=== PATIENT | female | born 1985 | race Caucasian/White ===

== ENCOUNTER 2020-09-09 14:36 | Outpatient (REF) | payer OTHER, SELFPAY | END 2020-09-09 14:37 | disposition home or self-care (01) | LOC: HO.MRI 14:36 | PROVIDERS: Visit Provider Internal Medicine | DX: Z13.89 Encounter for screening for other disorder (principal) ==

== ENCOUNTER 2020-09-26 14:06 | Outpatient (REF) | payer OTHER, SELFPAY ==
[2020-09-26 14:50] LABS: Blood Urea Nitrogen 15 mg/dL (9-16); Estimated Glomerular Filt Rate > 60
== END 2020-09-26 14:07 | disposition home or self-care (01) ==
LOC: HO.MRI 14:06
PROVIDERS: Visit Provider Internal Medicine
DX: K76.0 Fatty (change of) liver, not elsewhere classified (principal)
CPT/HCPCS: 36415; 82565; 84520

== ENCOUNTER 2020-10-03 13:35 | Emergency (ER) | payer OTHER, SELFPAY ==
[2020-10-03 13:54] VITALS: BP 115/65; RESP 16; TEMP 36.9; O2SAT 94; BMI 34.9
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
== END 2020-10-03 15:46 | disposition home or self-care (01) ==
PROVIDERS: Emergency Provider Emergency Medicine; PCP Internal Medicine
DX: S13.4XXA Sprain of ligaments of cervical spine, initial encounter (principal); S06.0X0A Concussion without loss of consciousness, initial encounter; V43.52XA Car driver injured in collision with other type car in traffic accident, initial encounter; E11.9 Type 2 diabetes mellitus without complications; Y93.89 Activity, other specified; Y92.414 Local residential or business street as the place of occurrence of the external cause; Y99.9 Unspecified external cause status
CPT/HCPCS: 70450; 71046; 72125; 99283; 99284

== ENCOUNTER 2021-01-04 23:01 | Emergency (ER) | payer OTHER, SELFPAY ==
[2021-01-04 23:25] VITALS: BP 115/71; PULSE 86; RESP 16; TEMP 36.6; O2SAT 97; BMI 33.3
--- NOTE | 2021-01-04 23:46 | ED_ITS ---
HPI - General Adult General Chief complaint: Dental/Oral Stated complaint: dental pain Time Seen by Provider: 01/04/21 23:10 Source: patient Mode of arrival: ambulatory Limitations: no limitations History of Present Illness HPI narrative: 35-year-old female who presents emergency department for evaluation of dental pain. She states she has been having pain in 1 upper tooth 1 bottom to and her bottom wisdom tooth x1 week. The patient saw her PCP on 01/02/2020 and was prescribed amoxicillin, ibuprofen 800 mg b.i.d. and Tylenol with codeine 3. She states that the pain was initially a constant, cramping sensation in both her upper and lower jaw but since starting the prescribed medications the pain has been intermittent. She describes the pain as a cramping sensation in both her left upper and lower jaw which is moderate to severe intensity to the point where she is unable to sleep. She denied any facial swelling. She denied fever or chills. She denied difficulty opening or closing her jaw. She denied difficulty swallowing. She states she is scheduled to see a dentist on 01/07/2021. Related Data Previous Rx's Medication Instructions Recorded cyclobenzaprine 10 mg PO TID PRN #12 tab 10/03/20 ibuprofen 600 mg PO Q8H PRN #20 tab 10/03/20 lidocaine [Lidoderm] 1 patch TOPICAL DAILY #15 ea 10/03/20 morphine 15 mg PO Q4-6H PRN #10 tab 01/04/21 Allergies Allergy/AdvReac Type Severity Reaction Status Date / Time No Known Allergies Allergy Verified 10/03/20 14:01 Review of Systems Review of Systems: Yes all other systems are reviewed and are negative [facility] Past Medical History [facility] Narrative: Patient has a history of diabetes mellitus, she denies tobacco use, she states she drinks alcohol every other weekend, she denies drug use. Medical History Diabetes mellitus, type 2 Social History Social History Advance Directives: No Advance Directives Information Provided: No Physical Exam Vital Signs: Vital Signs: Last Vital Signs Temp 97.8 F 01/04/21 23:25 Pulse 86 01/04/21 23:25 Resp 16 01/04/21 23:25 BP 115/71 01/04/21 23:25 Pulse Ox 97 05/01/21 23:25 Body Mass Index 33.3 Const: General: cooperative and healthy appearing Orientation/consciousne ss: oriented to person and oriented to place Limitations: no limitations HENMT: Other: The patient's dentition appears to be normal, she does have some tenderness with palpation over the left lower wisdom to but no other tenderness with palpation of her other teeth, there is no gingival swelling, there is no unusual/abnormal facial swelling. She does have tenderness with palpation of her left lower mandible Head: Yes normal to inspection, Yes normocephalic and Yes atraumatic Ears: hearing grossly normal bilaterally, external ears normal and TM's normal bilaterally General nose exam: Normal external nose present Face and sinus: Yes normal facial exam Mouth: Normal oral and palatal mucosa present Eyes: General: appearance normal, both eyes and all related structures Periorbital: periorbital findings normal Eyelids: Yes eyelids normal Conjunctivae: conjunctivae normal Sclerae: sclerae normal Pupils: Equal, round and reactive pupils present Neck: Neck: Yes normal visual inspection, Yes full ROM, Yes no lymphadenopathy and Yes trachea midline Resp: Effort & Inspection: normal respiratory effort Neuro: General: oriented to person and oriented to place Cranial nerves: Yes Equal, round and reactive pupils present Cognition (Neuro): normal cognition Psych: Appearance: grossly normal Mental Status: mental status grossly normal Speech and movement: Normal speech and movement present Affect: normal affect Attitude: cooperative Course Course Course Narrative: 35-year-old female who presents emergency department for evaluation of left sided dental pain both her left upper and lower jaw. Physical examination revealed normal vital signs. The patient did have tenderness with palpation of her lower mandible and tenderness with palpation of her left lower wisdom tooth but no other tenderness with palpation of her teeth, her teeth appear to be grossly normal with no gingival swelling and no facial swelling. I discussed the treatment of dental pain with the patient. I advised her to complete her amoxicillin prescription as prescribed by her doctor. She was advised to stop taking the Tylenol with codeine and ibuprofen 800 mg tablets twice a day. She was advised to take ibuprofen 600 mg every 6 hours, extra-strength Tylenol 500 mg, 2 pills every 6 hours and she was prescribed morphine 15 mg every 4 hours as needed for pain. The patient is aware that morphine is in addicting medication and she states she is not concerned about addiction, she states she does not get frequent prescriptions for narcotic medications. She was advised to keep her appointment with her dentist. [facility] search revealed a prescription for Tylenol with codeine 3 and lorazepam over a 1 year search interval. Discharge Plan Discharge Clinical Impression: Pain, dental Patient Disposition: Home, Self-Care Instructions: Toothache (ED) Additional Instructions: Finish your amoxicillin as prescribed by your doctor. Stop taking the ibuprofen 800 mg tablets and the Tylenol with codeine tablets. Take ibuprofen 200 mg pills, 3 pills every 6 hours as needed for pain. Take Tylenol (acetaminophen) 500 mg pills, 2 pills every 4 hours as needed for pain. For pain not relieved by ibuprofen and Tylenol, take morphine 15 mg every 4-6 hours. This medication will make you sleepy, do not work or drive while taking this medication. This medication can be addicting, do not get this prescription filled if your concerned about addiction. You can also ask the pharmacist to give you less pills and prescribed if your concerned about addiction. Follow-up with your dentist as scheduled in 3 days. Please return to the emergency department if your symptoms get worse or if you develop any symptoms that are concerning to you. Prescriptions: New morphine 15 mg tablet 15 mg PO Q4-6H PRN (Reason: pain) Qty: 10 RF: 0 No Action cyclobenzaprine 10 mg tablet 10 mg PO TID PRN (Reason: muscle spasm) Qty: 12 RF: 0 ibuprofen 600 mg tablet 600 mg PO Q8H PRN (Reason: pain) Qty: 20 RF: 0 lidocaine [Lidoderm] 5 % adhesive patch,medicated 1 patch topical DAILY Qty: 15 RF: 0
== END 2021-01-05 00:12 | disposition home or self-care (01) ==
PROVIDERS: Emergency Provider Emergency Medicine Emergency Medical Services; PCP Internal Medicine
DX: K08.89 Other specified disorders of teeth and supporting structures (principal); Z79.899 Other long term (current) drug therapy
CPT/HCPCS: 99283

== ENCOUNTER 2021-04-07 10:38 | Emergency (ER) | payer OTHER, SELFPAY ==
--- NOTE | ~2021-04-07 | XR_ITS ---
EXAMINATION: XR CHEST CLINICAL INFORMATION: Chest pain. COMPARISON: Chest radiographs dated 10/03/2020. TECHNIQUE: Frontal view of the chest was obtained. FINDINGS: No significant abnormality is noted involving the heart, lungs, mediastinum, bony thorax or soft tissues. XR/XR chest 1V IMPRESSION: Unremarkable examination.
[2021-04-07 11:32] VITALS: BP 116/75; PULSE 65; RESP 18; TEMP 36.6; O2SAT 98; BMI 33.4
--- NOTE | 2021-04-07 13:20 | ED.GENADULT ---
HPI - General Adult General Chief complaint: General Medical Stated complaint: throat pain Time Seen by Provider: 04/07/21 13:19 Source: patient Mode of arrival: ambulatory Limitations: no limitations History of Present Illness MD complaint: dental pain, chest pain Onset (ago): month(s) (dental pain for 3 months on abx plan with outpatient surgery, R sided sharp chest pain since yesterday hurts to touch it) Location: mouth and chest Radiation: non-radiation Severity: moderate Quality: stabbing Pain Consistency: constant Relieving factors: none Exacerbating factors: movement Associated symptoms: other (chronic dental pain) Treatments prior to arrival: other (abx) Related Data Previous Rx's Medication Instructions Recorded cyclobenzaprine 10 mg tablet 10 mg PO TID PRN #12 tab 10/03/20 ibuprofen 600 mg tablet 600 mg PO Q8H PRN #20 tab 10/03/20 lidocaine 5 % topical patch 1 patch TOPICAL DAILY #15 ea 10/03/20 (Lidoderm) morphine 15 mg immediate release 15 mg PO Q4-6H PRN #10 tab 01/04/21 tablet cyclobenzaprine 10 mg tablet 10 mg PO TID PRN #14 tab 04/07/21 Allergies Allergy/AdvReac Type Severity Reaction Status Date / Time No Known Allergies Allergy Verified 10/03/20 14:01 Review of Systems Review of Systems: Constitutional : No Weight loss, No Fever, No Chills ENT/Mouth : No sore throat, No Rhinorrhea, pos dental pain Eyes: No Eye Pain, No Swelling Cardiovascular : pos Chest Pain, no SOB, no Dyspnea on Exertion, No Orthopnea, No Edema, No Palpitations Respiratory : No Cough, No Sputum Gastrointestinal : no Nausea, No Vomiting, No Diarrhea, No abdominal Pain, No Hematochezia, No Melena Genitourinary : No Dysuria, No Urinary Frequency Musculoskeletal : No joint pain, No Myalgias, No Joint Swelling Skin : No Skin Lesions, No rash Neuro : No Weakness, No Numbness, No Dizziness, No Headache Psych : No Anxiety/Panic, No Depression Heme/Lymph: No Bruising, No Lymphadenopathy Endocrine : No Polyuria, No Polydipsia All other systems reviewed and are negative PMFSH Past Medical History Attestation statement: The following information was validated with the patient. Medical History (Updated 04/07/21 @ 14:54 by Joyce Rodriguez DO) Chronic dental pain Diabetes mellitus, type 2 Social History Social History (Updated 04/07/21 @ 13:40 by Joyce Rodriguez DO) Patient Tobacco Use Status: Never used Tobacco Advance Directives: No Advance Directives Information Provided: No Patient : No Physical Exam Vital Signs: Vital Signs: Last Vital Signs Temp 97.9 F 04/07/21 14:28 Pulse 59 04/07/21 14:28 Resp 18 04/07/21 14:28 BP 122/63 04/07/21 14:28 Pulse Ox 98 04/07/21 14:28 Body Mass Index 33.4 Appearance: Alert. Oriented X3. No acute distress. Eyes: Pupils equal, round and reactive to light. ENT: Pharynx normal. L lower wisdom tooth is impacted no abscess noted, ttp along gingiva Neck: Normal inspection. Neck supple. CVS: Normal heart rate and rhythm. Pulses normal. Chest: ttp along R chest wall Respiratory: No respiratory distress. Breath sounds normal. Abdomen: Soft and nontender. Skin: Skin warm and dry. Normal skin color. Normal skin turgor. Extremities: No lower extremity edema. No calf ttp Neuro: Oriented X 3. No motor deficit. No sensory deficit. Course Course Course Narrative: not toxic, labs stable, patient requesting to leave Medical Decision Making [facility] Narrative Medical decision making narrative: 36 yo female chronic dental pain on abx now no signs of abscess or deeper space infection at this time, c/o reproduceable R sided CWP PERC negative, atypical for ACS, EKG, trop x 1, CXR - if negative stable for DC home Lab Data Result diagrams: 04/07/21 13:59 04/07/21 13:59 Labs: Lab Results 04/07/21 04/07/21 04/07/21 Range/Units 13:53 13:59 13:59 WBC 6.2 (4.8-10.8) X10*3/uL RBC 4.52 (4.20-5.50) X10*6/uL Hgb 14.1 (12.0-16.0) g/dl Hct 41.3 (37-47) % MCV 91.4 (80-98) fL MCH 31.2 (27.0-33.0) pg MCHC 34.1 (31.0-35.0) g/dl RDW 11.7 (11.0-16.0) % Plt Count 319 (160-400) X10*3/uL MPV 9.4 (9.4-12.3) fL Immature Gran % (Auto) 0.5 H (0.0-0.4) % Neut % (Auto) 57.2 (45-73) % Lymph % (Auto) 31.6 (20-40) % [place] % (Auto) 7.9 (2-11) % Eos % (Auto) 2.3 (0-4) % Baso % (Auto) 0.5 (0-2) % Lymph # (Auto) 2.0 (1.2-4.9) X10*3/uL [place] # (Auto) 0.5 (0.1-1.2) X10*3/uL Eos # (Auto) 0.1 (0.0-0.4) X10*3/uL Baso # (Auto) 0.0 (0.0-0.2) X10*3/uL Abs Immat Gran (auto) 0.03 (0.00-0.03) X10*3/uL Absolute Neuts (auto) 3.6 (2.0-8.3) X10*3/uL Absolute Nucleated RBC 0.000 (0.0-0.012) X10*3/uL Nucleated RBC % (auto) 0.0 (0.0-0.2) /100WBC Sodium 138 (135-145) mmol/L Potassium 4.4 (3.3-5.1) mmol/L Chloride 104 (96-108) mmol/L Carbon Dioxide 27 (22-29) mmol/L Anion Gap 11 L (12-20) BUN 13 (9-16) mg/dL Creatinine 0.79 (0.5-1.4) mg/dL Estim Creat Clear Calc 111.9 Estimated GFR > 60 Random Glucose 221 H (60-115) mg/dL Calcium 9.3 (8.4-10.2) mg/dL Troponin I High Sens (<3.5-17.0) ng/L COVID-19 (EVE) Negative (Negative) COVID-19 Clin Com See Note 04/07/21 Range/Units 13:59 WBC (4.8-10.8) X10*3/uL RBC (4.20-5.50) X10*6/uL Hgb (12.0-16.0) g/dl Hct (37-47) % MCV (80-98) fL MCH (27.0-33.0) pg MCHC (31.0-35.0) g/dl RDW (11.0-16.0) % Plt Count (160-400) X10*3/uL MPV (9.4-12.3) fL Immature Gran % (Auto) (0.0-0.4) % Neut % (Auto) (45-73) % Lymph % (Auto) (20-40) % [place] % (Auto) (2-11) % Eos % (Auto) (0-4) % Baso % (Auto) (0-2) % Lymph # (Auto) (1.2-4.9) X10*3/uL [place] # (Auto) (0.1-1.2) X10*3/uL Eos # (Auto) (0.0-0.4) X10*3/uL Baso # (Auto) (0.0-0.2) X10*3/uL Abs Immat Gran (auto) (0.00-0.03) X10*3/uL Absolute Neuts (auto) (2.0-8.3) X10*3/uL Absolute Nucleated RBC (0.0-0.012) X10*3/uL Nucleated RBC % (auto) (0.0-0.2) /100WBC Sodium (135-145) mmol/L Potassium (3.3-5.1) mmol/L Chloride (96-108) mmol/L Carbon Dioxide (22-29) mmol/L Anion Gap (12-20) BUN (9-16) mg/dL Creatinine (0.5-1.4) mg/dL Estim Creat Clear Calc Estimated GFR Random Glucose (60-115) mg/dL Calcium (8.4-10.2) mg/dL Troponin I High Sens < 3.5 (<3.5-17.0) ng/L COVID-19 (EVE) (Negative) COVID-19 Clin Com ECG Data Attestation: I personally reviewed and interpreted this ECG as follows: Interpretation: Rate: 55 Rhythm: sinus bradycardia [place]: normal Normal P waves. Normal RAHUL. Normal QRS complex. ST T wave : normal no GE qTC: normal prior studies: no acute ischemia The study has been interpreted contemporaneously by me. . Discharge Plan Discharge Clinical Impression: Chronic dental pain Chest pain Qualifiers: Chest pain type: unspecified Qualified Code(s): R07.9 - Chest pain, unspecified Patient Disposition: Home, Self-Care Instructions: Chest Pain (ED) Additional Instructions: return to ED for any worsening symptoms or concerns Prescriptions: New cyclobenzaprine 10 mg tablet 10 mg PO TID PRN (Reason: muscle spasm) Qty: 14 RF: 0 No Action morphine 15 mg tablet 15 mg PO Q4-6H PRN (Reason: pain) Qty: 10 RF: 0 cyclobenzaprine 10 mg tablet 10 mg PO TID PRN (Reason: muscle spasm) Qty: 12 RF: 0 ibuprofen 600 mg tablet 600 mg PO Q8H PRN (Reason: pain) Qty: 20 RF: 0 lidocaine [Lidoderm] 5 % adhesive patch,medicated 1 patch topical DAILY Qty: 15 RF: 0 Referrals: James Larson MD [Primary Care Provider] - 2 days (if not better) Stand Alone Forms: Work/School Release
--- NOTE | 2021-04-07 13:29 | ECG_ITS ---
Test Reason : CHEST PAIN Blood Pressure : / mmHG Vent. Rate : 055 BPM Atrial Rate : 055 BPM P-R Int : 154 ms QRS Dur : 088 ms QT Int : 456 ms P-R-T Axes : 041 -09 034 degrees QTc Int : 436 ms Sinus bradycardia with sinus arrhythmia Otherwise normal ECG No previous ECGs available Referred By: Joyce Rodriguez Electronically Signed By:Luis Cabrera
[2021-04-07 14:04] LABS: MANUAL DIFF FLAG NO
[2021-04-07 14:05] LABS: Basophils Percent Auto 0.5 % (0-2); Eosinophils Absolute Auto 0.1 X10*3/uL (0.0-0.4); Eosinophils Percent Auto 2.3 % (0-4); Hematocrit 41.3 % (37-47); Hemoglobin 14.1 g/dl (12.0-16.0); Imm Gran Abs Auto 0.03 X10*3/uL (0.00-0.03); Imm Gran Pct Auto 0.5 % (0.0-0.4); Lymphocytes Percent Auto 31.6 % (20-40); Mean Corpuscular HGB Conc 34.1 g/dl (31.0-35.0); Mean Corpuscular Hemoglobin 31.2 pg (27.0-33.0); Mean Corpuscular Volume 91.4 fL (80-98); Mean Platelet Volume 9.4 fL (9.4-12.3); Monocytes Absolute Auto 0.5 X10*3/uL (0.1-1.2); Monocytes Percent Auto 7.9 % (2-11); Neutrophils Absolute Auto 3.6 X10*3/uL (2.0-8.3); Neutrophils Percent Auto 57.2 % (45-73); Platelet Count 319 X10*3/uL (160-400); Red Blood Count 4.52 X10*6/uL (4.20-5.50); Red Cell Distribution Width 11.7 % (11.0-16.0); White Blood Count 6.2 X10*3/uL (4.8-10.8)
[2021-04-07] MEDS: 0.9 % Sodium Chloride 1,000 ML 999 ML IVCONT (14:10)
[2021-04-07 14:15] LABS: COVID-19 Test Negative (Negative); IDNOW Serial# 08D9AD1C
[2021-04-07 14:28] VITALS: BP 122/63; PULSE 59; RESP 18; TEMP 36.6; O2SAT 98
[2021-04-07 14:35] LABS: Anion Gap 11 (12-20); Blood Urea Nitrogen 13 mg/dL (9-16); Calcium 9.3 mg/dL (8.4-10.2); Carbon Dioxide 27 mmol/L (22-29); Chloride 104 mmol/L (96-108); Creatinine Clr Calc Pharmacy 111.9; Estimated Glomerular Filt Rate > 60; Glucose Random 221 mg/dL (60-115); Potassium 4.4 mmol/L (3.3-5.1); Sodium 138 mmol/L (135-145)
[2021-04-07 14:42] LABS: Troponin-I High Sensitivity < 3.5 ng/L (<3.5-17.0)
== END 2021-04-07 15:10 | disposition home or self-care (01) ==
PROVIDERS: Emergency Provider Emergency Medicine; PCP Internal Medicine
DX: K08.89 Other specified disorders of teeth and supporting structures (principal); R07.9 Chest pain, unspecified; Z20.822 Contact with and (suspected) exposure to COVID-19; R00.1 Bradycardia, unspecified; J02.9 Acute pharyngitis, unspecified; E11.9 Type 2 diabetes mellitus without complications
CPT/HCPCS: 36415; 71045; 80048; 84484; 85025; 87635; 93005; 96360; 99284

== ENCOUNTER 2021-05-18 17:31 | Emergency (ER) | payer OTHER, SELFPAY ==
--- NOTE | 2021-05-18 17:37 | ECG_ITS ---
Test Reason : CHEST PAIN Blood Pressure : / mmHG Vent. Rate : 087 BPM Atrial Rate : 087 BPM P-R Int : 154 ms QRS Dur : 090 ms QT Int : 392 ms P-R-T Axes : 045 -12 027 degrees QTc Int : 471 ms Normal sinus rhythm with sinus arrhythmia Nonspecific T wave abnormality Abnormal ECG When compared with ECG of 07-APR-2021 14:54, Vent. rate has increased BY 32 BPM Nonspecific T wave abnormality now evident in Anterior leads Referred By: Generic ED Physician Electronically Signed By:ROSA MENEZES
[2021-05-18 22:04] LABS: Glucose, Whole Blood 217 mg/dL (60-115)
--- NOTE | 2021-05-18 23:49 | ED_ITS ---
HPI - Chest Pain General Chief Complaint: General Medical Stated Complaint: Chest pain/HBS Time Seen by Provider: 05/18/21 23:47 Source: patient Mode of arrival: ambulatory History of Present Illness HPI narrative: 36-year-old female with history of diabetes, currently deciding not to take her medications, or who presents with 1 year of intermittent chest wall pain that is located primarily on the right side, exacerbated by deep inspiration and reproducible. This is not been associated with any fever, chills, shortness of breath, diaphoresis, dizziness or headache. Patient is currently being worked up for a stress test in 1 month. Related Data Previous Rx's Medication Instructions Recorded cyclobenzaprine 10 mg tablet 10 mg PO TID PRN #12 tab 10/03/20 ibuprofen 600 mg tablet 600 mg PO Q8H PRN #20 tab 10/03/20 lidocaine 5 % topical patch 1 patch TOPICAL DAILY #15 ea 10/03/20 (Lidoderm) morphine 15 mg immediate release 15 mg PO Q4-6H PRN #10 tab 01/04/21 tablet cyclobenzaprine 10 mg tablet 10 mg PO TID PRN #14 tab 04/07/21 Allergies Allergy/AdvReac Type Severity Reaction Status Date / Time No Known Allergies Allergy Verified 10/03/20 14:01 Review of Systems Review of Systems: Pertinent positives and negatives as stated in HPI 10 point review systems is otherwise negative. PMFSH Past Medical History Source: nursing notes reviewed Medical History Chronic dental pain Diabetes mellitus, type 2 Social History Social History Patient Tobacco Use Status: Never used Tobacco Advance Directives: No Advance Directives Information Provided: No Patient : No Physical Exam Vital Signs: Vital Signs: VITAL SIGNS: Reviewed. GENERAL: Well developed, well nourished, in no acute distress. HEAD: Normocephalic/atraumatic EYES: PERRLA, EOMI LUNGS: Normal breath sounds. No adventitious sounds or accessory muscle use. SpO2<98> CARDIOVASCULAR: Regular rate and rhythm without noted murmurs ABDOMEN: Soft, non-tender, non-distended with bowel sounds. MUSCULOSKELETAL: No tenderness, deformities, or effusions noted on gross inspection. EXTREMITIES: No cyanosis, clubbing or edema. NEUROLOGIC: Alert and oriented x 4. Course Course Course Narrative: 36-year-old female with history and clinical presentation suggestive of a costochondritis and low clinical suspicion for cardiac/p ulmonary/gallbladder etiology. Patient with poor compliance a her diabetic medication. She was strongly encouraged to follow-up with her primary care provider and discuss alternative medications for which she can have better compliance. Review of all investigations negative for acute findings to suggest infection, anemia, arrhythmia and high sensitivity troponin is once again undetectable. Patient discharged with instructions to follow-up with her primary care provider in the morning. MDM - Chest Pain Lab Data Result diagrams: 05/19/21 00:08 05/19/21 00:08 Labs: Lab Results 05/18/21 05/19/21 05/19/21 Range/Units 21:59 00:08 00:08 WBC 6.4 (4.8-10.8) X10*3/uL RBC 4.51 (4.20-5.50) X10*6/uL Hgb 14.1 (12.0-16.0) g/dl Hct 40.9 (37-47) % MCV 90.7 (80-98) fL MCH 31.3 (27.0-33.0) pg MCHC 34.5 (31.0-35.0) g/dl RDW 11.8 (11.0-16.0) % Plt Count 336 (160-400) X10*3/uL MPV 9.5 (9.4-12.3) fL Immature Gran % (Auto) 0.2 (0.0-0.4) % Neut % (Auto) 55.7 (45-73) % Lymph % (Auto) 34.3 (20-40) % [place] % (Auto) 7.2 (2-11) % Eos % (Auto) 2.4 (0-4) % Baso % (Auto) 0.2 (0-2) % Lymph # (Auto) 2.2 (1.2-4.9) X10*3/uL [place] # (Auto) 0.5 (0.1-1.2) X10*3/uL Eos # (Auto) 0.2 (0.0-0.4) X10*3/uL Baso # (Auto) 0.0 (0.0-0.2) X10*3/uL Abs Immat Gran (auto) 0.01 (0.00-0.03) X10*3/uL Absolute Neuts (auto) 3.6 (2.0-8.3) X10*3/uL Absolute Nucleated RBC 0.000 (0.0-0.012) X10*3/uL Nucleated RBC % (auto) 0.0 (0.0-0.2) /100WBC Sodium 139 (135-145) mmol/L Potassium 3.9 (3.3-5.1) mmol/L Chloride 103 (96-108) mmol/L Carbon Dioxide 27 (22-29) mmol/L Anion Gap 13 (12-20) BUN 11 (9-16) mg/dL Creatinine 0.81 (0.5-1.4) mg/dL Estim Creat Clear Calc TNP Estimated GFR > 60 POC Glucose 217 H (60-115) mg/dL Random Glucose 165 H (60-115) mg/dL Calcium 10.0 D (8.4-10.2) mg/dL Total Bilirubin 0.4 (0.0-1.0) mg/dL AST 21 (5-31) U/L ALT 36 H (0-31) U/L Alkaline Phosphatase 77 (39-117) U/L Troponin I High Sens (<3.5-17.0) ng/L Total Protein 7.4 (6.5-8.0) g/dL Albumin 4.6 (3.5-5.0) g/dL 05/19/21 Range/Units 00:08 WBC (4.8-10.8) X10*3/uL RBC (4.20-5.50) X10*6/uL Hgb (12.0-16.0) g/dl Hct (37-47) % MCV (80-98) fL MCH (27.0-33.0) pg MCHC (31.0-35.0) g/dl RDW (11.0-16.0) % Plt Count (160-400) X10*3/uL MPV (9.4-12.3) fL Immature Gran % (Auto) (0.0-0.4) % Neut % (Auto) (45-73) % Lymph % (Auto) (20-40) % [place] % (Auto) (2-11) % Eos % (Auto) (0-4) % Baso % (Auto) (0-2) % Lymph # (Auto) (1.2-4.9) X10*3/uL [place] # (Auto) (0.1-1.2) X10*3/uL Eos # (Auto) (0.0-0.4) X10*3/uL Baso # (Auto) (0.0-0.2) X10*3/uL Abs Immat Gran (auto) (0.00-0.03) X10*3/uL Absolute Neuts (auto) (2.0-8.3) X10*3/uL Absolute Nucleated RBC (0.0-0.012) X10*3/uL Nucleated RBC % (auto) (0.0-0.2) /100WBC Sodium (135-145) mmol/L Potassium (3.3-5.1) mmol/L Chloride (96-108) mmol/L Carbon Dioxide (22-29) mmol/L Anion Gap (12-20) BUN (9-16) mg/dL Creatinine (0.5-1.4) mg/dL Estim Creat Clear Calc Estimated GFR POC Glucose (60-115) mg/dL Random Glucose (60-115) mg/dL Calcium (8.4-10.2) mg/dL Total Bilirubin (0.0-1.0) mg/dL AST (5-31) U/L ALT (0-31) U/L Alkaline Phosphatase (39-117) U/L Troponin I High Sens < 3.5 (<3.5-17.0) ng/L Total Protein (6.5-8.0) g/dL Albumin (3.5-5.0) g/dL Discharge Plan Discharge Clinical Impression: Atypical chest pain, Acute costochondritis, Diabetes Patient Disposition: Home, Self-Care Instructions: Costochondritis (ED) Additional Instructions: 1. Resume all medications as prescribed, recommend following up with your primary care provider to discuss further your medication for diabetes. 2. Return to the ER for acute worsening of pains and may consider treating your discomfort with [id number] Tylenol/ibuprofen. Prescriptions: No Action morphine 15 mg tablet 15 mg PO Q4-6H PRN (Reason: pain) Qty: 10 RF: 0 cyclobenzaprine 10 mg tablet 10 mg PO TID PRN (Reason: muscle spasm) Qty: 14 RF: 0 cyclobenzaprine 10 mg tablet 10 mg PO TID PRN (Reason: muscle spasm) Qty: 12 RF: 0 ibuprofen 600 mg tablet 600 mg PO Q8H PRN (Reason: pain) Qty: 20 RF: 0 lidocaine [Lidoderm] 5 % adhesive patch,medicated 1 patch topical DAILY Qty: 15 RF: 0 Referrals: James Larson MD [Primary Care Provider] - 2 days (Re-evaluation after patient seen in the ER for 1 year of intermittent right anterior chest wall pain)
[2021-05-19 00:13] LABS: MANUAL DIFF FLAG NO
[2021-05-19 00:15] LABS: Basophils Percent Auto 0.2 % (0-2); Eosinophils Absolute Auto 0.2 X10*3/uL (0.0-0.4); Eosinophils Percent Auto 2.4 % (0-4); Hematocrit 40.9 % (37-47); Hemoglobin 14.1 g/dl (12.0-16.0); Imm Gran Abs Auto 0.01 X10*3/uL (0.00-0.03); Imm Gran Pct Auto 0.2 % (0.0-0.4); Lymphocytes Absolute Auto 2.2 X10*3/uL (1.2-4.9); Lymphocytes Percent Auto 34.3 % (20-40); Mean Corpuscular HGB Conc 34.5 g/dl (31.0-35.0); Mean Corpuscular Hemoglobin 31.3 pg (27.0-33.0); Mean Corpuscular Volume 90.7 fL (80-98); Mean Platelet Volume 9.5 fL (9.4-12.3); Monocytes Absolute Auto 0.5 X10*3/uL (0.1-1.2); Monocytes Percent Auto 7.2 % (2-11); Neutrophils Absolute Auto 3.6 X10*3/uL (2.0-8.3); Neutrophils Percent Auto 55.7 % (45-73); Platelet Count 336 X10*3/uL (160-400); Red Blood Count 4.51 X10*6/uL (4.20-5.50); Red Cell Distribution Width 11.8 % (11.0-16.0); White Blood Count 6.4 X10*3/uL (4.8-10.8)
[2021-05-19 00:34] LABS: Alanine Aminotransferase 36 U/L (0-31); Albumin Level 4.6 g/dL (3.5-5.0); Alkaline Phosphatase 77 U/L (39-117); Anion Gap 13 (12-20); Aspartate Amino Transferase 21 U/L (5-31); Bilirubin Total 0.4 mg/dL (0.0-1.0); Blood Urea Nitrogen 11 mg/dL (9-16); Carbon Dioxide 27 mmol/L (22-29); Chloride 103 mmol/L (96-108); Estimated Glomerular Filt Rate > 60; Glucose Random 165 mg/dL (60-115); Potassium 3.9 mmol/L (3.3-5.1); Sodium 139 mmol/L (135-145); Total Protein 7.4 g/dL (6.5-8.0)
[2021-05-19 00:37] LABS: Troponin-I High Sensitivity < 3.5 ng/L (<3.5-17.0)
[2021-05-19] MEDS: Acetaminophen 325 MG TABLET 975 MG PO (00:46)
[2021-05-19] MEDS: Ibuprofen 400 MG TABLET PO (00:46)
[2021-05-19 01:08] VITALS: BP 116/75; PULSE 74; RESP 19; TEMP 36.9; O2SAT 98; BMI 33.0
== END 2021-05-19 01:33 | disposition home or self-care (01) ==
PROVIDERS: Emergency Provider Student in an Organized Health Care Education/Training Program; PCP Internal Medicine
DX: R07.9 Chest pain, unspecified (principal); M94.0 Chondrocostal junction syndrome [Tietze]; E11.9 Type 2 diabetes mellitus without complications; Z79.899 Other long term (current) drug therapy
CPT/HCPCS: 36415; 80053; 82947; 84484; 85025; 93005; 99283

== ENCOUNTER 2023-04-01 14:24 | Outpatient (REF) | payer OTHER, SELFPAY ==
[2023-04-01 15:52] LABS: Influenza A PCR NEGATIVE (Negative); Influenza B PCR NEGATIVE (Negative); Resp Syncy Virus RNA Qual PCR NEGATIVE (Negative); SARS COV2 PCR INHOUSE NEGATIVE (Negative)
== END 2023-04-01 14:25 | disposition home or self-care (01) ==
LOC: HO.HHCLNP 14:24
PROVIDERS: Visit Provider Emergency Medicine
DX: R19.7 Diarrhea, unspecified (principal); Z20.822 Contact with and (suspected) exposure to COVID-19
CPT/HCPCS: 0241U

== ENCOUNTER 2023-04-08 15:23 | Outpatient (REF) | payer OTHER, SELFPAY ==
[2023-04-08 17:53] LABS: MANUAL DIFF FLAG NO
[2023-04-08 18:29] LABS: Basophils Percent Auto 0.3 % (0-2); Eosinophils Absolute Auto 0.2 X10*3/uL (0.0-0.4); Eosinophils Percent Auto 2.1 % (0-4); Hematocrit 42.9 % (37.0-47.0); Hemoglobin 14.6 g/dl (12.0-16.0); Imm Gran Abs Auto 0.01 X10*3/uL (0.00-0.03); Imm Gran Pct Auto 0.1 % (0.0-0.4); Lymphocytes Percent Auto 27.2 % (20-40); Mean Corpuscular Hemoglobin 31.9 pg (27.0-33.0); Mean Corpuscular Volume 93.7 fL (80.0-98.0); Mean Platelet Volume 9.8 fL (9.4-12.3); Monocytes Absolute Auto 0.5 X10*3/uL (0.1-1.2); Monocytes Percent Auto 7.1 % (2-11); Neutrophils Absolute Auto 4.5 x10*3/uL (2.0-8.3); Neutrophils Percent Auto 63.2 % (45-73); Platelet Count 364 X10*3/uL (160-400); Red Blood Count 4.58 X10*6/uL (4.20-5.50); Red Cell Distribution Width 11.9 % (11.0-16.0); White Blood Count 7.2 X10*3/uL (4.8-10.8)
[2023-04-08 18:31] LABS: Alanine Aminotransferase 32 U/L (0-31); Albumin Level 4.3 g/dL (3.5-5.0); Alkaline Phosphatase 86 U/L (39-117); Anion Gap 15 (12-20); Aspartate Amino Transferase 20 U/L (5-31); Bilirubin Total 0.6 mg/dL (0.0-1.0); Blood Urea Nitrogen 16 mg/dL (9-16); Calcium 9.8 mg/dL (8.4-10.2); Carbon Dioxide 25 mmol/L (22-29); Chloride 104 mmol/L (96-108); Estimated Glomerular Filt Rate > 60; Glucose Random 141 mg/dL (60-115); Lipase 22 U/L (8-78); Potassium 3.6 mmol/L (3.3-5.1); Sodium 140 mmol/L (135-145); Total Protein 7.6 g/dL (6.5-8.0)
[2023-04-08 19:46] LABS: Amylase 52 U/L (28-100)
== END 2023-04-08 15:24 | disposition home or self-care (01) ==
LOC: HO.CHCLDS 15:23
PROVIDERS: Visit Provider Emergency Medicine
DX: R19.7 Diarrhea, unspecified (principal)
CPT/HCPCS: 36415; 80053; 82150; 83690; 85025

== ENCOUNTER 2023-04-28 10:46 | Outpatient (REF) | payer OTHER, SELFPAY ==
--- NOTE | ~2023-04-28 | US_ITS ---
EXAMINATION: US ABDOMEN LIMITED CLINICAL INFORMATION: Diarrhea, right upper quadrant pain. COMPARISON: Ultrasound abdomen complete 04/26/2020. TECHNIQUE: Real-time imaging of the right upper quadrant abdominal viscera. FINDINGS: PANCREAS: Normal. LIVER: The liver is normal in size. The liver contour is normal. There is slightly increased liver parenchymal echogenicity, consistent with hepatic steatosis. No focal hepatic lesion. There is no intrahepatic biliary duct dilatation seen. GALLBLADDER: Normal. The gallbladder is physiologically distended without evidence of stones, sludge, polyps, wall thickening or pericholecystic fluid. COMMON BILE DUCT: Normal in caliber measuring 0.4 cm in diameter. RIGHT KIDNEY: Normal. No hydronephrosis. No renal calculi or focal parenchymal lesions. The kidney measures 10.4 cm in maximum dimension. FREE FLUID: None. US/US abdomen limited IMPRESSION: There is mild generalized increase in hepatic echotexture, consistent with fatty infiltration or hepatocellular disease. Please correlate clinically. No focal hepatic mass or intrahepatic biliary dilatation is seen.
== END 2023-04-28 10:47 | disposition home or self-care (01) ==
LOC: HO.HMGCX 10:46
PROVIDERS: PCP Internal Medicine; Visit Provider Emergency Medicine
DX: R19.7 Diarrhea, unspecified (principal); R10.11 Right upper quadrant pain
CPT/HCPCS: 76705

== ENCOUNTER 2023-10-12 16:07 | Outpatient (REF) | payer OTHER, SELFPAY ==
[2023-10-12 17:26] LABS: MANUAL DIFF FLAG NO
[2023-10-12 17:29] LABS: Basophils Percent Auto 0.2 % (0-2); Eosinophils Absolute Auto 0.1 X10*3/uL (0.0-0.4); Eosinophils Percent Auto 1.5 % (0-4); Hematocrit 43.5 % (37.0-47.0); Hemoglobin 15.2 g/dl (12.0-16.0); Imm Gran Abs Auto 0.02 X10*3/uL (0.00-0.03); Imm Gran Pct Auto 0.2 % (0.0-0.4); Lymphocytes Absolute Auto 2.1 X10*3/uL (1.2-4.9); Lymphocytes Percent Auto 25.2 % (20-40); Mean Corpuscular HGB Conc 34.9 g/dl (31.0-35.0); Mean Corpuscular Hemoglobin 32.2 pg (27.0-33.0); Mean Corpuscular Volume 92.2 fL (80.0-98.0); Mean Platelet Volume 9.6 fL (9.4-12.3); Monocytes Absolute Auto 0.6 X10*3/uL (0.1-1.2); Monocytes Percent Auto 6.9 % (2-11); Neutrophils Absolute Auto 5.4 x10*3/uL (2.0-8.3); Platelet Count 358 X10*3/uL (160-400); Red Blood Count 4.72 X10*6/uL (4.20-5.50); Red Cell Distribution Width 11.6 % (11.0-16.0); White Blood Count 8.2 X10*3/uL (4.8-10.8)
[2023-10-12 17:41] LABS: Estimated Average Glucose 131 mg/dL; Hemoglobin A1c % 6.2 % (<6.0)
[2023-10-12 18:42] LABS: Alanine Aminotransferase 36 U/L (0-31); Albumin Level 4.3 g/dL (3.5-5.0); Alkaline Phosphatase 80 U/L (39-117); Anion Gap 15 (12-20); Aspartate Amino Transferase 21 U/L (5-31); Bilirubin Total 0.4 mg/dL (0.0-1.0); Blood Urea Nitrogen 15 mg/dL (9-16); Calcium 9.4 mg/dL (8.4-10.2); Carbon Dioxide 26 mmol/L (22-29); Chloride 102 mmol/L (96-108); Estimated Glomerular Filt Rate > 60; Glucose Random 178 mg/dL (60-115); Potassium 3.9 mmol/L (3.3-5.1); Sodium 139 mmol/L (135-145); TSH reflex Free T4 0.75 uIU/mL (0.32-4.0); Total Protein 7.9 g/dL (6.5-8.0); Vitamin D 25-OH Total 16.7 ng/mL (>30)
== END 2023-10-12 16:08 | disposition home or self-care (01) ==
LOC: HO.CHCLDS 16:07
PROVIDERS: Visit Provider Family Medicine
DX: R53.83 Other fatigue (principal); E11.9 Type 2 diabetes mellitus without complications
CPT/HCPCS: 36415; 80053; 82306; 83036; 84443; 85025

== ENCOUNTER 2023-11-09 12:47 | Outpatient (REF) | payer OTHER, SELFPAY ==
[2023-11-09 14:17] LABS: MANUAL DIFF FLAG NO
[2023-11-09 14:22] LABS: Basophils Percent Auto 0.3 % (0-2); Eosinophils Absolute Auto 0.1 X10*3/uL (0.0-0.4); Eosinophils Percent Auto 2.1 % (0-4); Hematocrit 42.4 % (37.0-47.0); Hemoglobin 14.5 g/dl (12.0-16.0); Imm Gran Abs Auto 0.02 X10*3/uL (0.00-0.03); Imm Gran Pct Auto 0.3 % (0.0-0.4); Lymphocytes Absolute Auto 1.6 X10*3/uL (1.2-4.9); Lymphocytes Percent Auto 26.5 % (20-40); Mean Corpuscular HGB Conc 34.2 g/dl (31.0-35.0); Mean Corpuscular Hemoglobin 31.8 pg (27.0-33.0); Mean Platelet Volume 9.5 fL (9.4-12.3); Monocytes Absolute Auto 0.3 X10*3/uL (0.1-1.2); Monocytes Percent Auto 4.6 % (2-11); Neutrophils Percent Auto 66.2 % (45-73); Platelet Count 329 X10*3/uL (160-400); Red Blood Count 4.56 X10*6/uL (4.20-5.50); Red Cell Distribution Width 11.7 % (11.0-16.0); White Blood Count 6.1 X10*3/uL (4.8-10.8)
[2023-11-09 17:00] LABS: Alanine Aminotransferase 29 U/L (0-31); Albumin Level 4.3 g/dL (3.5-5.0); Alkaline Phosphatase 69 U/L (39-117); Anion Gap 13 (12-20); Aspartate Amino Transferase 17 U/L (5-31); Bilirubin Total 0.6 mg/dL (0.0-1.0); Blood Urea Nitrogen 16 mg/dL (9-16); Calcium 9.6 mg/dL (8.4-10.2); Carbon Dioxide 28 mmol/L (22-29); Chloride 102 mmol/L (96-108); Estimated Glomerular Filt Rate > 60; Glucose Random 182 mg/dL (60-115); Potassium 3.6 mmol/L (3.3-5.1); Sodium 139 mmol/L (135-145); Total Protein 7.5 g/dL (6.5-8.0)
[2023-11-09 17:23] LABS: TSH reflex Free T4 0.99 uIU/mL (0.32-4.0); Vitamin D 25-OH Total 15.7 ng/mL (>30)
== END 2023-11-09 12:48 | disposition home or self-care (01) ==
LOC: HO.CHCLDS 12:47
PROVIDERS: Visit Provider Internal Medicine
DX: R53.83 Other fatigue (principal); R52 Pain, unspecified
CPT/HCPCS: 36415; 80053; 82306; 84443; 85025

== ENCOUNTER 2023-12-28 13:32 | Outpatient (RCR) | payer OTHER, SELFPAY | END 2024-01-11 11:20 | disposition home or self-care (01) | LOC: HO.PTCHIC 13:32 | PROVIDERS: PCP Internal Medicine; Visit Provider Internal Medicine | DX: M54.50 Low back pain, unspecified (principal); M54.2 Cervicalgia; G89.29 Other chronic pain | CPT/HCPCS: 97110; 97161 ==

== ENCOUNTER 2024-06-16 15:43 | Outpatient (REF) | payer OTHER, SELFPAY ==
[2024-06-16 17:27] LABS: MANUAL DIFF FLAG NO
[2024-06-16 17:36] LABS: Basophils Percent Auto 0.2 % (0-2); Eosinophils Absolute Auto 0.1 X10*3/uL (0.0-0.4); Eosinophils Percent Auto 1.5 % (0-4); Hematocrit 41.3 % (37.0-47.0); Hemoglobin 14.6 g/dl (12.0-16.0); Imm Gran Abs Auto 0.03 X10*3/uL (0.00-0.03); Imm Gran Pct Auto 0.3 % (0.0-0.4); Lymphocytes Absolute Auto 2.1 X10*3/uL (1.2-4.9); Lymphocytes Percent Auto 24.4 % (20-40); Mean Corpuscular HGB Conc 35.4 g/dl (31.0-35.0); Mean Corpuscular Hemoglobin 32.1 pg (27.0-33.0); Mean Corpuscular Volume 90.8 fL (80.0-98.0); Mean Platelet Volume 9.3 fL (9.4-12.3); Monocytes Absolute Auto 0.7 X10*3/uL (0.1-1.2); Monocytes Percent Auto 8.4 % (2-11); Neutrophils Absolute Auto 5.6 x10*3/uL (2.0-8.3); Neutrophils Percent Auto 65.2 % (45-73); Platelet Count 357 X10*3/uL (160-400); Red Blood Count 4.55 X10*6/uL (4.20-5.50); Red Cell Distribution Width 11.8 % (11.0-16.0); White Blood Count 8.6 X10*3/uL (4.8-10.8)
[2024-06-16 17:52] LABS: Alanine Aminotransferase 32 U/L (0-31); Albumin Level 3.9 g/dL (3.5-5.0); Alkaline Phosphatase 57 U/L (39-117); Anion Gap 12 (12-20); Aspartate Amino Transferase 17 U/L (5-31); Bilirubin Total 0.4 mg/dL (0.0-1.0); Blood Urea Nitrogen 12 mg/dL (9-16); Calcium 9.6 mg/dL (8.4-10.2); Carbon Dioxide 24 mmol/L (22-29); Chloride 102 mmol/L (96-108); Estimated Glomerular Filt Rate > 60; Glucose Random 227 mg/dL (60-115); Sodium 134 mmol/L (135-145); Total Protein 6.7 g/dL (6.5-8.0)
[2024-06-16 18:01] LABS: TSH reflex Free T4 1.02 uIU/mL (0.32-4.0); Vitamin D 25-OH Total 35.4 ng/mL (>30)
[2024-06-16 18:21] LABS: Folate 4.6 ng/mL (> or = 4.0); Vitamin B12 561 pg/mL (200-900)
== END 2024-06-16 15:44 | disposition home or self-care (01) ==
LOC: HO.CHCLDS 15:43
PROVIDERS: Visit Provider Internal Medicine
DX: E11.9 Type 2 diabetes mellitus without complications (principal); R53.83 Other fatigue; E55.9 Vitamin D deficiency, unspecified
CPT/HCPCS: 36415; 80053; 82306; 82607; 82746; 84443; 85025

== ENCOUNTER 2024-10-11 09:54 | Outpatient (REF) | payer OTHER, SELFPAY ==
--- NOTE | ~2024-10-11 | US_ITS ---
CLINICAL HISTORY: transaminitis US abdomen complete Comparison: None Findings: The visualized pancreas is normal. Aorta is not visualized due to overlying bowel gas. Visualized portions of the IVC are unremarkable. The liver is echogenic. There is no intrahepatic bile duct dilatation. The common duct is 2.6 mm in diameter. The gallbladder is normal. There is no sonographic Sanchez sign. The main portal vein is antegrade. The right kidney is 10.7 cm in length. The left kidney is 10.3 cm in length. The spleen is normal. 11.8 cm No ascites. IMPRESSION: 1. Hepatic steatosis 2. No evidence of cholelithiasis or ultrasound evidence of cholecystitis This document has been electronically signed by: Dajuan Velazquez MD, PHD on 10/12/2024 04:59:03
--- OUTSIDE RECORDS SUMMARY | 2024-10-11 10:41 | XMS_ITS | Encounter Summary ---
Author Organization [employer] Address [address] [place] [address] Care Team Providers Care Sheet Metal Welder Name Role Phone James Larson MD Primary Care Provider [phone] Reason for Visit * Reason Onset Date Comments Nurse Triage 09/29/2024 Encounter Details Date Type Department Care Team (Late st Contact Info) Description 09/29/[address] [facility] MEDICINE [address] [place] [address] James Larson MD [address] [place] [address] Nurse Triage Social History Tobacco Use Types Packs/Day Years Used Date Smoking Tobacco: Every Day Cigarettes Passive Smoke Exposure: Never Smokeless Tobacco: Current Depression Answer Date Recorded Patient Health Questionnaire-9 Score 0 01/21/2023 Housing Stability Answer Date Recorded What is your housing situation today? I have angelkathryn mobley 06/09/[address] you li ve. Do you have problems with any of the following? None of the above 06/09/2024 Food Insecurity Answer Date Recorded Within the past 12 months, y ou worried that your food would run out before you got money to buy more: Never True 06/09/2024 Within the past 12 months,th e food you bought just didn't last and you didn't have enough money to get more: Never True 12/2023 Transportation Answer Date Recorded In the past 12 months, has l ack of transportation kept you from medical appts, meetings, work or from getting things needed for daily living? No 06/09/2024 Utilities Answer Date Recorded In the past 12 months, has t he electric, gas, oil or water [employer] threatened to shut off services in your home? No 06/09/2024 Depression Answer Date Recorded Patient Health Questionnaire-2 Score 0 01/21/2023 Internet Access Answer Date Recorded Internet Access Q1 Yes 06/09/2024 Internet Access Q2 Not on file 06/09/2024 Comments Unknown Sex and Gender Information Value Date Recorded Sex Assigned at Female 07/06/2022 10:21 AM EDT Legal Sex Female 10:21 AM EDT Gender Identity Female 07/06/2022 10:21 AM EDT Sexual Orientation Straight 07/06/2022 10 :21 AM EDT documented as of this encounter Miscellaneous Notes * Telephone Encounter - Chantelle Canseco RN - 09/29/2024 3:36 PM EST Call returned to Brenda Apple to triage below. Reports having vaginal discharge and odor x 2 weeks. Reports having white discharge. Pt also having odor to urine. No pelvic or flank pain. Denies anyfrequency, urgency, n/v or fever. Pt denies nay concern for STI. Pt has not been checking BS. Pt offered WIC tomorrow. Pt declines wishes to have scheduled appt. Agrees to appt on Wednesday with team provider at [facility]. Reviewed home care advise, ER precautions and reasons to call back. Protocol Used: Vaginal Discharge (Adult) Protocol-Based Disposition: See in Office or Video Visit within 3 Days Future Appointments Date Time Provider Department Center 10/02/2024 10:00 AM MART[facility] Martin [facility] 10/25/2024 2:45 PM James Larson MD [facility] Insurance verified as active per Real Time Eligibility in [facility]. Positive Triage Questions: * Bad smelling vaginal discharge * Diabetes mellitus or weak immune system (e.g., HIV positive, cancer chemo, splenectomy, organ transplant, chronic steroids) * All higher-acuity triage questions were negative Care Advice Discussed: * Reassurance and Education - Vaginal Yeast Infection * Antifungal Medicine for Yeast Infection * Genital Hygiene * Reasons To Call Back - test is positive - No improvement after treating yourself for a vaginal yeast infection - Discharge becomes yellow or green - Discharge becomes foul smelling or itchy - Fever or abdomen pain occur - You become worse * Telephone Encounter - Montse Mitra Joya - 09/29/2024 3:12 PM EST Symptom: Vaginal Symptoms - Not Bleeding Outcome: Schedule an urgent appointment (within 4 hours) or talk to a nurse or provider soon Reason: Foul-smelling vaginal discharge The caller accepted this outcome. [phone] documented in this encounter Plan of Treatment Upcoming Encounters Date Type Department Care Team (Late st Contact Info) Description 10/20/2024 3:15 PM EST Office Visit [facility] [address] [place] [address] Jerrica Junior FNP [address] [place] [address] 10/25/2024 2:45 PM EST Office Visit [facility] [address] [place] [address] James Larson MD [address] [place] [address] documented as of this encounter Visit Diagnoses Not on filedocumented in this encounter Additional Health Concerns Assessment Noted Time PHQ-9 Depression Total Score: 0 01/22/20 23 3:02 PM EDT documented as of this encounter Care Teams Sheet Metal Welder Relationship Specialty Start Date End Date James Larson MD [address] [place] [address] PCP - General Internal Medicine 10/05/13 documented as of this encounter
--- OUTSIDE RECORDS SUMMARY | 2024-10-11 10:41 | XMS_ITS | Encounter Summary ---
Author Organization [employer] Address [address] [place] [address] Care Team Providers Care Badger Distiller Operator Name Role Phone James Larson MD Primary Care Provider [phone] Reason for Visit * Reason Onset Date Comments Nurse Triage 10/10/2024 Encounter Details Date Type Department Care Team ([facility] st Contact Info) Description 10/10/2024 Telephone [facility] [address] [place] [address] James Larson MD [address] [place] [address] Nurse Triage Social History Tobacco Use Types Packs/Day Years Used Date Smoking Tobacco: Every Day Cigarettes Passive Smoke Exposure: Never Smokeless Tobacco: Current Depression Answer Date Recorded Patient Health Questionnaire-9 Score 0 01/21/2023 Housing Stability Answer Date Recorded What is your housing situation today? I have angel mobley 06/09/[address] you [...] past 12 months, has t he electric, [employer], oil or water [employer] threatened to shut off services in your [...] encounter Miscellaneous Notes * Telephone Encounter - Desirae Kelley RN - 10/10/2024 1:49 PM EST called pt to triage, spoke to pt. pt states intermittent RUQ pain. pt states has appt for U/S this week and then a GI appt in November to evaluate. pt states mild nausea at times, and fatigue. pt deniessevere pain currently, fever, vomiting, diarrhea, or other associated symptoms. advised home care: rest, fluids, keep appts with U/S and GI, light diet, and seek ER evaluation if severe symptoms. pt understands and agrees with plan. pt has follow up appt with PCP on 10/25. insurance verified. Protocol Used: Abdominal Pain - Female (Adult) Protocol-Based Disposition: See in Office or Video Visit within 2 Weeks Positive Triage Question: * Abdominal pain is a chronic symptom (recurrent or ongoing AND lasting > 4 weeks) * All higher-acuity triage questions were negative Care Advice Discussed: * Reassurance and Education - Mild Stomachache * Rest * Drink Clear Fluids * Diet * Pass a Stool * Avoid Aspirin and NSAIDs * Reasons To Call Back - Severe pain lasts over 1 hour - Constant pain lasts over 2 hours - Intermittent pains (comes and goes, cramps) lasts over 48 hours - You are - You become worse * Telephone Encounter - Aolndra Nava - 10/10/2024 11:44 AM EST Symptom: Abdominal Pain - Female - Not Outcome: Schedule an urgent appointment (within 4 hours) or talk to a nurse or provider soon Reason: Started within the past 3 days The caller accepted this outcome. documented in this encounter Plan of Treatment Upcoming Encounters Date Type Department Care Team ([facility] st Contact Info) Description 10/20/2024 3:15 PM EST Office Visit [facility] [address] [place], [place] [phone] Jerrica Junior FNP [address] [place] [address] 10/25/2024 2:45 PM EST Office Visit [facility] [address] [place], [place] [phone] James Larson MD [address] [place], [place] [phone] documented as of this encounter Visit Diagnoses Not on filedocumented in this encounter Additional Health Concerns Assessment Noted Time PHQ-9 Depression Total Score: 0 01/22/20 23 3:02 PM EDT documented as of this encounter Care Teams Badger Distiller Operator Relationship Specialty Start Date End Date James Larson MD [address] [place], [place] [phone] PCP - General Internal Medicine 10/05/13 documented as of this encounter
--- OUTSIDE RECORDS SUMMARY | 2024-10-11 10:41 | XMS_ITS | Clinical Summary ---
Author Organization [employer] Address [address] [facility] 7t [place] [address] Care Team Providers Care Supervisor Prop Making Name Role Phone James Larson MD Primary Care Provider [phone] Allergies No known active allergies Medications famotidine (Pepcid) 20 MG tablet Take 1 tablet by mouth at bedtime. 0 Active folic acid (Folvite) 800 MCG tablet Take 1 tablet by mouth 1 (one) time each day. 2 Active glucose-vitamin C 4-6 GM-MG oral gel 1 tablet to use in case of symptoms of hypoglycemia or if FS<70 mg/dl 1 Active Alcohol Swabs (Alcohol Prep) pads Active Blood Pressure kit Active Misc. Devices (Wrist Brace) misc Active glucose blood (FREESTYLE LITE) test strip Use to monitor glucose q daily 100 each 11 4 10/11/19 25 Active Continuous Glucose Door Machine Operator (FreeStyle Jorje 2 Mather) deviceIndicatio ns:Type 2 diabetes mellitus without complication, without long-term current use of insulin ([facility]) Scan sensor every 8 hours 1 each 4 Active Continuous Glucose Sensor (FreeStyle Jorje 2 Sensor) miscIndications :Type 2 diabetes mellitus without complication, without long-term current use of insulin (CMS/HCC) Apply 1 sensor every 14 days 2 each 4 Active glucose blood (FreeStyle Precision Laurent Test) test stripIndication s:Type 2 diabetes mellitus without complication, without long-term current use of insulin (CMS/[facility]) Use to test blood sugar 2 times daily 100 each 12 4 06/16/20 25 Active Blood Glucose Monitoring Suppl (FreeStyle Lite) w/Device kitIndications: Type 2 diabetes mellitus without complication, without long-term current use of insulin ([facility]) 1 Units Once per day. 1 kit 4 Active Dulaglutide 0.75 MG/0.5ML solution auto-injectorIn dications:Type 2 diabetes mellitus without complication, without long-term current use of insulin ([facility]) Inject 0.75 mg under the skin every 7 (seven) days AND 0.75 mg every 7 (seven) days. 2 mL 4 Active cholecalciferol (Vitamin D-3) 25 MCG (1000 UT) tabletIndicatio ns:Other fatigue,Vitamin D deficiency Take 1 tablet (25 mcg) by mouth Once per day. 30 tablet 11 4 Active Lancets miscIndications :Type 2 diabetes mellitus without complication, without long-term current use of insulin ([facility]) Use to test blood sugar 2 times daily 100 each 11 4 Active Active Problems Problem Noted Date Diagnosed Date Other fatigue 10/12/2023 Assessment & Plan (10/12/2023 4:12 PM EST): Patient that presented visit with concerns of fatigue will be sent for labs for further evaluation; will follow up with result. -Labs: CBC, Comp. Metabolic Panel, TSH/FT4, Hemoglobin A1C, Vit. D,25. Bacterial urinary infection 08/23/2020 Hypercholesterolemia 08/06/2016 Type 2 diabetes mellitus 02/23/2014 Assessment & Plan (03/22/2023 4:10 PM EDT): She seems to have hypoglycemia related to Trulicity + she's cutting down on high calorie meals. Check fgstk prn sxs Counseled To remain hydrated, to have small and fractionated meals, avoid high calorie foods. No evidence of infection at this time, unable to void urine for UA dipstick Remain off Trulicity and fu w PCP in 2-3w Breast lump 12/29/2011 Anxiety state 09/23/2011 Backache 09/23/2011 Depressive disorder 09/23/2011 Obesity 09/23/2011 Essential hypertension 04/28/2011 Neck pain 04/28/2011 Encounters Date Type Department Care Team Description 10/10/2024 Telephone [facility] MED & PEDS [address] [place], [place] [id number] James Larson MD Nurse Triage 10/02/2024 Telephone [facility] MED & PEDS [address] [place] [phone] James Larson MD No Show 09/29/2024 Telephone [facility] MEDICINE [address] [facility], [place] [phone] James Larson MD Nurse Triage from Last 3 Months Immunizations Name Administration Dates Next Due Hep B, adult 06/06/2015,02/04/2015,12/27/2014 Influenza injectable quadriv alent IIV4 with preservative 06/14/2019,06/28/2018,07/22/2017,08/06,06/06/2015 Influenza injectable quadriv alent preservative free 11/18/2021 Influenza, Split (incl. drew fied surface antigen) 09/29/2012 Pneumococcal Polysaccharide PPSV23 06/14/2019 Tdap 12/21/2014 Social History Tobacco Use Types Packs/Day Years Used Date Smoking Tobacco: Every Day Cigarettes Passive Smoke Exposure: Never Smokeless Tobacco: Current Tobacco Cessation:Ready to Q uit: Not Asked; Counseling Given: Not Answered Depression Answer Date Recorded Patient Health Questionnaire-9 [...] t he electric, gas, oil or water company threatened to shut off services in your [...] Orientation Straight 07/06/2022 10 :21 AM EDT Last Filed Vital Signs Vital Sign Reading Time Taken Comments Blood Pressure 134/82 06/16/2024 3:14 PM EDT Pulse 68 06/16/2024 3:14 PM EDT Temperature 36.2 ??C (97.1 ??F) 06/16/2024 3:14 PM ED T Respiratory Rate 20 06/16/2024 3:14 PM EDT Oxygen Saturation 97% 06/16/2024 3:14 PM EDT Inhaled Oxygen Concentration - - Weight 88.5 kg (195 lb) 06/16/2024 3:14 PM EDT Height 165.1 cm (5' 5 ) 06/16/2024 3:14 PM EDT Body Mass Index 32.45 06/16/2024 3:14 PM EDT Plan of Treatment Upcoming Encounters Date Type Department Care Team (Late st Contact Info) Description 10/20/2024 3:15 PM EST Office Visit [facility] MED & PEDS [address] [place] [address] Jerrica Junior FNP [address] [place] [address] 10/25/2024 2:45 PM EST Office Visit [facility] MED & PEDS [address] [place] [address] James Larson MD [address] [place] [address] Health Maintenance Due Date Last Done Comments Dental Oral Exam 1987 Dental Prophylaxis 1987 Dental X-Ray: Bitewings 1987 Lipid Panel 1987 Derm Melanoma Skin Check 1987 Eye Exam 1997 Alcohol/Substance Use Screening 1999 Family Planning (PISQ) 2002 Hepatitis C Screening 2005 Hepatitis A Vaccines (1 of 2 - Risk 2-dose series) 2006 HPV Vaccines (3 - 3-dose series) 03/15/2007 12/21/2006, 07/23/2006 Diabetes: Urine Protein Screening 08/07/2021 08/07/2020 Dental X-Ray: Full Mouth 01/15/2024 01/13/2021, 11/05 Depression Screening 01/22/2024 01/21/2023, 01/22/20 Diabetes: Foot Exam 07/22/2024 07/22/2023, 07/22/2023, 07/22/2023, Additional history exists Diabetes: Hemoglobin A1C 09/16/2024 024, 10/12/2023, 07/22/2023, Additional history exists DTaP/Tdap/Td Vaccines (3 - Td or Tdap) 12/21/2024 12/21/2014, 05/15/2004 Influenza Vaccine (#1) 2025 , 06/14/2019, 06/28/2018, Additional history exists Postponed from 05/07/2024 (Patient Refused) SDOH Screening 06/09/2025 06/09/2024 COVID-19 Vaccine ( - season) 2025 Postponed from 05/07/2024 (Patient Refused) Pneumococcal Vaccine: Pediatrics (0 to 5 Years) and At-Risk Patients (6 to 49) Years) (2 of 2 - PCV) 06/16/2025 06/14/2019 Postponed from 06/14/2020 (Patient Refused) Tobacco Screening 06/16/2025 06/16/2024 Cervical Cancer Screening 08/11/2027 HPV/Cotest 08/11/2027 08/11/2022, 03/21/2019 Pap Smear 08/11/2027 08/11/2022 Zoster Vaccines (1 of 2) 2037 RSV Patients and Patients Aged 60 years or older (1 - 1-dose 75+ series) 2062 Hepatitis B Vaccines Completed 06/06/2015, 02/04/2015, 12/27/2014 HIV Screening Completed 04/28/2022 HIB Vaccines Aged Out No longer eligi ble based on patient's age to complete this topic IPV Vaccines Aged Out No longer eligi ble based on patient's age to complete this topic Meningococcal Vaccine Aged Out No minal rocio eligible based on patient's age to complete this topic RSV under 20 months Aged Out No longe r eligible based on patient's age to complete this topic Rotavirus Vaccines Aged Out No longer eligible based on patient's age to complete this topic Procedures Procedure Name Priority Date/Time Associated Diagnosis Comments POCT GLYCATED HEMOGLOBIN, TOTAL Routine 06/16/2024 3:31 PM EDT Type 2 diabetes mellitus without complication, without long-term current use of insulin ([facility]) THINPREP IMAGING PAP AND HPV MRNA E6/E7, WITH CT/NG, TRICHOMONAS Routine 08/11/2022 5:19 PM EST HIV 1/2 ANTIGEN/ANTIBODY, FOURTH GENERATION W/RFL Routine 04/28/2022 12:00 PM EDT PANORAMIC RADIOGRAPHIC IMAGE Routine 01/13/2021 12:00 AM EDT ALBUMIN, RANDOM URINE W/CREATININE Routine 08/07/2020 2:58 PM EST from Last 3 Months or Most Recently Relevant to Health Maintenance Results * (ABNORMAL) POCT HGB A1C (06/16/2024 3:31 PM EDT) Hemoglobin A1C 8.4(A) 4.0 - 6.0 % QC Media Lot # [id number] Lot# Expiration Date Blood 06/16/2024 3:31 PM EDT us James Larson MD POINT OF CARE TEST ENTER/ED IT ORDERABLES Final Result * Thinprep TIS PAP And HPV mRNA E6/E7, CT/NG, TRICH (08/11/2022 5:19 PM EST) Clinical Information: None given [facility] LMP: NONE GIVEN [facility] Prev. PAP: NONE GIVEN [facility] Prev. BX: NONE GIVEN [facility] SOURCE: None given [facility] Statement Of Adequacy: [facility] Comment: Satisfactory for evaluation. Endocervical/transformation zone component present. Age and/or menstrual status not provided Interpretation/Re sult: Negative for intraepithelial lesion or malignancy. [facility] COMMENT: This Pap test has been evaluated with computer assisted technology. [facility] Pharmacy Grad Intern: Bart [facility] Comment: MSM, CT(ASCP) CT screening location: [address] ??[address] (Always Message) [employer] Comment: EXPLANATORY NOTE: The Pap is a screening test for cervical cancer. It is not a diagnostic test and is subject to false negative and false positive results. It is most reliable when a satisfactory sample, regularly obtained, is submitted with relevant clinical findings and history, and when the Pap result is evaluated along with historic and current clinical information. HPV nRNA E6/E7 Not Detected Not Detected [facility] Comment: Methodology: Workforce Planning Analyst-Mediated Amplification This assay detects E6/E7 viral messenger RNA (mRNA) from 14 high-risk HPV types (16,18,31,33,35,39,45,51,52,56,58,59,66,68). Cervical sources are required for HPV testing. If a vaginal source from a patient who has had a total hysterectomy with removal of cervix was submitted, please contact the testing laboratory for alternative testing options. For additional information, please refer to http://education.Survature/faq/OFS711q2 (This link if provided for information/ educational purposes only.) Chlamydia trachomatis RNA, TMA, Urogenital NOT DETECTED NOT DETECTED [employer] Neisseria gonorrhoeae RNA, TMA, Urogenital NOT DETECTED NOT DETECTED [employer] (Always Message) [employer] Comment: The analytical performance characteristics of this assay, when used to test SurePath(TM) specimens have been determined by [employer]. The modifications have not been cleared or approved by the FDA. This assay has been validated pursuant to the CLIA regulations and is used for clinical purposes. For additional information, please refer to https://Viraloid.Survature/faq/HNK837 (This link is being provided for information/ educational purposes only.) Trichomonas vaginalis, QL, TMA, PAP Vial NOT DETECTED NOT DETECTED [employer] [place] [employer] Comment: The analytical performance characteristics of this assay have been determined by [employer]. The modifications have not been cleared or approved by the FDA. This assay has been validated pursuant to the CLIA regulations and is used for clinical purposes. For additional information, please refer to http://Viraloid.Survature/ faq/Trichomonastma (This link is being provided for information/ educational purposes only.) 08/11/2022 5:19 PM EST 08/12/2022 8:03 AM EST Narrative [facility] - 08/14/2022 9:39 AM EST FASTING: UNKNOWN Tresa Arechiga [facility] PATHOLOGY ORDERABLES Final Result [address], [place] [address] [employer] [facility] [address], [place] [address] [employer] [facility], [place] [address] * HIV 1/2 ANTIGEN/ANTIBODY,FOURTH GENERATION W/RFL (04/28/2022 12:00 PM EDT) HIV-1/2 ANTIGEN AND ANTIBODIES, 4TH GENERATION W/ REFLEX NON-REACT [facility] NON-REACT [facility] Comment: HIV-1 antigen and HIV-1/HIV-2 antibodies were not detected. There is no laboratory evidence of HIV infection. ?? PLEASE NOTE: This information has been disclosed to you from records whose confidentiality may be protected by state law. ??If your state requires such protection, then the state law prohibits you from making any further disclosure of the information without the specific written consent of the person to whom it pertains, or as otherwise permitted by law. A general authorization for the release of medical or other information is NOT sufficient for this purpose. ? For additional information please refer to http://Viraloid.Survature/faq/YPE738 (This link is being provided for informational/ educational purposes only.) ? The performance of this assay has not been clinically validated in patients less than 2 years old. ?? 04/28/2022 12:0 0 PM EDT us Lloyd Echevarria MD LAB BLOOD ORDERABLES Final Resul t [facility] [address] * (ABNORMAL) ALBUMIN, RANDOM URINE W/CREATININE (08/07/2020 2:58 PM EST) Microalbumin Urine 5.0 See Note: mg/dL [facility] Comment: Reference Range: ?? Reference Range Not established Microalb/Creat Ratio 36(H) <30 mcg/mg creat [facility] Comment: ?? The ADA defines abnormalities in albumin excretion as follows: ?? Category ? Result (mcg/mg creatinine) ?? Normal ?<30 Microalbuminuria ? 30-299 ?? Clinical albuminuria ?? > OR = 300 ?? The ADA recommends that at least two of three specimens collected within a 3-6 month period be abnormal before considering a patient to be within a diagnostic category. Creatinine, Urine 137 20 - 275 mg/dL [facility] Microalbumin Urine 5.0 See Note: mg/dL [facility] Comment: Reference Range: ?? Reference Range Not established Microalb/Creat Ratio 36(H) <30 mcg/mg creat [facility] Comment: ?? The ADA defines abnormalities in albumin excretion as follows: ?? Category ? Result (mcg/mg creatinine) ?? Normal ?<30 Microalbuminuria ? 30-299 ?? Clinical albuminuria ?? > OR = 300 ?? The ADA recommends that at least two of three specimens collected within a 3-6 month period be abnormal before considering a patient to be within a diagnostic category. Creatinine, Urine 137 20 - 275 mg/dL [facility] 08/07/2020 2:58 PM EST James Larson MD LAB URINE ORDERABLES Final Result [facility] [address] [place] [address], from Last 3 Months or Most Recently Relevant to Health Maintenance Insurance [facility] - [facility] Care Teams Supervisor Prop Making Relationship Specialty Start Date End Date James Larson MD [address] [place] [address] [place] [address] PCP - General Internal Medicine 10/05/13
--- OUTSIDE RECORDS SUMMARY | 2024-10-11 10:41 | XMS_ITS | Encounter Summary ---
Author Organization [employer] Address [address] [facility] 7t [place] [address] Care Team Providers Care Outboard Motor Mechanic Name Role Phone James Larson MD Primary Care Provider [phone] Reason for Visit * Reason Onset Date Comments Triage 12/30/2022 Encounter Details Date Type Department Care Team (Late st Contact Info) Description 12/30/2022 Telephone [facility] MEDICINE [address] [place] [address] James Larson MD [address] [place] [address] Triage Social History Tobacco Use Types Packs/Day Years Used Date Smoking Tobacco: Never Smokeless Tobacco: Current Depression Answer Date [...] the past 12 months, has t he [employer], [employer], oil or water [employer] threatened to shut off services in your [...] Orientation Straight 07/06/2022 10 :21 AM EDT COVID-19 Exposure Response Date Recorded In the last 10 days, have yo u been in contact with someone who was confirmed or suspected to have Coronavirus/COVID-19? No / Unsure 01/20/2023 9:48 AM EDT documented as of this encounter Miscellaneous Notes * Telephone Encounter - Juana Grady RN - 12/30/2022 2:00 PM EDT Please review triage note below and advise. Thank you. * Telephone Encounter - Jessica Hoyt RN - 12/30/2022 1:59 PM EDT Triage call Pt reports missed dental apt this morning , Pt is calling for antibiotics to be sent due to long standing tooth infection. Pt reports top left side of mouth has cracked tooth, and bottom left had impacted wisdom tooth and now tooth next to it is infected. Gums have some swelling. Pt is waiting for [facility] dental to call with apt. Pt is reporting that PCP will order antibiotics and has done so before. Declines to come into be seen. will forward to [facility] team nurses and PCP. Protocol Used: Toothache (Adult) Protocol-Based Disposition: Call Dentist Today Positive Triage Question: * Toothache present > 24 hours * All higher-acuity triage questions were negative Care Advice Discussed: * Reassurance and Education * Floss * Pain Medicines * Pain Medicines - Extra Notes and Warnings * Apply Cold to the Area * Expected Course * Call Your Dentist If * Telephone Encounter - Morteza Glaser - 12/30/2022 1:38 PM EDT Symptom: Toothache Outcome: Schedule an urgent appointment (within 1 hour) or talk to a nurse or provider soon Reason: Severe pain now The caller accepted this outcome Please contact at [phone] documented in this encounter Plan of Treatment Upcoming Encounters Date Type Department Care Team (Late st Contact Info) Description 10/20/2024 3:15 PM EST Office Visit [facility] MED & PEDS [address] [place] [address] Jerrica Junior FNP [address] [place] [address] 10/25/2024 2:45 PM EST Office Visit [facility] MED & PEDS [address] [place] [address] James Larson MD [address] [place] [address] documented as of this encounter Visit Diagnoses Diagnosis Tooth infection- Primary Acute apical periodontitis of pulpal origin documented in this encounter Care Teams Outboard Motor Mechanic Relationship Specialty Start Date End Date James Larson MD [address] [place] [address] PCP - General Internal Medicine 10/05/13 documented as of this encounter
--- OUTSIDE RECORDS SUMMARY | 2024-10-11 10:41 | XMS_ITS | Encounter Summary ---
Author Organization [employer] Address [address] [facility] 7 [place] [address] Care Team Providers Care Cloth Doffer Name Role Phone James Larson MD Primary Care Provider [phone] Reason for Visit * Reason Onset Date Comments No Show 10/02/2024 Encounter Details Date Type Department Care Team ([facility] Contact Info) Description 10/02/2024 Telephone [facility] CHC MED & PEDS [address] [place] [address] James Larson MD [address] [place] [address] No Show Social History Tobacco Use Types Packs/Day Years [...] encounter Miscellaneous Notes * Telephone Encounter - Kasia Ontiveros RN - 10/05/2024 3:03 PM EST TC to patient. She states she would like to reschedule her appointment with Jerrica Junior for a gyncheck up. States she has been having some occasional vaginal discomfort and vaginal discharge. Appointment scheduled. Instructed patient to to call office or go to walk in clinic if symptoms worsen. Patient states understanding and agrees with plan. * Telephone Encounter - Montse Joya - 10/05/2024 12:48 PM EST Tc from pt stating are waiting for a call back. [phone] * Telephone Encounter - Tatiana Goodrich - 10/02/2024 2:57 PM EST Tc from pt returning call. * Telephone Encounter - Belen Diez RN - 10/02/2024 1:24 PM EST TC placed to pt and [facility] to call back the office * Telephone Encounter - Geovanna Valentino - 10/02/2024 1:12 PM EST 10/02/24 no show for *Vaginal discharge and odor x 2 weeks documented in this encounter Plan of Treatment Upcoming Encounters Date Type Department Care Team (Late st Contact Info) Description 10/20/2024 3:15 PM EST Office Visit [facility] MED & PEDS [address] [place], [place] [phone] Jerrica Junior FNP [address] [place], [place] [phone] 10/25/2024 2:45 PM EST Office Visit [facility] MED & PEDS [address] [place], [place] [phone] James Larson MD [address] [place], [place] [phone] documented as of this encounter Visit Diagnoses Not on filedocumented in this encounter Additional Health Concerns Assessment Noted Time PHQ-9 Depression Total Score: 0 01/22/20 23 3:02 PM EDT documented as of this encounter Care Teams Cloth Doffer Relationship Specialty Start Date End Date James Larson MD [address] [place], [place] [phone] PCP - General Internal Medicine 10/05/13 documented as of this encounter
--- OUTSIDE RECORDS SUMMARY | 2024-10-11 10:41 | XMS_ITS | Encounter Summary ---
Author Organization [employer] Address [address] [place] [address] 7 [place] [address] Care Team Providers Care Chief Hydroelectric Station Operator Name Role Phone James Larson MD Primary Care Provider [phone] Reason for Referral * Imaging (Routine) - Closed Specialty Diagnoses / Procedures Referred By Contnatalia hebert Referred To Contact Radiology Diagnoses Transaminitis Procedures US Abdomen Complete James Larson MD [address] [place] [address] Phone: tel: fax: [address] Phone: tel: fax: Referral ID Status Reason Start Date Expiration Date Visits Re quested Visits Authorized [id number] Closed 06/23/2024 06/23/2025 1 1 Encounter Details Date Type Department Care Team (Late st Contact Info) Description 06/23/2024 Orders Only [facility] CHC MED & PEDS [address] [place] [address] James Larson MD [address] [place] [address] Transaminitis (Primary Dx) Social History Tobacco Use Types Packs/Day Years [...] AM EDT documented as of this encounter Plan of Treatment Upcoming Encounters Date Type Department Care Team ([facility] st Contact Info) Description 10/20/2024 3:15 PM EST Office Visit [facility] MED [facility] PEDS [address] [place] [address] Jerrica Junior FNP [address] [place] [address] 10/25/2024 2:45 PM EST Office Visit [facility] MED & PEDS [address] [place] [address] James Larson MD [address] [place] [address] Scheduled Orders Name Type Priority Associated Diagnoses Orde r Schedule US Abdomen Complete Imaging Routine Transaminitis Expected: 06/23/2024, Expires: 06/23/2025 documented as of this encounter Visit Diagnoses Diagnosis Transaminitis- Primary Nonspecific elevation of levels of transaminase or lactic acid dehydrogenase (LDH) documented in this encounter Additional Health Concerns Assessment Noted Time PHQ-9 Depression Total Score: 0 01/22/20 23 3:02 PM EDT documented as of this encounter Care Teams Chief Hydroelectric Station Operator Relationship Specialty Start Date End Date James Larson MD [address] [place] [address] PCP - General Internal Medicine 10/05/13 documented as of this encounter
--- OUTSIDE RECORDS SUMMARY | 2024-10-11 10:42 | XMS_ITS | Encounter Summary ---
Author Organization [employer] Address [address] [facility] 7t [place] [address] Care Team Providers Care Agricultural Equipment Sales Manager Name Role Phone James Larson MD Primary Care Provider [phone] Encounter Details Date Type Department Care Team (Late Contact Info) Description 09/09/2022 Telephone [facility]EDS [address] [place], [place] [phone] James Larson MD [address] [place], [place] [phone] Social History Tobacco Use Types Packs/Day Years Used Date Smoking Tobacco: Never Smokeless Tobacco: Current Comments Unknown Sex and Gender Information Value [...] was confirmed or suspected to have Coronavirus/COVID-19? Yes 09/09/2022 1:32 PM EST documented as of this encounter Plan of Treatment Upcoming Encounters Date Type Department Care Team (Late st Contact Info) Description 10/20/2024 3:15 PM EST Office Visit [facility] [address] [place], [place] [phone] Jerrica Junior FNP [address] [place], [place] [phone] 10/25/2024 2:45 PM EST Office Visit [facility] [address] [place] [address] James Larson MD 505 [place] [address] documented as of this encounter Visit Diagnoses Not on filedocumented in this encounter Care Teams Agricultural Equipment Sales Manager Relationship Specialty Start Date End Date James Larson MD [address] [place] [address] PCP - General Internal Medicine 10/05/13 documented as of this encounter
--- OUTSIDE RECORDS SUMMARY | 2024-10-11 10:42 | XMS_ITS | Encounter Summary ---
Author Organization [employer] Address [address] [facility] 7t [place] [address] Care Team Providers Care Tailman Name Role Phone James Larson MD Primary Care Provider [phone] Encounter Details Date Type Department Care Team (Late st Contact Info) Description 03/29/2023 Telephone [facility] [address] [place], [place] [phone] August Bridges DDS [address] [place] [address] Social History Tobacco Use Types Packs/Day Years Used Date Smoking Tobacco: Never Smokeless Tobacco: Current Depression Answer Date Recorded Patient Health Questionnaire-9 Score 0 01/21/2023 Depression Answer Date Recorded Patient Health Questionnaire-2 Score 0 01/21/2023 Comments Unknown Sex and Gender Information Value [...] Description 10/20/2024 3:15 PM EST Office Visit [facility] MED & PEDS [address] [place], [place] [phone] Jerrica Junior FNP [address] [place], [place] [phone] 10/25/2024 2:45 PM EST Office Visit [facility] [address] [place] [address] James Larson MD 505 [place] [address] documented as of this encounter Visit Diagnoses Not on filedocumented in this encounter Additional Health Concerns Assessment Noted Time PHQ-9 Depression Total Score: 0 01/22/20 23 3:02 PM EDT documented as of this encounter Care Teams Tailman Relationship Specialty Start Date End Date James Larson MD [address] [place] [address] PCP - General Internal Medicine 10/05/13 documented as of this encounter
--- OUTSIDE RECORDS SUMMARY | 2024-10-11 10:42 | XMS_ITS | Encounter Summary ---
Author Organization [employer] Address [address] [facility] [address] 7[address] [place] [address] Care Team Providers Care Metrology Specialist Name Role Phone James Larson MD Primary Care Provider [phone] Encounter Details Date Type Department Care Team ([facility] st Contact Info) Description 12/09/2023 Orders Only [facility] [address] [place], [place] [phone] DrummondRikki Coronel MD [address] [place], [place] [phone] Social History Tobacco Use Types Packs/Day Years Used Date Smoking Tobacco: Every Day Cigarettes Passive Smoke Exposure: Never Smokeless Tobacco: Current Depression Answer Date Recorded Patient Health Questionnaire-9 Score 0 01/21/2023 Housing Stability Answer Date Recorded What is your housing situation today? Not on héctor e 07/05/[address] you li ve. Do you have problems with any of the following? None of the above 07/05/2023 Food Insecurity Answer Date Recorded Within the past 12 months, y ou worried that your food would run out before you got money to buy more: Never True 07/05/2023 Within the past 12 months,th e food you bought just didn't last and you didn't have enough money to get more: Never True Transportation Answer Date Recorded In the past 12 months, has l ack of transportation kept you from medical appts, meetings, work or from getting things needed for daily living? No 07/05/2023 Utilities Answer Date Recorded In the past 12 months, has t he electric, gas, oil or water company threatened to shut off services in your home? No 07/05/2023 Depression Answer Date Recorded Patient Health Questionnaire-2 [...] Description 10/20/2024 3:15 PM EST Office Visit [facility] MED & PEDS [address] [place] [address] Jerrica Junior FNP 505 [place] [address] 10/25/2024 2:45 PM EST Office Visit [facility] & PEDS [address] [place] [address] James Larson MD [address] [place] [address] documented as of this encounter Visit Diagnoses Not on filedocumented in this encounter Additional Health Concerns Assessment Noted Time PHQ-9 Depression Total Score: 0 01/22/20 23 3:02 PM EDT documented as of this encounter Care Teams Metrology Specialist Relationship Specialty Start Date End Date James Larson MD [address] [place] [address] PCP - General Internal Medicine 10/05/13 documented as of this encounter
--- OUTSIDE RECORDS SUMMARY | 2024-10-11 10:42 | XMS_ITS | Encounter Summary ---
Author Organization [employer] Address [address] [facility] 7t [place] [address] Care Team Providers Care Beef Cattle Specialist Name Role Phone James Larson MD Primary Care Provider [phone] Reason for Visit * Reason Onset Date Comments Nurse Triage 10/11/2023 Encounter Details Date Type Department Care Team ([facility] st Contact Info) Description 10/11/2023 Telephone [facility]EDS [address] [place] [address] James Larson MD 505 [place] [address] Nurse Triage Social History Tobacco Use Types [...] t he electric, gas, oil or water [employer] threatened to shut off services in your [...] encounter Miscellaneous Notes * Telephone Encounter - Jessica Hoyt RN - 10/11/2023 4:10 PM EST Triage call Pt reports being very fatigued/lethargic for last week or so. Pt usually drinks adequate fluid intake but has dropped the fluid intake recently. Pt considers needing vitamin C and D. Pt also reports that during the summer Pt had been using trulicity to control blood sugar but, because it had been dropping too low Pt had returned to see PCP in 07/29 and new order for trulicity was changed to .75mg weekly. Pt reports hasn't taken the trulicity since July and doesn't know what BS has been. Pt reports, I lost the meter . Pt is advised to come to [facility] 10/12/23 @ 340pm for provider to see Pt. Pt agrees with disposition and home care reviewed. Insurance is verified as active prior to booking. Protocol Used: Weakness (Generalized) and Fatigue (Adult) Protocol-Based Disposition: See in Office or Video Visit within 3 Days Video visit not offered Positive Triage Question: * Fatigue (i.e., tires easily, decreased energy) and persists > 1 week * All higher-acuity triage questions were negative Care Advice Discussed: * Reassurance and Education - Mild Dehydration * Drink Fluids * Rest * Cool Off * Reasons To Call Back - Still feeling weak after 2 hours of rest and fluids - Passes out (faints) - You become worse * Telephone Encounter - Ginna Grady - 10/11/2023 3:48 PM EST Symptoms: Lethargic (Tired), Body Aches Outcome: Schedule an urgent appointment (within 4 hours) or talk to a nurse or provider soon Reason: Getting worse The caller accepted this outcome Please contact pt at [phone] documented in this encounter Plan of Treatment Upcoming Encounters Date Type Department Care Team ([facility] st Contact Info) Description 10/20/2024 3:15 PM EST Office Visit [facility] MED & PEDS [address] [place], [place] [phone] Jerrica Junior FNP 505 [place] [address] 10/25/2024 2:45 PM EST Office Visit [facility] MED & PEDS [address] [place], [place] [phone] James Larson MD [address] [place], [place] [phone] documented as of this encounter Visit Diagnoses Not on filedocumented in this encounter Additional Health Concerns Assessment Noted Time PHQ-9 Depression Total Score: 0 01/22/20 23 3:02 PM EDT documented as of this encounter Care Teams Beef Cattle Specialist Relationship Specialty Start Date End Date James Larson MD [address] [place], [place] [phone] PCP - General Internal Medicine 10/05/13 documented as of this encounter
--- OUTSIDE RECORDS SUMMARY | 2024-10-11 10:42 | XMS_ITS | Encounter Summary ---
Author Organization [employer] Address [address] [facility] 7t [place] [address] Care Team Providers Care Physical Ther Name Role Phone James Larson MD Primary Care Provider [phone] Reason for Visit * Reason Onset Date Comments Referral 11/17/2023 Encounter Details Date Type Department Care Team ([facility] st Contact Info) Description 11/17/2023 Telephone [facility] PEDS [address] [place] [address] James Larson MD [address] [place] [address] Referral Social History Tobacco Use Types Packs/Day Years [...] encounter Miscellaneous Notes * Telephone Encounter - Morteza Glaser - 12/08/2023 3:00 PM EDT Tc from pt requesting status on referral. Please see previous notes. * Telephone Encounter - Zane Hernández - 11/25/2023 2:32 PM EDT Tc from patient requesting status in regards to the message below * Telephone Encounter - Wing Gil RN - 11/18/2023 11:50 AM EDT Please advise, pt seen on 11/15, not not completed, will you refer to specialist? Thank you. * Telephone Encounter - Alvaro Erickson - 11/17/2023 4:07 PM EDT Tc from pt requesting a referral for liver specialist due to the abdominal pain she was seen for 11/16/23 . Please contact pt @ [phone] documented in this encounter Plan of Treatment Upcoming Encounters Date Type Department Care Team (Late st Contact Info) Description 10/20/2024 3:15 PM EST Office Visit [facility] MED & PEDS [address] [place] [address] Jerrica Junior FNP [address] [place] [address] 10/25/2024 2:45 PM EST Office Visit [facility] MED & PEDS [address] [place] [address] James Larson MD [address] [place], [place] [phone] documented as of this encounter Visit Diagnoses Not on filedocumented in this encounter Additional Health Concerns Assessment Noted Time PHQ-9 Depression Total Score: 0 01/22/20 23 3:02 PM EDT documented as of this encounter Care Teams Physical Ther Relationship Specialty Start Date End Date James Larson MD [address] [place] [address] PCP - General Internal Medicine 10/05/13 documented as of this encounter
--- OUTSIDE RECORDS SUMMARY | 2024-10-11 10:42 | XMS_ITS | Encounter Summary ---
Author Organization [employer] Address [address] [facility] 7t [place] [address] Care Team Providers Care Beater Machine Operator Name Role Phone James Larson MD Primary Care Provider [phone] Reason for Visit * Reason Onset Date Comments Call Back Request 10/11/2023 Encounter Details Date Type Department Care Team ([facility] Contact Info) Description 10/11/2023 Telephone [facility] MED [facility] PEDS [address] [place] [address] James Larson MD 505 [place] [address] Call Back Request Social History Tobacco Use Types Packs/Day Years [...] t he electric, gas, oil or water [employer] threatened to shut off services in your [...] encounter Miscellaneous Notes * Telephone Encounter - Ginna Grady - 10/11/2023 3:49 PM EST Tc from pt requesting a new glucose monitor, states she lost it. Pt is also requesting to speak with nurse/PCP in regards to dulaglutide (Trulicity) 0.75 MG/0.5ML solution pen-injector. Pt was prescribed medication in JUL but has not taken it since. Pt would like to know if she can start it now. Please contact pt at [phone] documented in this encounter Plan of Treatment Upcoming Encounters Date Type Department Care Team (Late st Contact Info) Description 10/20/2024 3:15 PM EST Office Visit [facility] MED & PEDS [address] [place] [address] Jerrica Junior FNP [address] [place] [address] 10/25/2024 2:45 PM EST Office Visit [facility] MED & PEDS [address] [place], [place] [phone] James Larson MD [address] [place], [place] [phone] documented as of this encounter Visit Diagnoses Not on filedocumented in this encounter Additional Health Concerns Assessment Noted Time PHQ-9 Depression Total Score: 0 01/22/20 23 3:02 PM EDT documented as of this encounter Care Teams Beater Machine Operator Relationship Specialty Start Date End Date James Larson MD [address] [place] [address] PCP - General Internal Medicine 10/05/13 documented as of this encounter
== END 2024-10-11 09:55 | disposition home or self-care (01) ==
LOC: HO.HMGCX 09:54
PROVIDERS: PCP Internal Medicine; Visit Provider Internal Medicine
DX: R74.01 Elevation of levels of liver transaminase levels (principal)
CPT/HCPCS: 76700

== ENCOUNTER → 2024-10-11 09:57 | Outpatient (BNV) | payer OTHER, SELFPAY | PROVIDERS: PCP Internal Medicine; Visit Provider General Practice | DX: R74.01 Elevation of levels of liver transaminase levels (principal) | CPT/HCPCS: 76700 ==

== ENCOUNTER 2024-11-16 14:31 | Outpatient (REF) | payer OTHER, SELFPAY ==
--- OUTSIDE RECORDS SUMMARY | 2024-11-16 18:22 | XMS_ITS | Encounter Summary ---
Author Organization [employer] Address [address] [facility] 7t [place] [address] Care Team Providers Care Sanitary Engineer Name Role Phone James Larson MD Primary Care Provider [phone] Reason for Visit * Reason Onset Date Comments Nurse Triage 11/13/2024 Encounter Details Date Type Department Care Team (Late st Contact Info) Description 11/13/2024 Telephone [facility] [address] [place] [address] James Larson MD [address] [place] [address] Nurse Triage Social History Tobacco Use Types Packs/Day Years Used Date Smoking Tobacco: Every Day Cigarettes Passive Smoke Exposure: Never Smokeless Tobacco: Current Alcohol Answer Date Recorded How often do you have a drink containing alcohol ? 1 10/25/2024 How many drinks containing a lcohol do you have on a typical day when you are drinking? 0 10/25/2024 How often do you have six or more drinks on one occasion? 0 10/25/2024 Depression Answer Date Recorded Patient Health Questionnaire-9 Score 10 10/25/2024 Patient Health Questionnaire-9 Score 10 10/25/2024 Last PHQ-9: Questionnaire Data Not on file 0 10/25/2024 Housing Stability Answer Date Recorded What is [...] Answer Date Recorded Patient Health Questionnaire-2 Score 4 10/25/2024 Internet Access Answer Date Recorded Internet Access [...] Telephone Encounter - Desirae Kelley RN - 11/13/2024 4:05 PM EDT called pt to triage, spoke to pt. pt states several days duration of vaginal discharge, mild itching, and strong odor. pt denies unusual color, bleeding, or other associated symptoms. given appt with Mayco Arechiga in [facility] at 1:30 for exam. advised home care: rest, fluids, warm tub baths, avoid scented products or strong soaps, and call back as needed. pt understands and agrees with plan. insurance verified. Protocol Used: Vaginal Discharge (Adult) Protocol-Based Disposition: See in Office or Video Visit within 3 Days Positive Triage Question: * Bad smelling vaginal discharge * All higher-acuity triage questions were negative Care Advice Discussed: * Note to Triager - Vaginal Discharge * Reassurance and Education - Normal Vaginal Discharge * Genital Hygiene * Reasons To Call Back - Discharge becomes yellow or green - Discharge becomes foul smelling or itchy - Fever or abdomen pain occur - You become worse * Telephone Encounter - Chris Guerrier - 11/13/2024 3:27 PM EDT Symptom: Vaginal Symptoms - Not Bleeding Outcome: Schedule an urgent appointment (within 4 hours) or talk to a nurse or provider soon Reason: Foul-smelling vaginal discharge The caller accepted this outcome. Contact pt at [phone] documented in this encounter Plan of Treatment Upcoming Encounters Date Type Department Care Team ([facility] st Contact Info) Description 01/23/2025 1:45 PM EDT Office Visit [facility] MED & PEDS [address] [place] [address] James Larson MD [address] [place] [address] documented as of this encounter Visit Diagnoses Not on filedocumented in this encounter Additional Health Concerns Assessment Noted Time PHQ-9 Depression Total Score: 10 10/25/2 025 3:10 PM EST documented as of this encounter Care Teams Sanitary Engineer Relationship Specialty Start Date End Date James Larson MD [address] [place] [address] PCP - General Internal Medicine 10/05/13 documented as of this encounter
--- OUTSIDE RECORDS SUMMARY | 2024-11-16 18:22 | XMS_ITS | Encounter Summary ---
Author Organization [employer] Address [address] 7[address] [place] [address] Care Team Providers Care Manager Audit Name Role Phone James Larson MD Primary Care Provider [phone] Encounter Details Date Type Department Care Team (Late st Contact Info) Description 10/30/2024 Orders Only [facility] MEDICINE [address] [place] [address] James Larson MD [address] [facility] [address] [place], [place] [phone] Right sided abdominal pain (Primary Dx) Social History Tobacco Use Types [...] Care Team (Late st Contact Info) Description 01/23/2025 1:45 PM EDT Office Visit [facility] MED & PEDS [address] [place] [address] James Larson MD [address] [place] [address] documented as of this encounter Visit Diagnoses Diagnosis Right sided abdominal pain- Primary Abdominal pain, unspecified site documented in this encounter Additional Health Concerns Assessment Noted Time PHQ-9 Depression Total Score: 10 025 3:10 PM EST documented as of this encounter Care Teams Manager Audit Relationship Specialty Start Date End Date James Larson MD [address] [place] [address] PCP - General Internal Medicine 10/05/13 documented as of this encounter
--- OUTSIDE RECORDS SUMMARY | 2024-11-16 18:22 | XMS_ITS | Encounter Summary ---
Author Organization [employer] Address [address] [facility] [address] 7[address] [place] [address] Care Team Providers Care Audio Visual Specialist Name Role Phone James Larson MD Primary Care Provider [phone] Reason for Visit * Reason Comments Vaginal Discharge strong odor, mild it monster Encounter Details Date Type Department Care Team ([facility] st Contact Info) Description 11/16/2024 1:30 PM EDT Office Visit [facility] [address] [place] [address] Tresa Arechiga, GENET [address] [place] [address] Vaginal discharge (Primary Dx); Screening examination for venereal disease; Checking of intrauterine device Social History Tobacco Use Types Packs/Day Years [...] Access Q2 Not on file 06/09/2024 Comments No Sex and Gender Information Value Date Recorded Sex Assigned at Female 07/06/2022 10:21 AM EDT Legal Sex Female 10:21 AM EDT Gender Identity Female 07/06/2022 10:21 AM EDT Sexual Orientation Straight 07/06/2022 10 :21 AM EDT documented as of this encounter Last Filed Vital Signs Vital Sign Reading Time Taken Comments Blood Pressure 121/76 11/16/2024 1:55 PM EDT Pulse 70 11/16/2024 1:55 PM EDT Temperature 36.8 ??C (98.3 ??F) 11/16/2024 1:55 PM ED T Respiratory Rate 16 11/16/2024 1:55 PM EDT Oxygen Saturation 98% 11/16/2024 1:55 PM EDT Inhaled Oxygen Concentration - - Weight 89.4 kg (197 lb) 11/16/2024 1:55 PM EDT Height 165.1 cm (5' 5 ) 11/16/2024 1:55 PM EDT Body Mass Index 32.78 11/16/2024 1:55 PM EDT documented in this encounter Progress Notes * Tresa Arechiga CNM - 11/16/2024 1:30 PM EDT Subjective Patient ID: Brenda Apple is a 39 y.o. female who presents for vaginal symptoms Sexually active with former AMAB partner 09/05. Notes some vaginal discharge and odor. Using boric acid suppositories for bacterial vaginosis prevention. Sue inserted 10/2022. Happy with method for now, but may want removed at some point. NIL/HPV neg, gonorrhea, chlamydia, trichomonas neg 08/2022. History of bacterial vaginosis. Would like full STI testing today. Review of Systems Constitutional: Negative for chills and fever. Genitourinary: Positive for vaginal discharge. Negative for dysuria, menstrual problem, pelvic pain, vaginal bleeding and vaginal pain. Objective BP 121/76 (BP Location: Left arm, Patient Position: Sitting, BP Cuff Size: Adult) Pulse 70 Temp98.3 ??F (36.8 ??C) (Oral) Resp 16 Ht 5' 5 (1.651 m) Wt 197 lb (89.4 kg) SpO2 98% BMI 32.78 kg/m?? Physical Exam Constitutional: Appearance: Normal appearance. Genitourinary: General: Normal vulva. Labia: Right: No rash, tenderness, lesion or injury. Left: No rash, tenderness, lesion or injury. Vagina: Normal. No signs of injury and foreign body. No vaginal discharge, erythema, tenderness, bleeding or lesions. Cervix: No cervical motion tenderness, discharge, friability, lesion, erythema, cervical bleeding or eversion. Uterus: Normal. Not enlarged and not tender. Adnexa: Right adnexa normal and left adnexa normal. Right: No mass, tenderness or fullness. Left: No mass, tenderness or fullness. Comments: IUD strings noted. Body of IUD nonpalpable Neurological: Mental Status: She is alert. Psychiatric: Mood and Affect: Mood normal. Behavior: Behavior normal. Assessment/Plan Diagnoses and all orders for this visit: Vaginal discharge - POCT fern test, vaginal fluid manually resulted - Bacterial Vaginosis Panel No obvious vaginitis. Will send Gonorrhea/Chlamydia and bacterial vaginosis swab and contact with results. Reviewed newer research showing benefit of AMAB partner treatment with recurrent bacterial vaginosis. She is no longer with previous partner, but something to consider in the future. Reviewed oral sex precautions with boric acid. Screening examination for venereal disease - HIV-1/2 Antigen and Antibodies, Fourth Generation, with Reflexes - Syphilis Screen; Future - Chlamydia/N. Gonorrhoeae RNA, TMA, Urogenitial Gonorrhea/Chlamydia/trichomonas and serum labs sent. Will contact with results. Checking of intrauterine device Would like to keep IUD for now, but knows she can call anytime for removal. Remove by 8 years from insertion date. documented in this encounter Plan of Treatment Upcoming Encounters Date Type Department Care Team ([facility] Contact Info) Description 01/23/2025 1:45 PM EDT Office Visit [facility]EDS [address] [place] [address] James Larson MD [address] [place], [place] [phone] Scheduled Orders Name Type Priority Associated Diagnoses Orde r Schedule Bacterial Vaginosis Panel Microbiology Routine Vaginal discharge Ordered: 11/16/2024 HIV-1/2 Antigen and Antibodies, Fourth Generation, with Reflexes Lab Routine Screening examination for venereal disease Ordered: 11/16/2024 Syphilis Screen Lab Routine Screening examination for venereal disease Expected: 11/16/2024, Expires: 11/16/2025 Chlamydia/N. Gonorrhoeae RNA, TMA, Urogenitial Microbiology Routine Screening examination for venereal disease Ordered: 11/16/2024 documented as of this encounter Procedures Procedure Name Priority Date/Time Associated Diagnosis Comments POCT WET MOUNT/LIBRADO Routine 11/16/2024 2: 32 PM EDT Vaginal discharge documented in this encounter Results * POCT fern test, vaginal fluid manually resulted (11/16/2024 2:32 PM EDT) LIBRADO Prep Negative Comment:pH 4.5, neg whiff, n eg clue, neg trich, neg yeast, neg wbc Vaginal Fluid Vaginal structure / Unknown 11/16/2024 2:32 PM EDT Impressions Tresa Arechiga CNM - 11/16/2024 2:32 PM EDT Normal us Tresa Christieni CNBrady POINT OF CARE TEST ENTER/ EDIT ORDERABLES Final Result documented in this encounter Visit Diagnoses Diagnosis Vaginal discharge- Primary Leukorrhea, not specified as infective Screening examination for venereal disease Checking of intrauterine device documented in this encounter Additional Health Concerns Assessment Noted Time PHQ-9 Depression Total Score: 10 025 3:10 PM EST documented as of this encounter Care Teams Audio Visual Specialist Relationship Specialty Start Date End Date James Larson MD [address] [place] [address] PCP - General Internal Medicine 10/05/13 documented as of this encounter
--- OUTSIDE RECORDS SUMMARY | 2024-11-16 18:22 | XMS_ITS | Encounter Summary ---
Author Organization [employer] Address 75 [facility] 7t [place] [address] Care Team Providers Care Real Estate Office Supervisor Name Role Phone James Larson MD Primary Care Provider [phone] Encounter Details Date Type Department Care Team (Late st Contact Info) Description 11/16/2024 Telephone [employer] [address] [place] [address] James Larson MD [address] [place], [place] [phone] Social History Tobacco Use Types Packs/Day Years [...] encounter Miscellaneous Notes * Telephone Encounter - Wisam Jacome - 11/16/2024 9:07 AM EDT [facility] is requesting Ct Scan to be update to Ct Abdomen & Pelvis with Contrast and also they arerequesting a more specific reason for exam. Please review and advise ! documented in this encounter Plan of Treatment Upcoming Encounters Date Type Department Care Team ([facility] st Contact Info) Description 01/23/2025 1:45 PM EDT Office Visit [facility] [address] [place] [address] James Larson MD [address] [place] [address] documented as of this encounter Visit Diagnoses Not on filedocumented in this encounter Additional Health Concerns Assessment Noted Time PHQ-9 Depression Total Score: 10 025 3:10 PM EST documented as of this encounter Care Teams Real Estate Office Supervisor Relationship Specialty Start Date End Date James Larson MD [address] [place], [place] [address], [place] [address] PCP - General Internal Medicine 10/05/13 documented as of this encounter
--- OUTSIDE RECORDS SUMMARY | 2024-11-16 18:22 | XMS_ITS | Encounter Summary ---
Author Organization [employer] Address 75 [facility] 7 [place] [address] Care Team Providers Care Management Trainee Program Stores Name Role Phone James Larson MD Primary Care Provider [phone] Reason for Referral * Imaging (Routine) - Pending Review Specialty Diagnoses / Procedures Referred By Contac t Referred To Contact Radiology Diagnoses Right sided abdominal pain Procedures CT Abdomen Pelvis w/ Contrast James Larson MD [address] [place] [address] Phone: tel: fax: [address] Phone: tel: fax: Referral ID Status Reason Start Date Expiration Date V isits Requested Visits Authorized [id number] Pending Review 11/16/2024 11/16/2025 1 1 Encounter Details Date Type Department Care Team (Late st Contact Info) Description 11/16/2024 Orders Only [facility] [address] [place] [address] James Larson MD [address] [place], [place] [phone] Right sided abdominal pain (Primary Dx) Social [...] Upcoming Encounters Date Type Department Care Team ([facility] st Contact Info) Description 01/23/2025 1:45 PM EDT Office Visit [facility] PEDS [address] [place], [place] [phone] James Larson MD [address] [place], [place] [phone] Scheduled Orders Name Type Priority Associated Diagnoses Orde r Schedule CT Abdomen Pelvis w/ Contrast Imaging Routine Right sided abdominal pain Expected: 11/16/2024, Expires: 11/16/2025 documented as of this encounter Visit Diagnoses Diagnosis Right sided abdominal pain- Primary Abdominal pain, unspecified site documented in this encounter Additional Health Concerns Assessment Noted Time PHQ-9 Depression Total Score: 10 10/25/ 025 3:10 PM EST documented as of this encounter Care Teams Management Trainee Program Stores Relationship Specialty Start Date End Date James Larson MD [address] [place] [address] PCP - General Internal Medicine 10/05/13 documented as of this encounter
--- OUTSIDE RECORDS SUMMARY | 2024-11-16 18:23 | XMS_ITS | Encounter Summary ---
Author Organization [employer] Address 75 [facility] 7t [place] [address] Care Team Providers Care Shaker Washer Name Role Phone Jmaes Larson MD Primary Care Provider [phone] Reason for Visit * Reason Onset Date Comments FYI 10/27/2024 Encounter Details Date Type Department Care Team ([facility] st Contact Info) Description 10/27/2024 Telephone [facility] [address] [place] [address] James Larson MD [address] [place] [address] FYI Social History Tobacco Use Types Packs/Day Years [...] encounter Miscellaneous Notes * Telephone Encounter - Belen Diez RN - 11/01/2024 3:10 PM EST TC placed to [facility] to inform that per PCP Dr. Larson there are no further details regarding pt diagnosis and clinical presentation relating to the MRI of the abdomen w/ and w/o contrast. The secretary receptionist at [facility] spoke with one of the technicians who advised that the pt have aCT scan of the abd/pelvis with contrast. This imaging would be able to provide an image that coversmultiple organs especially if there is not one specific are of the body that needs to be covered. This information will be forwarded to Dr. Larson for review and advisement. * Telephone Encounter - Montse Joya - 10/30/2024 2:25 PM EST Tc from [facility] requesting status of message below. * Telephone Encounter - Chris Guerrier - 10/27/2024 2:28 PM EST Tc from Charly with [facility] regarding a MRI order that was sent to them. She states that they Need more Diagnosis Information to be able to do the MRI and also that there was a Error on the Order and it says MRA instead of MRI. Contact Charly at [phone] documented in this encounter Plan of Treatment Upcoming Encounters Date Type Department Care Team (Late st Contact Info) Description 01/23/2025 1:45 PM EDT Office Visit [facility] & PEDS [address] [place] [address] James Larson MD [address] [place] [address] documented as of this encounter Visit Diagnoses Not on filedocumented in this encounter Additional Health Concerns Assessment Noted Time PHQ-9 Depression Total Score: 10 025 3:10 PM EST documented as of this encounter Care Teams Shaker Washer Relationship Specialty Start Date End Date James Larson MD [address] [place] [address] PCP - General Internal Medicine 10/05/13 documented as of this encounter
--- OUTSIDE RECORDS SUMMARY | 2024-11-16 18:23 | XMS_ITS | Encounter Summary ---
Author Organization [employer] Address [address] [place] [address] 7t [place] [address] Care Team Providers Care Metal Wire Technician Name Role Phone James Larson MD Primary Care Provider [phone] Reason for Referral * Imaging (Routine) - Closed Specialty Diagnoses / Procedures Referred By Contnatalia hebert Referred To Contact Radiology Diagnoses Transaminitis Procedures US Abdomen Complete James Larson MD [address] [place] [address] Phone: tel: fax: [address] Phone: tel: fax: Referral ID Status Reason Start Date Expiration Date Visits Re quested Visits Authorized [id number] Closed 06/23/2024 06/23/2025 1 1 Encounter Details Date Type Department Care Team (Late st Contact Info) Description 06/23/2024 Orders Only [facility] MED & PEDS [address] [place] [address] James Larson MD [address] [place] [address] Transaminitis (Primary Dx) Social History Tobacco Use [...] as of this encounter Miscellaneous Notes * Result Encounter Note - James Larson MD - 06/23/2024 12:34 PM EDT Please call. Ultrasound shows hepatic steatosis. Patient needs known with efforts to lose weight. We will repeat blood test in 6 months to a year. documented in this encounter Plan of Treatment Upcoming Encounters Date Type Department Care Team ([facility] st Contact Info) Description 01/23/2025 1:45 PM EDT Office Visit [facility] [address] [place], [place] [phone] James Larson MD [address] [place], [place] [phone] documented as of this encounter Procedures Procedure Name Priority Date/Time Associated Diagnosis Comments US ABDOMEN COMPLETE Routine 10/12/2024 4 :59 AM EST Transaminitis documented in this encounter Results * US Abdomen Complete (10/12/2024 4:59 AM EST) Anatomical Region Laterality Modality Abdomen Ultrasound 10/12/2024 4:59 AM EST Narrative 10/12/2024 5:01 AM EST ? [facility] ?[address] ? [place] [address] ? Ultrasound Report ? Signed ? Patient: Brenda Apple ?MR#: [id number] ?? [birth year] ? : 1985 ?Acct:[id number] ? Age/Sex: 39 / F ?ADM Date: 10/11/24 ? Loc: HO.HMGCX ? Attending Dr: James Larson MD ? Ordering Physician: James Larson MD ?? Date of Service: 10/11/24 ?? Procedure(s): US abdomen complete ?? Accession Number(s): [id number] ? cc: James Larson MD ? CLINICAL HISTORY: transaminitis ? US abdomen complete ? Comparison: None ? Findings: ?? The visualized pancreas is normal. ?? Aorta is not visualized due to overlying bowel gas. Visualized portions of ?? the IVC are unremarkable. ? The liver is echogenic. ?? There is no intrahepatic bile duct dilatation. ?? The common duct is 2.6 mm in diameter. ?? The gallbladder is normal. There is no sonographic Sanchez sign. ?? The main portal vein is antegrade. ? The right kidney is 10.7 cm in length. ?? The left kidney is 10.3 cm in length. ?? The spleen is normal. 11.8 cm ?? No ascites. ? IMPRESSION: ?? 1. Hepatic steatosis ?? 2. No evidence of cholelithiasis or ultrasound evidence of cholecystitis ? This document has been electronically signed by: Dajuan Velazquez MD, ?? PHD on 10/12/2024 04:59:03 ? Dictated By: ?Dajuan Velazquez MD ? Signed By: ?<Electronically signed by Dajuan Velazquez MD in OV> ? 10/12/24499 ? DD/ 8 ? TD/TT: 10/12/24458 ? Rewinder Operator: ? Procedure Note Donotuseinterpreter, Image - 10/12/2024 [facility] [place] [address] Ultrasound Report Signed Patient: Connie Apple#: [id number] [birth year] : 1985Acct:[id number] Age/Sex: 39 / FADM Date: 10/11/24 Loc: HO.HMGX Attending Dr: James Larson MD Ordering Physician: James Larson MD Date of Service: 10/11/24 Procedure(s): US abdomen complete Accession Number(s): [id number] cc: James Larson MD CLINICAL HISTORY: transaminitis US abdomen complete Comparison: None Findings: The visualized pancreas is normal. Aorta is not visualized due to overlying bowel gas. Visualized portions of the IVC are unremarkable. The liver is echogenic. There is no intrahepatic bile duct dilatation. The common duct is 2.6 mm in diameter. The gallbladder is normal. There is no sonographic Sanchez sign. The main portal vein is antegrade. The right kidney is 10.7 cm in length. The left kidney is 10.3 cm in length. The spleen is normal. 11.8 cm No ascites. IMPRESSION: 1. Hepatic steatosis 2. No evidence of cholelithiasis or ultrasound evidence of cholecystitis This document has been electronically signed by: Dajuan Velazquez MD, PHD on 10/12/2024 04:59:03 Dictated By: Dajuan Velazquez MD Signed By: <Electronically signed by Dajuan Velazquez MD in OV> 10/12/24 0500 DD/ 8 TD/TT: 10/12/24458 Rewinder Operator: us James Larson MD IMG US PROCEDURES Final Res ult documented in this encounter Visit Diagnoses Diagnosis Transaminitis- Primary Nonspecific elevation of levels of transaminase or lactic acid dehydrogenase (LDH) documented in this encounter Additional Health Concerns Assessment Noted Time PHQ-9 Depression Total Score: 0 01/22/20 23 3:02 PM EDT documented as of this encounter Care Teams Metal Wire Technician Relationship Specialty Start Date End Date James Larson MD [address] [place] [address] PCP - General Internal Medicine 10/05/13 documented as of this encounter
--- OUTSIDE RECORDS SUMMARY | 2024-11-16 18:23 | XMS_ITS | Encounter Summary ---
Author Organization [employer] Address [address] [facility] 7t [place] [address] Care Team Providers Care Director Internal Control Name Role Phone James Larson MD Primary Care Provider [phone] Reason for Visit * Reason Onset Date Comments Nurse Triage 10/11/2023 Encounter Details Date Type Department Care Team ([facility] st Contact Info) Description 10/11/2023 Telephone [facility]S [address] [place] [address] James Larson MD [address] [place] [address] Nurse Triage Social History Tobacco Use Types [...] t he electric, gas, oil or water [employer] threatened to shut off services in your [...] . Pt is advised to come to [facility] 10/12/23 @ 340pm for provider to [...] accepted this outcome Please contact pt at [phone] documented in this encounter Plan of Treatment Upcoming Encounters Date Type Department Care Team ([facility] st Contact Info) Description 01/23/2025 1:45 PM EDT Office Visit [facility] [address] [place] [address] James Larson MD [address] [place] [address] documented as of this encounter Visit Diagnoses Not on filedocumented in this encounter Additional Health Concerns Assessment Noted Time PHQ-9 Depression Total Score: 0 01/22/20 23 3:02 PM EDT documented as of this encounter Care Teams Director Internal Control Relationship Specialty Start Date End Date James Larson MD [address] [place] [address] PCP - General Internal Medicine 10/05/13 documented as of this encounter
--- OUTSIDE RECORDS SUMMARY | 2024-11-16 18:23 | XMS_ITS | Encounter Summary ---
Author Organization [employer] Address [address] [facility] [address] 7[address] [place] [address] Care Team Providers Care Independent Distributor Name Role Phone James Larson MD Primary Care Provider [phone] Encounter Details Date Type Department Care Team (Latest Contact Info) Description 11/16/2024 Travel Social History Tobacco Use Types Packs/Day Years [...] Description 01/23/2025 1:45 PM EDT Office Visit [facility] PED[facility] [address] [place] [address] James Larson MD [address] [place] [address] documented as of this encounter Visit Diagnoses Not on filedocumented in this encounter Additional Health Concerns Assessment Noted Time PHQ-9 Depression Total Score: 10 025 3:10 PM EST documented as of this encounter Care Teams Independent Distributor Relationship Specialty Start Date End Date James Larson MD [address] [place] [address] PCP - General Internal Medicine 10/05/13 documented as of this encounter
--- OUTSIDE RECORDS SUMMARY | 2024-11-16 18:23 | XMS_ITS | Encounter Summary ---
Author Organization [employer] Address 75 [facility] 7 [place] [address] Care Team Providers Care Analyst Competitive Intelligence Name Role Phone James Larson MD Primary Care Provider [phone] Reason for Visit * Reason Onset Date Comments No Show 10/20/2024 Encounter Details Date Type Department Care Team ([facility] Contact Info) Description 10/20/2024 Telephone [facility] MED & PEDS [address] [place] [address] James Larson MD [address] [place] [address] No Show Social History Tobacco Use Types [...] encounter Miscellaneous Notes * Telephone Encounter - Geovanna Valentino - 10/20/2024 3:43 PM EST 10/20/24 no show for vaginal discomfort; check up documented in this encounter Plan of Treatment Upcoming Encounters Date Type Department Care Team (Late st Contact Info) Description 01/23/2025 1:45 PM EDT Office Visit [facility] & PEDS [address] [place] [address] James Larson MD [address] [place] [address] documented as of this encounter Visit Diagnoses Not on filedocumented in this encounter Additional Health Concerns Assessment Noted Time PHQ-9 Depression Total Score: 0 01/22/20 23 3:02 PM EDT documented as of this encounter Care Teams Analyst Competitive Intelligence Relationship Specialty Start Date End Date James Larson MD [address] [place] [address] PCP - General Internal Medicine 10/05/13 documented as of this encounter
--- OUTSIDE RECORDS SUMMARY | 2024-11-16 18:23 | XMS_ITS | Encounter Summary ---
Author Organization [employer] Address [address] [facility] [address] [place] [address] Care Team Providers Care Ad Writer Name Role Phone James Larson MD Primary Care Provider [phone] Encounter Details Date Type Department Care Team ([facility] st Contact Info) Description 12/09/2023 Orders Only [facility] MED & PEDS [address] [place], [place] [phone] DrummondRikki Coronel MD [address] [place], [place] [phone] Social History Tobacco Use Types Packs/Day Years [...] 1:45 PM EDT Office Visit [facility] & PED[facility] [address] [place] [address] James Larson MD [address] [place] [address] documented as of this encounter Visit Diagnoses Not on filedocumented in this encounter Additional Health Concerns Assessment Noted Time PHQ-9 Depression Total Score: 0 01/22/20 23 3:02 PM EDT documented as of this encounter Care Teams Ad Writer Relationship Specialty Start Date End Date James Larson MD [address] [place] [address] PCP - General Internal Medicine 10/05/13 documented as of this encounter
--- OUTSIDE RECORDS SUMMARY | 2024-11-16 18:23 | XMS_ITS | Encounter Summary ---
Author Organization [employer] Address [address] [facility] [address] [place] [address] Care Team Providers Care Voting Machine Mechanic Name Role Phone James Larson MD Primary Care Provider [phone] Reason for Visit * Reason Onset Date Comments Referral 11/17/2023 Encounter Details Date Type Department Care Team ([facility] st Contact Info) Description 11/17/2023 Telephone [facility] [address] [place] [address] James Larson MD [address] [place] [address] Referral Social History Tobacco Use Types Packs/Day [...] for 11/16/23 . Please contact pt @ [phone] documented in this encounter Plan of Treatment Upcoming Encounters Date Type Department Care Team ([facility] st Contact Info) Description 01/23/2025 1:45 PM EDT Office Visit [facility] [address] [place] [address] James Larson MD [address] [place] [address] documented as of this encounter Visit Diagnoses Not on filedocumented in this encounter Additional Health Concerns Assessment Noted Time PHQ-9 Depression Total Score: 0 01/22/20 23 3:02 PM EDT documented as of this encounter Care Teams Voting Machine Mechanic Relationship Specialty Start Date End Date James Larson MD [address] [place] [address] PCP - General Internal Medicine 10/05/13 documented as of this encounter
--- OUTSIDE RECORDS SUMMARY | 2024-11-16 18:23 | XMS_ITS | Encounter Summary ---
Author Organization [employer] Address [address] [facility] 7[address] [place] [address] Care Team Providers Care Prosthodontist/Owner Name Role Phone Garth Larson MD Primary Care Provider [phone] Reason for Referral * Imaging (Routine) - Authorized Specialty Diagnoses / Procedures Referred By Contac t Referred To Contact Radiology Diagnoses Right sided abdominal pain Procedures MRA Abdomen w/ and w/o Contrast Garth Larson MD [address] [place] [address] Phone: tel: fax: [facility] [address] [place] [address], [address] [address] Phone: tel: fax: Referral ID Status Reason Start Date Expiration Date V isits Requested Visits Authorized [id number] Authorized 10/26/2024 10/26/2025 1 1 * Consultation (Routine) - Authorized Specialty Diagnoses / Procedures Referred By Contac t Referred To Contact Dermatology Diagnoses Bromhidrosis Garth Larson MD [address] [place] [address] Phone: tel: fax: Leonel Valdivia MD [address] [place] [address] Phone: tel: fax: Referral ID Status Reason Start Date Expiration Date Visits Requested Visits Authorized [id number] Authorized Specialty Services Required 10/26/2024 10/26/2025 1 1 Reason for Visit * Reason Comments Annual Exam Encounter Details Date Type Department Care Team ([facility] st Contact Info) Description 10/25/2024 2:45 PM EST Office Visit [facility] [address] [place] [address] Garth Larson MD [address] [place] [address] Type 2 diabetes mellitus without complication, without long-term current use of insulin (CMS/HCC) (Primary Dx); Other fatigue; Vitamin D deficiency; Chronic bilateral low back pain without sciatica; Neck pain; Dietary counseling; Exercise counseling; Class 1 obesity due to excess calories with serious comorbidity and body mass index (BMI) of 32.0 to 32.9 in adult; Bromhidrosis; Right sided abdominal pain Social History Tobacco Use Types Packs/Day Years [...] Sign Reading Time Taken Comments Blood Pressure 120/80 10/25/2024 2:55 PM EST Pulse 64 10/25/2024 2:55 PM EST Temperature 36.6 ??C (97.9 ??F) 10/25/2024 2:55 PM ES T Respiratory Rate 20 10/25/2024 2:55 PM EST Oxygen Saturation 98% 10/25/2024 2:55 PM EST Inhaled Oxygen Concentration - - Weight 88.1 kg (194 lb 4 oz) 10/25/2024 2:55 PM EST Height 165.1 cm (5' 5 ) 10/25/2024 2:55 PM EST Body Mass Index 32.32 10/25/2024 2:55 PM EST documented in this encounter Progress Notes * Garth Larson MD - 10/25/2024 2:45 PM EST Subjective Patient ID: Brenda Apple is a 39 y.o. female who presents for Annual Exam. HPI Patient is here for her annual physical exam but have multiple concerns: 1) generalized body aches for several years. Patient would like to get a refill on Motrin and a muscle relaxer. Has not been receiving any medication for her generalized body aches for a long time. 2) history of mood disorder. Patient is very concerned about some body orders which cause quite a lot of distress. Would like to have that addressed. She has been trying to control the body ordered by using cucumber water, probiotic, kombucha shots, green teas, multiple detox with natural products without significant improvement. She is convinced that she has some stomach problem causing the abnormal body odor. 3) history of right upper quadrant pain. Imaging study done so far has been nonrevealing. Patient is requesting to get an MRI of her abdomen. 4) history of obesity. We have tried a GLP-1 receptor agonist in the past which was causing side effect. And patient has decided to stop taking the medication because of nausea and stomach upset. Sheis interested in weight loss surgery.\ Patient Active Problem List Diagnosis Anxiety state Backache Bacterial urinary infection Breast lump Depressive disorder Essential hypertension Hypercholesterolemia Neck pain Obesity Type 2 diabetes mellitus (CMS/HCC) Other fatigue Current Outpatient Medications on File Prior to Visit Medication Sig Dispense Refill Alcohol Swabs (Alcohol Prep) pads Blood Glucose Monitoring Suppl ([email or web address] Lite) w/Device kit 1 Units Once per day. 1 kit 0 Blood Pressure kit Continuous Glucose Breed To Wean Production Technician (FreeStyle Jorje 2 [place]) device Scan sensor every 8 hours 1 each 0 Continuous Glucose Sensor (FreeStyle Jorje 2 Sensor) misc Apply 1 sensor every 14 days 2 each 11 famotidine (Pepcid) 20 MG tablet Take 1 tablet by mouth at bedtime. folic acid (Folvite) 800 MCG tablet Take 1 tablet by mouth 1 (one) time each day. glucose blood ([email or web address] Precision Laurent Test) test strip Use to test blood sugar 2 times daily 100 each 12 glucose-vitamin C 4-6 GM-MG oral gel 1 tablet to use in case of symptoms of hypoglycemia or if FS<70 mg/dl Lancets misc Use to test blood sugar 2 times daily 100 each 11 Misc. Devices (Wrist Brace) misc [DISCONTINUED] cholecalciferol (Vitamin D-3) 25 MCG (1000 UT) tablet Take 1 tablet (25 mcg) by mouth Once per day. 30 tablet 11 [DISCONTINUED] Dulaglutide 0.75 MG/0.5ML solution auto-injector Inject 0.75 mg under the skin every7 (seven) days AND 0.75 mg every 7 (seven) days. 2 mL 0 No current facility-administered medications on file prior to visit. No Known Allergies Review of Systems Constitutional: Negative for appetite change, chills and diaphoresis. Eyes: Negative for pain, redness and itching. Respiratory: Negative for cough, choking and chest tightness. Cardiovascular: Negative for palpitations and leg swelling. Gastrointestinal: Negative for abdominal pain, anal bleeding and blood in stool. Musculoskeletal: Negative for back pain, gait problem and joint swelling. Skin: Negative for pallor and rash. Abnormal body odor Neurological: Negative for light-headedness and numbness. Objective BP 120/80 (BP Location: Left arm, Patient Position: Sitting, BP Cuff Size: Adult) Pulse 64 Temp97.9 ??F (36.6 ??C) (Oral) Resp 20 Ht 5' 5 (1.651 m) Wt 194 lb 4 oz (88.1 kg) SpO2 98% BMI 32.32 kg/m?? Physical Exam Constitutional: General: She is not in acute distress. Appearance: Normal appearance. She is obese. She is not ill-appearing, toxic- appearing or diaphoretic. Cardiovascular: Rate and Rhythm: Normal rate and regular rhythm. Heart sounds: No murmur heard. No friction rub. No gallop. Pulmonary: Effort: Pulmonary effort is normal. No respiratory distress. Breath sounds: No stridor. No wheezing or rhonchi. Skin: General: Skin is warm. Neurological: General: No focal deficit present. Mental Status: She is alert. Psychiatric: Mood and Affect: Mood normal. Assessment/Plan Diagnosis Plan 1. Type 2 diabetes mellitus without complication, without long-term current use of insulin ([facility]) POCT Glucose POCT HGB A1C Elevated A1c Patient declines medication for now Advised a low-carb diet and regular exercise. 2. Other fatigue cholecalciferol (Vitamin D-3) 25 MCG (1000 UT) tablet Ascorbic Acid (vitamin C) 250 MG tablet Resume vit D labs ordered. Pt will be called w/ results. 3. Vitamin D deficiency cholecalciferol (Vitamin D-3) 25 MCG (1000 UT) tablet Vitamin D supplementation 4. Chronic bilateral low back pain without sciatica ibuprofen 600 MG tablet methocarbamol (Robaxin) 750 MG tablet 5. Neck pain ibuprofen 600 MG tablet methocarbamol (Robaxin) 750 MG tablet 6. Dietary counseling 7. Exercise counseling 8. Class 1 obesity due to excess calories with serious comorbidity and body mass index (BMI) of 32.0 to 32.9 in adult 9. Bromhidrosis Referral to Dermatology Referral to Dermatology 10. Right sided abdominal pain MRA Abdomen w/ and w/o Contrast MRA Abdomen w/ and w/o Contrast documented in this encounter Miscellaneous Notes * Addendum Note - Garth Larson MD - 10/25/2024 2:45 PM ESTAddended by: GARTH LARSON on: 10/26/2024 04:27 PM Modules accepted: Orders documented in this encounter Plan of Treatment Upcoming Encounters Date Type Department Care Team (Late st Contact Info) Description 01/23/2025 1:45 PM EDT Office Visit [facility] MED [facility]S [address] [place] [address] Garth Larson MD [address] [place] [address] Scheduled Orders Name Type Priority Associated Diagnoses Orde r Schedule MRA Abdomen w/ and w/o Contrast Imaging Routine Right sided abdominal pain Expected: 10/26/2024, Expires: 10/26/2025 Scheduled Referrals Name Type Priority Associated Diagnoses Order Schedule Referral to Dermatology Outpatient Referral Routine Bromhidrosis Expected: 10/26/2024 (Approximate), Expires: 10/26/2025 documented as of this encounter Procedures Procedure Name Priority Date/Time Associated Diagnosis Comments POCT GLUCOSE Routine 10/25/2024 3:49 PM EST Type 2 diabetes mellitus without complication, without long-term current use of insulin (CMS/[facility]) POCT GLYCATED HEMOGLOBIN, TOTAL Routine 10/25/2024 3:48 PM EST Type 2 diabetes mellitus without complication, without long-term current use of insulin (CMS/[facility]) documented in this encounter Results * POCT Glucose (10/25/2024 3:49 PM EST) Glucose Blood, POC 153 60 - 200 mg/dL QC Media Lot # [id number] Lot# Expiration Date 482,[id number] Blood Capillary blood specimen / Unknown 10/25/2024 3:49 PM EST Garth Larson MD POINT OF CARE TEST ENTER/ED IT ORDERABLES Final Result * (ABNORMAL) POCT HGB A1C (10/25/2024 3:48 PM EST) Hemoglobin A1C 7.7(A) 4.0 - 6.0 % QC Media Lot # [id number] Lot# Expiration Date [id number] Blood 10/25/2024 3:48 PM EST Garth Larson MD POINT OF CARE TEST ENTER/ED IT ORDERABLES Final Result documented in this encounter Visit Diagnoses Diagnosis Type 2 diabetes mellitus without complication, without long-term current use of insulin ([facility])- Primary Other fatigue Vitamin D deficiency Chronic bilateral low back pain without sciatica Neck pain Cervicalgia Dietary counseling Dietary surveillance and counseling Exercise counseling Class 1 obesity due to excess calories with serious comorbidity and body mass index (BMI) of 32.0 to 32.9 in adult 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
--- OUTSIDE RECORDS SUMMARY | 2024-11-16 18:23 | XMS_ITS | Encounter Summary ---
Author Organization [employer] [facility] Address [address] [facility] [address] [place] [address] Care Team Providers Care Spraying Machine Operator Name Role Phone James Larson MD Primary Care Provider [phone] Encounter Details Date Type Department Care Team (Late st Contact Info) Description 03/29/2023 Telephone [facility] [address] [place], [place] [phone] August Bridges DDS [address] [place] [address] Social History Tobacco Use Types Packs/Day Years [...] Description 01/23/2025 1:45 PM EDT Office Visit [facility] [address] [place], [place] [phone] James Larson MD [address] [place], [place] [phone] documented as of this encounter Visit Diagnoses Not on filedocumented in this encounter Additional Health Concerns Assessment Noted Time PHQ-9 Depression Total Score: 0 01/22/20 23 3:02 PM EDT documented as of this encounter Care Teams Spraying Machine Operator Relationship Specialty Start Date End Date James Larson MD [address] [place] [id number] PCP - General Internal Medicine 10/05/13 documented as of this encounter
--- OUTSIDE RECORDS SUMMARY | 2024-11-16 18:23 | XMS_ITS | Clinical Summary ---
Author Organization [employer] Address [address] [facility] 7t [place] [address] Care Team Providers Care Yarn Skeins Examiner Name Role Phone James Larson MD Primary Care Provider [phone] Allergies No known active allergies Medications famotidine (Pepcid) 20 MG tablet Take 1 tablet by mouth at bedtime. 01/22/20 20 Active folic acid (Folvite) 800 MCG tablet Take 1 tablet by mouth 1 (one) time each day. 04/28/20 22 Active glucose-vitam in C 4-6 GM-MG oral gel 1 tablet to use in case of symptoms of hypoglycemia or if FS<70 mg/dl 05/02/20 21 Active Alcohol Swabs (Alcohol Prep) pads Active Blood Pressure kit Active Misc. Devices (Wrist Brace) misc Active Continuous Glucose Rn Home Care (FreeStyle Jorje 2 [place]) deviceIndicat ions:Type 2 diabetes mellitus without complication, without long-term current use of insulin ([facility]) Scan sensor every 8 hours 1 each 06/16/20 24 Active Continuous Glucose Sensor (FreeStyle Jorje 2 Sensor) miscIndicatio ns:Type 2 diabetes mellitus without complication, without long-term current use of insulin ([facility]) Apply 1 sensor every 14 days 2 each 11 06/16/20 24 Active glucose blood (FreeStyle Precision Laurent Test) test stripIndicati ons:Type 2 diabetes mellitus without complication, without long-term current use of insulin ([facility]) Use to test blood sugar 2 times daily 100 each 12 06/16/20 24 025 Active Blood Glucose Monitoring Suppl (FreeStyle Lite) w/Device kitIndication s:Type 2 diabetes mellitus without complication, without long-term current use of insulin ([facility]) 1 Units Once per day. 1 kit 06/16/20 24 Active Lancets miscIndicatio ns:Type 2 diabetes mellitus without complication, without long-term current use of insulin ([facility]) Use to test blood sugar 2 times daily 100 each 11 06/16/20 24 Active cholecalcifer ol (Vitamin D-3) 25 MCG (1000 UT) tabletIndicat ions:Other fatigue,Vitam in D deficiency Take 1 tablet (25 mcg) by mouth Once per day. 30 tablet 11 10/25/19 25 Active ibuprofen 600 MG tabletIndicat ions:Chronic bilateral low back pain without sciatica,Neck pain Take 1 tablet (600 mg) by mouth every 8 (eight) hours if needed for mild pain. 60 tablet 3 10/25/19 25 025 Active methocarbamol (Robaxin) 750 MG tabletIndicat ions:Chronic bilateral low back pain without sciatica,Neck pain Take 1 tablet (750 mg) by mouth 4 times daily for 10 days. 40 tablet 10/25/19 25 Active Ascorbic Acid (vitamin C) 250 MG tabletIndicat ions:Other fatigue Take 1 tablet (250 mg) by mouth Once per day. 30 tablet 10/25/19 25 026 Active Dulaglutide 0.75 MG/0.5ML solution auto-injector Indications:T ype 2 diabetes mellitus without complication, without long-term current use of insulin ([facility]) Inject 0.75 mg under the skin every 7 (seven) days AND 0.75 mg every 7 (seven) days. 2 mL 06/16/20 24 025 Discontinued(T herapy completed) cholecalcifer ol (Vitamin D-3) 25 MCG (1000 UT) tabletIndicat ions:Other fatigue,Vitam in D deficiency Take 1 tablet (25 mcg) by mouth Once per day. 30 tablet 06/16/20 24 025 Discontinued(R eorder (will not trigger notification to Pharmacy)) Active Problems Problem Noted Date Diagnosed Date [...] Encounters Date Type Department Care Team Description 11/16/2024 1:30 PM EDT Office Visit [facility] [address] [place] [address] Tresa Arechiga CNM Vaginal discharge (Primary Dx); Screening examination for venereal disease; Checking of intrauterine device 11/16/2024 Travel 11/16/2024 Orders Only [facility] [address] [place] [address] James Larson MD Right sided abdominal pain (Primary Dx) 11/16/2024 Telephone [facility] [address] [place] [address] James Larson MD 11/13/2024 Telephone [facility] [address] [place], [place] [phone] James Larson MD Nurse Triage 10/31/2024 Telephone [facility] [address] [place], [place] [phone] James Larson MD 10/30/2024 Orders Only [facility] [address] [place] [address] James Larson MD Right sided abdominal pain (Primary Dx) 10/27/[address] [address] James Larson MD FYI 10/25/2024 2:45 PM EST Office Visit [facility] [address] [place] [address] James Larson MD Type 2 diabetes mellitus without complication, without long-term current use of insulin ([facility]) (Primary Dx); Other fatigue; Vitamin D deficiency; Chronic bilateral low back pain without sciatica; Neck pain; Dietary counseling; Exercise counseling; Class 1 obesity due to excess calories with serious comorbidity and body mass index (BMI) of 32.0 to 32.9 in adult; Bromhidrosis; Right sided abdominal pain 10/25/2024 Travel 10/20/2024 Telephone [facility] [address] [place] [address] James Larson MD No Show 10/12/2024 Orders Only [facility] [address] [place] [address] James Larson MD 10/12/2024 Telephone [facility] [address] [place] [address] James Larson MD Results (US results) 10/12/2024 Patient Outreach [address] [address] James Larson MD Pre-visit Planning (SDOH screening negative and Tobacco screening negative) 10/10/2024 Telephone [facility] [address] [place] [address] James Larson MD Nurse Triage 10/02/2024 Telephone [facility] [address] [place] [address] James Larson MD No Show 09/29/[address] [address] James Larson MD Nurse Triage from Last [...] uit: Not Asked; Counseling Given: Not Answered Alcohol Answer Date Recorded How often do [...] Mass Index 32.78 11/16/2024 1:55 PM EDT Plan of Treatment Upcoming Encounters Date Type Department Care Team (Late st Contact Info) Description 01/23/2025 1:45 PM EDT Office Visit [facility] [address] [place] [address] James Larson MD [address] [place], [place] [phone] Health Maintenance Due Date Last Done Comments Dental Oral Exam 1987 Dental Prophylaxis 1987 Dental X-Ray: Bitewings 1987 Lipid Panel 1987 Derm Melanoma Skin Check 1987 Eye Exam 1997 Hepatitis C Screening 2005 HPV Vaccines (3 - 3-dose series) 03/15/2007 12/21/2006, 07/23/2006 Diabetes: Urine Protein Screening 08/07/2021 08/07/2020 Dental X-Ray: Full Mouth 01/15/2024 01/13/2021, 11/05 Diabetes: Foot Exam 07/22/2024 07/22/2023, 07/22/2023, 07/22/2023, Additional history exists DTaP/Tdap/Td Vaccines (3 - Td or Tdap) 12/21/2024 12/21/2014, 05/15/2004 Diabetes: Hemoglobin A1C 01/22/2025 025, 06/16/2024, 10/12/2023, Additional history exists Influenza Vaccine (#1) 2025 2, 06/14/2019, 06/28/2018, Additional history exists Postponed from 05/07/2024 (Patient Refused) Depression Monitoring (PHQ-9) 04/24/2025 10/25/2024, 10/25/2024 COVID-19 Vaccine (1 - season) 2025 Postponed from 05/07/2024 (Patient Refused) Pneumococcal Vaccine: Pediatrics (0 to 5 Years) and At-Risk Patients (6 to 49) Years) (2 of 2 - PCV) 06/16/2025 06/14/2019 Postponed from 06/14/2020 (Patient Refused) Alcohol/Substance Use Screening 10/25/2025 10/25/2024 Depression Screening 10/25/2025 10/25/2024, 10/25/19 25 SDOH Screening 10/25/2025 10/25/2024 Tobacco Screening 10/26/2025 10/26/2024 Family Planning (PISQ) 11/16/2025 11/16/2024 Cervical Cancer Screening 08/11/2027 HPV/Cotest 08/11/2027 08/11/2022, 03/21/2019 Pap Smear 08/11/2027 08/11/2022 Zoster Vaccines (1 of 2) 2037 RSV Patients and Patients Aged 60 years or older (1 - 1-dose 75+ series) 2062 Hepatitis B Vaccines Completed 06/06/2015, 02/04/2015, 12/27/2014 HIV Screening Completed 04/28/2022 HIB Vaccines Aged Out No longer eligi ble based on patient's age to complete this topic Hepatitis A Vaccines Aged Out No long er eligible based on patient's age to complete [...] 11/16/2024 2: 32 PM EDT Vaginal discharge POCT GLUCOSE Routine 10/25/2024 3:49 PM EST Type 2 diabetes mellitus without complication, without long-term current use of insulin ([facility]) POCT GLYCATED HEMOGLOBIN, TOTAL Routine 10/25/2024 3:48 PM EST Type 2 diabetes mellitus without complication, without long-term current use of insulin ([facility]) US ABDOMEN COMPLETE Routine 10/12/2024 4 :59 AM EST Transaminitis THINPREP IMAGING PAP AND HPV MRNA E6/E7, WITH CT/NG, TRICHOMONAS Routine 08/11/2022 5:19 PM EST HIV 1/2 ANTIGEN/ANTIBODY, FOURTH GENERATION W/RFL Routine 04/28/2022 12:00 PM EDT PANORAMIC RADIOGRAPHIC IMAGE Routine 01/13/2021 12:00 AM EDT ALBUMIN, RANDOM URINE W/CREATININE Routine 08/07/2020 2:58 PM EST from Last 3 Months or Most Recently Relevant to Health Maintenance Results * POCT fern test, vaginal fluid manually resulted (11/16/2024 2:32 PM EDT) [facility] Prep Negative Comment:pH 4.5, neg whiff, n eg clue, neg trich, neg yeast, neg wbc Vaginal Fluid Vaginal structure / Unknown 11/16/2024 2:32 PM EDT Impressions Tresa Arechiga, GENET - 11/16/2024 2:32 PM EDT Normal Tresa CHOUDHURYM POINT OF CARE TEST ENTER/ EDIT ORDERABLES Final Result * POCT Glucose (10/25/2024 3:49 PM EST) Pathologist [facility] Glucose Blood, POC 153 60 - 200 mg/dL QC Media Lot # [id number] Lot# Expiration Date [id number] Blood Capillary blood specimen / Unknown 10/25/2024 3:49 PM EST James Larson MD POINT OF CARE TEST ENTER/ED IT ORDERABLES Final Result * (ABNORMAL) POCT HGB A1C (10/25/2024 3:48 PM EST) Pathologist [facility] Hemoglobin A1C 7.7(A) 4.0 - 6.0 % QC Media Lot # [id number] Lot# Expiration Date [id number] Blood 10/25/2024 3:48 PM EST James Larson MD POINT OF CARE TEST ENTER/ED IT ORDERABLES Final Result * US Abdomen Complete (10/12/2024 4:59 AM EST) Anatomical Region Laterality Modality Abdomen Ultrasound 10/12/2024 4:59 AM EST Narrative 10/12/2024 5:01 AM EST ? [facility] ?[address] [facility] ? [place] [address] ? Ultrasound Report ? Signed ? Patient: Zechariah,Brenda ?MR#: [id number] ?? 07 ? : 1985 ?Acct:[id number] ? Age/Sex: 39 / F ?ADM Date: 02/05/25 ? Loc: HO.HMGCX ? Attending : James Larson MD ? Ordering Physician: James Larson MD ?? Date of Service: 10/11/24 ?? Procedure(s): US abdomen complete ?? Accession Number(s): [id number] ? cc: James Larson MD ? CLINICAL [...] by Dajuan Velazquez MD in OV> ? 10/12/24 0500 ? DD/ 0459 ? TD/TT: 10/12/24 0459 ? Retail Department Reset: ? Procedure Note Cynthia, Kyleigh - 10/12/2024 [facility] [place] [address] Ultrasound Report Signed Patient: Connie Apple#: [id number] [birth year] : 1985Acct:[id number] Age/Sex: 39 / FADM Date: 10/11/24 Loc: HO.HMGCX Attending Dr: James Larson MD Ordering Physician: James Larson MD Date of Service: 10/11/24 Procedure(s): US abdomen complete Accession Number(s): [id number] cc: James Larson MD CLINICAL HISTORY: transaminitis [...] OV> 10/12/24 0500 DD/ 8 TD/TT: 10/12/24458 Retail Department Reset: us James Larson MD IMG US PROCEDURES Final Res ult * Thinprep TIS PAP And HPV mRNA E6/E7, CT/NG, TRICH (08/11/2022 5:19 PM EST) Clinical Information: None given [facility] LMP: NONE GIVEN [facility] Prev. PAP: NONE GIVEN [facility] Prev. BX: NONE GIVEN [facility] SOURCE: None given [facility] Statement Of Adequacy: [facility] Comment: Satisfactory for evaluation. Endocervical/transformation zone component present. Age and/or menstrual status not provided Interpretation/Re sult: Negative for intraepithelial lesion or malignancy. [facility] COMMENT: This Pap test has been evaluated with computer assisted technology. [facility] Flame Cutting Machine Operator Helper: Bart [employer] Comment: [facility], CT(ASCP) CT screening location: [address] ??[address] (Always Message) [employer] Comment: EXPLANATORY NOTE: The Pap is a [...] HPV nRNA E6/E7 Not Detected Not Detected [facility] Comment: Methodology: Dog Control Officer-Mediated Amplification This assay detects E6/E7 viral messenger RNA (mRNA) from 14 high-risk HPV types (16,18,31,33,35,39,45,51,52,56,58,59,66,68). Cervical sources are required for HPV testing. If a vaginal source from a patient who has had a total hysterectomy with removal of cervix was submitted, please contact the testing laboratory for alternative testing options. For additional information, please refer to http://[employer]/faq/XNK917j7 (This link if provided for information/ educational purposes only.) Chlamydia trachomatis RNA, TMA, Urogenital NOT DETECTED NOT DETECTED Qnary Neisseria gonorrhoeae RNA, TMA, Urogenital NOT DETECTED NOT DETECTED Qnary (Always Message) [facility] [place] Comment: The analytical performance characteristics of this assay, when used to test SurePath(TM) specimens have been determined by [employer]. The modifications have not been cleared or approved by the FDA. This assay has been validated pursuant to the CLIA regulations and is used for clinical purposes. For additional information, please refer to https://[employer]/faq/QTF472 (This link is being provided for information/ educational purposes only.) Trichomonas vaginalis, QL, TMA, PAP Vial NOT DETECTED NOT DETECTED Qnary Comment: The analytical performance characteristics of this assay have been determined by [employer]. The modifications have not been cleared or approved by the FDA. This assay has been validated pursuant to the CLIA regulations and is used for clinical purposes. For additional information, please refer to http://BlogGlue.Dentalink/ faq/Trichomonastma (This link is being provided for information/ educational purposes only.) 08/11/2022 5:19 PM EST 08/12/2022 8:03 AM EST Narrative [facility] - 08/14/2022 9:39 AM EST FASTING: UNKNOWN us Tresa Arechiga CNM LAB PATHOLOGY ORDERABLES Final Result [facility] [address], [place] [address] [facility] [address], [place] [address] [facility] [address], [place] [address] * HIV 1/2 ANTIGEN/ANTIBODY,FOURTH GENERATION W/RFL (04/28/2022 12:00 PM EDT) HIV-1/2 ANTIGEN AND ANTIBODIES, 4TH GENERATION W/ REFLEX NON-REACT GABRIEL NON-REACT GABRIEL [facility] Comment: HIV-1 antigen and HIV-1/HIV-2 [...] ? For additional information please refer to http://education.Dentalink/faq/HMF783 (This link is being provided for informational/ educational purposes only.) ? The performance of this assay has not been clinically validated in patients less than 2 years old. ?? 04/28/2022 12:0 0 PM EDT us Lloyd Echevarria MD LAB BLOOD ORDERABLES Final Resul t Performing Organization Address City/State/[facility] Co de Phone Number [facility] [address] * (ABNORMAL) ALBUMIN, RANDOM URINE W/CREATININE (08/07/2020 2:58 PM EST) Microalbumin Urine 5.0 See Note: mg/dL [facility] Comment: Reference Range: ?? Reference Range Not established Microalb/Creat Ratio 36(H) <30 mcg/mg creat [facility] Comment: ?? The ADA defines [...] SYSTEM Microalbumin Urine 5.0 See Note: mg/dL [facility] Comment: Reference Range: ?? Reference [...] 20 - 275 mg/dL [facility] 08/07/2020 2:58 PM EST us James Larson MD LAB URINE ORDERABLES Final Result [facility] [address] from Last 3 Months or Most Recently Relevant to Health Maintenance Insurance [facility] * Guarantor: Brenda Apple Account Type Relation to Patient Date of Phone Billing Address Personal/Family Self [address] Care Teams Yarn Skeins Examiner Relationship Specialty Start Date End Date James Larson MD [address] [facility] [address] [place] PCP - General Internal Medicine 10/05/13
--- OUTSIDE RECORDS SUMMARY | 2024-11-16 18:23 | XMS_ITS | Encounter Summary ---
Author Organization [employer] Address [address] [facility] [address] [place] [address] Care Team Providers Care Broaching Machine Set Up Operator Name Role Phone James Larson MD Primary Care Provider [phone] Encounter Details Date Type Department Care Team (Latest Contact Info) Description 10/25/2024 Travel Social History Tobacco Use Types Packs/Day [...] Upcoming Encounters Date Type Department Care Team ([facility] st Contact Info) Description 01/23/2025 1:45 PM EDT Office Visit [facility] & [facility] [address] [place] [address] James Larson MD [address] [place] [address] documented as of this encounter Visit Diagnoses Not on filedocumented in this encounter Additional Health Concerns Assessment Noted Time PHQ-9 Depression Total Score: 10 025 3:10 PM EST documented as of this encounter Care Teams Broaching Machine Set Up Operator Relationship Specialty Start Date End Date James aLrson MD [address] [place] [address] PCP - General Internal Medicine 10/05/13 documented as of this encounter
--- OUTSIDE RECORDS SUMMARY | 2024-11-16 18:23 | XMS_ITS | Encounter Summary ---
Author Organization [employer] Address [address] [facility] 7t [place] [address] Care Team Providers Care Printer Apprentice Name Role Phone James Larson MD Primary Care Provider [phone] Reason for Visit * Reason Onset Date Comments Call Back Request 10/11/2023 Encounter Details Date Type Department Care Team ([facility] Contact Info) Description 10/11/2023 Telephone [facility] PEDS [address] [place] [address] James Larson MD [address] [place] [address] Call Back Request Social History Tobacco Use [...] start it now. Please contact pt at [phone] documented in this encounter Plan of Treatment Upcoming Encounters Date Type Department Care Team (Late st Contact Info) Description 01/23/2025 1:45 PM EDT Office Visit [facility] [address] [place] [address] James Larson MD [address] [place] [address] documented as of this encounter Visit Diagnoses Not on filedocumented in this encounter Additional Health Concerns Assessment Noted Time PHQ-9 Depression Total Score: 0 01/22/20 23 3:02 PM EDT documented as of this encounter Care Teams Printer Apprentice Relationship Specialty Start Date End Date James Larson MD [address] [place] [address] PCP - General Internal Medicine 10/05/13 documented as of this encounter
--- OUTSIDE RECORDS SUMMARY | 2024-11-16 18:23 | XMS_ITS | Encounter Summary ---
Author Organization [employer] Address [address] [facility] [address] 7[address] [place] [address] Care Team Providers Care Emergency Vehicle Driver Name Role Phone James Larson MD Primary Care Provider [phone] Encounter Details Date Type Department Care Team ([facility] st Contact Info) Description 10/31/2024 Telephone [facility] PEDS [address] [place], [place] [phone] James Larson MD [address] [place] [address] Social History Tobacco Use Types Packs/Day Years [...] encounter Miscellaneous Notes * Telephone Encounter - Alondra Nava - 10/31/2024 11:53 AM EST Tc from [facility] with [facility] calling to inform they received referral but are needing more DX can't only be abdominal pain. Best contact # [phone]. documented in this encounter Plan of Treatment Upcoming Encounters Date Type Department Care Team ([facility] st Contact Info) Description 01/23/2025 1:45 PM EDT Office Visit [facility] MED & PEDS [address] [place] [address] James Larson MD [address] [place] [address] documented as of this encounter Visit Diagnoses Not on filedocumented in this encounter Additional Health Concerns Assessment Noted Time PHQ-9 Depression Total Score: 10 025 3:10 PM EST documented as of this encounter Care Teams Emergency Vehicle Driver Relationship Specialty Start Date End Date James Larson MD [address] [place] [phone] PCP - General Internal Medicine 10/05/13 documented as of this encounter"
--- OUTSIDE RECORDS SUMMARY | 2024-11-16 18:23 | XMS_ITS | Encounter Summary ---
Author Organization [employer] Address [address] [facility] 7t [place] [address] Care Team Providers Care Tree Trimmer Helper Name Role Phone James Larson MD Primary Care Provider [phone] Encounter Details Date Type Department Care Team ([facility] Contact Info) Description 09/09/2022 Telephone [facility] [address] [place] [address] James Larson MD [address] [place] [address] Social History Tobacco Use Types Packs/Day Years [...] Encounters Date Type Department Care Team (Late Contact Info) Description 01/23/2025 1:45 PM EDT Office Visit [facility] [address] [place] [address] James Larson MD [address] [place] [address] documented as of this encounter Visit Diagnoses Not on filedocumented in this encounter Care Teams Tree Trimmer Helper Relationship Specialty Start Date End Date James Larson MD [address] [place] [id number] PCP - General Internal Medicine 10/05/13 documented as of this encounter
[2024-11-17 11:40] LABS: CT PCR NOT DETECTED (Not Detect.); NG PCR NOT DETECTED (Not Detect.)
[2024-11-17 11:45] LABS: Bacterial Vaginosis PCR NEGATIVE (Negative); Candida Group PCR NOT DETECTED (Not Detect); Candida glab krusei PCR NOT DETECTED (Not Detect); Trichomonas vaginalis PCR NOT DETECTED (Not Detect)
== END 2024-11-16 14:32 | disposition home or self-care (01) ==
LOC: HO.CHCLNP 14:31
PROVIDERS: Visit Provider Advanced Practice Midwife
DX: N89.8 Other specified noninflammatory disorders of vagina (principal); Z11.3 Encounter for screening for infections with a predominantly sexual mode of transmission
CPT/HCPCS: 81515; 87491; 87591

== ENCOUNTER 2024-12-11 13:13 | Outpatient (REF) | payer OTHER, SELFPAY ==
--- OUTSIDE RECORDS SUMMARY | 2024-12-11 15:43 | XMS_ITS | Encounter Summary ---
Author Organization [employer] Address [address] [facility] 7t [place] [address] Care Team Providers Care Ship Pilot Dispatcher Name Role Phone James Larson MD Primary Care Provider [phone] Reason for Visit * Reason Onset Date Comments FYI 10/27/2024 Encounter Details Date Type Department Care Team ([facility] st Contact Info) Description 10/27/2024 Telephone [facility] [address] [place] [address] James Larson MD [address] [place] [address] FYI Social History Tobacco Use Types Packs/Day [...] 11/01/2024 3:10 PM EST TC placed to [facility] to inform that per PCP Dr. Larson there are no further details regarding pt diagnosis and clinical presentation relating to the MRI of the abdomen w/ and w/o contrast. The office assistant receptionist at [facility] spoke with one of the [...] MRA instead of MRI. Contact Charly at [phone] documented in this encounter Plan of Treatment Upcoming Encounters Date Type Department Care Team (Late st Contact Info) Description 01/23/2025 1:45 PM EDT Office Visit [facility] [address] [place] [address] James Larson MD [address] [place] [address] documented as of this encounter Visit Diagnoses Not on filedocumented in this encounter Additional Health Concerns Assessment Noted Time PHQ-9 Depression Total Score: 10 025 3:10 PM EST documented as of this encounter Care Teams Ship Pilot Dispatcher Relationship Specialty Start Date End Date James Larson MD [address] [place] [address] PCP - General Internal Medicine 10/05/13 documented as of this encounter
--- OUTSIDE RECORDS SUMMARY | 2024-12-11 15:43 | XMS_ITS | Encounter Summary ---
Author Organization [employer] Address [address] [facility] 7 [place] [address] Care Team Providers Care Health Occupations Instructor Name Role Phone James Larson MD Primary Care Provider [phone] Reason for Visit * Reason Onset Date Comments Referral 11/17/2023 Encounter Details Date Type Department Care Team ([facility] st Contact Info) Description 11/17/[address] [facility] MED & PEDS [address] [place] [address] James Larson MD [address] [place] [address] Referral Social History Tobacco Use Types Packs/Day [...] for 11/16/23 . Please contact pt @ [phone] documented in this encounter Plan of Treatment Upcoming Encounters Date Type Department Care Team ([facility] st Contact Info) Description 01/23/2025 1:45 PM EDT Office Visit [facility] PEDS [address] [place] [address] James Larson MD [address] [place] [address] documented as of this encounter Visit Diagnoses Not on filedocumented in this encounter Additional Health Concerns Assessment Noted Time PHQ-9 Depression Total Score: 0 01/22/20 23 3:02 PM EDT documented as of this encounter Care Teams Health Occupations Instructor Relationship Specialty Start Date End Date James Larson MD [address] [place] [address] PCP - General Internal Medicine 10/05/13 documented as of this encounter
--- OUTSIDE RECORDS SUMMARY | 2024-12-11 15:43 | XMS_ITS | Encounter Summary ---
Author Organization [employer] Address [address] [facility] [address] 7[address] [place] [address] Care Team Providers Care Heel Turner Name Role Phone James Larson MD Primary Care Provider [phone] Encounter Details Date Type Department Care Team ([facility] st Contact Info) Description 10/31/2024 Telephone [facility] CHC MED & PEDS [address] [place], [place] [phone] James Larson MD [address] [place] [address] Social History Tobacco Use Types Packs/Day Years [...] - 10/31/2024 11:53 AM EST [facility] from [facility] calling to inform they received referral but are needing more DX can't only be abdominal pain. Best contact # [phone]. documented in this encounter Plan of Treatment Upcoming Encounters Date Type Department Care Team ([facility] st Contact Info) Description 01/23/2025 1:45 PM EDT Office Visit [facility] MED & PEDS [address] [place] [address] James Larson MD [address] [place] [address] documented as of this encounter Visit Diagnoses Not on filedocumented in this encounter Additional Health Concerns Assessment Noted Time PHQ-9 Depression Total Score: 10 025 3:10 PM EST documented as of this encounter Care Teams Heel Turner Relationship Specialty Start Date End Date James Larson MD [address] [place] [address] PCP - General Internal Medicine 10/05/13 documented as of this encounter
--- OUTSIDE RECORDS SUMMARY | 2024-12-11 15:43 | XMS_ITS | Encounter Summary ---
Author Organization [employer] Address [address] [facility] 7t [place] [address] Care Team Providers Care Project Control Manager Name Role Phone James Larson MD Primary Care Provider [phone] Reason for Visit * Reason Onset Date Comments Call Back Request 10/11/2023 Encounter Details Date Type Department Care Team ([facility] Contact Info) Description 10/11/2023 Telephone [facility] CH[facility] MED & PEDS [address] [place] [address] James Larson MD 505 [place] [address] Call Back Request Social History Tobacco Use [...] start it now. Please contact pt at [phone] documented in this encounter Plan of Treatment Upcoming Encounters Date Type Department Care Team (Late st Contact Info) Description 01/23/2025 1:45 PM EDT Office Visit [facility] CH[facility] MED & PEDS [address] [place] [address] James Larson MD [address] [place] [address] documented as of this encounter Visit Diagnoses Not on filedocumented in this encounter Additional Health Concerns Assessment Noted Time PHQ-9 Depression Total Score: 0 01/22/20 23 3:02 PM EDT documented as of this encounter Care Teams Project Control Manager Relationship Specialty Start Date End Date James Larson MD [address] [place] [address] PCP - General Internal Medicine 10/05/13 documented as of this encounter
--- OUTSIDE RECORDS SUMMARY | 2024-12-11 15:43 | XMS_ITS | Encounter Summary ---
Author Organization [employer] Address [address] [facility] [address] 7t [place] [address] Care Team Providers Care Farm Management Professor Name Role Phone James Larson MD Primary Care Provider [phone] Encounter Details Date Type Department Care Team (Late st Contact Info) Description 10/30/2024 Orders Only [facility] [address] [place] [address] James Larson MD [address] [facility] [address] [place], [place] [phone] Right sided abdominal pain (Primary Dx) Social [...] Description 01/23/2025 1:45 PM EDT Office Visit [facility] MED & PEDS 505 [place] [address] James Larson MD 505 [place] [address] documented as of this encounter Visit Diagnoses Diagnosis Right sided abdominal pain- Primary Abdominal pain, unspecified site documented in this encounter Additional Health Concerns Assessment Noted Time PHQ-9 Depression Total Score: 10 025 3:10 PM EST documented as of this encounter Care Teams Farm Management Professor Relationship Specialty Start Date End Date James Larson MD 505 [place] [address] PCP - General Internal Medicine 10/05/13 documented as of this encounter
--- OUTSIDE RECORDS SUMMARY | 2024-12-11 15:43 | XMS_ITS | Encounter Summary ---
Author Organization [employer] Address 75 [facility] 7 [place] [address] Care Team Providers Care Tile Presser Name Role Phone James Larson MD Primary Care Provider [phone] Reason for Visit * Reason Onset Date Comments Nurse Triage 10/11/2023 Encounter Details Date Type Department Care Team ([facility] st Contact Info) Description 10/11/2023 Telephone C CHC MED & PEDS [address] [place] [address] James Larson MD [address] [place] [address] Nurse Triage Social History Tobacco Use Types [...] t he electric, gas, oil or water [employer] threatened to shut off services in your [...] . Pt is advised to come to [facility] CHC 10/12/23 @ 340pm for provider to [...] accepted this outcome Please contact pt at [phone] documented in this encounter Plan of Treatment Upcoming Encounters Date Type Department Care Team ([facility] st Contact Info) Description 01/23/2025 1:45 PM EDT Office Visit [facility] MED & PEDS [address] [place] [address] James Larson MD [address] [place] [address] documented as of this encounter Visit Diagnoses Not on filedocumented in this encounter Additional Health Concerns Assessment Noted Time PHQ-9 Depression Total Score: 0 01/22/20 23 3:02 PM EDT documented as of this encounter Care Teams Tile Presser Relationship Specialty Start Date End Date James Larson MD [address] [place] [address] PCP - General Internal Medicine 10/05/13 documented as of this encounter
--- OUTSIDE RECORDS SUMMARY | 2024-12-11 15:43 | XMS_ITS | Clinical Summary ---
Author Organization [email or web address] Address 75 [facility] 7t [place] [address] Care Team Providers Care Spinner Box Name Role Phone James Larson MD Primary Care Provider [phone] Allergies No known active allergies Medications famotidine [...] Devices (Wrist Brace) misc Active Continuous Glucose Juvenile Detention Officer (FreeStyle Jorje 2 [place]) deviceIndicatio ns:Type 2 diabetes mellitus without complication, without long-term current use of insulin ([facility]) Scan sensor every 8 hours 1 each 4 Active Continuous Glucose Sensor (FreeStyle Jorje 2 Sensor) miscIndications :Type 2 diabetes mellitus without complication, without long-term current use of insulin ([facility]) Apply 1 sensor every 14 days 2 each 11 4 Active glucose blood (FreeStyle Precision Laurent Test) test stripIndication s:Type 2 diabetes mellitus without complication, without long-term current use of insulin ([facility]) Use to test blood sugar 2 times daily 100 each 12 4 06/16/20 25 Active Blood Glucose Monitoring Suppl (FreeStyle Lite) w/Device kitIndications: Type 2 diabetes mellitus without complication, without long-term current use of insulin ([facility]) 1 Units Once per day. 1 kit 4 Active Lancets miscIndications :Type 2 diabetes mellitus without complication, without long-term current use of insulin ([facility]) Use to test blood sugar 2 times daily 100 each 11 4 Active cholecalciferol (Vitamin D-3) 25 MCG (1000 UT) tabletIndicatio ns:Other fatigue,Vitamin D deficiency Take 1 tablet (25 mcg) by mouth Once per day. 30 tablet 11 5 Active ibuprofen 600 MG tabletIndicatio ns:Chronic bilateral low back pain without sciatica,Neck pain Take 1 tablet (600 mg) by mouth every 8 (eight) hours if needed for mild pain. 60 tablet 3 5 01/14/20 25 Active methocarbamol (Robaxin) 750 MG tabletIndicatio ns:Chronic bilateral low back pain without sciatica,Neck pain Take 1 tablet (750 mg) by mouth 4 times daily for 10 days. 40 tablet 5 Active Ascorbic Acid (vitamin C) 250 MG tabletIndicatio ns:Other fatigue Take 1 tablet (250 mg) by mouth Once per day. 30 tablet 11 5 10/25/19 26 Active Active Problems Problem Noted Date Diagnosed [...] Encounters Date Type Department Care Team Description 12/11/2024 Orders Only [facility] MED & PEDS [address] [place] [address] James Larson MD Type 2 diabetes mellitus without complication, without long-term current use of insulin ([facility]) (Primary Dx) 11/17/2024 Telephone [facility] [address] [place] [address] Tresa Arechiga CNM Results 11/16/2024 1:30 PM EDT Office Visit [facility] MED & PEDS [address] [place] [address] Tresa Arechiga CNM Vaginal discharge (Primary Dx); Screening examination for venereal disease; Checking of intrauterine device 11/16/2024 Travel 11/16/2024 Orders Only [facility] [address] [place] [address] James Larson MD Right sided abdominal pain (Primary Dx) 11/16/2024 Telephone [place] [facility] [address] [place] [address] James Larson MD 11/13/[address] [address] James Larson MD Nurse Triage 10/31/2024 Telephone [facility] MED & PEDS [address] [place] [address] James Larson MD 10/30/2024 Orders Only [address] [address] James aLrson MD Right sided abdominal pain (Primary Dx) 10/27/[address] [address] James Larson MD FYI 10/25/2024 2:45 PM EST Office Visit [facility] MED & PEDS [address] [place] [address] James Larson MD Type 2 diabetes mellitus without complication, without long-term current use of insulin ([facility]) (Primary Dx); Other fatigue; Vitamin D deficiency; Chronic bilateral low back pain without sciatica; Neck pain; Dietary counseling; Exercise counseling; Class 1 obesity due to excess calories with serious comorbidity and body mass index (BMI) of 32.0 to 32.9 in adult; Bromhidrosis; Right sided abdominal pain 10/25/2024 Travel 10/20/2024 Telephone [facility] MED & PEDS [address] [place] [address] James Larson MD No Show 10/12/2024 Orders Only [facility] MED & PEDS [address] [place] [address] James Larson MD 10/12/2024 Telephone [facility] MED & PEDS [address] [place] [address] James Larson MD Results (US results) 10/12/2024 Patient Outreach [address] [address] James Larson MD Pre-visit Planning (SDOH screening negative and Tobacco screening negative) 10/10/2024 Telephone [facility] MED & PEDS [address] [place] [address] James Larson MD Nurse Triage 10/02/2024 Telephone [facility] MED & PEDS [address] [place] [address] James Larson MD No Show 09/29/[address] [address] James Larson MD Nurse Triage from Last [...] Description 01/23/2025 1:45 PM EDT Office Visit [facility] MED & PEDS [address] [place] [address] James Larson MD [address] [place] [address] Health Maintenance Due Date Last Done Comments [...] Monitoring (PHQ-9) 04/24/2025 10/25/2024, 10/25/2024 COVID-19 Vaccine ( - season) 2025 Postponed [...] this topic Meningococcal Vaccine Aged Out No imnal rocio eligible based on patient's age to complete this topic RSV under 20 months Aged Out No longe r eligible based on patient's age to complete this topic Rotavirus Vaccines Aged Out No longer eligible based on patient's age to complete this topic Procedures Procedure Name Priority Date/Time Associated Diagnosis Comments POCT WET MOUNT/LIBRADO Routine 11/16/2024 2: 32 PM EDT Vaginal discharge CHLAMYDIA/N. GONORRHOEAE RNA, TMA, UROGENITAL Routine 11/16/2024 2:09 PM EDT Screening examination for venereal disease BACTERIAL VAGINOSIS PANEL Routine 11/16/2024 2:09 PM EDT Vaginal discharge POCT GLUCOSE Routine 10/25/2024 3:49 PM EST Type 2 diabetes mellitus without complication, without long-term current use of insulin ([facility]) POCT GLYCATED HEMOGLOBIN, TOTAL Routine 10/25/2024 3:48 PM EST Type 2 diabetes mellitus without complication, without long-term current use of insulin ([facility]) US ABDOMEN COMPLETE Routine 10/12/2024 4 :59 [...] CNM - 11/16/2024 2:32 PM EDT Normal Tresa Hawk DE LEÓN POINT OF CARE TEST ENTER/ EDIT ORDERABLES Final Result * Bacterial Vaginosis Panel (11/16/2024 2:09 PM EDT) TRICHOMONAS VAGINALIS DETECTION BY PCR NOT DETECTED Not Detect [facility] BACTERIAL VAGINOSIS DETECTION BY PCR NEGATIVE Negative [facility] Comment:The BV organism targ ets of the Xpert Xpress MVP test can becommensal in women; Xpert Xpress MVP positive results forbacterial vaginosis should be considered in conjunction withother clinical and patient information to determine thedisease status. Organisms that are not detected by the XpertXpress MVP test have also been reported to be associatedwith BV and aerobic vaginitis.The Xpert Xpress MVP test performance has not been evaluatedin patients under the age of 14. YARY GROUP DETECTION BY PCR NOT DETECTED Not Detect [facility] Yary glab krusei PCR NOT DETECTED Not Detect [facility] Swab Vaginal structure / Unknown 11/16/2024 2:09 PM EDT 11/16/2024 5:25 PM EDT Tresa Weeksjocyshashi GENET LAB MICROBIOLOGY - GENERA L ORDERABLES Final Result [facility] [address] [place] [phone] * Chlamydia/N. Gonorrhoeae RNA, TMA, Urogenitial (11/16/2024 2:09 PM EDT) CT PCR NOT DETECTED Not Detect. [facility] Comment:A not detected test result does not exclude the possibilityof infection because test results can be affected byimproper specimen collection, concurrent antibiotic therapy,or the number of organisms in the specimen which may bebelow the sensitivity of the test. As with many diagnostictests, results from the Xpert CT/NG assay should beinterpreted in conjunction with other laboratory andclinical data available to the clinician.Xpert CT/NG performance has not been evaluated in patientsless than 14 years of age. The assay should not be used forthe evaluationof suspected sexual abuse or for other medico-legalindications. Additional testing is recommended in anycircumstance when false positive or false negative resultscould lead to adverse medical, social or psychologicalconsequences. NG PCR NOT DETECTED Not Detect. [facility] Comment:A not detected test result does not exclude the possibilityof infection because test results can be affected byimproper specimen collection, concurrent antibiotic therapy,or the number of organisms in the specimen which may bebelow the sensitivity of the test. As with many diagnostictests, results from the Xpert CT/NG assay should beinterpreted in conjunction with other laboratory andclinical data available to the clinician.Xpert CT/NG performance has not been evaluated in patientsless than 14 years of age. The assay should not be used forthe evaluationof suspected sexual abuse or for other medico-legalindications. Additional testing is recommended in anycircumstance when false positive or false negative resultscould lead to adverse medical, social or psychologicalconsequences. Swab (Vaginal Swab) 11/16/2024 2:09 PM EDT 11/16/2024 5:25 PM EDT Narrative [facility] - 11/17/2024 11:40 AM EDT Vaginal Tresa CHOUHDURY LAB MICROBIOLOGY - GENERA L ORDERABLES Final Result [facility] [address] [place] [phone] * POCT Glucose (10/25/2024 3:49 PM EST) Glucose Blood, POC 153 60 - 200 mg/dL QC Media Lot # [id number] Lot# Expiration Date [id number] Blood Capillary blood specimen / Unknown 10/25/2024 3:49 PM EST James Larson MD POINT OF CARE TEST ENTER/ED IT ORDERABLES Final Result * (ABNORMAL) POCT HGB A1C (10/25/2024 3:48 PM EST) Hemoglobin A1C 7.7(A) 4.0 - 6.0 % QC Media Lot # [id number] Lot# Expiration Date [id number] Blood 10/25/2024 3:48 PM EST James Larson MD POINT OF CARE TEST ENTER/ED IT ORDERABLES Final Result * US Abdomen Complete (10/12/2024 4:59 AM EST) Anatomical Region Laterality Modality Abdomen Ultrasound 10/12/2024 4:59 AM EST Narrative 10/12/2024 5:01 AM EST ? [facility] ?[address] ? [place] [address] ? Ultrasound Report ? Signed ? Patient: Zechariah,Brenda ?MR#: [id number] ?? [birth year] ? : 1985 ?Acct:[id number] ? Age/Sex: 39 / F ?ADM Date: 10/11/24 ? Loc: HO.HMGCX ? Attending Dr: James Larson MD ? Ordering Physician: James Larson MD ?? Date of Service: 10/11/24 ?? Procedure(s): US abdomen complete ?? Accession Number(s): [id number] ? cc: James Larson MD ? CLINICAL [...] 10/12/24 0500 ? DD/ 0459 ? TD/TT: 10/12/24458 ? Care Transitions Manager: ? Procedure Note Donotayahter, Image - 10/12/2024 [facility] [address] [place] [address] [place] [address] Ultrasound Report Signed Patient: Connie Apple#: [id number] [birth year] : 1985Acct:[id number] Age/Sex: 39 / FADM Date: 10/11/24 Loc: .HMGCX Attending Dr: James Larson MD Ordering Physician: James Larson MD Date of Service: 10/11/24 Procedure(s): US abdomen complete Accession Number(s): [id number] cc: James Larson MD CLINICAL HISTORY: transaminitis [...] OV> 10/12/24 0500 DD/ 8 TD/TT: 10/12/24458 Care Transitions Manager: James Larson MD [facility] US PROCEDURES Final Res ult * Thinprep TIS PAP And HPV mRNA E6/E7, CT/NG, TRICH (08/11/2022 5:19 PM EST) Clinical Information: None given Scaled Inference LMP: NONE GIVEN Scaled Inference Prev. PAP: NONE GIVEN Scaled Inference Prev. BX: NONE GIVEN Scaled Inference SOURCE: None given Scaled Inference Statement Of Adequacy: Scaled Inference Comment: Satisfactory for evaluation. Endocervical/transformation zone component present. Age and/or menstrual status not provided Interpretation/Re sult: Negative for intraepithelial lesion or malignancy. Scaled Inference COMMENT: This Pap test has been evaluated with computer assisted technology. Scaled Inference Hat And Cap Drying Room Attendant: Bart [employer] Comment: MSM, CT(ASCP) CT screening location: [address] ??[phone] (Always Message) [facility] [employer] Comment: EXPLANATORY NOTE: The Pap is a [...] HPV nRNA E6/E7 Not Detected Not Detected Scaled Inference Comment: Methodology: Custodian Supervisor-Mediated Amplification This assay detects E6/E7 viral messenger RNA (mRNA) from 14 high-risk HPV types (16,18,31,33,35,39,45,51,52,56,58,59,66,68). Cervical sources are required for HPV testing. If a vaginal source from a patient who has had a total hysterectomy with removal of cervix was submitted, please contact the testing laboratory for alternative testing options. For additional information, please refer to http://education.Promoter.io/faq/FMH480g2 (This link if provided for information/ educational purposes only.) Chlamydia trachomatis RNA, TMA, Urogenital NOT DETECTED NOT DETECTED [employer] Neisseria gonorrhoeae RNA, TMA, Urogenital NOT DETECTED NOT DETECTED [employer] (Always Message) [facility] [place] [employer] Comment: The analytical performance characteristics of this assay, when used to test SurePath(TM) specimens have been determined by [employer]. The modifications have not been cleared or approved by the FDA. This assay has been validated pursuant to the CLIA regulations and is used for clinical purposes. For additional information, please refer to https://Socrata.Promoter.io/faq/LZP376 (This link is being provided for information/ educational purposes only.) Trichomonas vaginalis, QL, TMA, PAP Vial NOT DETECTED NOT DETECTED [employer] Comment: The analytical performance characteristics of this assay have been determined by [employer]. The modifications have not been cleared or approved by the FDA. This assay has been validated pursuant to the CLIA regulations and is used for clinical purposes. For additional information, please refer to http://Socrata.[employer]oter.io/ faq/Trichomonastma (This link is being provided for information/ educational purposes only.) 08/11/2022 5:19 PM EST 08/12/2022 8:03 AM EST Narrative [facility] - 08/14/2022 9:39 AM EST FASTING: UNKNOWN Tresa Arechiga [facility] PATHOLOGY ORDERABLES Final Result [facility] [address], [place] [address] Scaled Inference [address], [place] [address] [employer] [place] [employer] [address], [place] [address] * HIV 1/2 ANTIGEN/ANTIBODY,FOURTH GENERATION W/RFL (04/28/2022 12:00 PM EDT) Pathologist [facility] HIV-1/2 ANTIGEN AND ANTIBODIES, 4TH GENERATION W/ REFLEX NON-REACT GABRIEL NON-REACT GABRIEL [facility] Comment: HIV-1 antigen and HIV-1/HIV-2 [...] ? For additional information please refer to http://education.Promoter.io/faq/ASH389 (This link is being provided for informational/ educational purposes only.) ? The performance of this assay has not been clinically validated in patients less than 2 years old. ?? 04/28/2022 12:0 0 PM EDT us Lloyd Echevarria MD LAB BLOOD ORDERABLES Final Resul t [facility] [address] * (ABNORMAL) ALBUMIN, RANDOM URINE W/CREATININE (08/07/2020 2:58 PM EST) Microalbumin Urine 5.0 See Note: mg/dL [facility] Comment: Reference Range: ?? Reference [...] Larson MD LAB URINE ORDERABLES Final Result [facility] [address] from Last 3 Months or Most Recently Relevant to Health Maintenance Insurance [facility] - [facility] [employer] Care Teams Spinner Box Relationship Specialty Start Date End Date James Larson MD [address] [place] [address] [place] [address] PCP - General Internal Medicine 10/05/13
--- OUTSIDE RECORDS SUMMARY | 2024-12-11 15:43 | XMS_ITS | Encounter Summary ---
Author Organization [employer] Address [address] [facility] 7 [place] [address] Care Team Providers Care Paralegal Legal Secretary Name Role Phone James Larson MD Primary Care Provider [phone] Reason for Referral * Imaging (Routine) - Closed Specialty Diagnoses / Procedures Referred By Contac anup Referred To Contact Radiology Diagnoses Right sided abdominal pain Procedures CT Abdomen Pelvis w/ Contrast James Larson MD [address] [place] [address] Phone: tel: fax: [address] Phone: tel: fax: Referral ID Status Reason Start Date Expiration Date Visits Re quested Visits Authorized [id number] Closed 11/16/2024 11/16/2025 1 1 Encounter Details Date Type Department Care Team (Late st Contact Info) Description 11/16/2024 Orders Only [facility] MEDICINE [address] [place] [address] James Larson MD [address] [place] [address] Right sided abdominal pain (Primary Dx) Social [...] Upcoming Encounters Date Type Department Care Team ([facility] Contact Info) Description 01/23/2025 1:45 PM EDT Office Visit [facility] CHC MED & PEDS [address] [place] [address] James Larson MD [address] [place], [place] [phone] Scheduled Orders Name Type Priority Associated Diagnoses [...] documented as of this encounter Care Teams Paralegal Legal Secretary Relationship Specialty Start Date End Date James Larson MD [address] [place] [address] PCP - General Internal Medicine 10/05/13 documented as of this encounter
--- OUTSIDE RECORDS SUMMARY | 2024-12-11 15:43 | XMS_ITS | Encounter Summary ---
Author Organization [employer] Address [address] [place] [address] 7 [place] [address] Care Team Providers Care Recovery Operator Helper Name Role Phone James Larson MD Primary Care Provider [phone] Reason for Referral * Imaging (Routine) - Closed Specialty Diagnoses / Procedures Referred By Contnatalia hebert Referred To Contact Radiology Diagnoses Transaminitis Procedures US Abdomen Complete James Larson MD [address] [place] [address] Phone: tel: fax: [address] Phone: tel: fax: Referral ID Status Reason Start Date Expiration Date Visits Re quested Visits Authorized [id number] Closed 06/23/2024 06/23/2025 1 1 Encounter Details Date Type Department Care Team (Late st Contact Info) Description 06/23/2024 Orders Only [facility] CHC MED & PEDS [address] [place] [address] James Larson MD [address] [place] [address] Transaminitis (Primary Dx) Social History Tobacco Use [...] Upcoming Encounters Date Type Department Care Team ([facility] st Contact Info) Description 01/23/2025 1:45 PM EDT Office Visit [facility] MED & PEDS [address] [place], [place] [phone] James Larson MD [address] [place], [place] [phone] documented as of this encounter Procedures Procedure Name Priority Date/Time Associated Diagnosis Comments US ABDOMEN COMPLETE Routine 10/12/2024 4 :59 AM EST Transaminitis documented in this encounter Results * US Abdomen Complete (10/12/2024 4:59 AM EST) Anatomical Region Laterality Modality Abdomen Ultrasound 10/12/2024 4:59 AM EST Narrative 10/12/2024 5:01 AM EST ? [facility] ?[address] ? [place] [address] ? Ultrasound Report ? Signed ? Patient: Brenda Apple ?MR#: [id number] ?? [birth year] ? : 1985 ?Acct:[id number] ? Age/Sex: 39 / F ?ADM Date: 10/11/24 ? Loc: HO.HMGCX ? Attending Dr: James Larson MD ? Ordering Physician: James Larson MD ?? Date of Service: 10/11/24 ?? Procedure(s): US abdomen complete ?? Accession Number(s): [id number] ? cc: James Larson MD ? CLINICAL [...] ? DD/ 8 ? TD/TT: 10/12/24458 ? Environmental Adviser: ? Procedure Note Donotuseinterpreter, Image - 10/12/2024 [facility] [place] [address] Ultrasound Report Signed Patient: Connie Apple#: [id number] [birth year] : 1985Acct:[id number] Age/Sex: 39 / FADM Date: 10/11/24 Loc: HO.HMGX Attending Dr: James Larson MD Ordering Physician: James Larson MD Date of Service: 10/11/24 Procedure(s): US abdomen complete Accession Number(s): [id number] cc: James Larson MD CLINICAL HISTORY: transaminitis [...] OV> 10/12/24 0500 DD/ 8 TD/TT: 10/12/24458 Environmental Adviser: us James Larson MD IMG US PROCEDURES Final Res ult documented in this encounter Visit Diagnoses Diagnosis Transaminitis- Primary Nonspecific elevation of levels of transaminase or lactic acid dehydrogenase (LDH) documented in this encounter Additional Health Concerns Assessment Noted Time PHQ-9 Depression Total Score: 0 01/22/20 23 3:02 PM EDT documented as of this encounter Care Teams Recovery Operator Helper Relationship Specialty Start Date End Date James Larson MD [address] [place] [address] PCP - General Internal Medicine 10/05/13 documented as of this encounter
--- OUTSIDE RECORDS SUMMARY | 2024-12-11 15:43 | XMS_ITS | Encounter Summary ---
Author Organization [employer] Address [address] [facility] [address] 7[address] [place] [address] Care Team Providers Care Vegetable Harvest Machine Operator Name Role Phone James Larson MD Primary Care Provider [phone] Encounter Details Date Type Department Care Team (Late st Contact Info) Description 12/09/2023 Orders Only [facility] MED & PEDS [address] [place], [place] [phone] DrummondRikki Coronel MD [address] [place], [place] [phone] Social History Tobacco Use Types Packs/Day Years [...] 01/23/2025 1:45 PM EDT Office Visit [facility] MED & PEDS [address] [place] [address] James Larson MD [address] [place] [address] documented as of this encounter Visit Diagnoses Not on filedocumented in this encounter Additional Health Concerns Assessment Noted Time PHQ-9 Depression Total Score: 0 01/22/20 23 3:02 PM EDT documented as of this encounter Care Teams Vegetable Harvest Machine Operator Relationship Specialty Start Date End Date James Larson MD [address] [place] [address] PCP - General Internal Medicine 10/05/13 documented as of this encounter
--- OUTSIDE RECORDS SUMMARY | 2024-12-11 15:43 | XMS_ITS | Encounter Summary ---
Author Organization [employer] Address [address] [facility] [address] 7t [place] [address] Care Team Providers Care Superintendent Institution Name Role Phone James Larson MD Primary Care Provider [phone] Encounter Details Date Type Department Care Team (Late st Contact Info) Description 12/11/2024 Orders Only [facility] CHC MED & PEDS [address] [place], [place] [phone] James Larson MD [address] [place] [address] Type 2 diabetes mellitus without complication, without long-term current use of insulin (CMS/HCC) (Primary Dx) Social History Tobacco Use Types [...] 01/23/2025 1:45 PM EDT Office Visit [facility] CHC MED & PEDS [address] [place] [address] James Larson MD [address] [place] [address] Scheduled Orders Name Type Priority Associated Diagnoses Orde r Schedule T-SPOT??.TB Lab Routine Type 2 diabetes mellitus without complication, without long-term current use of insulin (CMS/HCC) Expected: 12/11/2024 (Approximate), Expires: 12/11/2025 documented as of this encounter Visit Diagnoses Diagnosis Type 2 diabetes mellitus without complication, without long-term current use of insulin (CMS/HCC)- Primary documented in this encounter Additional Health Concerns Assessment Noted Time PHQ-9 Depression Total Score: 10 10/25/2 025 3:10 PM EST documented as of this encounter Care Teams Superintendent Institution Relationship Specialty Start Date End Date James Larson MD [address] [place] [address] PCP - General Internal Medicine 10/05/13 documented as of this encounter
--- OUTSIDE RECORDS SUMMARY | 2024-12-11 15:43 | XMS_ITS | Encounter Summary ---
Author Organization [employer] Address [address] [facility] 7t [place] [address] Care Team Providers Care Hris Administrator Name Role Phone James Larson MD Primary Care Provider [phone] Encounter Details Date Type Department Care Team ([facility] Contact Info) Description 09/09/2022 Telephone [facility] MED & PEDS [address] [place] [address] James Larson MD [address] [place] [address] Social History Tobacco Use Types Packs/Day Years [...] 1:45 PM EDT Office Visit [facility] MED & PEDS [address] [place] [address] James Larson MD [address] [place] [address] documented as of this encounter Visit Diagnoses Not on filedocumented in this encounter Care Teams Hris Administrator Relationship Specialty Start Date End Date James Larson MD [address] [place] [address] PCP - General Internal Medicine 10/05/13 documented as of this encounter
--- OUTSIDE RECORDS SUMMARY | 2024-12-11 15:44 | XMS_ITS | Encounter Summary ---
Author Organization [facility] Address [address] [facility] 7t [place] [address] Care Team Providers Care Pricing Lead Name Role Phone James Lrason MD Primary Care Provider [phone] Encounter Details Date Type Department Care Team (Late st Contact Info) Description 03/29/2023 Telephone [facility] ADULT DENTAL [address] [place], [place] [phone] August Bridges DDS [address] [place] [address] Social History Tobacco Use Types Packs/Day Years [...] Description 01/23/2025 1:45 PM EDT Office Visit [facility] CHC MED & PEDS 505 [place], [place] [phone] James Larson MD [address] [place], [place] [phone] documented as of this encounter Visit Diagnoses Not on filedocumented in this encounter Additional Health Concerns Assessment Noted Time PHQ-9 Depression Total Score: 0 01/22/20 23 3:02 PM EDT documented as of this encounter Care Teams Pricing Lead Relationship Specialty Start Date End Date James Larson MD [address] [place] [address] PCP - General Internal Medicine 10/05/13 documented as of this encounter
[2024-12-12 04:20] LABS: Syphilis Screen Nonreactive (Nonreactive)
[2024-12-12 04:34] LABS: HIV AB/AG Nonreactive (Nonreactive); HIV Num 1 0.05 S/CO (0.00-0.99)
[2024-12-14 06:22] LABS: TS Negative Control Passed; TS Panel A 0; TS Panel B 0; TS Positive Control Passed; TSpotTB Negative (Negative)
== END 2024-12-11 13:14 | disposition home or self-care (01) ==
LOC: HO.CHCLDS 13:13
PROVIDERS: PCP Internal Medicine; Referring Provider Advanced Practice Midwife; Visit Provider Internal Medicine
DX: E11.9 Type 2 diabetes mellitus without complications (principal); Z11.3 Encounter for screening for infections with a predominantly sexual mode of transmission
CPT/HCPCS: 36415; 86481; 86780; 87389

== ENCOUNTER → 2025-03-07 14:35 | Outpatient (AMB) | payer OTHER, SELFPAY ==
--- NOTE | 2025-03-07 14:35 | A.OFFVIS_ITS ---
Intake Visit Reasons: Fatty Liver PT N/S last appt Intake Note: Brenda presents as a telehealth today - states she was diagnosed with FAtty liver disease. Has issues with constipation and pains in the stomach. She states that she deals with bloating in her stomach a lot with constipation. Has issues having a BM. Allergies No Known Allergies Allergy (Verified 03/07/25 14:36) HPI Comments Details: 40 y.o F with PMH of DM on GLP-1, who is here for abd pain and fatty liver. Reports has been having RUQ pain and cramping for almost a year and a half. Feels it right under her RIGHT lower rib. Sometimes pinching sensation. Not associated with N/V, pruritus. Pt used to drink 4-6 drinks over the weekend a few years ago now drinks 2-3 times a year. No personal or family hx of liver disease or autoimmune diseases. No hx of liver ca. Takes NSAID almost daily. PFSH Medical History Chronic dental pain Diabetes mellitus, type 2 Family History Maternal Aunt Diabetes Maternal Aunt Diabetes Mother Diabetes Social History Patient Tobacco Use Status: Never used Tobacco Review of Systems Const All systems reviewed & are unremarkable except as noted in HPI and below Physical Exam Vital Signs: Video visit: No acute distress No icterus noted No facial asymmetry Speaking in full sentences Telehealth Telehealth Telehealth Platform: [facility] Location of provider rendering services: practice address Location of patient: address on file Patient Identification confirmed using: Name, : Yes Telehealth method: video Patient verbally consented to treatment: Yes Patient verbally consented to billing insurance company: Yes Patient informed of any privacy concerns related to visit: Yes Minutes spent on Phone/Video with Pt.: 11 Assessment & Plan Assessment & Plan (1) Elevated LFTs: Code(s): R79.89 - Other specified abnormal findings of blood chemistry Category: Medical (2) Steatosis, liver: Code(s): K76.0 - Fatty (change of) liver, not elsewhere classified Category: Medical Plan Steatotic liver 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 No further etOH use. Will check metabolic risk factors. Will also r/o other causes such as AIH, iron overload etc. Pt also due for updated MELD labs. In terms of subcostal pain on R side, unclear if related to fatty liver as liver not significantly enlarged. Will need dedicated assessment at next in person visit. Plan: - Labs as below - Avoid NSAIDs Follow up 3 months Orders: Orders Comprehensive Met. Panel Today R7.89 - Other specified abnormal findings of blood chemistry Ferritin Today R79.89 - Other specified abnormal findings of blood chemistry Hemoglobin A1c Today R79.89 - Other specified abnormal findings of blood chemistry Hepatitis B Surface Antigen Today R79.89 - Other specified abnormal findings of blood chemistry Liver Kidney Microsomal Ab Today R79.89 - Other specified abnormal findings of blood chemistry Phosphatidylethanol, Blood Today R79.89 - Other specified abnormal findings of blood chemistry Smooth Muscle Antibody Today R79.89 - Other specified abnormal findings of blood chemistry Transglutaminase IgA Today R79.89 - Other specified abnormal findings of blood chemistry TSH reflex Free T4 Today R79.89 - Other specified abnormal findings of blood chemistry Alpha 1 Anti-trypsin Today R79.89 - Other specified abnormal findings of blood chemistry Alpha Fetoprotein Today R79.89 - Other specified abnormal findings of blood chemistry Ceruloplasmin Today R79.89 - Other specified abnormal findings of blood chemistry Complete Blood Count no Diff Today R79.89 - Other specified abnormal findings of blood chemistry Hepatitis A IgG Today R79.89 - Other specified abnormal findings of blood chemistry Hepatitis B Core Antibody Today R79.89 - Other specified abnormal findings of blood chemistry Hepatitis B Surface Antibody Today R79.89 - Other specified abnormal findings of blood chemistry Hepatitis C Antibody Today R79.89 - Other specified abnormal findings of blood chemistry HIV Ab/Ag Today R79.89 - Other specified abnormal findings of blood chemistry IRON PROFILE Today R79.89 - Other specified abnormal findings of blood chemistry Lipid Panel Today R79.89 - Other specified abnormal findings of blood chemistry Mitochondrial Antibody Today R79.89 - Other specified abnormal findings of blood chemistry Prothrombin Time INR Today R79.89 - Other specified abnormal findings of blood chemistry Coding Level of Care Code Tele New Pt Level 4 (43160) Diagnoses Elevated LFTs R79. Steatosis, liver K76.0
--- OUTSIDE RECORDS SUMMARY | 2025-03-07 15:03 | XMS_ITS | Encounter Summary ---
Author Organization [employer] Address [address] [place] [address] 7 [place] [address] Care Team Providers Care Backfiller Name Role Phone James Larson MD Primary Care Provider [phone] Reason for Referral * Imaging (Routine) - Closed Specialty Diagnoses / Procedures Referred By Contac t Referred To Contact Radiology Diagnoses Right sided abdominal pain Procedures CT Abdomen Pelvis w/ Contrast James Larson MD [address] [place] [address] Phone: tel: fax: [address] Phone: tel: fax: Referral ID Status Reason Start Date Expiration Date Visits Re quested Visits Authorized [id number] Closed 11/16/2024 11/16/2025 1 1 Encounter Details Date Type Department Care Team (Late st Contact Info) Description 11/16/2024 Orders Only [facility] MEDICINE [address] [place] [address] James Larson MD [address] [place] [address] Right sided abdominal pain (Primary Dx) Social [...] Upcoming Encounters Date Type Department Care Team ([facility] st Contact Info) Description 03/27/2025 3:15 PM EDT Office Visit [facility] CHC MED & PEDS [address] [place] [address] James Larson MD [address] [place] [address] Scheduled Orders Name Type Priority Associated Diagnoses [...] documented as of this encounter Care Teams Backfiller Relationship Specialty Start Date End Date James Larson MD [address] [place] [address] PCP - General Internal Medicine 10/05/13 documented as of this encounter
== END ==
LOC: HO.HGI 14:35
PROVIDERS: PCP Internal Medicine; Visit Provider Internal Medicine
DX: R79.89 Other specified abnormal findings of blood chemistry (principal); K76.0 Fatty (change of) liver, not elsewhere classified
CPT/HCPCS: 99204

== ENCOUNTER 2025-03-21 13:54 | Outpatient (REF) | payer OTHER, SELFPAY ==
--- OUTSIDE RECORDS SUMMARY | 2025-03-21 14:45 | XMS_ITS | Encounter Summary ---
Author Organization [employer] Address [address] [place] [address] 7 [place] [address] Care Team Providers Care Assistant Professor Of Forestry Name Role Phone James Larson MD Primary Care Provider [phone] Reason for Referral * Imaging (Routine) - Closed Specialty Diagnoses / Procedures Referred By Contac t Referred To Contact Radiology Diagnoses Right sided abdominal pain Procedures CT Abdomen Pelvis w/ Contrast James Larson MD [address] [place] [address] Phone: tel: fax: [address] Phone: tel: fax: Referral ID Status Reason Start Date Expiration Date Visits Re quested Visits Authorized [id number] Closed 11/16/2024 11/16/2025 1 1 Encounter Details Date Type Department Care Team (Late st Contact Info) Description 11/16/2024 Orders Only [facility] MEDICINE [address] [place] [address] James Larson MD [address] [place] [address] Right sided abdominal pain (Primary Dx) Social [...] your housing situation today? I have angel leandra 06/09/[address] you li [...] Upcoming Encounters Date Type Department Care Team ([facility] st Contact Info) Description 03/21/2025 5:20 PM EDT Office Visit [facility] [address] [place], [place] [phone] 03/27/2025 3:15 PM EDT Office Visit [facility] CHC MED & PEDS 505 [place] [address] James Larson MD [address] [place] [address] Scheduled Orders Name Type Priority Associated Diagnoses [...] documented as of this encounter Care Teams Assistant Professor Of Forestry Relationship Specialty Start Date End Date James Larson MD [address] [place] [address] PCP - General Internal Medicine 10/05/13 documented as of this encounter
[2025-03-21 16:06] LABS: MANUAL DIFF FLAG NO
[2025-03-21 16:10] LABS: Hematocrit 42.3 % (37.0-47.0); Hemoglobin 15.2 g/dl (12.0-16.0); Mean Corpuscular HGB Conc 35.9 g/dl (31.0-35.0); Mean Corpuscular Hemoglobin 32.3 pg (27.0-33.0); Mean Corpuscular Volume 89.8 fL (80.0-98.0); NRBC Abs Auto 0.000 X10*3/uL (0.0-0.012); NRBC Pct Auto 0.0 /100WBC (0.0-0.2); Platelet Count 364 X10*3/uL (160-400); Red Blood Count 4.71 X10*6/uL (4.20-5.50); White Blood Count 7.4 X10*3/uL (4.8-10.8)
[2025-03-21 16:11] LABS: Hematocrit 43.9 % (37.0-47.0); Hemoglobin 15.0 g/dl (12.0-16.0); Imm Gran Abs Auto 0.02 X10*3/uL (0.00-0.03); Imm Gran Pct Auto 0.3 % (0.0-0.4); Lymphocytes Absolute Auto 2.2 X10*3/uL (1.2-4.9); Mean Corpuscular HGB Conc 34.2 g/dl (31.0-35.0); Mean Corpuscular Hemoglobin 31.2 pg (27.0-33.0); Mean Corpuscular Volume 91.3 fL (80.0-98.0); NRBC Abs Auto 0.000 X10*3/uL (0.0-0.012); NRBC Pct Auto 0.0 /100WBC (0.0-0.2); Platelet Count 350 X10*3/uL (160-400); Red Blood Count 4.81 X10*6/uL (4.20-5.50); White Blood Count 7.1 X10*3/uL (4.8-10.8)
[2025-03-21 16:25] LABS: Hemoglobin A1C 251.5711 umol/L; INTERNATIONAL NORM RATIO 1.0 (0.9-1.1); Prothrombin Time 10.9 SEC (10.9-12.4); Total Hemoglobin (HGBA1C) 3844.4869 umol/L
[2025-03-21 16:46] LABS: Iron 54 mcg/dL (30-160); Percent Iron Saturation 19 % (15-50); Total Iron Binding Capacity 282 mcg/dL (228-428); Unsaturated Iron Binding 228 ug/dL
[2025-03-21 16:47] LABS: Alanine Aminotransferase 36 U/L (0-31); Albumin Level 4.8 g/dL (3.5-5.0); Alkaline Phosphatase 74 U/L (39-117); Anion Gap 11 (12-20); Aspartate Amino Transferase 47 U/L (5-31); Blood Urea Nitrogen 10 mg/dL (9-16); Calcium 9.7 mg/dL (8.4-10.2); Carbon Dioxide 27 mmol/L (22-29); Chloride 104 mmol/L (96-108); Cholesterol 226 mg/dL (<200); Estimated Glomerular Filt Rate > 60; HDL Cholesterol 37 mg/dL (>40); Iron 54 mcg/dL (30-160); Percent Iron Saturation 19 % (15-50); Potassium 3.8 mmol/L (3.3-5.1); Sodium 138 mmol/L (135-145); Total Iron Binding Capacity 278 mcg/dL (228-428); Total Protein 7.6 g/dL (6.5-8.0); Triglycerides 228 mg/dL (<150); Unsaturated Iron Binding 224 ug/dL
[2025-03-21 16:51] LABS: Ferritin 275 ng/mL (10-122)
[2025-03-21 17:21] LABS: Folate 10.9 ng/mL (> or = 4.0); Vitamin B12 685 pg/mL (200-900)
[2025-03-22 05:26] LABS: HBS Num1 266.37 mIU/mL (0-7.99); HBc Num1 0.10 S/CO (0.00-0.79); HBsAGNum1 0.35 S/CO (0.00-0.99); HIV Num 1 0.05 S/CO (0.00-0.99); Hepatitis B Surface Antigen Negative (Negative); ~HepC Num1 0.10 S/CO (0.00-0.79); ~Hepatitis B Surface Antibody REACTIVE (Nonreactive); ~Hepatitis C Antibody Nonreactive (Nonreactive)
[2025-03-23 04:09] LABS: ~Hepatitis A Antibody IgG 10.11 S/CO (0.00-0.99)
[2025-03-23 22:49] LABS: Liver Kidney Microsomal Ab <=20.0 U (<=20.0)
[2025-03-26 09:12] LABS: Phosphatidylethanol 16:0-18:1 NEGATIVE
[2025-03-26 09:13] LABS: Phosphatidylethanol 16:0-18:2 NEGATIVE
== END 2025-03-21 13:55 | disposition home or self-care (01) ==
LOC: HO.HHCL 13:54
PROVIDERS: PCP Internal Medicine; Referring Provider Internal Medicine; Visit Provider Internal Medicine
DX: E11.9 Type 2 diabetes mellitus without complications (principal); R79.89 Other specified abnormal findings of blood chemistry
CPT/HCPCS: 36415; 80053; 80061; 80321; 82103; 82105; 82390; 82607; 82728; 82746; 83036; 83540; 84443; 85025; 85027; 85610; 86015; 86364; 86376; 86381; 86704; 86706; 86708; 86803; 87340; 87389

== ENCOUNTER 2025-05-22 05:18 | Emergency (ER) | payer OTHER, SELFPAY ==
--- OUTSIDE RECORDS SUMMARY | 2025-05-21 09:40 | XMS_ITS | Encounter Summary ---
Author Organization [employer] Address [address] [facility] [address] 7t [place] [address] Care Team Providers Care Analysis Lead Name Role Phone James Larson MD Primary Care Provider [phone] Reason for Visit * Reason Comments Earache Encounter Details Date Type Department Care Team ([facility] st Contact Info) Description 05/21/2025 9:40 AM EDT Office Visit [facility] [address] [place] [address] Lloyd Echevarria MD [address] [place] [address] Acute otitis externa of left ear, unspecified type (Primary Dx); Non-recurrent acute serous otitis media of left ear Social History Tobacco Use Types Packs/Day Years Used Date Smoking Tobacco: Former Cigarettes Passive Smoke Exposure: Never Smokeless Tobacco: [...] Sign Reading Time Taken Comments Blood Pressure 128/82 05/21/2025 9:35 AM EDT Pulse 70 05/21/2025 9:35 AM EDT Temperature 36.7 C (98 F) 05/21/2025 9:35 AM EDT Respiratory Rate 18 05/21/2025 9:35 AM EDT Oxygen Saturation - - Inhaled Oxygen Concentration - - Weight 89.4 kg (197 lb) 05/21/2025 9:35 AM EDT Height - - Body Mass Index 32.78 04/16/2025 5:49 PM EDT documented in this encounter Progress Notes * Lloyd Echevarria MD - 05/21/2025 9:40 AM EDT Subjective Patient ID: Brenda Apple is a 40 y.o. female. HPI 1 week ago Brenda had a left itchy ear that she scratched with her finger and Q-tips for a few days, then pain in left ear started 2-3 days ago. + slight decreased hearing. Mild nausea started today. Pain is worse when laying on left ear. No ear discharge., fever, v/d. Tried Motrin, Tylenol, warm compress, and OTC 4% lidocaine drops.. Lives alone. LMP=2 months ago. Has Mirena IUD. 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 Former smoker. Patient Active Problem List Diagnosis Date Noted Injury of right ring finger 03/24/2025 Other fatigue 10/12/2023 Bacterial urinary infection 08/23/2020 Hypercholesterolemia 08/06/2016 Type 2 diabetes mellitus ([facility]/HCC) 02/23/2014 Breast lump 12/29/2011 Anxiety state 09/23/2011 Backache 09/23/2011 Depressive disorder 09/23/2011 Obesity 09/23/2011 Essential hypertension 04/28/2011 Neck pain 04/28/2011 The following portions of the chart were reviewed this encounter and updated as appropriate: Tobacco Allergies Meds Problems Med Hx Surg Hx Fam Hx Review of Systems Constitutional: Negative for fever. HENT: Positive for ear pain and hearing loss. Negative for ear discharge. Respiratory: Negative for shortness of breath. Cardiovascular: Negative for chest pain. Gastrointestinal: Negative for abdominal pain. Skin: Negative for rash. Neurological: Negative for headaches. Objective Physical Exam Constitutional: Appearance: Normal appearance. HENT: Right Ear: Tympanic membrane, ear canal and external ear normal. Left Ear: External ear normal. Tenderness present. Tympanic membrane is injected. Nose: Nose normal. Mouth/Throat: Mouth: Mucous membranes are moist. Pharynx: Oropharynx is clear. Eyes: Conjunctiva/sclera: Conjunctivae normal. Pupils: Pupils are equal, round, and reactive to light. Cardiovascular: Rate and Rhythm: Normal rate and regular rhythm. Heart sounds: No murmur heard. Pulmonary: Effort: Pulmonary effort is normal. Breath sounds: Normal breath sounds. Musculoskeletal: General: Normal range of motion. Cervical back: No tenderness. Skin: Findings: No rash. Neurological: Mental Status: She is alert. Gait: Gait is intact. Psychiatric: Mood and Affect: Mood normal. Behavior: Behavior normal. Procedures Assessment/Plan Diagnoses and all orders for this visit: Acute otitis externa of left ear, unspecified type Avoid Q-tips prescribed Cipro HC eardrops and ibuprofen. She has Tylenol at home. Return to clinic if not improving Non-recurrent acute serous otitis media of left ear Prescribed Augmentin. Return to clinic if not improving Other orders - amoxicillin-clavulanate (Augmentin) 875-125 MG tablet; Take 1 tablet by mouth 2 times daily. - ciprofloxacin-hydrocortisone (Cipro HC Otic) otic suspension; Administer 3 drops into each ear 2 times daily for 7 days. - ibuprofen 800 MG tablet; Take 1 tablet (800 mg) by mouth if needed in the morning, at noon, and at bedtime for mild pain. documented in this encounter Plan of Treatment Upcoming Encounters Date Type Department Care Team (Late st Contact Info) Description 05/29/2025 1:30 PM EDT Clinical Support [facility] MED & PEDS [address] [place] [address] documented as of this encounter Visit Diagnoses Diagnosis Acute otitis externa of left ear, unspecified type- Primary Non-recurrent acute serous otitis media of left ear documented in this encounter Additional Health Concerns Assessment Noted Time PHQ-9 Depression Total Score: 10 10/25/ 025 3:10 PM EST documented as of this encounter Care Teams Analysis Lead Relationship Specialty Start Date End Date James Larson MD 505 [place] [address] PCP - General Internal Medicine 10/05/13 documented as of this encounter
--- NOTE | ~2025-05-22 | CT_ITS ---
EXAMINATION: CT ORBIT WITH CONTRAST CLINICAL INFORMATION: Left severe ear pain, mastoid tip COMPARISON: None available. TECHNIQUE: Continues axial images through the orbits following the IV contrast administration using 1.5 mm collimation with bone and soft tissue algorithm. Sagittal and coronal reformatted images. Total of 85 cc Omnipaque 350 strength given IV without reported immediate complications. This CT examination was performed using dose optimization techniques as appropriate, variously including the following: *Automated exposure control *Adjustment of mA and/or kV according to patient size (this includes techniques or standardized protocols for targeted exams where dose is matched to indication/reason for exam; i.e. extremities or head) *Use of iterative reconstruction technique DLP: 153 mGy centimeter. FINDINGS: The eyeballs are intact. The extraocular muscles demonstrated normal fold the and enhancement pattern. No masses or fluid collections within the intraconal or extraconal compartments of the orbits. Preseptal periorbital soft tissues demonstrated no fluid collections. The ophthalmic arteries and ophthalmic veins are patent without gross abnormality. The orbital rims, orbital fissures orbital apices are intact. The intraconal and intracanalicular segments of the optic nerves demonstrate no abnormal enhancing lesion or abnormal diameter. No air-fluid levels in the paranasal sinuses. Nasal cavity, vestibule and nostrils are patent. Metallic piercing at both nostrils. Dextroconvex nasal septum configuration. The ostiomeatal complexes are patent. No abnormal enhancing lesion in the cavernous sinuses. The main cerebral arteries confirm endocervical region is a are patent without gross vascular abnormality. The anterior communicating artery is patent. The left posterior communicating artery is patent. Right vertebral artery is dominant. No masses or fluid collections within the skull base, nasopharynx, retropharynx, director of in service education spaces parapharyngeal spaces or carotid compartments included in the exam. There is isodensity within the hypotympanum and mesotympanum, left tympanic cavity. The ossicles are intact with normal alignment and no osteolysis. The tegmen tympani is intact. The aditus at antrum and mastoid antrum and mastoid air cells of the left petrous bone are well pneumatized and aerated. The labyrinthine, geniculate, tympanic and mastoid segments of the left fallopian canal are intact. The cochlea, vestibule and semicircular canals are intact in the left petrous bone. The left internal auditory canal is intact without enlargement. The cochlear and vestibular aqueducts are not enlarged, left petrous bone. The carotid canals are intact. The jugular bulb is intact and in normal anatomic position. The visualized main cerebral venous sinuses are patent. The tympanic cavity, mastoid antrum, aditus at antrum and mastoid cells of the right petrous bone are well pneumatized and aerated. The ossicles are intact with normal alignment, right tympanic cavity. The cochlear vestibule semicircular canals internal auditory canal are intact in the right petrous bone. The right carotid canal and jugular foramen are intact. There is no enlargement of the cochlear or vestibular aqueduct on the right petrous bone. Tegmen tympani is intact. The temporal mandibular joints are intact and normal. Sellar/suprasellar region demonstrated no gross masses or abnormal enhancement. CT/CT orbit BI w IV con IMPRESSION: Normal orbits. Acute inflammatory versus infectious processes, left tympanic cavity. Cholesteatoma cannot be entirely excluded. Electronically signed by: Tu Garvin MD 05/22/2025 08:42 AM EDT
[2025-05-22 05:20] VITALS: BP 158/84; PULSE 90; O2SAT 97
[2025-05-22 05:22] VITALS: BMI 29.1
[2025-05-22 05:29] VITALS: BP 124/55; PULSE 75; RESP 18; TEMP 36.4; O2SAT 97
--- OUTSIDE RECORDS SUMMARY | 2025-05-22 05:49 | XMS_ITS | Encounter Summary ---
Author Organization [employer] Address [address] [facility] 7t [place] [address] Care Team Providers Care Dementia Program Director Name Role Phone James Larson MD Primary Care Provider [phone] Encounter Details Date Type Department Care Team (Late st Contact Info) Description 10/30/2024 Orders Only [facility] MEDICINE [address] [place] [address] James Larson MD [address] [place], [place] [phone] Right sided abdominal pain (Primary Dx) Social [...] Description 05/29/2025 1:30 PM EDT Clinical Support [facility] MED & PEDS [address] [place] [address] documented as of this encounter Visit Diagnoses Diagnosis Right sided abdominal pain- Primary Abdominal pain, unspecified site documented in this encounter Additional Health Concerns Assessment Noted Time PHQ-9 Depression Total Score: 10 025 3:10 PM EST documented as of this encounter Care Teams Dementia Program Director Relationship Specialty Start Date End Date James Larson MD [address] [place] [address] PCP - General Internal Medicine 10/05/13 documented as of this encounter
--- OUTSIDE RECORDS SUMMARY | 2025-05-22 05:49 | XMS_ITS | Encounter Summary ---
Author Organization [employer] Address [address] [facility] 7 [place] [address] Care Team Providers Care Sap Payroll Consultant Name Role Phone James Larson MD Primary Care Provider [phone] Reason for Visit * Reason Onset Date Comments Referral 11/17/2023 Encounter Details Date Type Department Care Team ([facility] st Contact Info) Description 11/17/2023 Telephone [facility] CHC MED & PEDS [address] [place] [address] James Larson MD [address] [place] [address] Referral Social History Tobacco Use Types Packs/Day [...] for 11/16/23 . Please contact pt @ [phone] documented in this encounter Plan of Treatment Upcoming Encounters Date Type Department Care Team (Late st Contact Info) Description 05/29/2025 1:30 PM EDT Clinical Support [facility] & PEDS [address] [place] [address] documented as of this encounter Visit Diagnoses Not on filedocumented in this encounter Additional Health Concerns Assessment Noted Time PHQ-9 Depression Total Score: 0 01/22/20 23 3:02 PM EDT documented as of this encounter Care Teams Sap Payroll Consultant Relationship Specialty Start Date End Date James Larson MD [address] [place] [address] PCP - General Internal Medicine 10/05/13 documented as of this encounter
--- OUTSIDE RECORDS SUMMARY | 2025-05-22 05:49 | XMS_ITS | Encounter Summary ---
Author Organization [employer] Address [address] [place] [address] 7 [place] [address] Care Team Providers Care Hot Mill Supervisor Name Role Phone James Larson MD Primary Care Provider [phone] Reason for Referral * Imaging (Routine) - Closed Specialty Diagnoses / Procedures Referred By Contnatalia t Referred To Contact Radiology Diagnoses Transaminitis Procedures US Abdomen Complete James Larson MD [address] [place] [address] Phone: tel: fax: [address] Phone: tel: fax: Referral ID Status Reason Start Date Expiration Date Visits Re quested Visits Authorized [id number] Closed 06/23/2024 06/23/2025 1 1 Encounter Details Date Type Department Care Team ([facility] st Contact Info) Description 06/23/2024 Orders Only [facility] CHC MED & PEDS [address] [place] [address] James Larson MD [address] [place] [address] Transaminitis (Primary Dx) Social History Tobacco Use Types Packs/Day Years Used Date Smoking Tobacco: Every Day Cigarettes Passive Smoke Exposure: Never Smokeless Tobacco: Current Depression Answer Date Recorded Patient Health Questionnaire-9 Score 0 01/21/2023 Housing Stability Answer Date Recorded What is your housing situation today? I have angel sing 06/09/[address] you li [...] 1:30 PM EDT Clinical Support [facility] MED & PEDS [address] [place] [address] documented as of this encounter Procedures Procedure Name Priority Date/Time Associated Diagnosis Comments US ABDOMEN COMPLETE Routine 10/12/2024 4 :59 AM EST Transaminitis documented in this encounter Results * US Abdomen Complete (10/12/2024 4:59 AM EST) Anatomical Region Laterality Modality Abdomen Ultrasound 10/12/2024 4:59 AM EST Narrative 10/12/2024 5:01 AM EST [facility] [address] [place] [address] [place] [address] Ultrasound Report Signed Patient: Brenda Apple MR#: [id number] [birth year] : 1985 Acct:[id number] Age/Sex: 39 / F ADM Date: 10/11/24 Loc: HO.HMGCX Attending Dr: James Larson MD Ordering Physician: Jmaes Larson MD Date of Service: 10/11/24 Procedure(s): US abdomen complete Accession Number(s): [id number] cc: James Larson MD CLINICAL HISTORY: transaminitis [...] OV> 10/12/24 0500 DD/ 8 TD/TT: 10/12/24458 Building Specialist: Procedure Note Donotuseinterpreter, Image - 10/12/2024 [facility] [address] [place] [address] [place] [address] Ultrasound Report Signed Patient: Connie Apple#: [id number] [birth year] : 1985Acct:[id number] Age/Sex: 39 / FADM Date: 10/11/24 Loc: HO.HMGCX Attending Dr: James Larson MD Ordering Physician: James Larson MD Date of Service: 10/11/24 Procedure(s): US abdomen complete Accession Number(s): [id number] cc: James Larson MD CLINICAL HISTORY: transaminitis [...] OV> 10/12/24 0500 DD/ 8 TD/TT: 10/12/24458 Building Specialist: us James Larson MD IMG US PROCEDURES Final Res ult documented in this encounter Visit Diagnoses Diagnosis Transaminitis- Primary Nonspecific elevation of levels of transaminase or lactic acid dehydrogenase (LDH) documented in this encounter Additional Health Concerns Assessment Noted Time PHQ-9 Depression Total Score: 0 01/22/20 23 3:02 PM EDT documented as of this encounter Care Teams Hot Mill Supervisor Relationship Specialty Start Date End Date James Larson MD [address] [place] [address] PCP - General Internal Medicine 10/05/13 documented as of this encounter
--- OUTSIDE RECORDS SUMMARY | 2025-05-22 05:49 | XMS_ITS | Encounter Summary ---
Author Organization [employer] Address [address] [facility] 7 [place] [address] Care Team Providers Care Sap Data Analyst Name Role Phone James Larson MD Primary Care Provider [phone] Reason for Visit * Reason Onset Date Comments FYI 10/27/2024 Encounter Details Date Type Department Care Team ([facility] st Contact Info) Description 10/27/2024 Telephone [facility] MEDICINE [address] [place], [place] [phone] James Larson MD [address] [place] [address] FYI Social History Tobacco Use Types Packs/Day [...] 11/01/2024 3:10 PM EST TC placed to [facility] to inform that per PCP Dr. Larson there are no further details regarding pt diagnosis and clinical presentation relating to the MRI of the abdomen w/ and w/o contrast. The receptionist scheduler at [facility] spoke with one of the technicians [...] MRA instead of MRI. Contact Charly at [phone] documented in this encounter Plan of Treatment Upcoming Encounters Date Type Department Care Team (Late st Contact Info) Description 05/29/2025 1:30 PM EDT Clinical Support [facility] MED & PEDS [address] [place] [address] documented as of this encounter Visit Diagnoses Not on filedocumented in this encounter Additional Health Concerns Assessment Noted Time PHQ-9 Depression Total Score: 10 025 3:10 PM EST documented as of this encounter Care Teams Sap Data Analyst Relationship Specialty Start Date End Date James Larson MD [address] [place] [address] PCP - General Internal Medicine 10/05/13 documented as of this encounter
--- OUTSIDE RECORDS SUMMARY | 2025-05-22 05:49 | XMS_ITS | Encounter Summary ---
Author Organization [employer] Address [address] [facility] [address] 7[address] [place] [address] Care Team Providers Care Table Top Tile Setter Name Role Phone James Larson MD Primary Care Provider [phone] Encounter Details Date Type Department Care Team ([facility] st Contact Info) Description 10/31/[address] [facility] CHC MED & PEDS [address] [place], [place] [phone] James Larson MD [address] [place] [address] Social History Tobacco Use Types Packs/Day Years [...] - 10/31/2024 11:53 AM EST Tc from [facility] with [facility] calling to inform they received referral but are needing more DX can't only be abdominal pain. Best contact # [phone]. documented in this encounter Plan of Treatment Upcoming Encounters Date Type Department Care Team ([facility] st Contact Info) Description 05/29/2025 1:30 PM EDT Clinical Support [facility] CHC MED & PEDS [address] [place] [address] documented as of this encounter Visit Diagnoses Not on filedocumented in this encounter Additional Health Concerns Assessment Noted Time PHQ-9 Depression Total Score: 10 025 3:10 PM EST documented as of this encounter Care Teams Table Top Tile Setter Relationship Specialty Start Date End Date James Larson MD [address] [place] [address] PCP - General Internal Medicine 10/05/13 documented as of this encounter
--- OUTSIDE RECORDS SUMMARY | 2025-05-22 05:49 | XMS_ITS | Encounter Summary ---
Author Organization [employer] Address [address] [facility] [address] 7t [place] [address] Care Team Providers Care Blueprint Developer Name Role Phone James Larson MD Primary Care Provider [phone] Encounter Details Date Type Department Care Team ([facility] st Contact Info) Description 12/09/2023 Orders Only [facility] CHC MED & PEDS [address] [place], [place] [phone] DrummondRikki Coronel MD [address] [place] [address] Social History Tobacco Use Types Packs/Day Years [...] [facility] MED & PEDS [address] [place] [address] documented as of this encounter Visit Diagnoses Not on filedocumented in this encounter Additional Health Concerns Assessment Noted Time PHQ-9 Depression Total Score: 0 01/22/20 23 3:02 PM EDT documented as of this encounter Care Teams Blueprint Developer Relationship Specialty Start Date End Date James Larson MD [address] [place] [address] PCP - General Internal Medicine 10/05/13 documented as of this encounter
--- OUTSIDE RECORDS SUMMARY | 2025-05-22 05:49 | XMS_ITS | Encounter Summary ---
Author Organization [employer] Address [address] [facility] 7t [place] [address] Care Team Providers Care Wardrobe Attendant Name Role Phone James Larson MD Primary Care Provider [phone] Encounter Details Date Type Department Care Team ([facility] st Contact Info) Description 12/11/2024 Orders Only [facility] CHC MED & PEDS [address] [place], [place] [phone] James Larson MD [address] [place] [address] Type 2 diabetes mellitus without complication, without [...] Description 05/29/2025 1:30 PM EDT Clinical Support [facility] MED & PEDS [address] [place] [address] documented as of this encounter Procedures Procedure Name Priority Date/Time Associated Diagnosis Comments T-SPOT(R).TB Routine 12/11/2024 1:17 PM EDT Type 2 diabetes mellitus without complication, without long-term current use of insulin ([facility]) documented in this encounter Results * T-SPOT??.TB (12/11/2024 1:17 PM EDT) [facility] T Spot TB Negative Negative [facility] Comment:A negative test resu lt does not exclude the possibilityof exposure to or infection with Mycobacteriumtuberculosis (M. tuberculosis). Patients with recentexposure to TB infected individuals exhibiting anegative T-SPOT.TB result should be considered forretesting within 6 weeks or if other relevant clinicalsymptoms indicate. Results from T-SPOT.TB testing mustbe used in conjunction with each individual'sepidemiological history, current medical status,and results of other diagnostic evaluations.The T-SPOT.TB test is qualitative and results arereported as positive, borderline, or negative, giventhat the test controls perform as expected. In linewith the Centers for Disease Control and Prevention's2010 recommendation to report quantitative measurementsalongside the qualitative result, the laboratoryprovides spot counts for informational purposes only.The T-SPOT.TB test should not be interpreted as aquantitative test. TS PANEL A 0 [facility] TS PANEL B 0 [facility] Negative Control Passed [facility] Positive Control Passed [facility] Comment:For additional infor mation, please refer tohttp://education.[employer]/faq/SXU633(This link is being provided for informational/educational purposes only.)REPORT COMMENT:RECD IN [place]THIS TEST WAS PERFORMED AT:[employer] [id number] [place] [address]RHTDJJNSILVER ARMANDO MD,PHD 12/11/2024 1:17 PM EDT 12/11/2024 1:56 PM EDT James Larson MD LAB BLOOD ORDERABLES Final Result [facility] [address] [place] [address] [phone] documented in this encounter Visit Diagnoses Diagnosis Type 2 diabetes mellitus without complication, without long-term current use of insulin ([facility])- Primary documented in this encounter Additional Health Concerns Assessment Noted Time PHQ-9 Depression Total Score: 10 10/25/2 025 3:10 PM EST documented as of this encounter Care Teams Wardrobe Attendant Relationship Specialty Start Date End Date James Larson MD [address] [place] [address] PCP - General Internal Medicine 10/05/13 documented as of this encounter
--- OUTSIDE RECORDS SUMMARY | 2025-05-22 05:49 | XMS_ITS | Encounter Summary ---
Author Organization [employer] Address [address] [place] [address] 7 [place] [address] Care Team Providers Care Insurance Risk Manager Name Role Phone James Larson MD Primary Care Provider [phone] Reason for Referral * Imaging (Routine) - Closed Specialty Diagnoses / Procedures Referred By Contac t Referred To Contact Radiology Diagnoses Right sided abdominal pain Procedures CT Abdomen Pelvis w/ Contrast James Larson MD [address] [place] [address] Phone: tel: fax: [address] Phone: tel: fax: Referral ID Status Reason Start Date Expiration Date Visits Re quested Visits Authorized [id number] Closed 11/16/2024 11/16/2025 1 1 Encounter Details Date Type Department Care Team (Late st Contact Info) Description 11/16/2024 Orders Only [facility] MEDICINE [address] [place] [address] James Larson MD [address] [place] [address] Right sided abdominal pain (Primary Dx) Social [...] Upcoming Encounters Date Type Department Care Team ([facility] st Contact Info) Description 05/29/2025 1:30 PM EDT Clinical Support [facility] MED & PEDS [address] [place] [address] Scheduled Orders Name Type Priority Associated Diagnoses [...] documented as of this encounter Care Teams Insurance Risk Manager Relationship Specialty Start Date End Date James Larson MD [address] [place] [address] PCP - General Internal Medicine 10/05/13 documented as of this encounter
--- OUTSIDE RECORDS SUMMARY | 2025-05-22 05:49 | XMS_ITS | Clinical Summary ---
Author Organization [employer] Address [address] [place] [address] Care Team Providers Care Security Developer Name Role Phone James Larson MD Primary Care Provider [phone] Allergies No known active allergies Medications glucose-vitamin C 4-6 GM-MG oral gel 1 tablet to use in case of symptoms of hypoglycemia or if FS<70 mg/dl 1 Active Alcohol Swabs (Alcohol Prep) pads Active Misc. Devices (Wrist Brace) misc Active Continuous Glucose Lap Maker (FreeStyle Jorje 2 [place]) deviceIndication s:Type 2 diabetes mellitus without complication, without long-term current use of insulin ([facility]) Scan sensor every 8 hours 1 each 4 Active Continuous Glucose Sensor (FreeStyle Jorje 2 Sensor) miscIndications: Type 2 diabetes mellitus without complication, without long-term current use of insulin (CMS/HCC) Apply 1 sensor every 14 days 2 each 11 4 Active glucose blood (FreeStyle Precision Laurent Test) test stripIndications :Type 2 diabetes mellitus without complication, without long-term current use of insulin (CMS/HCC) Use to test blood sugar 2 times daily 100 each 12 4 025 Active Blood Glucose Monitoring Suppl (FreeStyle Lite) w/Device kitIndications:T ype 2 diabetes mellitus without complication, without long-term current use of insulin (CMS/HCC) 1 Units Once per day. 1 kit 4 Active Lancets miscIndications: Type 2 diabetes mellitus without complication, without long-term current use of insulin (CMS/HCC) Use to test blood sugar 2 times daily 100 each 11 4 Active sertraline (Zoloft) 25 MG tabletIndication s:Depression with anxiety Take 1 tablet (25 mg) by mouth Once per day. 30 tablet 11 5 026 Active hydrOXYzine pamoate (Vistaril) 25 MG capsuleIndicatio ns:Depression with anxiety Take 1 capsule (25 mg) by mouth every 12 (twelve) hours if needed for anxiety. 60 capsule 1 5 025 Active Blood Pressure kitIndications:L ightheadedness 1 kit 2 times daily. 1 kit 5 Active Ascorbic Acid (vitamin C) 250 MG tabletIndication s:Other fatigue Take 1 tablet (250 mg) by mouth Once per day. 30 tablet 11 5 026 Active Semaglutide,0.25 or 0.5MG/DOS, (Ozempic, 0.25 or 0.5 MG/DOSE,) 2 MG/3ML solution pen-injectorIndi cations:Type 2 diabetes mellitus without complication, without long-term current use of insulin ([facility]),Obesit y, Class I, BMI 30.0-34.9 (see actual BMI) Inject 0.25 mg under the skin every 7 (seven) days. 3 mL 1 5 Active cholecalciferol (Vitamin D-3) 25 MCG (1000 UT) tabletIndication s:Vitamin D deficiency Take 1 tablet (25 mcg) by mouth Once per day. 60 tablet 3 5 Active psyllium (Metamucil 3 in 1 Daily Fiber) 400 MG capsuleIndicatio ns:Other constipation Take 6 capsules (2.4 g) by mouth Once per day. 180 capsule 11 5 026 Active Triclosan 0.15 % liquidIndication s:Bromidrosis To use once a day to the affected area 221 mL 1 5 Active amoxicillin-clav ulanate (Augmentin) 875-125 MG tablet Take 1 tablet by mouth 2 times daily. 14 tablet 5 Active ciprofloxacin-hy drocortisone (Cipro HC Otic) otic suspension Administer 3 drops into each ear 2 times daily for 7 days. 10 mL 5 025 Active ibuprofen 800 MG tablet Take 1 tablet (800 mg) by mouth if needed in the morning, at noon, and at bedtime for mild pain. 15 tablet 5 Active Active Problems Problem Noted Date Diagnosed Date Injury of right ring finger 03/24/2025 Other fatigue 10/12/2023 Assessment & Plan (10/12/2023 4:12 PM EST): Patient that presented visit with concerns of fatigue will be sent for labs for further evaluation; will follow up with result. -Labs: CBC, Comp. Metabolic Panel, TSH/FT4, Hemoglobin A1C, Vit. D,25. Bacterial urinary infection 08/23/2020 Hypercholesterolemia 08/06/2016 Type 2 diabetes mellitus 02/23/2014 Assessment & Plan (04/04/2025 7:35 PM EDT): -glucose reading 140 mg/dL in clinic today -managed with Ozempic weekly injections -cautioned against late night meals -advised low carb/low sugar diet -monitor glucose two times daily -scheduled follow-up w/ [facility] nurses in 1 week Assessment & Plan (03/22/2023 4:10 PM EDT): [...] Encounters Date Type Department Care Team Description 05/21/2025 9:40 AM EDT Office Visit [facility] [address] [place] [phone] Lloyd Echevarria MD Acute otitis externa of left ear, unspecified type (Primary Dx); Non-recurrent acute serous otitis media of left ear 05/21/2025 Travel 05/10/2025 Telephone [facility] [address] [place] [phone] James Larson MD No Show 05/09/2025 Telephone [facility] [address] [place] [address] James Larson MD Chart Prep 04/23/2025 5:40 PM EDT Office Visit [facility] [address] [place] [phone] James Larson MD Other constipation (Primary Dx); Generalized abdominal pain; Bromidrosis 04/23/2025 Travel 04/23/2025 Telephone [facility] [address] [place] [address] James Larson MD Nurse Triage 04/20/2025 Telephone [facility] [address] [place] [address] James Larson MD No Show 04/16/2025 6:00 PM EDT Office Visit [facility] [address] [place] [phone] James Larson MD Functional diarrhea (Primary Dx); Nausea; COVID-19; Vitamin D deficiency; Other fatigue; Type 2 diabetes mellitus without complication, without long-term current use of insulin ([facility]); Obesity, Class I, BMI 30.0-34.9 (see actual BMI) 04/16/2025 Travel 04/09/2025 3:20 PM EDT Office Visit [facility] [address] [place] [phone] James Larson MD COVID-19 (Primary Dx); Cough in adult patient 04/09/2025 Travel 04/09/2025 Telephone [facility] [address] [place] [phone] James Larson MD Nurse Triage 04/04/2025 5:00 PM EDT Office Visit [facility] [address] [place] [phone] Appram, Marybel, LINER REPLACER Lightheadedness (Primary Dx); Type 2 diabetes mellitus without complication, without long-term current use of insulin ([facility]) 04/04/2025 Telephone [facility] [address] [place] [phone] Marixa Su, RN Nurse Triage 04/04/2025 Travel 03/27/2025 3:15 PM EDT Office Visit [facility] [address] [place] [address] James Larson MD Depression with anxiety (Primary Dx); Type 2 diabetes mellitus without complication, without long-term current use of insulin ([facility]) 03/27/2025 Travel 03/26/2025 Telephone [facility] [address] [place] [address] Aolna Gould MA Chart Prep 03/24/2025 12:40 PM EDT [facility] [address] [address] Silvia Norman MD Injury of right ring finger, initial encounter 03/24/2025 Travel 03/22/2025 Results Follow-Up [facility] [address] [place] [address] James Larson MD CBC, Hemoglobin A1c, Prothrombin Time-INR, Additional followed-up results: 10 03/21/2025 5:20 PM EDT Office [facility] [address] [address] Name, MD Karthik Bilateral carpal tunnel syndrome (Primary Dx) 03/21/2025 Orders Only GENERIC EXTERNAL DATA DEPARTMENT Provider, Generic External Data 03/21/2025 Travel 03/19/2025 Patient Outreach [facility] [address] [place] [phone] James Larson MD Pre-visit Planning (Pre visit planning LVM ) 03/12/2025 Telephone [facility] [address] [place] [address] James Larson MD Nurse Triage from Last 3 Months Immunizations Immunization Administration Dates Next Due HPV, Quadrivalent 12/21/2006,07/23/2006 Hep B, adult 06/06/2015,02/04/2015,12/27/2014 Influenza injectable quadriv alent IIV4 with preservative 06/14/2019,06/28/2018,07/22/2017,08/06,06/06/2015 Influenza injectable quadriv alent preservative free 11/18/2021 Influenza, Split (incl. drew fied surface antigen) 09/29/2012 MMR 04/29/1991,01/04/1990 Pneumococcal Polysaccharide PPSV23 06/14/2019 Td (adult), unspecified 05/15/2004 Tdap 12/21/2014 Varicella 06/27/2001 Social History Tobacco Use Types Packs/Day Years [...] t he electric, gas, oil or water Project [employer] threatened to shut off services in your home? No 06/09/2024 Depression Answer Date Recorded Patient Health Questionnaire-2 Score 4 10/25/2024 Internet Access Answer Date Recorded Internet Access Q1 Yes 06/09/2024 Internet Access Q2 Not on file 06/09/2024 Comments No Intention Date Recorded No desire to become (finding) 0 11/16/2024 Sex and Gender Information Value Date Recorded [...] 18 05/21/2025 9:35 AM EDT Oxygen Saturation 99% 04/23/2025 6:05 PM EDT room air Inhaled Oxygen Concentration - - Weight 89.4 kg (197 lb) 05/21/2025 9:35 AM EDT Height 165.1 cm (5' 5 ) 04/16/2025 5:49 PM EDT Body Mass Index 32.78 04/16/2025 5:49 PM EDT Plan of Treatment Upcoming Encounters Date Type Department Care Team (Late st Contact Info) Description 05/29/2025 1:30 PM EDT Clinical Support [facility] [address] [place] [address] Health Maintenance Due Date Last Done Comments Dental Oral Exam 1987 Dental Prophylaxis 1987 Dental X-Ray: Bitewings 1987 Derm Melanoma Skin Check 1987 Eye Exam 1997 HPV Vaccines (3 - 3-dose series) 03/15/2007 12/21/2006, 07/23/2006 Diabetes: Urine Protein Screening 08/07/2021 08/07/2020 Dental X-Ray: Full Mouth 01/15/2024 01/13/2021, 11/05 Diabetes: Foot Exam 07/22/2024 07/22/2023, 07/22/2023, 07/22/2023, Additional history exists DTaP/Tdap/Td Vaccines (3 - Td or Tdap) 12/21/2024 12/21/2014, 05/15/2004 Depression Monitoring 04/24/2025 10/25/2024, 025 COVID-19 Vaccine ( - season) 2025 Influenza Vaccine (#1) 2025 , 06/14/2019, 06/28/2018, Additional history exists Pneumococcal Vaccine: Pediatrics (0 to 5 Years) and At-Risk Patients (6 to 49) Years (2 of 2 - PCV) 06/16/2025 06/14/2019 Postponed from 06/14/2020 (Patient Refused) Diabetes: Hemoglobin A1C 06/21/2025 025, 02/09/2025, 10/25/2024, Additional history exists Alcohol/Substance Use Screening 10/25/2025 10/25/2024 SDOH Screening 10/25/2025 10/25/2024 Family Planning (PISQ) 11/16/2025 11/16/2024 Disability Screening 03/21/2026 03/21/2025 Lipid Panel 03/21/2026 03/21/2025 Tobacco Screening 05/21/2026 05/21/2025 Cervical Cancer Screening 08/11/2027 HPV/Cotest 08/11/2027 08/11/2022, 03/21/2019 Pap Smear 08/11/2027 08/11/2022 Zoster Vaccines (1 of 2) 2037 RSV Patients and Patients Aged 60 years or older (1 - 1-dose 75+ series) 2062 Hepatitis B Vaccines Completed 06/06/2015, 02/04/2015, 12/27/2014 HIV Screening Completed 03/21/2025, 03/2025, 04/28/2022 Hepatitis C Screening Completed 03/21/2025 HIB Vaccines Aged Out No longer eligi ble based on patient's age to complete this topic Hepatitis A Vaccines Aged Out No long er eligible based on patient's age to complete this topic IPV Vaccines Aged Out No longer eligi ble based on patient's age to complete this topic Meningococcal B Vaccine Aged Out No l onger eligible based on patient's age to complete [...] Name Priority Date/Time Associated Diagnosis Comments POCT INFLUENZA B (ID NOW RAPID MOLECULAR) Routine 04/09/2025 3:34 PM EDT Cough in adult patient POCT INFLUENZA A (ID NOW RAPID MOLECULAR) Routine 04/09/2025 3:33 PM EDT Cough in adult patient POCT RAPID COVID ANTIGEN Routine 025 3:22 PM EDT Cough in adult patient POCT GLUCOSE Routine 04/09/2025 3:21 PM EDT Cough in adult patient POCT GLUCOSE Routine 04/04/2025 4:26 PM EDT Type 2 diabetes mellitus without complication, without long-term current use of insulin ([facility]) POCT GLUCOSE Routine 03/27/2025 3:57 PM EDT Type 2 diabetes mellitus without complication, without long-term current use of insulin ([facility]) DRUG MONITORING, PHOSPHATIDYLETHANOL (PETH), BLOOD Routine 03/21/2025 2:03 PM EDT ACTIN (SMOOTH MUSCLE) ANTIBODY (IGG) Routine 03/21/2025 2:03 PM EDT LIVER KIDNEY MICROSOME (LKM-1) AB (IGG) Routine 03/21/2025 2:03 PM EDT TISSUE TRANSGLUTAMINASE AB, IGA Routine 03/21/2025 2:03 PM EDT MITOCHONDRIAL ANTIBODY WITH REFLEX TO TITER Routine 03/21/2025 2:03 PM EDT HEPATITIS A ANTIBODY, TOTAL Routine 03/21/2025 2:03 PM EDT [id number] QN Routine 2:03 PM EDT CERULOPLASMIN Routine 03/21/2025 2:03 PM EDT ALPHA FETOPROTEIN, TUMOR MARKER Routine 03/21/2025 2:03 PM EDT HEPATITIS B SURFACE ANTIGEN, EIA Routine 03/21/2025 2:03 PM EDT HIV 1/2 ANTIGEN/ANTIBODY, FOURTH GENERATION W/RFL Routine 03/21/2025 2:03 PM EDT HEPATITIS C ANTIBODY Routine 03/21/2025 2:03 PM EDT HEPATITIS B CORE AB TOTAL Routine 2024 2:03 PM EDT HEPATITIS B SURFACE ANTIBODY, QUALITATIVE Routine 03/21/2025 2:03 PM EDT TSH W/REFLEX TO FT4 Routine 03/21/2025 2 :03 PM EDT FERRITIN Routine 03/21/2025 2:03 PM EDT LIPID PANEL, STANDARD Routine 03/21/2025 2:03 PM EDT COMPREHENSIVE METABOLIC PANEL Routine 03/21/2025 2:03 PM EDT IRON AND TOTAL IRON BINDING CAPACITY Routine 03/21/2025 2:03 PM EDT PROTHROMBIN TIME-INR Routine 03/21/2025 2:03 PM EDT HEMOGLOBIN A1C Routine 03/21/2025 2:03 PM EDT CBC Routine 03/21/2025 2:03 PM EDT VITAMIN B12/FOLATE, SERUM PANEL Routine 03/21/2025 2:03 PM EDT Type 2 diabetes mellitus without complication, without long-term current use of insulin (CMS/HCC) IRON AND TOTAL IRON BINDING CAPACITY Routine 03/21/2025 2:03 PM EDT Type 2 diabetes mellitus without complication, without long-term current use of insulin (CMS/HCC) CBC WITH AUTO DIFFERENTIAL Routine 03/21 2:03 PM EDT Type 2 diabetes mellitus without complication, without long-term current use of insulin (CMS/HCC) TSH W/REFLEX TO FT4 Routine 03/21/2025 2 :03 PM EDT Type 2 diabetes mellitus without complication, without long-term current use of insulin (CMS/HCC) THINPREP IMAGING PAP AND HPV MRNA E6/E7, WITH CT/NG, TRICHOMONAS Routine 08/11/2022 5:19 PM EST PANORAMIC RADIOGRAPHIC IMAGE Routine 01/13/2021 12:00 AM EDT ALBUMIN, RANDOM URINE W/CREATININE Routine 08/07/2020 2:58 PM EST from Last 3 Months or Most Recently Relevant to Health Maintenance Results * Influenza B (ID NOW Rapid Molecular) (04/09/2025 3:34 PM EDT) [facility] Influenza B Negative Negative, Indeterminate [facility] Swab 04/09/2025 3:34 PM EDT us James Larson MD POINT OF CARE TEST ENTER/ED IT ORDERABLES Final Result [facility] [address] [place] [phone] * Influenza A (ID NOW Rapid Molecular) (04/09/2025 3:33 PM EDT) [facility] Influenza A Negative Negative, Indeterminate [facility] Swab 04/09/2025 3:33 PM EDT James Larson MD POINT OF CARE TEST ENTER/ED IT ORDERABLES Final Result Performing Organization Address City/[facility]/ZIP Co de Phone Number [facility] [address] [place] [address] [phone] * (ABNORMAL) POCT Rapid COVID Ag (04/09/2025 3:22 PM EDT) [facility] Rapid COVID Ag Positive Swab 04/09/2025 3:22 PM EDT James Larson MD POINT OF CARE TEST ENTER/ED IT ORDERABLES Edited Result - Final * POCT glucose manually resulted (04/09/2025 3:21 PM EDT) Only the most recent of3 resultswithin the time period is included. [facility] Glucose Blood, POC 143 60 - 200 mg/dL Blood Capillary blood specimen / Unknown 04/09/2025 3:21 PM EDT James Larson MD POINT OF CARE TEST ENTER/ED IT ORDERABLES Final Result * Hepatitis C Ab (03/21/2025 2:03 PM EDT) [facility] Hepatitis C Antibody Nonreactive Nonreactive [facility] Comment:Antibodies to HCV no t detected; does not exclude early acuteHCV infection. 03/21/2025 2:03 PM EDT 03/21/2025 4:07 PM EDT Generic External Data Provider LAB BLOOD ORDERAB LES Final Result Performing Organization Address City/[facility]/ZIP Co de Phone Number [facility] [address] [place] [phone] * Vitamin B12 (Cobalamin) and Folate Panel, Serum (03/21/2025 2:03 PM EDT) Vitamin B12 685 200 - 900 pg/mL [facility] Comment:NORMAL 200-900 PG/ML INDETERMINATE 160-199 PG/ML DEFICIENT < 160 PG/ML Folate 10.9 > or = 4.0 ng/mL [facility] Comment:Reference Values:> o r = 4.0 ng/mL< 4.0 ng/mL suggests folate deficiency Methotrexate, aminopterin and folinic acid(leucovorin) are chemotherapeutic agents whose molecularstructures are similar to folate; therefore, the Architectfolate assay cannot be used for patients using these drugs. Blood Venous blood specimen / Unknown 03/21/2025 2:03 PM EDT 03/21/2025 4:07 PM EDT us Rikki Rees MD LAB BLOOD ORDERABL ES Final Result Performing Organization Address City/[facility]/ZIP Co de Phone Number [facility] [address] [place] [phone] * TSH with Reflex to Free T4 (03/21/2025 2:03 PM EDT) Only the most recent of2 resultswithin the time period is included. Pathologist [facility] TSH reflex Free T4 0.79 0.32 - 4.0 uIU/mL [facility] 03/21/2025 2:03 PM EDT 03/21/2025 4:07 PM EDT us Generic External Data Provider LAB BLOOD ORDERAB LES Final Result Performing Organization Address City/[facility]/ZIP Co de Phone Number [facility] [address] [place] [address] [phone] * Drug Monitoring, Phosphatidylethanol (PEth), Blood (03/21/2025 2:03 PM EDT) Phosphatidylethanol, Blood NEGATIVE [facility] Comment:[id number] ng/mL PEth 16:0/18:2 (PLPEth) NEGATIVE [facility] Comment:[id number] ng/mL PEth Comments SEE NOTE [facility] Comment:NOTES AND COMMENTSTh is drug testing is for medical treatment only. Analysiswas performed as non-forensic testing and these resultsshould be used only by healthcare providers torender diagnosis or treatment, or to monitor progress ofmedical conditions.LDT Notes:Confirmation tests were developed and their analyticalperformance characteristics have been determined by [employer]. It has not been cleared orapproved by the FDA. This assay has been validated pursuantto the CLIA regulations and is used for clinical purposes.Healthcare Providers needing Interpretation assistance,please contact us at [phone] ( ) M-F,8am to 10pm ESTPERFORMING SITE:[facility] [employer]/[address] Warehouse Packer: PATRICKW. TR MD,PHD, CLIA: [id number] 03/21/2025 2:03 PM EDT 03/21/2025 3:59 PM EDT us Generic External Data Provider LAB BLOOD ORDERAB LES Final Result [facility] [address] [place] [phone] * CBC auto differential (03/21/2025 2:03 PM EDT) White Blood Count 7.1 4.8 - 10.8 X10*3/uL [facility] Red Blood Count 4.81 4.20 - 5.50 X10*6/uL [facility] Hemoglobin 15.0 12.0 - 16.0 g/dl [facility] Hematocrit 43.9 37.0 - 47.0 % [facility] Mean Corpuscular Volume 91.3 80.0 - 98.0 fL [facility] Mean Corpuscular Hemoglobin 31.2 27.0 - 33.0 pg [facility] Mean Corpuscular HGB Conc 34.2 31.0 - 35.0 g/dl [facility] Red Cell Distribution Width 11.6 11.0 - 16.0 % [facility] Platelet Count 350 160 - 400 X10*3/uL [facility] Mean Platelet Volume 10.2 9.4 - 12.3 fL [facility] Neutrophils Percent Auto 60.5 45 - 73 % [facility] Imm Gran Pct Auto 0.3 0.0 - 0.4 % [facility] Lymphocytes Percent Auto 30.8 20 - 40 % [facility] Monocytes Percent Auto 6.6 2 - 11 % [facility] Eosinophils Percent Auto 1.4 0 - 4 % [facility] Basophils Percent Auto 0.4 0 - 2 % [facility] NRBC Pct Auto 0.0 0.0 - 0.2 /100WBC [facility] Neutrophils Absolute Auto 4.3 2.0 - 8.3 x10*3/uL [facility] Imm Gran Abs Auto 0.02 0.00 - 0.03 X10*3/uL [facility] Lymphocytes Absolute Auto 2.2 1.2 - 4.9 X10*3/uL [facility] Monocytes Absolute Auto 0.5 0.1 - 1.2 X10*3/uL [facility] Eosinophils Absolute Auto 0.1 0.0 - 0.4 X10*3/uL [facility] Basophils Absolute Auto 0.0 0.0 - 0.2 X10*3/uL [facility] NRBC Abs Auto 0.000 0.0 - 0.012 X10*3/uL [facility] Blood Venous blood specimen / Unknown 03/21/2025 2:03 PM EDT 03/21/2025 4:03 PM EDT us Rikki Rees MD LAB BLOOD ORDERABL ES Final Result [facility] [address] [place] [phone] * Iron And Total Iron Binding Capacity (03/21/2025 2:03 PM EDT) Only the most recent of2 resultswithin the time period is included. Iron 54 30 - 160 mcg/dL [facility] Total Iron Binding Capacity 282 228 - 428 mcg/dL [facility] Percent Iron Saturation 19 15 - 50 % [facility] Unsaturated Iron Binding 228 ug/dL [facility] 03/21/2025 2:03 PM EDT 03/21/2025 4:07 PM EDT us Generic External Data Provider LAB BLOOD ORDERAB LES Final Result Performing Organization Address [facility]/ZIP Co de Phone Number [facility] [address] [place] [phone] * Actin (Smooth Muscle) Antibody (IgG) (03/21/2025 2:03 PM EDT) Smooth Muscle Antibody <20 <20 U [facility] Comment:Reference Range: <20 U: Negative>or=20 U: PositiveAntibodies recognizing actin are the main componentof smooth muscle antibodies associated with auto- immune liver disease. Actin antibodies are found inapproximately 75% of patients with autoimmunehepatitis (AIH) type 1, approximately 65% of patientswith autoimmune cholangitis, approximately 30% ofpatients with primary biliary cirrhosis andapproximately 2% of healthy controls. High values areclosely correlated with AIH type 1.THIS TEST WAS PERFORMED AT:[facility] [facility] [employer]/[id number] [place] [phone] ARMANDO MD,PHD 03/21/2025 2:03 PM EDT 03/21/2025 4:03 PM EDT us Generic External Data Provider LAB BLOOD ORDERAB LES Final Result Performing Organization Address [facility]/ZIP Co de Phone Number [facility] [address] [place] [phone] * Ehwql-1-Soievnifbfk, Quantitative (03/21/2025 2:03 PM EDT) Sfjjn-4-Tsioftmk sin QN 113 83 - 199 mg/dL [facility] Comment:THIS TEST WAS PERFOR MED AT:[facility] [employer] [facility] [address] [phone] CHAMBERS MD 03/21/2025 2:03 PM EDT 03/21/2025 3:59 PM EDT Generic External Data Provider LAB BLOOD ORDERAB LES Final Result Performing Organization Address [facility]/ZIP Co de Phone Number [facility] [address] [place] [phone] * Hepatitis A Antibody, Total (03/21/2025 2:03 PM EDT) Hepatitis A Antibody IgG REACTIVE Nonreactive [facility] Comment:The presence of IgG anti-HAV implies past HAV infection(recent or distant) or vaccination against HAV. 03/21/2025 2:03 PM EDT 03/21/2025 4:07 PM EDT Generic External Data Provider LAB BLOOD ORDERAB LES Final Result Performing Organization Address [facility] Co de Phone Number [facility] [address] [place] [phone] * Tissue Transglutaminase Antibody, IgA (03/21/2025 2:03 PM EDT) Transglutaminase IgA <1.0 U/mL [facility] Comment:Value Interpretation ----- <15.0 Antibody not detected> or = 15.0 Antibody detectedTHIS TEST WAS PERFORMED AT:[facility] [facility] [address] [phone] CHAMBERS MD 03/21/2025 2:03 PM EDT 03/21/2025 4:03 PM EDT us Generic External Data Provider LAB BLOOD ORDERAB LES Final Result Performing Organization Address City/[facility] Co de Phone Number [facility] [address] [place] [phone] * Ceruloplasmin (03/21/2025 2:03 PM EDT) Ceruloplasmin 30 14 - 48 mg/dL [facility] Comment:THIS TEST WAS PERFOR MED AT:[facility] [facility] [address] [phone] CHAMBERS MD 03/21/2025 2:03 PM EDT 03/21/2025 3:59 PM EDT Generic External Data Provider LAB BLOOD ORDERAB LES Final Result Performing Organization Address [facility] de Phone Number [facility] [address] [place] [phone] * Alpha-Fetoprotein, Tumor Marker (03/21/2025 2:03 PM EDT) Alpha Fetoprotein 3.0 ng/mL [facility] Comment:Reference Range: <6. 1The use of AFP as a tumor marker in females is not recommended.This test was performed using the Pravin Coulterchemiluminescent method. Values obtained fromdifferent assay methods cannot be usedinterchangeably. AFP levels, regardless ofvalue, should not be interpreted as absoluteevidence of the presence or absence of disease.THIS TEST WAS PERFORMED AT:[facility] [address] [phone] CHAMBERS MD 03/21/2025 2:03 PM EDT 03/21/2025 3:59 PM EDT Generic External Data Provider LAB BLOOD ORDERAB LES Final Result Performing Organization Address City/[facility] Co de Phone Number [facility] [address] [place] [address] [phone] * Hepatitis B surface antigen, EIA (03/21/2025 2:03 PM EDT) Hepatitis B Surface Ag Negative Negative [facility] 03/21/2025 2:03 PM EDT 03/21/2025 4:07 PM EDT Generic External Data Provider LAB BLOOD ORDERAB LES Final Result Performing Organization Address City/[facility]/ZIP Co de Phone Number [facility] [address] [place] [phone] * Hepatitis B Core Antibody, Total (03/21/2025 2:03 PM EDT) Hepatitis B Core Antibody Nonreactive Nonreactive [facility] 03/21/2025 2:03 PM EDT 03/21/2025 4:07 PM EDT Generic External Data Provider LAB BLOOD ORDERAB LES Final Result Performing Organization Address City/[facility]/ZIP Co de Phone Number [facility] [address] [place] [phone] * Liver Kidney Microsomal (LKM-1) Antibody??(IgG) (03/21/2025 2:03 PM EDT) Liver Kidney Microsomal (LKM-1) Antibody IgG <=20.0 <=20.0 U [facility] Comment:Reference Range: <=2 0.0 Negative 20.1-24.9 Equivocal >=25.0 PositiveAnti-liver/kidney microsomal antibodies (Anti-LKM-1)were previously tested by indirect immunofluorescence(IF) using rodent liver/kidney substrate.Identification of a specific antibody target ascytochrome P450 IID6 has led to the current recombinantbased ROBBIE. Antibodies to this cytochrome are presentin approximately 70% of patients with autoimmunehepatitis type 2. This antibody is also present inapproximately 10% of patients with hepatitis Cinfection.THIS TEST WAS PERFORMED AT:[facility]/[id number] [place] [address]DRXSHBISILVER ARMANDO MD,PHD 03/21/2025 2:03 PM EDT 03/21/2025 4:03 PM EDT us Generic External Data Provider LAB BLOOD ORDERAB LES Final Result Performing Organization Address [facility]/ZIP Co de Phone Number [facility] [address] [place] [phone] * Mitochondrial Antibody with Reflex to Titer (03/21/2025 2:03 PM EDT) Pathologist [facility] Mitochondrial Antibodies NEGATIVE NEGATIVE [facility] Comment:THIS TEST WAS PERFOR MED AT:[facility] [address] [id number] CHAMBERS MD Mitochondrial Ab Titer TNP [facility] 03/21/2025 2:03 PM EDT 03/21/2025 4:03 PM EDT Generic External Data Provider LAB BLOOD ORDERAB LES Final Result Performing Organization Address [facility] de Phone Number [facility] [address] [place] [phone] * HIV-1/2 Antigen and Antibodies, Fourth Generation, with Reflexes (03/21/2025 2:03 PM EDT) Pathologist [facility] HIV AB/AG Nonreactive Nonreactive [facility] Comment:HIV-1 p24 Ag and/or HIV-1/HIV-2 Ab not detected.A test result that is nonreactive does not exclude thepossibility of exposure to or infection with HIV-1 and/orHIV-2. Nonreactive results in this assay for individualswith prior exposure to HIV-1 and/or HIV-2 may be due toantigen and antibody levels that are below the limit ofdetection of this assay.The DigabitniTapad HIV Ag/Ab Combo assay result andsupplemental assay results should be interpreted inconjunction with the patient's clinical presentation,history and other laboratory results. If the results areinconsistent with clinical evidence, additional testing issuggested to confirm the result. 03/21/2025 2:03 PM EDT 03/21/2025 4:07 PM EDT Generic External Data Provider LAB BLOOD ORDERAB LES Final Result Performing Organization Address [facility] Co de Phone Number [facility] [address] [place] [phone] * Hepatitis B Surface Antibody, Qualitative (03/21/2025 2:03 PM EDT) ~Hepatitis B Surface Antibody REACTIVE Nonreactive [facility] Comment:REACTIVE: > 11.99 mI U/mL 03/21/2025 2:03 PM EDT 03/21/2025 4:07 PM EDT Generic External Data Provider LAB BLOOD ORDERAB LES Final Result Performing Organization Address [facility] Co de Phone Number [facility] [address] [place] [phone] * Prothrombin Time-INR (03/21/2025 2:03 PM EDT) Prothrombin Time 10.9 10.9 - 12.4 SEC [facility] INTERNATIONAL NORM RATIO 1.0 0.9 - 1.1 [facility] Comment:INTERNATIONAL NORMAL IZED RATIO (INR) REFERENCE RANGES Reference RangeFor patients not on anticoagulant therapy: 0.9 - 1.1INR ranges for oral anticoagulanttherapy:For prevention and treatment of venous thrombosis and pulmonary embolism: 2.0 - 3.0For acute myocardial infarction with aspirin therapy: 2.0 - 3.0For acute myocardial infarction without aspirin therapy: 3.0 - 4.0For patients with mechanical prosthetic heart valves: 2.5 - 3.5 03/21/2025 2:03 PM EDT 03/21/2025 3:59 PM EDT us Generic External Data Provider LAB BLOOD ORDERAB LES Final Result Performing Organization Address City/[facility]/ZIP Co de Phone Number [facility] [address] [place] [address] [phone] * (ABNORMAL) CBC (03/21/2025 2:03 PM EDT) White Blood Count 7.4 4.8 - 10.8 X10*3/uL [facility] Red Blood Count 4.71 4.20 - 5.50 X10*6/uL [facility] Hemoglobin 15.2 12.0 - 16.0 g/dl [facility] Hematocrit 42.3 37.0 - 47.0 % [facility] Mean Corpuscular Volume 89.8 80.0 - 98.0 fL [facility] Mean Corpuscular Hemoglobin 32.3 27.0 - 33.0 pg [facility] Mean Corpuscular HGB Conc 35.9(H) 31.0 - 35.0 g/dl [facility] Red Cell Distribution Width 11.6 11.0 - 16.0 % [facility] Platelet Count 364 160 - 400 X10*3/uL [facility] Mean Platelet Volume 9.8 9.4 - 12.3 fL [facility] NRBC Pct Auto 0.0 0.0 - 0.2 /100WBC [facility] NRBC Abs Auto 0.000 0.0 - 0.012 X10*3/uL [facility] 03/21/2025 2:03 PM EDT 03/21/2025 3:59 PM EDT us Generic External Data Provider LAB BLOOD ORDERAB LES Final Result Performing Organization Address City/[facility]/ZIP Co de Phone Number [facility] [address] [place] [address] [phone] * (ABNORMAL) Hemoglobin A1c (03/21/2025 2:03 PM EDT) Hemoglobin A1c 8.1(H) <6.0 % [facility] Comment:Hemoglobin A1C Refer ence Range Adults: 4.8 - 6.0 % Non diabetic: < 6.0 % Goal: < 7.0 %Additional Action Suggested: > 8.0 %Note: Hemoglobin A1c results are invalid for patients with abnormal amounts of HbF. Blood transfusions may impact the HbA1c concentration in the patient sample. Estimated Average Glucose 186 mg/dL [facility] Comment:eAG = Estimated ave rage glucose which is %A1C expressed asaverage glucose, using the formula of the Y4M-CxsvnlcKpojyat Glucose study (ADAG), Diabetes Care, Vol.31,#8,2007 03/21/2025 2:03 PM EDT 03/21/2025 3:59 PM EDT us Generic External Data Provider LAB BLOOD ORDERAB LES Final Result Performing Organization Address [facility] Co ms Phone Number [facility] [address] [place] [phone] * (ABNORMAL) Ferritin (03/21/2025 2:03 PM EDT) Ferritin 275(H) 10 - 122 ng/mL [facility] 03/21/2025 2:03 PM EDT 03/21/2025 4:07 PM EDT Generic External Data Provider LAB BLOOD ORDERAB LES Final Result Performing Organization Address [facility] Co de Phone Number [facility] [address] [place] [phone] * (ABNORMAL) Lipid Panel, Standard (03/21/2025 2:03 PM EDT) Triglycerides 228(H) <150 mg/dL [facility] Comment:Desirable Triglyceri de: less than 150 mg/dLBorderline High Triglyceride 150-199 mg/dLHigh Triglyceride: 200-499 mg/dLVery High Triglyceride: greater than or equal to 5OO mg/dL Cholesterol 226(H) <200 mg/dL [facility] Comment:Desirable Cholestero l: less than 200 mg/dLBorderline High Cholesterol: 200-239 mg/dLHigh Cholesterol: greater than 239 mg/dL LDL Cholesterol Calculated 144(H) <100 mg/dL [facility] Comment:Desirable LDL: less than 100 mg/dLNear Optimal/Above Optimal LDL: 110- 129 mg/dLBorderline High LDL: 130-159 mg/dLHigh LDL: 160-189 mg/dLVery High LDL: greater than or equal to 190 mg/dL HDL Cholesterol 37(L) >40 mg/dL [facility] Comment:Desirable HDL: great er than 40 mg/dL Note: This HDL assay may give artificially low results in patients with liver disease. 03/21/2025 2:03 PM EDT 03/21/2025 4:07 PM EDT us Generic External Data Provider LAB BLOOD ORDERAB LES Final Result [facility] [address] [place] [phone] [phone] * (ABNORMAL) Comprehensive Metabolic Panel (03/21/2025 2:03 PM EDT) Sodium 138 135 - 145 mmol/L [facility] Potassium 3.8 3.3 - 5.1 mmol/L [facility] Chloride 104 96 - 108 mmol/L [facility] Carbon Dioxide 27 22 - 29 mmol/L [facility] Anion Gap 11(L) 12 - 20 [facility] Urea Nitrogen (BUN) 10 9 - 16 mg/dL [facility] Creatinine, Serum 0.91 0.5 - 1.4 mg/dL [facility] Estimated Glomerular Filt Rate >60 [facility] Comment:Chronic Kidney Disea se: Estimated GFR < 60 mL/min/1.17p4Wtcris Kidney Disease: Estimated GFR < 15 mL/min/1.73m2 Glucose 264(H) 60 - 115 mg/dL [facility] Calcium 9.7 8.4 - 10.2 mg/dL [facility] Bilirubin, Total 0.6 0.0 - 1.0 mg/dL [facility] Aspartate Amino Transferase 47(H) 5 - 31 U/L [facility] Alanine Aminotransferase 36(H) 0 - 31 U/L [facility] Total Protein 7.6 6.5 - 8.0 g/dL [facility] Albumin Level 4.8 3.5 - 5.0 g/dL [facility] Alkaline Phosphatase 74 39 - 117 U/L [facility] 03/21/2025 2:03 PM EDT 03/21/2025 4:07 PM EDT us Generic External Data Provider LAB BLOOD ORDERAB LES Final Result [facility] [address] [place] [phone] [phone] * Thinprep TIS PAP And HPV mRNA E6/E7, CT/NG, TRICH (08/11/2022 5:19 PM EST) Clinical Information: None given [employer] LMP: NONE GIVEN [employer] Prev. PAP: NONE GIVEN [employer] Prev. BX: NONE GIVEN [employer] SOURCE: None given [employer] Statement Of Adequacy: [employer] Comment: Satisfactory for evaluation. Endocervical/transformation zone component present. Age and/or menstrual status not provided Interpretation/Re sult: Negative for intraepithelial lesion or malignancy. [employer] COMMENT: This Pap test has been evaluated with computer assisted technology. [employer] Ancillary Services Manager Therapy: Bart Enterra Feed Comment: MSM, CT(ASCP) CT screening location: [address] [address] (Always Message) [facility] B[facility]152 Comment: EXPLANATORY NOTE: The Pap is a [...] HPV nRNA E6/E7 Not Detected Not Detected [employer] Comment: Methodology: Egg Processor-Mediated Amplification This assay detects E6/E7 viral messenger RNA (mRNA) from 14 high-risk HPV types (16,18,31,33,35,39,45,51,52,56,58,59,66,68). Cervical sources are required for HPV testing. If a vaginal source from a patient who has had a total hysterectomy with removal of cervix was submitted, please contact the testing laboratory for alternative testing options. For additional information, please refer to http://[employer]MVERSE/faq/IYC289q9 (This link if provided for information/ educational purposes only.) Chlamydia trachomatis RNA, TMA, Urogenital NOT DETECTED NOT DETECTED [facility] Neisseria gonorrhoeae RNA, TMA, Urogenital NOT DETECTED NOT DETECTED [facility] (Always Message) [facility] [employer] Comment: The analytical performance characteristics of this assay, when used to test SurePath(TM) specimens have been determined by [facility]. The modifications have not been cleared or approved by the FDA. This assay has been validated pursuant to the CLIA regulations and is used for clinical purposes. For additional information, please refer to https://[employer]/faq/LGY203 (This link is being provided for information/ educational purposes only.) Trichomonas vaginalis, QL, TMA, PAP Vial NOT DETECTED NOT DETECTED [facility] Comment: The analytical performance characteristics of this assay have been determined by [facility]. The modifications have not been cleared or approved by the FDA. This assay has been validated pursuant to the CLIA regulations and is used for clinical purposes. For additional information, please refer to http://[employer]MVERSE/ faq/Trichomonastma (This link is being provided for information/ educational purposes only.) 08/11/2022 5:19 PM EST 08/12/2022 8:03 AM EST Narrative [facility] - 08/14/2022 9:39 AM EST FASTING: UNKNOWN us Tresa Arechiga CNM LAB PATHOLOGY ORDERABLES Final Result Performing Organization Address City/[facility]/ZIP Co de Phone Number [facility] [address], [place] [address] [facility] [address], [place] [address] [facility] [address], [place] [address] * (ABNORMAL) ALBUMIN, RANDOM URINE W/CREATININE (08/07/2020 2:58 PM EST) Microalbumin Urine 5.0 See Note: mg/dL [facility] Comment: Reference Range: Reference Range Not established Microalb/Creat Ratio 36(H) <30 mcg/mg creat [facility] Comment: The ADA defines abnormalities in albumin excretion as follows: Category Result (mcg/mg creatinine) Normal <30 Microalbuminuria 30-299 Clinical albuminuria > OR = 300 The ADA recommends that at least two of three specimens collected within a 3-6 month period be abnormal before considering a patient to be within a diagnostic category. Creatinine, Urine 137 20 - 275 mg/dL [facility] Microalbumin Urine 5.0 See Note: mg/dL [facility] Comment: Reference Range: Reference Range Not established Microalb/Creat Ratio 36(H) <30 mcg/mg creat [facility] Comment: The ADA defines abnormalities in albumin excretion as follows: Category Result (mcg/mg creatinine) Normal <30 Microalbuminuria 30-299 Clinical albuminuria > OR = 300 The ADA recommends that at least two of three specimens collected within a 3-6 month period be abnormal before considering a patient to be within a diagnostic category. Creatinine, Urine 137 20 - 275 mg/dL [facility] 08/07/2020 2:58 PM EST James Larson MD LAB URINE ORDERABLES Final Result [facility] [address] from Last 3 Months or Most Recently Relevant to Health Maintenance Insurance [facility] ONE CARE < 65 DENTAL [facility] * Guarantor: Brenda Apple Account Type Relation to Patient Date of Phone Billing Address Personal/Family Self [address] [place] Care Teams Security Developer Relationship Specialty Start Date End Date James Larson MD [address] [facility] [place] [address] PCP - General Internal Medicine 10/05/13
--- OUTSIDE RECORDS SUMMARY | 2025-05-22 05:50 | XMS_ITS | Encounter Summary ---
Author Organization [employer] Address [address] [facility] 7 [place] [address] Care Team Providers Care Space And Missile Operations Spacelift Name Role Phone James Larson MD Primary Care Provider [phone] Reason for Visit * Reason Onset Date Comments Call Back Request 10/11/2023 Encounter Details Date Type Department Care Team ([facility] st Contact Info) Description 10/11/2023 Telephone [facility] MED & PEDS [address] [place] [address] James Larson MD [address] [place] [address] Call Back Request Social History Tobacco Use [...] start it now. Please contact pt at [phone] documented in this encounter Plan of Treatment Upcoming Encounters Date Type Department Care Team (Late st Contact Info) Description 05/29/2025 1:30 PM EDT Clinical Support [facility] MED & PEDS [address] [place] [address] documented as of this encounter Visit Diagnoses Not on filedocumented in this encounter Additional Health Concerns Assessment Noted Time PHQ-9 Depression Total Score: 0 01/22/20 23 3:02 PM EDT documented as of this encounter Care Teams Space And Missile Operations Spacelift Relationship Specialty Start Date End Date James Larson MD [address] [place] [address] PCP - General Internal Medicine 10/05/13 documented as of this encounter
--- OUTSIDE RECORDS SUMMARY | 2025-05-22 05:50 | XMS_ITS | Encounter Summary ---
Author Organization [employer] Address [address] [facility] 7 [place] [address] Care Team Providers Care Molding Machine Tender Name Role Phone James Larson MD Primary Care Provider [phone] Encounter Details Date Type Department Care Team ([facility] st Contact Info) Description 03/22/2025 Results Follow-Up [facility] CHC MED & PEDS [address] [place], [place] [phone] James Larson MD [address] [place] [address] CBC, Hemoglobin A1c, Prothrombin Time-INR, Additional followed-up results: 10 Social History Tobacco Use Types Packs/Day Years [...] Description 05/29/2025 1:30 PM EDT Clinical Support [facility] MED & PEDS [address] [place] [address] documented as of this encounter Visit Diagnoses Not on filedocumented in this encounter Additional Health Concerns Assessment Noted Time PHQ-9 Depression Total Score: 10 025 3:10 PM EST documented as of this encounter Care Teams Molding Machine Tender Relationship Specialty Start Date End Date James Larson MD [address] [place] [address] PCP - General Internal Medicine 10/05/13 documented as of this encounter
--- OUTSIDE RECORDS SUMMARY | 2025-05-22 05:50 | XMS_ITS | Encounter Summary ---
Author Organization [employer] Address [address] [facility] [address] 7[address] [place] [address] Care Team Providers Care Instructional Technology Coordinator Name Role Phone James Larson MD Primary Care Provider [phone] Encounter Details Date Type Department Care Team (Late Contact Info) Description 03/29/2023 Telephone [facility] D[facility]AL [address] [place] [address] August Bridges DDS [address] [place] [address] Social History Tobacco Use Types Packs/Day Years [...] Description 05/29/2025 1:30 PM EDT Clinical Support [facility] CH[facility] MED & PEDS [address] [place] [address] documented as of this encounter Visit Diagnoses Not on filedocumented in this encounter Additional Health Concerns Assessment Noted Time PHQ-9 Depression Total Score: 0 01/22/20 23 3:02 PM EDT documented as of this encounter Care Teams Instructional Technology Coordinator Relationship Specialty Start Date End Date James Larson MD [address] [place] [address] PCP - General Internal Medicine 10/05/13 documented as of this encounter
--- OUTSIDE RECORDS SUMMARY | 2025-05-22 05:50 | XMS_ITS | Encounter Summary ---
Author Organization [employer] Address [address] [facility] 7 [place] [address] Care Team Providers Care Sulfide Head Operator Name Role Phone James Larson MD Primary Care Provider [phone] Reason for Visit * Reason Onset Date Comments Nurse Triage 10/11/2023 Encounter Details Date Type Department Care Team ([facility] st Contact Info) Description 10/11/2023 Telephone [facility] MED & PEDS [address] [place] [address] James Larson MD [address] [place] [address] Nurse Triage Social History Tobacco Use Types [...] t he electric, gas, oil or water [employer] threatened to shut off services in your [...] . Pt is advised to come to [facility] 10/12/23 @ 340pm for provider to see [...] accepted this outcome Please contact pt at [phone] documented in this encounter Plan of Treatment Upcoming Encounters Date Type Department Care Team ([facility] st Contact Info) Description 05/29/2025 1:30 PM EDT Clinical Support [facility] MED & PEDS [address] [place] [address] documented as of this encounter Visit Diagnoses Not on filedocumented in this encounter Additional Health Concerns Assessment Noted Time PHQ-9 Depression Total Score: 0 01/22/20 3:02 PM EDT documented as of this encounter Care Teams Sulfide Head Operator Relationship Specialty Start Date End Date James Larson MD [address] [place] [address] PCP - General Internal Medicine 10/05/13 documented as of this encounter
--- OUTSIDE RECORDS SUMMARY | 2025-05-22 05:50 | XMS_ITS | Encounter Summary ---
Author Organization [employer] Address [address] [facility] [facility] [address] [place] [address] Care Team Providers Care Vmware Administrator Name Role Phone James Larson MD Primary Care Provider [phone] Encounter Details Date Type Department Care Team (Latest Contact Info) Description 05/21/2025 Travel Social History Tobacco Use Types Packs/Day [...] Upcoming Encounters Date Type Department Care Team ([facility] st Contact Info) Description 05/29/2025 1:30 PM EDT Clinical Support [facility] CHC MED & PEDS [address] [place] [address] documented as of this encounter Visit Diagnoses Not on filedocumented in this encounter Additional Health Concerns Assessment Noted Time PHQ-9 Depression Total Score: 10 025 3:10 PM EST documented as of this encounter Care Teams Vmware Administrator Relationship Specialty Start Date End Date James Larson MD [address] [place] [address] PCP - General Internal Medicine 10/05/13 documented as of this encounter
--- OUTSIDE RECORDS SUMMARY | 2025-05-22 05:50 | XMS_ITS | Encounter Summary ---
Author Organization [employer] Address [address] [place] [address] [address] [place] [address] Care Team Providers Care Senior Sales Executive Name Role Phone James Larson MD Primary Care Provider [phone] Encounter Details Date Type Department Care Team ([facility] Contact Info) Description 09/09/2022 Telephone [facility] MED & PEDS [address] [place], [place] [phone] James Larson MD [address] [place] [address] Social History Tobacco Use Types Packs/Day Years [...] Department Care Team (Late Contact Info) Description 05/29/2025 1:30 PM EDT Clinical Support [facility] MED & PEDS [address] [place] [address] documented as of this encounter Visit Diagnoses Not on filedocumented in this encounter Care Teams Senior Sales Executive Relationship Specialty Start Date End Date James Larson MD [address] [place] [address] PCP - General Internal Medicine 10/05/13 documented as of this encounter
--- NOTE | 2025-05-22 06:30 | ED_ITS ---
HPI - Ear Problem General Chief complaint: Ear Problems Stated complaint: ear pain Time Seen by Provider: 05/22/25 05:50 Source: patient, EMS and old records reviewed Mode of arrival: EMS Limitations: no limitations History of Present Illness ED Provider: GARY SEVERINO Narrative: 40 yo female with PMH of DM here with c/o L ear pain for a couple of days and saw PCP yesterday who told her her ear was wet and they had a hard time seeing. She was started on augmentin and neomycin gtts but the pain became too severe and she called for transport. She denies vision changes, her pain is all located sharp and stabbing on L ear area. She has drainage for the ear. Her hearing seems less. She has no fevers. She has never had an ear infectino before. No trauma to the ear MD Complaint: ear pain and ear discharge Location: left ear Duration: constant Severity: severe Relieving factors: nothing Exacerbating factors: position of head and palpation Context: recent illness Discharge from ear: yes - bloody and yes - purulent Associated symptoms ear: decreased hearing and external ear tenderness Treatment prior to arrival: eardrops and other Related Data Previous Rx's ?Medication ?Instructions ?Recorded hydrocodone 5 mg-acetaminophen 325 1 tab PO Q6H PRN pa in #10 tabs 05/22/25 mg tablet ibuprofen 600 mg tablet 600 mg PO Q6H PRN pain #30 t abs 05/22/25 levofloxacin 750 mg tablet 750 mg PO DAILY #7 tabs ofloxacin 0.3 % ear drops 10 drp otic (ears) DAILY 7 d ays #5 05/22/25 mL Allergies Allergy/AdvReac Type Severity Reaction Status Date / Time No Known Allergies Allergy Verified 05/22/25 05:23 Review of Systems 2 Review of Systems: Constitutional : No Fever, No Chills, No Fatigue ENT/Mouth : No sore throat, No Rhinorrhea Eyes: No Eye Pain, No Swelling, No Redness, pos ear pain Cardiovascular : No Chest Pain, No SOB, No Dyspnea on Exertion Respiratory : No Cough, No Sputum Gastrointestinal : No Nausea, No Vomiting, No Diarrhea, No abdominal Pain Genitourinary : No Dysuria, No Urinary Frequency, No Hematuria, Musculoskeletal : No joint pain, No Myalgias, No Joint Swelling Skin : No Skin Lesions, No rash Neuro : No Weakness, No Numbness, No Dizziness, positive Headache All other systems reviewed and are negative [facility] Past Medical History Attestation statement: The following information was validated with the patient. Source: old records reviewed Medical History Chronic dental pain Diabetes mellitus, type 2 Family History Family History Maternal Aunt Diabetes Maternal Aunt Diabetes Mother Diabetes Social History Social History Patient Tobacco Use Status: Never used Tobacco Physical Exam 2 Vital Signs: Vital Signs: Last Vital Signs Temp 98.2 F 05/22/25 09:27 Pulse 79 05/22/25 09:27 Resp 16 05/22/25 09:27 BP 127/60 05/22/25 09:27 Pulse Ox 99 05/22/25 09:27 O2 Del Method Room Air 05/22/25 09:27 BMI result Body Mass Index 29.1 Appearance: Alert. Oriented X3. No acute distress. Eyes: Pupils equal, round and reactive to light. ENT: Pharynx normal. no nystagmus, ext ear is normal but she has mastoid ttp, her ear canal is swollen and there is purulent drainage, she has small anterior perforation as well, her drum is red and swollen, there is no ext ear cellulitis Neck: Normal inspection. Neck supple. CVS: Normal heart rate and rhythm. Pulses normal. Respiratory: No respiratory distress. Breath sounds normal. Abdomen: Soft and nontender. Skin: Skin warm and dry. Normal skin color. Normal skin turgor. Extremities: No lower extremity edema. No calf ttp Neuro: Oriented X 3. No motor deficit. No sensory deficit. CN2-12 intact Medications Administered Discontinued Medications Generic Name Dose Route Start Last Admin Trade Name Freq PRN Reason Stop Dose Admin Cefepime HCl 2 gm in 50 mls @ 100 mls/hr 05/22/25 06:07 05/22/25 07:15 Maxipime IV 05/22/25 06:36 Infused ONCE ONE Infusion Iohexol 100 ml 05/22/25 07:53 05/22/25 07:53 Iohexol 350 Mg/Ml 100 Ml Infus..Btl IV 05/22/25 07:54 85 ml ONCE ONE Administration Ketorolac Tromethamine 15 mg 05/22/25 06:07 05/22/25 06:37 Ketorolac Tromethamine 15 Mg/Ml Vial IVPUSH 05/22/25 06:08 15 mg ONCE ONE Administration Morphine Sulfate 4 mg 05/22/25 06:07 05/22/25 06:40 Morphine Sulfate 4 Mg/Ml Cartridge IVPUSH 05/22/25 06:08 4 mg ONCE ONE Administration Protocol Ondansetron HCl 4 mg 05/22/25 06:07 05/22/25 06:38 Ondansetron Hcl 4 Mg/2 Ml Vial IVPUSH 05/22/25 06:08 4 mg ONCE ONE Administration Medical Decision Making Medical Decision Making [facility] Narrative: 40 yo female with worsening L ear pain and she is a diabetic. Her canal and TM are abnormal but the ext ear itself is not swollen or red. At this time she has mastoid ttp. I am going to obtain labs, CT scan for mastoid/ear and start on IV cefepime. If normal will need to broaden her oral abx and start on ofloxacin drops. Her canal is not so swollen that she needs an ear wick. She has no signs of deeper ERP ANALYST infection. IV morphine for pain ordered Differential Diagnosis Differential Diagnoses: The differential diagnosis associated with the presentation includes malignant ext otitis, TM rupture, AOM/external otitis, mastoiditis Admission/Observation Consideration of admission/observation: Escalation of care including admission/observation considered feels much better, labs stable, CT scan isolated to ear no signs of deeper space infection Lab Data [facility] Lab Attestation statement: I reviewed the patient's lab results. 05/22/25 06:32 05/22/25 06:32 Labs: Lab Results 05/22/25 Range/Units 06:32 WBC 9.9 (4.8-10.8) X10*3/uL RBC 4.35 (4.20-5.50) X10*6/uL Hgb 13.5 (12.0-16.0) g/dl Hct 39.8 (37.0-47.0) % MCV 91.5 (80.0-98.0) fL MCH 31.0 (27.0-33.0) pg MCHC 33.9 (31.0-35.0) g/dl RDW 11.7 (11.0-16.0) % Plt Count 304 (160-400) X10*3/uL MPV 9.3 L (9.4-12.3) fL Immature Gran % (Auto) 0.3 (0.0-0.4) % Neut % (Auto) 73.5 H (45-73) % Lymph % (Auto) 18.1 L (20-40) % Bureau % (Auto) 7.1 (2-11) % Eos % (Auto) 0.8 (0-4) % Baso % (Auto) 0.2 (0-2) % Lymph # (Auto) 1.8 (1.2-4.9) X10*3/uL Bureau # (Auto) 0.7 (0.1-1.2) X10*3/uL Eos # (Auto) 0.1 (0.0-0.4) X10*3/uL Baso # (Auto) 0.0 (0.0-0.2) X10*3/uL Abs Immat Gran (auto) 0.03 (0.00-0.03) X10*3/uL Absolute Neuts (auto) 7.3 (2.0-8.3) x10*3/uL Absolute Nucleated RBC 0.000 (0.0-0.012) X10*3/uL Nucleated RBC % (auto) 0.0 (0.0-0.2) /100WBC Sodium 138 (135-145) mmol/L Potassium 3.9 (3.3-5.1) mmol/L Chloride 108 (96-108) mmol/L Carbon Dioxide 21 L (22-29) mmol/L Anion Gap 13 (12-20) BUN 10 (9-16) mg/dL Creatinine 0.63 (0.5-1.4) mg/dL Estim Creat Clear Calc 126.1 Estimated GFR > 60 Random Glucose 219 H (60-115) mg/dL Lactic Acid 0.8 (0.5-2.0) mmol/L Calcium 9.3 (8.4-10.2) mg/dL Magnesium 1.9 (1.6-2.6) mg/dL Total Bilirubin 0.7 (0.0-1.0) mg/dL Direct Bilirubin 0.2 (0.0-0.5) mg/dL AST 44 H (5-31) U/L ALT 67 H (0-31) U/L Alkaline Phosphatase 106 (39-117) U/L Total Protein 7.6 (6.5-8.0) g/dL Albumin 4.5 (3.5-5.0) g/dL Beta HCG, Quant < 2 mIU/mL Independent Interpretation I performed an independent interpretation of an: CT Scan (no mastoiditis) Radiology Impression Discussion of test interpretation with radiology: I discussed test interpretation with the radiologist and I have reviewed the radiologist's reading. Independent Historian Clinical information obtained from an independent historian. History obtained from or confirmed by: EMS External Record Review External record reviewed: Outpatient record Prescription Management I considered prescription management with: Pain Medication and Antibiotic Discharge Plan Discharge Clinical Impression: Otitis externa Qualifiers: Otitis externa type: unspecified type Chronicity: acute Laterality: left Q ualified Code(s): H60.502 - Unspecified acute noninfective otitis externa, left ear Otitis media Qualifiers: Otitis media type: suppurative Chronicity: acute Laterality: left Recurrence: n on-recurrent Spontaneous tympanic membrane rupture: with spontaneous rupture Q ualified Code(s): H66.012 - Acute suppurative otitis media with spontaneous rupture of ear drum, left ear Patient Disposition: Home, Self-Care Instructions: Ruptured Eardrum (ED), Ear Infection (ED) Additional Instructions: stop taking the augmentin and neomycin drops next antibiotic dose this morning no water in ear x 7 days you have to cover it when showering ask your doctor to repeat ear exam in one week return for any worsening symptoms or concerns do not exercise while on antibiotics and for 5 days after it can affect your tendons rest and stay hydrated. Prescriptions: New hydrocodone-acetaminophen 5-325 mg tablet 1 tab PO Q6H PRN (Reason: pain) Qty: 10 0RF Rx Instructions: partial fill okay; Partial Fill upon patient request. ibuprofen 600 mg tablet 600 mg PO Q6H PRN (Reason: pain) Qty: 30 0RF levofloxacin 750 mg tablet 750 mg PO DAILY Qty: 7 0RF ofloxacin 0.3 % drops 10 drp otic (ears) DAILY 7 Days Qty: 5 0RF Interventions: ED Discharge Assessment Last Done: 05/22/25 09:27 Discharge Date/Time: 05/22/25 09:29 Print Language: Portuguese
[2025-05-22 06:40] LABS: MANUAL DIFF FLAG NO
[2025-05-22 06:41] LABS: Hematocrit 39.8 % (37.0-47.0); Hemoglobin 13.5 g/dl (12.0-16.0); Imm Gran Abs Auto 0.03 X10*3/uL (0.00-0.03); Imm Gran Pct Auto 0.3 % (0.0-0.4); Lymphocytes Absolute Auto 1.8 X10*3/uL (1.2-4.9); Mean Corpuscular HGB Conc 33.9 g/dl (31.0-35.0); Mean Corpuscular Hemoglobin 31.0 pg (27.0-33.0); Mean Corpuscular Volume 91.5 fL (80.0-98.0); NRBC Abs Auto 0.000 X10*3/uL (0.0-0.012); NRBC Pct Auto 0.0 /100WBC (0.0-0.2); Platelet Count 304 X10*3/uL (160-400); Red Blood Count 4.35 X10*6/uL (4.20-5.50); White Blood Count 9.9 X10*3/uL (4.8-10.8)
[2025-05-22] MEDS: cefEPime HCl/D5W 2 GM/50 ML PIGGYBACK IV (06:41)
[2025-05-22 07:05] LABS: Alanine Aminotransferase 67 U/L (0-31); Albumin Level 4.5 g/dL (3.5-5.0); Alkaline Phosphatase 106 U/L (39-117); Anion Gap 13 (12-20); Aspartate Amino Transferase 44 U/L (5-31); Blood Urea Nitrogen 10 mg/dL (9-16); Calcium 9.3 mg/dL (8.4-10.2); Carbon Dioxide 21 mmol/L (22-29); Chloride 108 mmol/L (96-108); Creatinine Clr Calc Pharmacy 126.1; Estimated Glomerular Filt Rate > 60; Magnesium 1.9 mg/dL (1.6-2.6); Potassium 3.9 mmol/L (3.3-5.1); Sodium 138 mmol/L (135-145); Total Protein 7.6 g/dL (6.5-8.0)
[2025-05-22 07:29] VITALS: BP 121/58; PULSE 71; RESP 16; TEMP 36.5; O2SAT 98
[2025-05-22] MEDS: iohexoL 350 MG/ML 100 ML INFUS..BTL IV (07:53)
[2025-05-22 09:12] VITALS: BP 127/60; PULSE 79; RESP 16; TEMP 36.8; O2SAT 99
[2025-05-22 09:27] VITALS: BP 127/60; PULSE 79; RESP 16; TEMP 36.8; O2SAT 99
== END 2025-05-22 09:29 | disposition home or self-care (01) ==
PROVIDERS: Emergency Provider Emergency Medicine
DX: H60.502 Unspecified acute noninfective otitis externa, left ear (principal); H66.012 Acute suppurative otitis media with spontaneous rupture of ear drum, left ear; H92.02 Otalgia, left ear; H92.12 Otorrhea, left ear
CPT/HCPCS: 36415; 70481; 80048; 80076; 83605; 83735; 84702; 85025; 87040; 96365; 96375; 99284; 99285; J0692; J1885; J2270; J2405; Q9967

== ENCOUNTER → 2025-05-22 06:07 | Outpatient (BNV) | payer OTHER, SELFPAY | PROVIDERS: Emergency Provider Emergency Medicine; Visit Provider Radiology Diagnostic Radiology | DX: H92.02 Otalgia, left ear (principal) | CPT/HCPCS: 70481 ==

== ENCOUNTER 2025-05-23 05:34 | Emergency (ER) | payer OTHER, SELFPAY ==
[2025-05-23 05:38] VITALS: BP 122/76; PULSE 74; O2SAT 98
[2025-05-23 05:44] VITALS: BP 140/92; PULSE 64; RESP 16; TEMP 36.7; O2SAT 98; BMI 32.8
--- NOTE | 2025-05-23 06:50 | ED.EAR ---
HPI - Ear Problem General Chief complaint: Ear Problems Stated complaint: EAR PAIN Time Seen by Provider: 05/23/25 06:50 Source: patient and EMS Mode of arrival: EMS Limitations: no limitations History of Present Illness ED Provider: HPI Narrative: 40-year-old woman presented with anxiety states she did not start taking her antibiotics yet she has drainage from her left ear very anxious about it, she has been using ibuprofen and Tylenol has not been helping no fevers or chills. Does have pain medication ibuprofen and levofloxacin, did not start taking any ear drops yet. She states she feels nauseous with these medications as well. Related Data Previous Rx's ?Medication ?Instructions ?Recorded hydrocodone 5 mg-acetaminophen 325 1 tab PO Q6H PRN pain #10 tabs 05/22/25 mg tablet ibuprofen 600 mg tablet 600 mg PO Q6H PRN pain #30 tabs 05/22/25 levofloxacin 750 mg tablet 750 mg PO DAILY #7 tabs 05/22/25 ofloxacin 0.3 % ear drops 10 drp otic (ears) DAILY 7 days #5 05/22/25 mL ondansetron 4 mg disintegrating 4 mg PO Q8H PRN nausea and 05/23/25 tablet vomiting #4 tabs Allergies Allergy/AdvReac Type Severity Reaction Status Date / Time No Known Allergies Allergy Verified 05/23/25 05:47 Review of Systems Constitutional: Constitutional: Reports as per [facility] Past Medical History Medical History Chronic dental pain Diabetes mellitus, type 2 Family History Family History Maternal Aunt Diabetes Maternal Aunt Diabetes Mother Diabetes Social History Social History Alcohol intake: never Patient Tobacco Use Status: Never used Tobacco Smoked in Last 30 Days: No Use of substances other than those prescribed or required for medical reasons: No Advance Directives: No Advance Directives Information Provided: Yes Patient : No Physical Exam Vital Signs: Vital Signs: Last Vital Signs Temp 98.1 F 05/23/25 05:44 Pulse 64 05/23/25 05:44 Resp 16 05/23/25 05:44 BP 140/92 H 05/23/25 05:44 Pulse Ox 98 05/23/25 05:44 O2 Del Method Room Air 05/23/25 05:44 BMI result Body Mass Index 32.8 Const: Other: Gen: ?Overall well-appearing patient, anxious affect HEENT: Antoinette MCQUEEN was buildup behind right tympanic membrane, and ruptured left tympanic membrane with fluid in the ear canal, no crepitus over the mastoid Neck: Supple, no LAD Resp: ?No wheezing rales rhonchi no stridor moving air well Skin: Warm, dry, intact, Neuro: ?Alert and oriented x3, moving upper and lower extremities symmetrically, no obvious facial asymmetry noted Medical Decision Making Medical Decision Making [facility] Narrative: Patient is presenting with a anxiety relating to her ear drainage, I did explain to the patient that she should start taking her antibiotics, ibuprofen Tylenol and hydrocodone that she was given at home, I will give her Zofran as needed for nausea and vomiting she should take medications with food, I have also explained with the patient there is really no indication for IV antiemetics so IV morphine, and this is something that as managed on outpatient basis and she needs to follow up with the PCP and to refer to the discharge instructions she was provided your her recent visit Differential Diagnosis Differential Diagnoses: The differential diagnosis associated with the presentation includes (Otitis externa, otitis media, mastoiditis, deep space infection of the oropharynx with the neck) Admission/Observation Consideration of admission/observation: Escalation of care including admission/observation considered Lab Data [facility] Lab Attestation statement: I reviewed the patient's lab results. (Blood work that was done yesterday) Radiology Impression Discussion of test interpretation with radiology: I have reviewed the radiologist's reading. (CT orbit that was done yesterday) Discharge Plan Discharge Clinical Impression: Otitis media with rupture of tympanic membrane Patient Disposition: Home, Self-Care Additional Instructions: no water in ear x 7 days you have to cover it when showering ask your doctor to repeat ear exam in one week return for any worsening symptoms or concerns do not exercise while on antibiotics and for 5 days after it can affect your tendons rest and stay hydrated. I am adding on ondansetron you can use as needed for nausea and vomiting but you should take the above medications with food Warm compress to the ER may help with the discomfort as well And as discussed you may either have inflammation of the external ear but they may also be ruptured tympanic membrane so you are getting both oral antibiotics and antibiotic drops just make sure you take him it takes a few days for the pain to get better but you will have some discomfort that is something to be expected Prescriptions: New ondansetron 4 mg tablet,disintegrating 4 mg PO Q8H PRN (Reason: nausea and vomiting) Qty: 4 0RF No Action hydrocodone-acetaminophen 5-325 mg tablet 1 tab PO Q6H PRN (Reason: pain) Qty: 10 0RF Rx Instructions: partial fill okay; Partial Fill upon patient request. ibuprofen 600 mg tablet 600 mg PO Q6H PRN (Reason: pain) Qty: 30 0RF levofloxacin 750 mg tablet 750 mg PO DAILY Qty: 7 0RF ofloxacin 0.3 % drops 10 drp otic (ears) DAILY 7 Days Qty: 5 0RF Print Language: Albanian
[2025-05-23 07:06] VITALS: BP 140/92; PULSE 64; RESP 16; TEMP 36.7; O2SAT 98
== END 2025-05-23 07:07 | disposition home or self-care (01) ==
PROVIDERS: Emergency Provider Emergency Medicine
DX: H92.02 Otalgia, left ear (principal); H66.92 Otitis media, unspecified, left ear; H72.92 Unspecified perforation of tympanic membrane, left ear
CPT/HCPCS: 99283

== ENCOUNTER 2025-07-03 13:24 | Outpatient (REF) | payer OTHER, SELFPAY ==
--- NOTE | ~2025-07-03 | XR_ITS ---
EXAMINATION: XR ABDOMEN KUB CLINICAL INDICATION: H/o constipation. COMPARISON: None available. TECHNIQUE: AP view of the abdomen. FINDINGS: Patient's large body habitus/obesity. Stool within the right hemicolon. Gas throughout intestine. No air-fluid levels. No intestinal dilatation. Liver shadow projects below the rib cage. S-shaped curvature of the thoracolumbar spine which could be positional. T-shaped contraceptive device overlapping the lower sacrum/sacrococcyx region. Spina bifida occulta S1, congenital. XR/XR KUB IMPRESSION: No intestinal obstruction pattern. Hepatomegaly, mild. Electronically signed by: Tu Garvin MD 07/03/2025 01:52 PM EDT
--- NOTE | ~2025-07-03 | XR_ITS ---
EXAMINATION: XR HAND 3 OR MORE VIEWS RIGHT HISTORY: pain, after injury COMPARISON: There are no prior studies available for comparison. FINDINGS: Three views of the right hand are submitted. Osseous mineralization is normal. There is a nondisplaced fracture of the radial aspect of the base of the distal phalanx of the 4th finger. No additional fracture is seen. There is no dislocation. The joint spaces are preserved. The soft tissues are unremarkable. XR/XR hand RT min 3V IMPRESSION: Nondisplaced fracture of the radial aspect of the base of the distal phalanx of the 4th finger. Electronically signed by: Hoang Goldberg MD 07/03/2025 01:52 PM EDT
--- OUTSIDE RECORDS SUMMARY | 2025-07-03 17:18 | XMS_ITS | Encounter Summary ---
Author Organization [employer] Address [address] [place] [address] Care Team Providers Care Client Account Specialist Name Role Phone James Larson MD Primary Care Provider [phone] Encounter Details Date Type Department Care Team ([facility] st Contact Info) Description 12/09/2023 Orders Only [facility] PEDS [address] [place], [place] [phone] DrummondRikki Coronel MD [address] [place] [address] Social History Tobacco Use Types Packs/Day Years [...] Care Team (Late st Contact Info) Description 07/06/2025 3:30 PM EDT Office Visit [facility] [address] [place] [address] James Larson MD [address] [place] [address] documented as of this encounter Visit Diagnoses Not on filedocumented in this encounter Additional Health Concerns Assessment Noted Time PHQ-9 Depression Total Score: 0 01/22/20 23 3:02 PM EDT documented as of this encounter Care Teams Client Account Specialist Relationship Specialty Start Date End Date James Larson MD [address] [place] [address] PCP - General Internal Medicine 10/05/13 documented as of this encounter
--- OUTSIDE RECORDS SUMMARY | 2025-07-03 17:18 | XMS_ITS | Encounter Summary ---
Author Organization [employer] Address [address] [place] [address] [address] [place] [address] Care Team Providers Care Blender Machine Operator Name Role Phone James Larson MD Primary Care Provider [phone] Reason for Referral * Imaging (Routine) - Closed Specialty Diagnoses / Procedures Referred By Contnatalia hebert Referred To Contact Radiology Diagnoses Transaminitis Procedures US Abdomen Complete James Larson MD [address] [place] [address] Phone: tel: fax: [address] Phone: tel: fax: Referral ID Status Reason Start Date Expiration Date Visits Re quested Visits Authorized [id number] Closed 06/23/2024 06/23/2025 1 1 Encounter Details Date Type Department Care Team (Late st Contact Info) Description 06/23/2024 Orders Only [facility] MED [facility] PEDS [address] [place] [address] James Larson MD [address] [place] [address] Transaminitis (Primary Dx) Social History Tobacco Use [...] Upcoming Encounters Date Type Department Care Team ([facility] Contact Info) Description 07/06/2025 3:30 PM EDT Office Visit [facility] MED & PEDS [address] [place], [place] [phone] James Larson MD [address] [place], [place] [phone] documented as of this encounter Procedures Procedure Name Priority Date/Time Associated Diagnosis Comments US ABDOMEN COMPLETE Routine 10/12/2024 4 :59 AM EST Transaminitis documented in this encounter Results * US Abdomen Complete (10/12/2024 4:59 AM EST) Anatomical Region Laterality Modality Abdomen Ultrasound 10/12/2024 4:59 AM EST Narrative 10/12/2024 5:01 AM EST [facility] [address] [place] [address] [place] [address] Ultrasound Report Signed Patient: Brenda Apple MR#: [id number] 07 : 1985 Acct:[id number] Age/Sex: 39 / F ADM Date: 10/11/24 Loc: HO.HMGCX Attending Dr: James Larson MD Ordering Physician: James Larson MD Date of Service: 10/11/24 Procedure(s): US abdomen complete Accession Number(s): [id number] cc: James Larson MD CLINICAL HISTORY: transaminitis [...] OV> 10/12/24 0500 DD/ 8 TD/TT: 10/12/24458 Lead Generation Specialist: Procedure Note Donotuseinterpreter, Image - 10/12/2024 [facility] Adult Primary [facility] [place] [address] Ultrasound Report Signed Patient: Connie Apple#: [id number] [birth year] : 1985Acct:[id number] Age/Sex: 39 / FADM Date: 10/11/24 Loc: HO.HMGCX Attending Dr: James Larson MD Ordering Physician: James Larson MD Date of Service: 10/11/24 Procedure(s): US abdomen complete Accession Number(s): [id number] cc: James Larson MD CLINICAL HISTORY: transaminitis [...] Velazquez MD in OV> 10/12/24 0500 DD/ 045 TD/TT: 10/12/24 045 Lead Generation Specialist: us James Larson MD IMG US PROCEDURES Final Res ult documented in this encounter Visit Diagnoses Diagnosis Transaminitis- Primary Nonspecific elevation of levels of transaminase or lactic acid dehydrogenase (LDH) documented in this encounter Additional Health Concerns Assessment Noted Time PHQ-9 Depression Total Score: 0 01/22/20 23 3:02 PM EDT documented as of this encounter Care Teams Blender Machine Operator Relationship Specialty Start Date End Date James Larson MD [address] [place] [id number] PCP - General Internal Medicine 10/05/13 documented as of this encounter
--- OUTSIDE RECORDS SUMMARY | 2025-07-03 17:18 | XMS_ITS | Encounter Summary ---
Author Organization [employer] Address [address] [place] [address] [place] [address] Care Team Providers Care Sleeve Turner Name Role Phone James Larson MD Primary Care Provider [phone] Reason for Visit * Reason Onset Date Comments Referral 07/03/2025 Encounter Details Date Type Department Care Team ([facility] Contact Info) Description 07/03/2025 Telephone [facility] CHC MED & PEDS [address] [place] [address] James Larson MD [address] [place] [address] Referral Social History Tobacco Use Types Packs/Day [...] Telephone Encounter - Desirae Kelley RN - 07/03/2025 3:21 PM EDT Called pt regarding request for referral to [facility] [place] and spoke to pt. Pt states had initial consultation today and may need further referral. Advised usually not unless going to pursue surgical weight loss down the road. Pt has appointment with PCP on 07/06 and is advised to speak further toPCP regarding plan going forward. Pt understands and agrees with plan. * Telephone Encounter - Karthik Taylor - 07/03/2025 3:05 PM EDT Tc from pt requesting a referral; for weight lost management in [facility]. Any questions contact pt at [phone]. documented in this encounter Plan of Treatment Upcoming Encounters Date Type Department Care Team (Late st Contact Info) Description 07/06/2025 3:30 PM EDT Office Visit [facility] MED [facility] PEDS [address] [place] [address] James Larson MD [address] [place] [address] documented as of this encounter Visit Diagnoses Not on filedocumented in this encounter Additional Health Concerns Assessment Noted Time PHQ-9 Depression Total Score: 10 10/25/ 025 3:10 PM EST documented as of this encounter Care Teams Sleeve Turner Relationship Specialty Start Date End Date James Larson MD [address] [place] [address] PCP - General Internal Medicine 10/05/13 documented as of this encounter
--- OUTSIDE RECORDS SUMMARY | 2025-07-03 17:18 | XMS_ITS | Encounter Summary ---
Author Organization [employer] Address [address] [facility] 7 [place] [address] Care Team Providers Care Belt Maker Name Role Phone James Larson MD Primary Care Provider [phone] Reason for Visit * Reason Onset Date Comments FYI 10/27/2024 Encounter Details Date Type Department Care Team ([facility] st Contact Info) Description 10/27/2024 Telephone [facility] MEDICINE [address] [place], [place] [phone] James Larson MD [address] [place] [address] FYI Social History Tobacco Use Types Packs/Day [...] 11/01/2024 3:10 PM EST TC placed to [facility] to inform that per PCP Dr. Larson there are no further details regarding pt diagnosis and clinical presentation relating to the MRI of the abdomen w/ and w/o contrast. The paper wrapping machine operator at [facility] spoke with one of the technicians [...] MRA instead of MRI. Contact Charly at [phone] documented in this encounter Plan of Treatment Upcoming Encounters Date Type Department Care Team (Late st Contact Info) Description 07/06/2025 3:30 PM EDT Office Visit [facility] MED & PEDS [address] [place] [address] James Larson MD [address] [place] [address] documented as of this encounter Visit Diagnoses Not on filedocumented in this encounter Additional Health Concerns Assessment Noted Time PHQ-9 Depression Total Score: 10 025 3:10 PM EST documented as of this encounter Care Teams Belt Maker Relationship Specialty Start Date End Date James Larson MD [address] [place] [address] PCP - General Internal Medicine 10/05/13 documented as of this encounter
--- OUTSIDE RECORDS SUMMARY | 2025-07-03 17:18 | XMS_ITS | Encounter Summary ---
Author Organization [employer] Address [address] [facility] 7 [place] [address] Care Team Providers Care Florist Name Role Phone James Larson MD Primary Care Provider [phone] Reason for Visit * Reason Comments Pre-visit Planning Pre visit planning L VM Encounter Details Date Type Department Care Team ([facility] st Contact Info) Description 06/29/2025 Patient Outreach [facility] MEDICINE [address] [place] [address] James Larson MD [address] [place] [address] Pre-visit Planning (Pre visit planning LVM ) Social History Tobacco Use Types Packs/Day Years [...] AM EDT documented as of this encounter Progress Notes * Morteza Glaser - 06/29/2025 1:59 PM EDT CC Morteza Abreu placed outbound call to patient to complete pre-visit planning. No answer at this time.Patient name and were not confirmed. CC left voicemail requesting return call. Direct contact information provided. documented in this encounter Plan of Treatment Upcoming Encounters Date Type Department Care Team (Late st Contact Info) Description 07/06/2025 3:30 PM EDT Office Visit [facility] MED & PEDS [address] [place] [address] James Larson MD [address] [place] [address] documented as of this encounter Visit Diagnoses Not on filedocumented in this encounter Additional Health Concerns Assessment Noted Time PHQ-9 Depression Total Score: 10 025 3:10 PM EST documented as of this encounter Care Teams Florist Relationship Specialty Start Date End Date James Larson MD [address] [place] [address] PCP - General Internal Medicine 10/05/13 documented as of this encounter
--- OUTSIDE RECORDS SUMMARY | 2025-07-03 17:18 | XMS_ITS | Encounter Summary ---
Author Organization [employer] Address [address] [place] [address] 7 [place] [address] Care Team Providers Care Dairy Equipment Mechanic Name Role Phone James Larson MD Primary Care Provider [phone] Reason for Referral * Imaging (Routine) - Closed Specialty Diagnoses / Procedures Referred By Contac t Referred To Contact Radiology Diagnoses Right sided abdominal pain Procedures CT Abdomen Pelvis w/ Contrast James Larson MD [address] [place] [address] Phone: tel: fax: [address] Phone: tel: fax: Referral ID Status Reason Start Date Expiration Date Visits Re quested Visits Authorized [id number] Closed 11/16/2024 11/16/2025 1 1 Encounter Details Date Type Department Care Team (Late st Contact Info) Description 11/16/2024 Orders Only [facility] MEDICINE [address] [place] [address] James Larson MD [address] [place] [address] Right sided abdominal pain (Primary Dx) Social [...] Upcoming Encounters Date Type Department Care Team ([facility] Contact Info) Description 07/06/2025 3:30 PM EDT Office Visit [facility] CHC MED & PEDS [address] [place] [address] James Larson MD [address] [place] [address] Scheduled Orders Name Type Priority Associated Diagnoses [...] documented as of this encounter Care Teams Dairy Equipment Mechanic Relationship Specialty Start Date End Date James Larson MD [address] [place] [address] PCP - General Internal Medicine 10/05/13 documented as of this encounter
--- OUTSIDE RECORDS SUMMARY | 2025-07-03 17:18 | XMS_ITS | Encounter Summary ---
Author Organization [employer] Address [address] [facility] 7 [place] [address] Care Team Providers Care Internet Database Specialist Name Role Phone James Larson MD Primary Care Provider [phone] Reason for Visit * Reason Onset Date Comments Referral 11/17/2023 Encounter Details Date Type Department Care Team ([facility] st Contact Info) Description 11/17/2023 Telephone [facility] CHC MED & PEDS [address] [place] [address] James Larson MD [address] [place] [address] Referral Social History Tobacco Use Types Packs/Day [...] for 11/16/23 . Please contact pt @ [phone] documented in this encounter Plan of Treatment Upcoming Encounters Date Type Department Care Team ([facility] st Contact Info) Description 07/06/2025 3:30 PM EDT Office Visit [facility] MED & PEDS [address] [place] [address] James Larson MD [address] [place] [address] documented as of this encounter Visit Diagnoses Not on filedocumented in this encounter Additional Health Concerns Assessment Noted Time PHQ-9 Depression Total Score: 0 01/22/20 23 3:02 PM EDT documented as of this encounter Care Teams Internet Database Specialist Relationship Specialty Start Date End Date James Larson MD [address] [place] [address] PCP - General Internal Medicine 10/05/13 documented as of this encounter
--- OUTSIDE RECORDS SUMMARY | 2025-07-03 17:18 | XMS_ITS | Encounter Summary ---
Author Organization [employer] Address [address] [facility] 7t [place] [address] Care Team Providers Care Registered Health Nurse Name Role Phone James Larson MD Primary Care Provider [phone] Encounter Details Date Type Department Care Team ([facility] st Contact Info) Description 12/11/2024 Orders Only [facility] CHC MED & PEDS [address] [place], [place] [phone] James Larson MD [address] [place] [address] Type 2 diabetes mellitus without complication, without [...] Description 07/06/2025 3:30 PM EDT Office Visit [facility] CHC MED & PEDS [address] [place] [address] James Larson MD [address] [place] [address] documented as of this encounter Procedures Procedure Name Priority Date/Time Associated Diagnosis Comments T-SPOT(R).TB Routine 12/11/2024 1:17 PM EDT Type 2 diabetes mellitus without complication, without long-term current use of insulin ([facility]) documented in this encounter Results * T-SPOT??.TB (12/11/2024 1:17 PM EDT) [facility] T Spot TB Negative Negative [facility] Comment:A negative test resu lt [...] as aquantitative test. TS PANEL A 0 [facility] TS PANEL B 0 [facility] Negative Control Passed [facility] Positive Control Passed [facility] Comment:For additional infor mation, please refer [email or web address].Rapid Pathogen Screening/faq/ULH437(This link is being provided for informational/educational purposes only.)REPORT COMMENT:RECD IN ROB[place]THIS TEST WAS PERFORMED AT:[employer] [id number] [place] [id number] ARMANDO MD,PHD 12/11/2024 1:17 PM EDT 12/11/2024 1:56 PM EDT James Larson MD LAB BLOOD ORDERABLES Final Result [facility] [address] [place] [address] [phone] documented in this encounter Visit Diagnoses Diagnosis Type 2 diabetes mellitus without complication, without long-term current use of insulin (HCC)- Primary documented in this encounter Additional Health Concerns Assessment Noted Time PHQ-9 Depression Total Score: 10 10/25/2 025 3:10 PM EST documented as of this encounter Care Teams Registered Health Nurse Relationship Specialty Start Date End Date James Larson MD [address] [place] [address] PCP - General Internal Medicine 10/05/13 documented as of this encounter
--- OUTSIDE RECORDS SUMMARY | 2025-07-03 17:18 | XMS_ITS | Encounter Summary ---
Author Organization [employer] Address [address] [facility] [address] 7[address] [place] [address] Care Team Providers Care Lens Inserter Name Role Phone James Larson MD Primary Care Provider [phone] Encounter Details Date Type Department Care Team ([facility] st Contact Info) Description 10/31/[address] [facility] CHC MED & PEDS [address] [place], [place] [phone] James Larson MD [address] [place] [address] Social History Tobacco Use Types Packs/Day Years [...] 10/31/2024 11:53 AM EST Tc from [facility] with [facility] calling to inform they received referral but are needing more DX can't only be abdominal pain. Best contact # [phone]. documented in this encounter Plan of Treatment Upcoming Encounters Date Type Department Care Team ([facility] st Contact Info) Description 07/06/2025 3:30 PM EDT Office Visit [facility] MED & PEDS [address] [place] [address] James Larson MD [address] [place] [address] documented as of this encounter Visit Diagnoses Not on filedocumented in this encounter Additional Health Concerns Assessment Noted Time PHQ-9 Depression Total Score: 10 025 3:10 PM EST documented as of this encounter Care Teams Lens Inserter Relationship Specialty Start Date End Date James Larson MD [address] [place] [address] PCP - General Internal Medicine 10/05/13 documented as of this encounter
--- OUTSIDE RECORDS SUMMARY | 2025-07-03 17:18 | XMS_ITS | Encounter Summary ---
Author Organization [employer] Address [address] [facility] 7t [place] [address] Care Team Providers Care Appliquer Zigzag Name Role Phone James Larson MD Primary Care Provider [phone] Encounter Details Date Type Department Care Team (Late st Contact Info) Description 10/30/2024 Orders Only [facility] MEDICINE [address] [place] [address] James Larson MD [address] [place], [place] [phone] Right sided abdominal pain (Primary Dx) Social [...] Description 07/06/2025 3:30 PM EDT Office Visit [facility] CHC MED & PEDS [address] [place] [address] James Larson MD [address] [place] [address] documented as of this encounter Visit Diagnoses Diagnosis Right sided abdominal pain- Primary Abdominal pain, unspecified site documented in this encounter Additional Health Concerns Assessment Noted Time PHQ-9 Depression Total Score: 10 10/25/2 025 3:10 PM EST documented as of this encounter Care Teams Appliquer Zigzag Relationship Specialty Start Date End Date James Larson MD [address] [place] [address] PCP - General Internal Medicine 10/05/13 documented as of this encounter
--- OUTSIDE RECORDS SUMMARY | 2025-07-03 17:18 | XMS_ITS | Clinical Summary ---
Author Organization [employer] Address [address] [facility] [place] [address] Care Team Providers Care Preload Supervisor Name Role Phone James Larson MD Primary Care Provider Allergies No known active allergies Medications glucose-vitamin C 4-6 GM-MG oral gel 1 tablet to use in case of symptoms of hypoglycemia or if FS<70 mg/dl 05/02/20 21 Active Alcohol Swabs (Alcohol Prep) pads Active Misc. Devices (Wrist Brace) misc Active Continuous Glucose Commission Broker (FreeStyle Jorje 2 Ririe) deviceIndication s:Type 2 diabetes mellitus without complication, without long-term current use of insulin ([facility]) Scan sensor every 8 hours 1 each 06/16/20 24 Active Continuous Glucose Sensor (FreeStyle Jorje 2 Sensor) miscIndications: Type 2 diabetes mellitus without complication, without long-term current use of insulin ([facility]) Apply 1 sensor every 14 days 2 each 06/16/20 24 Active Blood Glucose Monitoring Suppl (FreeStyle Lite) w/Device kitIndications:T ype 2 diabetes mellitus without complication, without long-term current use of insulin ([facility]) 1 Units Once per day. 1 kit 06/16/20 24 Active Lancets miscIndications: Type 2 diabetes mellitus without complication, without long-term current use of insulin ([facility]) Use to test blood sugar 2 times daily 100 each 06/16/20 24 Active sertraline (Zoloft) 25 MG tabletIndication s:Depression with anxiety Take 1 tablet (25 mg) by mouth Once per day. 30 tablet 03/27/20 25 026 Active hydrOXYzine pamoate (Vistaril) 25 MG capsuleIndicatio ns:Depression with anxiety Take 1 capsule (25 mg) by mouth every 12 (twelve) hours if needed for anxiety. 60 capsule 1 03/27/20 25 Active Blood Pressure kitIndications:L ightheadedness 1 kit 2 times daily. 1 kit 04/04/20 25 Active Ascorbic Acid (vitamin C) 250 MG tabletIndication s:Other fatigue Take 1 tablet (250 mg) by mouth Once per day. 30 tablet 11 04/16/20 25 026 Active Semaglutide,0.25 or 0.5MG/DOS, (Ozempic, 0.25 or 0.5 MG/DOSE,) 2 MG/3ML solution pen-injectorIndi cations:Type 2 diabetes mellitus without complication, without long-term current use of insulin ([facility]),Obesity, Class I, BMI 30.0-34.9 (see actual BMI) Inject 0.25 mg under the skin every 7 (seven) days. 3 mL 1 04/16/20 25 Active cholecalciferol (Vitamin D-3) 25 MCG (1000 UT) tabletIndication s:Vitamin D deficiency Take 1 tablet (25 mcg) by mouth Once per day. 60 tablet 3 04/16/20 25 Active psyllium (Metamucil 3 in 1 Daily Fiber) 400 MG capsuleIndicatio ns:Other constipation Take 6 capsules (2.4 g) by mouth Once per day. 180 capsule 04/23/20 25 026 Active Triclosan 0.15 % liquidIndication s:Bromidrosis To use once a day to the affected area 221 mL 1 04/23/20 25 Active amoxicillin-clav ulanate (Augmentin) 875-125 MG tablet Take 1 tablet by mouth 2 times daily. 14 tablet 05/21/20 25 Active ibuprofen 800 MG tablet Take 1 tablet (800 mg) by mouth if needed in the morning, at noon, and at bedtime for mild pain. 15 tablet 05/21/20 25 Active glucose blood (FreeStyle Precision Laurent Test) test stripIndications :Type 2 diabetes mellitus without complication, without long-term current use of insulin (HCC) Use to test blood sugar 2 times daily 100 each 12 06/16/20 24 025 Active Problems Problem Noted Date Diagnosed Date [...] glucose two times daily -scheduled follow-up w/ Katelyn nurses in 1 week Assessment & Plan [...] Encounters Date Type Department Care Team Description 07/03/2025 Telephone [facility] [address] [place] [address] James Larson MD Referral 06/29/2025 Patient Outreach [facility] [address] [place] [address] James Larson MD Pre-visit Planning (Pre visit planning LVM ) 06/21/2025 Telephone [facility] [address], [place] [phone] James Larson MD 06/21/2025 Telephone [facility] [address] [place] [address] James Larson MD Chart Prep 06/14/2025 Patient Outreach [address] [address] James Larson MD Pre-visit Planning (SDOH screening completed on 10/25/24) 05/29/[address] [address] James Larson MD No Show 05/21/2025 9:40 AM EDT Office Visit [facility] [address] [address] Lloyd Echevarria MD Acute otitis externa of left ear, unspecified type (Primary Dx); Non-recurrent acute serous otitis media of left ear 05/21/2025 Travel 05/10/[address] [address] James Larson MD No Show 05/09/2025 Telephone [facility] [address] [place] [address] James Larson MD Chart Prep 04/23/2025 5:40 PM EDT [facility] [address] [address] James Larson MD Other constipation (Primary Dx); Generalized abdominal pain; Bromidrosis 04/23/2025 Travel 04/23/2025 Telephone [facility] [address] [place] [address] James Larson MD Nurse Triage 04/20/2025 Telephone [facility] [address] [place] [address] James Larson MD No Show 04/16/2025 6:00 PM EDT Office Visit [facility] [address] [address] James Larson MD Functional diarrhea (Primary Dx); Nausea; COVID-19; Vitamin D deficiency; Other fatigue; Type 2 diabetes mellitus without complication, without long-term current use of insulin ([facility]); Obesity, Class I, BMI 30.0-34.9 (see actual BMI) 04/16/2025 Travel 04/09/2025 3:20 PM EDT Office Visit [facility] [address] [place] [phone] James Larson MD COVID-19 (Primary Dx); Cough in adult patient 04/09/2025 Travel 04/09/2025 Telephone [facility] [address] [place] [phone] James Larson MD Nurse Triage 04/04/2025 5:00 PM EDT Office Visit [facility] [address] [place] [phone] Marybel Ball, LABOR EMPLOYMENT ASSOCIATE Lightheadedness (Primary Dx); Type 2 diabetes mellitus without complication, without long-term current use of insulin ([facility]) 04/04/2025 Telephone [facility] [address] [place] [phone] Marixa Su, RN Nurse Triage 04/04/2025 Travel from Last 3 Months Immunizations Immunization Administration [...] Description 07/06/2025 3:30 PM EDT Office Visit [facility] [address], [place] [phone] James Larson MD [address] [place] [address] Health Maintenance Due Date Last Done Comments Dental Oral Exam 1987 Dental Prophylaxis 1987 Dental X-Ray: Bitewings 1987 Derm Melanoma Skin Check 1987 Eye Exam 1997 HPV Vaccines (3 - 3-dose series) 03/15/2007 12/21/2006, 07/23/2006 Pneumococcal Vaccine: Pediatrics (0 to 5 Years) and At-Risk Patients (6 to 49) Years (2 of 2 - PCV) 06/14/2020 06/14/2019 Diabetes: Urine Protein Screening 08/07/2021 08/07/2020 Dental X-Ray: Full Mouth 01/15/2024 01/13/2021, 11/05 Diabetes: Foot Exam 07/22/2024 07/22/2023, 07/22/2023, 07/22/2023, Additional history exists DTaP/Tdap/Td Vaccines (3 - Td or Tdap) 12/21/2024 12/21/2014, 05/15/2004 Depression Monitoring 04/24/2025 10/25/2024, 025 COVID-19 Vaccine ( season) 2025 Influenza Vaccine (#1) 2025 , 06/14/2019, 06/28/2018, Additional history exists Diabetes: Hemoglobin A1C 06/21/2025 025, 02/09/2025, 10/25/2024, [...] 06/06/2015, 02/04/2015, 12/27/2014 HIV Screening Completed 03/21/2025, 040 03/2025, 04/28/2022 Hepatitis C Screening Completed 03/21/2025 [...] Procedure Name Priority Date/Time Associated Diagnosis Comments XR HAND 3+ VIEWS RIGHT Routine 07/03/2025 1:46 PM EDT Injury of right ring finger, initial encounter XR KUB AND UPRIGHT 2 VIEWS Routine 07/03/2025 1:40 PM EDT Other constipation Generalized abdominal pain POCT INFLUENZA B (ID NOW RAPID MOLECULAR) Routine 04/09/2025 3:34 PM EDT Cough in adult patient POCT INFLUENZA A (ID NOW RAPID MOLECULAR) Routine 04/09/2025 3:33 PM EDT Cough in adult patient POCT RAPID COVID ANTIGEN Routine 04/09/2025 3:22 PM EDT Cough in adult patient POCT GLUCOSE Routine 04/09/2025 3:21 PM EDT Cough in adult patient POCT GLUCOSE Routine 04/04/2025 4:26 PM EDT Type 2 diabetes mellitus without complication, without long-term current use of insulin (CMS/HCC) HEPATITIS C ANTIBODY Routine 03/21/2025 2:03 PM EDT HIV 1/2 ANTIGEN/ANTIBODY, FOURTH GENERATION W/RFL Routine 03/21/2025 2:03 PM EDT HEMOGLOBIN A1C Routine 03/21/2025 2:03 PM EDT LIPID PANEL, STANDARD Routine 03/21/2025 2:03 PM EDT THINPREP IMAGING PAP AND HPV MRNA E6/E7, WITH CT/NG, TRICHOMONAS Routine 08/11/2022 5:19 PM EST PANORAMIC RADIOGRAPHIC IMAGE Routine 01/13/2021 12:00 AM EDT ALBUMIN, RANDOM URINE W/CREATININE Routine 08/07/2020 2:58 PM EST from Last 3 Months or Most Recently Relevant to Health Maintenance Results * XR Hand 3+ Views Right (07/03/2025 1:46 PM EDT) Anatomical Region Laterality Modality Upper Extremities, Hand Right Radiogra phic Imaging 07/03/2025 1:4 6 PM EDT Narrative 07/03/2025 1:55 PM EDT [address] [address] XRay Report Signed Patient: Brenda Apple MR#: [id number] [birth year] : 1985 Acct:[id number] Age/Sex: 40 / F ADM Date: 07/03/25 Loc: HO.XRAY Attending Dr: James Larson MD Ordering Physician: Silvia Norman MD Date of Service: 07/03/25 Procedure(s): XR hand RT min 3V Accession Number(s): [id number] cc: Silvia Norman MD; James Larson MD Reason for Exam: pain, after injury EXAMINATION: XR HAND 3 OR MORE VIEWS RIGHT HISTORY: pain, after injury COMPARISON: There are no prior studies available for comparison. FINDINGS: Three views of the right hand are submitted. Osseous mineralization is normal. There is a nondisplaced fracture of the radial aspect of the base of the distal phalanx of the 4th finger. No additional fracture is seen. There is no dislocation. The joint spaces are preserved. The soft tissues are unremarkable. XR/XR hand RT min 3V IMPRESSION: Nondisplaced fracture of the radial aspect of the base of the distal phalanx of the 4th finger. Electronically signed by: Hoang Goldberg MD 07/03/2025 01:52 PM EDT Dictated By: Hoang Goldberg MD Signed By: <Electronically signed by Hoang Goldberg MD in OV> 07/03/25 1352 DD/ 1346 TD/TT: 07/03/25 1348 Wellness Instructor: Procedure Note Donotuseinterpreter, Image - 07/03/[address] [address] XRay Report Signed Patient: Gina AppleR#: [id number] 07 : 1985Acct:[id number] Age/Sex: 40 / FADM Date: 07/03/25 Loc: HO.XRAY Attending Dr: James Larson MD Ordering Physician: Silvia Norman MD Date of Service: 07/03/25 Procedure(s): XR hand RT min 3V Accession Number(s): [id number] cc: Silvia Norman MD; James Larson MD Reason for Exam: pain, after injury EXAMINATION: XR HAND 3 OR MORE VIEWS RIGHT HISTORY: pain, after injury COMPARISON: There are no prior studies available for comparison. FINDINGS: Three views of the right hand are submitted. Osseous mineralization is normal. There is a nondisplaced fracture of the radial aspect of the base of the distal phalanx of the 4th finger. No additional fracture is seen. There is no dislocation. The joint spaces are preserved. The soft tissues are unremarkable. XR/XR hand RT min 3V IMPRESSION: Nondisplaced fracture of the radial aspect of the base of the distal phalanx of the 4th finger. Electronically signed by: Hoang Goldberg MD 07/03/2025 01:52 PM EDT RP Dictated By: Hoang Goldberg MD Signed By: <Electronically signed by Hoang Goldberg MD in OV> 07/03/25 1352 DD/ 1346 TD/TT: 07/03/25 1348 Wellness Instructor: us Silvia Alejandro MD IMG XR PROCEDURES Fin al Result * XR KUB and Upright 2 Views (07/03/2025 1:40 PM EDT) Anatomical Region Laterality Modality Radiographic Princess ging 07/03/2025 1:40 PM EDT Narrative 07/03/2025 1:55 PM EDT [place] [address] XRay Report Signed Patient: Brenda Apple MR#: [id number] 07 : 1985 Acct:[id number] Age/Sex: 40 / F ADM Date: 07/03/25 Loc: HO.XRAY Attending Dr: James Larson MD Ordering Physician: James Larson MD Date of Service: 07/03/25 Procedure(s): XR KUB Accession Number(s): [id number] cc: James Larson MD Reason for Exam: H/o constipation. EXAMINATION: XR ABDOMEN KUB CLINICAL INDICATION: H/o constipation. COMPARISON: None available. TECHNIQUE: AP view of the abdomen. FINDINGS: Patient's large body habitus/obesity. Stool within the right hemicolon. Gas throughout intestine. No air-fluid levels. No intestinal dilatation. Liver shadow projects below the rib cage. S-shaped curvature of the thoracolumbar spine which could be positional. T-shaped contraceptive device overlapping the lower sacrum/sacrococcyx region. Spina bifida occulta S1, congenital. XR/XR KUB IMPRESSION: No intestinal obstruction pattern. Hepatomegaly, mild. Electronically signed by: Tu Garvin MD 07/03/2025 01:52 PM EDT RP Dictated By: Tu Oneal MD Signed By: <Electronically signed by Tu Su MD in OV> 07/03/25 1352 DD/ 1340 TD/TT: 07/03/25 1348 Wellness Instructor: Procedure Note Donotuseinterpreter, Image - 07/03/2025 [place] [address] XRay Report Signed Patient: Connie Apple#: [id number] [birth year] : 1985Acct:[id number] Age/Sex: 40 / FADM Date: 07/03/25 Loc: HO.CALIN Attending Dr: James Larson MD Ordering Physician: James Larson MD Date of Service: 07/03/25 Procedure(s): XR KUB Accession Number(s): [id number] cc: James Larson MD Reason for Exam: H/o constipation. EXAMINATION: XR ABDOMEN KUB CLINICAL INDICATION: H/o constipation. COMPARISON: None available. TECHNIQUE: AP view of the abdomen. FINDINGS: Patient's large body habitus/obesity. Stool within the right hemicolon. Gas throughout intestine. No air-fluid levels. No intestinal dilatation. Liver shadow projects below the rib cage. S-shaped curvature of the thoracolumbar spine which could be positional. T-shaped contraceptive device overlapping the lower sacrum/sacrococcyx region. Spina bifida occulta S1, congenital. XR/XR KUB IMPRESSION: No intestinal obstruction pattern. Hepatomegaly, mild. Electronically signed by: Tu Garvin MD 07/03/2025 01:52 PM EDT RP Dictated By: Tu Oneal MD Signed By: <Electronically signed by Cinthya Marte OV> 07/03/25 1352 DD/ 1340 TD/TT: 07/03/25 1348 Wellness Instructor: us James Larson MD IMG XR PROCEDURES Final Res ult * Influenza B (ID NOW Rapid Molecular) (04/09/2025 3:34 PM EDT) [facility] Influenza B Negative Negative, Indeterminate [facility] Swab 04/09/2025 3:34 PM EDT us James Larson MD POINT OF CARE TEST ENTER/ED IT ORDERABLES Final Result Performing Organization Address [facility] Co de Phone Number [facility] [address] [place] [phone] * Influenza A (ID NOW Rapid Molecular) (04/09/2025 3:33 PM EDT) [facility] Influenza A Negative Negative, Indeterminate [facility] Swab 04/09/2025 3:33 PM EDT us James Larson MD POINT OF CARE TEST ENTER/ED IT ORDERABLES Final Result Performing Organization Address [facility] Co de Phone Number [facility] [address] [place] [phone] * (ABNORMAL) POCT Rapid COVID Ag (04/09/2025 3:22 PM EDT) [facility] Rapid COVID Ag Positive Swab 04/09/2025 3:22 PM EDT aJmes Larson MD POINT OF CARE TEST ENTER/ED IT ORDERABLES Edited Result - Final * POCT glucose manually resulted (04/09/2025 3:21 PM EDT) Only the most recent of2 resultswithin the time period is included. Pathologist [facility] Glucose Blood, POC 143 60 - 200 mg/dL Blood Capillary blood specimen / Unknown 04/09/2025 3:21 PM EDT James Larson MD POINT OF CARE TEST ENTER/ED IT ORDERABLES Final Result * Hepatitis C Ab (03/21/2025 2:03 PM EDT) [facility] Hepatitis C Antibody Nonreactive Nonreactive [facility] Comment:Antibodies to HCV no t detected; does not exclude early acuteHCV infection. 03/21/2025 2:03 PM EDT 03/21/2025 4:07 PM EDT us Generic External Data Provider LAB BLOOD ORDERAB LES Final Result [facility] [address] [place] [phone] * HIV-1/2 Antigen and Antibodies, Fourth Generation, with Reflexes (03/21/2025 2:03 PM EDT) [facility] HIV AB/AG Nonreactive Nonreactive [facility] Comment:HIV-1 p24 Ag and/or HIV-1/HIV-2 Ab not detected.A test result that is nonreactive does not exclude thepossibility of exposure to or infection with HIV-1 and/orHIV-2. Nonreactive results in this assay for individualswith prior exposure to HIV-1 and/or HIV-2 may be due toantigen and antibody levels that are below the limit ofdetection of this assay.The [employer] HIV Ag/Ab Combo assay result andsupplemental assay results should be interpreted inconjunction with the patient's clinical presentation,history and other laboratory results. If the results areinconsistent with clinical evidence, additional testing issuggested to confirm the result. 03/21/2025 2:03 PM EDT 03/21/2025 4:07 PM EDT Generic External Data Provider LAB BLOOD ORDERAB LES Final Result Performing Organization Address [facility]/ZIP Co de Phone Number [facility] [address] [place] [phone] * (ABNORMAL) Hemoglobin A1c (03/21/2025 2:03 PM EDT) Hemoglobin A1c 8.1(H) <6.0 % [facility] Comment:Hemoglobin A1C Refer ence Range Adults: 4.8 - 6.0 % Non diabetic: < 6.0 % Goal: < 7.0 %Additional Action Suggested: > 8.0 %Note: Hemoglobin A1c results are invalid for patients with abnormal amounts of HbF. Blood transfusions may impact the HbA1c concentration in the patient sample. Estimated Average Glucose 186 mg/dL [facility] Comment:eAG = Estimated ave rage glucose which is %A1C expressed asaverage glucose, using the formula of the M3P-FvzjweuZtmrzwb Glucose study (ADAG), Diabetes Care, Vol.31,#8,Apr. 2007 03/21/2025 2:03 PM EDT 03/21/2025 3:59 PM EDT Generic External Data Provider LAB BLOOD ORDERAB LES Final Result Performing Organization Address [facility]/ZIP Co de Phone Number [facility] [address] [place] [phone] * (ABNORMAL) Lipid Panel, Standard (03/21/2025 2:03 PM EDT) Triglycerides 228(H) <150 mg/dL [facility] Comment:Desirable Triglyceri de: less than 150 mg/dLBorderline High Triglyceride 150-199 mg/dLHigh Triglyceride: 200-499 mg/dLVery High Triglyceride: greater than or equal to 5OO mg/dL Cholesterol 226(H) <200 mg/dL [facility] Comment:Desirable Cholestero l: less than 200 mg/dLBorderline High Cholesterol: 200-239 mg/dLHigh Cholesterol: greater than 239 mg/dL LDL Cholesterol Calculated 144(H) <100 mg/dL [facility] Comment:Desirable LDL: less than 100 mg/dLNear Optimal/Above Optimal LDL: 110- 129 mg/dLBorderline High LDL: 130-159 mg/dLHigh LDL: 160-189 mg/dLVery High LDL: greater than or equal to 190 mg/dL HDL Cholesterol 37(L) >40 mg/dL [facility] Comment:Desirable HDL: great er than 40 mg/dL Note: This HDL assay may give artificially low results in patients with liver disease. 03/21/2025 2:03 PM EDT 03/21/2025 4:07 PM EDT us Generic External Data Provider LAB BLOOD ORDERAB LES Final Result [facility] [address] [place] [phone] * Thinprep TIS PAP And HPV mRNA E6/E7, CT/NG, TRICH (08/11/2022 5:19 PM EST) Clinical Information: None given [employer] LMP: NONE GIVEN [employer] Prev. PAP: NONE GIVEN [employer] Prev. BX: NONE GIVEN [employer] SOURCE: None given [employer] Statement Of Adequacy: [employer] Comment: Satisfactory for evaluation. Endocervical/transformation zone component present. Age and/or menstrual status not provided Interpretation/Re sult: Negative for intraepithelial lesion or malignancy. [employer] COMMENT: This Pap test has been evaluated with computer assisted technology. [employer] Audio Visual Technician: Bart Velotton Comment: MSM, CT(ASCP) CT screening location: [place] [phone] (Always Message) [facility] Comment: EXPLANATORY NOTE: The Pap is a [...] HPV nRNA E6/E7 Not Detected Not Detected [employer] Comment: Methodology: Health Safety Coordinator-Mediated Amplification This assay detects E6/E7 viral messenger RNA (mRNA) from 14 high-risk HPV types (16,18,31,33,35,39,45,51,52,56,58,59,66,68). Cervical sources are required for HPV testing. If a vaginal source from a patient who has had a total hysterectomy with removal of cervix was submitted, please contact the testing laboratory for alternative testing options. For additional information, please refer to http://Baby.com.br/faq/TCX228z0 (This link if provided for information/ educational purposes only.) Chlamydia trachomatis RNA, TMA, Urogenital NOT DETECTED NOT DETECTED Individual Digital Neisseria gonorrhoeae RNA, TMA, Urogenital NOT DETECTED NOT DETECTED Individual Digital Comment Individual Digital Comment: The analytical performance characteristics of this assay, when used to test SurePath(TM) specimens have been determined by [employer]. The modifications have not been cleared or approved by the FDA. This assay has been validated pursuant to the CLIA regulations and is used for clinical purposes. For additional information, please refer to https://Baby.com.br/faq/IEP023 (This link is being provided for information/ educational purposes only.) Trichomonas vaginalis, QL, TMA, PAP Vial NOT DETECTED NOT DETECTED Individual Digital Comment: The analytical performance characteristics of this assay have been determined by [employer]. The modifications have not been cleared or approved by the FDA. This assay has been validated pursuant to the CLIA regulations and is used for clinical purposes. For additional information, please refer to [email or web address]/ faq/Trichomonastma (This link is being provided for information/ educational purposes only.) 08/11/2022 5:19 PM EST 08/12/2022 8:03 AM EST Narrative [facility] - 08/14/2022 9:39 AM EST FASTING: UNKNOWN Tresa Arechiga [facility] LAB PATHOLOGY ORDERABLES Final Result [facility] [address], [place] [address] [employer] [facility] [address], [place] [address] [employer] [facility] [address] [place] [address], [place] [address] * (ABNORMAL) ALBUMIN, RANDOM URINE W/CREATININE (08/07/2020 [...] Larson MD LAB URINE ORDERABLES Final Result [facility] [address] from Last 3 Months or Most Recently Relevant to Health Maintenance Insurance [facility] < 67 [place] [id number] [facility] Care Teams Preload Supervisor Relationship Specialty Start Date End Date James Larson MD [address] [place] [address] [place] [phone] PCP - General Internal Medicine 10/05/13
--- OUTSIDE RECORDS SUMMARY | 2025-07-03 17:19 | XMS_ITS | Encounter Summary ---
Author Organization [employer] Address [address] [facility] 7 [place] [address] Care Team Providers Care Scada Operator Name Role Phone James Larson MD Primary Care Provider [phone] Reason for Visit * Reason Onset Date Comments Nurse Triage 10/11/2023 Encounter Details Date Type Department Care Team ([facility] st Contact Info) Description 10/11/2023 Telephone [facility] [address] [place] [address] James Larson MD [address] [place] [address] Nurse Triage Social History Tobacco Use Types [...] t he electric, gas, oil or water mad[employer] threatened to shut off services in your [...] . Pt is advised to come to [facility] 10/12/23 @ 340pm for provider to [...] accepted this outcome Please contact pt at [phone] documented in this encounter Plan of Treatment Upcoming Encounters Date Type Department Care Team ([facility] st Contact Info) Description 07/06/2025 3:30 PM EDT Office Visit [facility] [address] [place] [address] James Larson MD [address] [place] [address] documented as of this encounter Visit Diagnoses Not on filedocumented in this encounter Additional Health Concerns Assessment Noted Time PHQ-9 Depression Total Score: 0 01/22/20 23 3:02 PM EDT documented as of this encounter Care Teams Scada Operator Relationship Specialty Start Date End Date James Larson MD [address] [place] [address] PCP - General Internal Medicine 10/05/13 documented as of this encounter
--- OUTSIDE RECORDS SUMMARY | 2025-07-03 17:19 | XMS_ITS | Encounter Summary ---
Author Organization [employer] Address [address] [facility] 7 [place] [address] Care Team Providers Care Oleo Hasher And Renderer Name Role Phone James Larson MD Primary Care Provider [phone] Reason for Visit * Reason Onset Date Comments Call Back Request 10/11/2023 Encounter Details Date Type Department Care Team ([facility] st Contact Info) Description 10/11/2023 Telephone [facility]S [address] [place] [address] James Larson MD [address] [place] [address] Call Back Request Social History Tobacco Use [...] start it now. Please contact pt at [phone] documented in this encounter Plan of Treatment Upcoming Encounters Date Type Department Care Team (Late st Contact Info) Description 07/06/2025 3:30 PM EDT Office Visit [facility] [address] [place] [address] James Larson MD [address] [place] [address] documented as of this encounter Visit Diagnoses Not on filedocumented in this encounter Additional Health Concerns Assessment Noted Time PHQ-9 Depression Total Score: 0 01/22/20 23 3:02 PM EDT documented as of this encounter Care Teams Oleo Hasher And Renderer Relationship Specialty Start Date End Date James Larson MD [address] [place] [address] PCP - General Internal Medicine 10/05/13 documented as of this encounter
--- OUTSIDE RECORDS SUMMARY | 2025-07-03 17:19 | XMS_ITS | Encounter Summary ---
Author Organization [email or web address] Address [address] [place] [address] 7 [place] [address] Care Team Providers Care Accounting Reconciliation Clerk Name Role Phone James Larson MD Primary Care Provider [phone] Encounter Details Date Type Department Care Team (Late Contact Info) Description 09/09/2022 Telephone [facility] MED & PEDS [address] [place] [address] James Larson MD [address] [place] [address] Social History Tobacco Use Types Packs/Day Years [...] Description 07/06/2025 3:30 PM EDT Office Visit [facility] PED[facility] [address] [place] [address] James Larson MD [address] [place] [address] documented as of this encounter Visit Diagnoses Not on filedocumented in this encounter Care Teams Accounting Reconciliation Clerk Relationship Specialty Start Date End Date James Larson MD [address] [place] [address] PCP - General Internal Medicine 10/05/13 documented as of this encounter
--- OUTSIDE RECORDS SUMMARY | 2025-07-03 17:19 | XMS_ITS | Encounter Summary ---
Author Organization [employer] [facility] Address [address] [place] [address] 7 [place] [address] Care Team Providers Care Barrel Marker Name Role Phone James Larson MD Primary Care Provider [phone] Encounter Details Date Type Department Care Team (Late Contact Info) Description 03/29/2023 Telephone [facility] AD[facility] [address] [place] [address] August Bridges DDS [address] [place] [address] Social History Tobacco Use Types Packs/Day Years [...] Description 07/06/2025 3:30 PM EDT Office Visit [facility] PEDS [address] [place], [place] [phone] James Larson MD [address] [place], [place] [phone] documented as of this encounter Visit Diagnoses Not on filedocumented in this encounter Additional Health Concerns Assessment Noted Time PHQ-9 Depression Total Score: 0 01/22/20 23 3:02 PM EDT documented as of this encounter Care Teams Barrel Marker Relationship Specialty Start Date End Date James Larson MD [address] [place] [address] PCP - General Internal Medicine 10/05/13 documented as of this encounter
== END 2025-07-03 13:25 | disposition home or self-care (01) ==
LOC: HO.XRAY 13:24
PROVIDERS: PCP Internal Medicine; Visit Provider Internal Medicine
DX: S69.91XA Unspecified injury of right wrist, hand and finger(s), initial encounter (principal); K59.09 Other constipation; R10.84 Generalized abdominal pain
CPT/HCPCS: 73130; 74018

== ENCOUNTER → 2025-07-03 13:33 | Outpatient (BNV) | payer OTHER, SELFPAY | PROVIDERS: PCP Internal Medicine; Visit Provider Radiology Diagnostic Radiology | DX: K59.00 Constipation, unspecified (principal); R16.0 Hepatomegaly, not elsewhere classified; S62.664A Nondisplaced fracture of distal phalanx of right ring finger, initial encounter for closed fracture | CPT/HCPCS: 73130; 74018 ==

== ENCOUNTER 2025-07-09 08:07 | Outpatient (AMB) | payer OTHER, SELFPAY ==
--- NOTE | 2025-07-09 08:13 | MHC.OFFVISWM ---
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: Details: Start time: 8.07am, End time: 8.57am ?I spent 45 minutes speaking with the patient on the phone plus an additional 5 minutes reviewing and updating records for a total of 50 minutes HPI Comments Details: Previous weight loss efforts: Trulicity and Ozempic (10lbs) Wakes up: 9am-10am, Sleeps: 10pm Breakfast: occasionally Lunch: unclear Dinner: 7pm (rice, chicken, fast food) Snacks: 3 times per day (crackers, pudding, chips) Exercise: none Beverages: Coffee: (1 cup/d: milk, cream), Tea: none, Soda: none, Juice: none, ETOH: rarely PFSH Medical History (Updated 07/09/25 @ 08:41 by Fernando Gurrola MD) BMI 31.0-31.9,adult Obesity Chronic dental pain Diabetes mellitus, type 2 Surgical History (Updated 07/09/25 @ 08:17 by Fernando Gurrola MD) History of delivery No history of previous surgery Family History (Updated 07/04/25 @ 11:11 by Olinda Strickland CMA) Maternal Aunt Diabetes Maternal Aunt Diabetes Mother Diabetes Hypertension Social History Alcohol intake: never Patient Tobacco Use Status: Never used Tobacco Telehealth Telehealth Telehealth Platform: Telephone Location of provider rendering services: practice address Location of patient: address on file Patient Identification confirmed using: Name, : Yes Telehealth method: voice only Patient verbally consented to treatment: Yes Patient verbally consented to billing insurance company: Yes Patient informed of any privacy concerns related to visit: Yes Minutes spent on Phone/Video with Pt.: 50 Assessment & Plan Assessment & Plan (1) Obesity: Code(s): E66.9 - Obesity, unspecified Category: Medical Qualifiers: Obesity type: due to excess calories Obesity classification: adult class 1 (BMI 30 - 34.9) Serious obesity comorbidity presence: with serious comorbidity Body mass index: BMI 31.0-31.9 Qualified Code(s): E66.09 - Other obesity due to excess calories; Z68.31 - Body mass index [BMI] 31.0-31.9, adult Plan: 1.? Plan for lap sleeve gastrectomy. If diaphragmatic or ventral hernias are present at time of surgery, these will be repaired laparoscopically as well. I emphasized the importance of close follow-up, adherence to instructions and good communication. The surgery does not replace the need to change your lifestlyle which is the cause of the obesity problem. The surgery provides the motivation to try again to change your lifestyle, it reduces the appetite and make the transition to a better lifestyle easier and doubles the amount of weight you would lose compared to doing the lifestyle change without the surgery. You will need to be on a liquid diet with protein shakes for 2 weeks before surgery to maximize weight loss and boost your nutritional status to recover better from surgery and also for the first two weeks after surgery to let the stomach heal before we introduce other foods. After the first 2 weeks we will introduce protein bars and soft foods like scrambled eggs, cottage cheese and yogurt and after the 6th week will introduce meat, fish and cooked vegetables in small amounts. Over time you should be able to eat everything in small amounts. Side effects like nausea, vomiting, heartburn or abdominal pain are not common in the practice unless you are not following in the practice. This operation requires lifetime commitment to following in our practice and communication with me. You will much less weight and experience side effects if you don?t communicate or not following in the practice. Complications are rare and in our practice is about 1/10 of the national average. However, you can develop bleeding that may require transfusion (hasn?t happened for year in the practice), you may from complications (we did not have any deaths in the practice) and infections. Infections are usually a result of breakdown in communication or not understanding or following directions correctly. They are difficult to treat, they can happen during the first 6 weeks, they may require to be in the hospital for weeks or even months, not being able to eat by mouth and you may have drains and surgeries to try and correct the issue. Other risks and complications include possible conversion to an open procedure, leaks, small bowel obstruction, blood clots, cardiac, or pulmonary complications, as ferry terminal agent complications such as ulcers, insufficient weight loss and vitamin deficiencies. 2.? Nutritional counseling. Start with one premade PREMIER protein (buy at [employer] or [employer]) shake (mix 4oz of Premier mixed with 4oz low fat unsweetened almond milk each) at 10am-12pm, one protein bar (Fit Crunch protein bar, buy at [employer], or [employer] at 1Pm-3pm, another premade PREMIER protein shake (mix 4oz of Premier mixed with 4oz low fat unsweetened almond milk each) at 4pm-6pm, dinner at 7pm (8 forks of protein and 8 forks of salad/vegetables AND HALF Fit Crunch protein bar at 9pm-10pm So you do 2 protein shakes, 1.5 protein bars and one meal per day. Meal to include lean meat (beef, fish, pork, turkey, chicken), or eritrean yogurt, or egg whites, or beans with a salad with olive oil and fruits (berries, pears, apples, kiwi). Avoid salt, breads, potatoes, rice, pasta, desserts. 3. Each shake would be drunk slowly, like coffee in a period of 2 hours. 4. Cut each bar in 4 pieces and eat each piece in 30min ?to make each bar last 2 hours. 5. I emphasized the importance of measuring accurately the food portion and measure it when serving the food in plate 6. The meal portions include 8 full-size forks of meat and 8 full-size forks of salad. You always eat the meat portion but you can replace up to 5 forks for salad/vegetables with rice, potatoes or pasta, or a fruit ?if you like. The less you do it the better weight loss will be. 7. One full-size fork is what it can be scooped on the fork without falling aside and not what can be bit with the fork. Use regular forks like those you find in a typical restaurant. 8.? Please buy the body composition scale we discussed and send me weight measurements as soon as possible and then once a week. Always include your diet and exercise plan. 9. Start treadmill at the gym THREE times per week with an incline of 2.0 and speed of 2.5mph. Increase incline by 1 every 3 min to a max incline of 8.0, stay 3min at 8.0 and then return to 2.0 and repeat same steps until you burn 400 calories. 10. Start walking outside FOUR days per week, tracking calories with a goal of 300 calories per work-out. Goal is to burn 2000 calories per week on exercise between treadmill and outside walking. 11. The best choice would be to purchase a stationary bike at home that can track calories. Let me know if you do so I can give you an exercise plan. 12.?It is important of avoiding and for at least 18 months postoperatively and has been discussed at the infosession. 13. Goal is to lose at least 1.5-2lbs per week 14. Goal to lose 10% of your weight before surgery, which is about 20lbs. Ultimate weight goal: 170lbs before surgery 15. Please follow the diet plan exactly without any change. If you don't like something about the plan or you feel hungry you need to communicate with me so I can help you revise the plan. You should not change the plan yourself 16. To be scheduled for EGD to assess the stomach's anatomy. The possibility of biopsies was discussed. Patient needs to avoid use of NSAIDs and aspirin for 1 week prior to EGD. You must be on liquids only the day before your endoscopy. Risks of perforation and bleeding was discussed with the patient. This will be an outpatient procedure with IV sedation. Orders: Orders Hemoglobin A1c Today E66.9 - Obesity, unspecified, K76.0 - Fatty (change of) liver, not elsewhere classified, Z68.31 - Body mass index [BMI] 31.0-31.9, adult Complete Blood Count Auto Diff Today E66.9 - Obesity, unspecified, K76.0 - Fatty (change of) liver, not elsewhere classified, Z68.31 - Body mass index [BMI] 31.0-31.9, adult Comprehensive Met. Panel Today E66.9 - Obesity, unspecified, K76.0 - Fatty (change of) liver, not elsewhere classified, Z68.31 - Body mass index [BMI] 31.0-31.9, adult Zinc Today E66.9 - Obesity, unspecified, K76.0 - Fatty (change of) liver, not elsewhere classified, Z68.31 - Body mass index [BMI] 31.0-31.9, adult Vitamin D 25-OH Total Today E66.9 - Obesity, unspecified, K76.0 - Fatty (change of) liver, not elsewhere classified, Z68.31 - Body mass index [BMI] 31.0-31.9, adult US abdomen comp w elastography Today E66.9 - Obesity, unspecified, K76.0 - Fatty (change of) liver, not elsewhere classified, Z68.31 - Body mass index [BMI] 31.0-31.9, adult XR chest 2V Today E66.9 - Obesity, unspecified, K76.0 - Fatty (change of) liver, not elsewhere classified, Z68.31 - Body mass index [BMI] 31.0-31.9, adult ECG 12 lead EKG Today E66.9 - Obesity, unspecified, K76.0 - Fatty (change of) liver, not elsewhere classified, Z68.31 - Body mass index [BMI] 31.0-31.9, adult FL upper GI w air Today E66.9 - Obesity, unspecified, K76.0 - Fatty (change of) liver, not elsewhere classified, Z68.31 - Body mass index [BMI] 31.0-31.9, adult Insulin Today E66.9 - Obesity, unspecified, K76.0 - Fatty (change of) liver, not elsewhere classified, Z68.31 - Body mass index [BMI] 31.0-31.9, adult H Pylori Breath Test Today E66.9 - Obesity, unspecified, K76.0 - Fatty (change of) liver, not elsewhere classified, Z68.31 - Body mass index [BMI] 31.0-31.9, adult Lipid Panel Today E66.9 - Obesity, unspecified, K76.0 - Fatty (change of) liver, not elsewhere classified, Z68.31 - Body mass index [BMI] 31.0-31.9, adult IRON PROFILE Today E66.9 - Obesity, unspecified, K76.0 - Fatty (change of) liver, not elsewhere classified, Z68.31 - Body mass index [BMI] 31.0-31.9, adult Vitamin B12 and Folate Today E66.9 - Obesity, unspecified, K76.0 - Fatty (change of) liver, not elsewhere classified, Z68.31 - Body mass index [BMI] 31.0-31.9, adult C Reactive Protein Today E66.9 - Obesity, unspecified, K76.0 - Fatty (change of) liver, not elsewhere classified, Z68.31 - Body mass index [BMI] 31.0-31.9, adult Vitamin B1 Today E66.9 - Obesity, unspecified, K76.0 - Fatty (change of) liver, not elsewhere classified, Z68.31 - Body mass index [BMI] 31.0-31.9, adult Vitamin A Today E66.9 - Obesity, unspecified, K76.0 - Fatty (change of) liver, not elsewhere classified, Z68.31 - Body mass index [BMI] 31.0-31.9, adult TSH reflex Free T4 Today E66.9 - Obesity, unspecified, K76.0 - Fatty (change of) liver, not elsewhere classified, Z68.31 - Body mass index [BMI] 31.0-31.9, adult Ferritin Today E66.9 - Obesity, unspecified, K76.0 - Fatty (change of) liver, not elsewhere classified, Z68.31 - Body mass index [BMI] 31.0-31.9, adult Referrals Behavioral Health Referral E66.9 - Obesity, unspecified, K76.0 - Fatty (change of) liver, not elsewhere classified, Z68.31 - Body mass index [BMI] 31.0-31.9, adult Nutrition/Dietitian Referral E66.9 - Obesity, unspecified, K76.0 - Fatty (change of) liver, not elsewhere classified, Z68.31 - Body mass index [BMI] 31.0-31.9, adult
--- OUTSIDE RECORDS SUMMARY | 2025-07-09 08:17 | XMS_ITS | Encounter Summary ---
Author Organization [employer] Address [address] [place] [address] 7 [place] [address] Care Team Providers Care Gas Dispenser Name Role Phone James Larson MD Primary Care Provider [phone] Reason for Referral * Imaging (Routine) - Closed Specialty Diagnoses / Procedures Referred By Contac t Referred To Contact Radiology Diagnoses Right sided abdominal pain Procedures CT Abdomen Pelvis w/ Contrast James Larson MD [address] [place] [address] Phone: tel: fax: [address] Phone: tel: fax: Referral ID Status Reason Start Date Expiration Date Visits Re quested Visits Authorized [id number] Closed 11/16/2024 11/16/2025 1 1 Encounter Details Date Type Department Care Team (Late st Contact Info) Description 11/16/2024 Orders Only [facility] MED[facility] [address] [place] [address] James Larson MD [address] [place] [address] Right sided abdominal pain (Primary Dx) Social [...] as of this encounter Plan of Treatment Scheduled Orders Name Type Priority Associated Diagnoses [...] documented as of this encounter Care Teams Gas Dispenser Relationship Specialty Start Date End Date James Larson MD [address] [place] [address] PCP - General Internal Medicine 10/05/13 documented as of this encounter
--- OUTSIDE RECORDS SUMMARY | 2025-07-09 08:17 | XMS_ITS | Encounter Summary ---
Author Organization [employer] Address [address] [facility] 7t [place] [address] Care Team Providers Care Statistical Geneticist Name Role Phone James Larson MD Primary Care Provider [phone] Encounter Details Date Type Department Care Team (Late st Contact Info) Description 10/30/2024 Orders Only [facility] MEDICINE [address] [place] [address] James Larson MD [address] [place], [place] [phone] Right sided abdominal pain (Primary Dx) Social [...] as of this encounter Plan of Treatment Not on file documented as of this encounter Visit Diagnoses Diagnosis Right sided abdominal pain- Primary Abdominal pain, unspecified site documented in this encounter Additional Health Concerns Assessment Noted Time PHQ-9 Depression Total Score: 10 025 3:10 PM EST documented as of this encounter Care Teams Statistical Geneticist Relationship Specialty Start Date End Date James Larson MD [address] [place] [address] PCP - General Internal Medicine 10/05/13 documented as of this encounter
--- OUTSIDE RECORDS SUMMARY | 2025-07-09 08:17 | XMS_ITS | Encounter Summary ---
Author Organization [employer] Address [address] [facility] [address] 7t [place] [address] Care Team Providers Care Attendant Lodging Facilities Name Role Phone James Larson MD Primary Care Provider [phone] Encounter Details Date Type Department Care Team ([facility] st Contact Info) Description 10/31/2024 Telephone [facility] MED [facility] PEDS [address] [place], [place] [phone] James Larson MD [address] [place] [address] Social History Tobacco Use Types Packs/Day Years [...] - 10/31/2024 11:53 AM EST Tc from [facility] with [facility] calling to inform they received referral but are needing more DX can't only be abdominal pain. Best contact # [phone]. documented in this encounter Plan of Treatment Not on file documented as of this encounter Visit Diagnoses Not on filedocumented in this encounter Additional Health Concerns Assessment Noted Time PHQ-9 Depression Total Score: 10 025 3:10 PM EST documented as of this encounter Care Teams Attendant Lodging Facilities Relationship Specialty Start Date End Date James Larson MD [address] [place] [address] PCP - General Internal Medicine 10/05/13 documented as of this encounter
--- OUTSIDE RECORDS SUMMARY | 2025-07-09 08:18 | XMS_ITS | Encounter Summary ---
Author Organization [employer] Address [address] [facility] 7t [place] [address] Care Team Providers Care Soap Slabber Name Role Phone James Larson MD Primary Care Provider [phone] Encounter Details Date Type Department Care Team ([facility] st Contact Info) Description 12/11/2024 Orders Only [facility] CHC MED & PEDS [address] [place], [place] [phone] James Larson MD 505 [place] [address] Type 2 diabetes mellitus without complication, without [...] on file documented as of this encounter Procedures Procedure Name Priority Date/Time Associated Diagnosis Comments T-SPOT(R).TB Routine 12/11/2024 1:17 PM EDT Type 2 diabetes mellitus without complication, without long-term current use of insulin ([facility]) documented in this encounter Results * T-SPOT??.TB (12/11/2024 1:17 PM EDT) [facility] T Spot TB Negative Negative [facility] Comment:A negative test resu lt does [...] as aquantitative test. TS PANEL A 0 [facility] TS PANEL B 0 [facility] Negative Control Passed [facility] Positive Control Passed [facility] Comment:For additional infor mation, please refer tohttp://education.Pixelated/faq/CYT812(This link is being provided for informational/educational purposes only.)REPORT COMMENT:[facility] PERFORMED AT:[employer] [id number] [place] [address]PBQTCQGSILVER ARMANDO MD,PHD 12/11/2024 1:17 PM EDT 12/11/2024 1:56 PM EDT us James Larson MD LAB BLOOD ORDERABLES Final Result [facility] [address] [place] [address] [phone] documented in this encounter Visit Diagnoses Diagnosis Type 2 diabetes mellitus without complication, without long-term current use of insulin (HCC)- Primary documented in this encounter Additional Health Concerns Assessment Noted Time PHQ-9 Depression Total Score: 10 025 3:10 PM EST documented as of this encounter Care Teams Soap Slabber Relationship Specialty Start Date End Date Jaems Larson MD [address] [place] [address] PCP - General Internal Medicine 10/05/13 documented as of this encounter
--- OUTSIDE RECORDS SUMMARY | 2025-07-09 08:18 | XMS_ITS | Encounter Summary ---
Author Organization [employer] Address [address] [facility] 7 [place] [address] Care Team Providers Care Starch And Prosize Mixer Name Role Phone James Larson MD Primary Care Provider [phone] Reason for Visit * Reason Onset Date Comments FYI 10/27/2024 Encounter Details Date Type Department Care Team ([facility] st Contact Info) Description 10/27/[address] [facility] MEDICINE [address] [place], [place] [phone] James Larson MD [address] [place] [address] FYI Social History Tobacco Use Types Packs/Day [...] the abdomen w/ and w/o contrast. The operator receptionist at [facility] spoke with one [...] MRA instead of MRI. Contact Charly at [phone] documented in this encounter Plan of Treatment Not on file documented as of this encounter Visit Diagnoses Not on filedocumented in this encounter Additional Health Concerns Assessment Noted Time PHQ-9 Depression Total Score: 10 025 3:10 PM EST documented as of this encounter Care Teams Starch And Prosize Mixer Relationship Specialty Start Date End Date James Larson MD [address] [place] [address] PCP - General Internal Medicine 10/05/13 documented as of this encounter
--- OUTSIDE RECORDS SUMMARY | 2025-07-09 08:18 | XMS_ITS | Encounter Summary ---
Author Organization [employer] Address [address] [place] [address] Care Team Providers Care Obstetrical Nurse Name Role Phone James Larson MD Primary Care Provider [phone] Reason for Visit * Reason Onset Date Comments Results 07/03/2025 Encounter Details Date Type Department Care Team ([facility] Contact Info) Description 07/03/2025 Results Follow-Up [facility] CHC MED & PEDS [address] [place] [address] James Larson MD [address] [place] [address] XR KUB and Upright 2 Views Social History Tobacco Use Types Packs/Day Years [...] encounter Miscellaneous Notes * Telephone Encounter - Yokasta Ferrer RN - 07/04/2025 9:38 AM EDT TC to pt and reviewed results and additional orders. Pt verbalized understanding and agreement withplan. * Telephone Encounter - Yokasta Ferrer RN - 07/04/2025 9:37 AM EDT ----- Message from James Larson MD sent at 07/03/2025 11:11 PM EDT ----- Please call to report the results of the xray of the abdomen; no obstruction pattern noted. Hepatomegaly. Ms Brenda Apple had an US of the abdomen done in July 2024 which showd hepatic steatosis. She needs a repeat US to assess stability. ----- Message ----- From: Interface, Ris Results In Sent: 07/03/2025 1:55 PM EDT To: James Larson MD * Result Encounter Note - James Larson MD - 07/03/2025 11:11 PM EDT Please call to report the results of the xray of the abdomen; no obstruction pattern noted. Hepatomegaly. Ms Brenda Apple had an US of the abdomen done in July 2024 which showd hepatic steatosis. She needs a repeat US to assess stability. documented in this encounter Plan of Treatment Not on file documented as of this encounter Visit Diagnoses Not on filedocumented in this encounter Additional Health Concerns Assessment Noted Time PHQ-9 Depression Total Score: 10 10/25/ 025 3:10 PM EST documented as of this encounter Care Teams Obstetrical Nurse Relationship Specialty Start Date End Date James Larson MD [address] [place] [address] PCP - General Internal Medicine 10/05/13 documented as of this encounter
--- OUTSIDE RECORDS SUMMARY | 2025-07-09 08:18 | XMS_ITS | Encounter Summary ---
Author Organization [employer] Address [address] [place] [address] Care Team Providers Care Nurse Aide Evaluator Name Role Phone James Larson MD Primary Care Provider [phone] Reason for Visit * Reason Onset Date Comments Chart Prep 07/05/2025 Encounter Details Date Type Department Care Team ([facility] st Contact Info) Description 07/05/2025 Telephone [facility] CHC MED & PEDS [address] [place] [address] James Larson MD [address] [place] [address] Chart Prep Social History Tobacco Use Types Packs/Day Years [...] encounter Miscellaneous Notes * Telephone Encounter - Alona Gould MA - 07/05/2025 1:03 PM EDT Chart Prep Labs: done Images: appointment pending Referrals: appointment pending Vaccines due: Covid, Flu, PCV20, Tdap, Hep A, and HPV Screenings: eye exam, foot exam, and LMP Overdue care gaps: A1c, Glucose, and PHQ-9 documented in this encounter Plan of Treatment Not on file documented as of this encounter Visit Diagnoses Not on filedocumented in this encounter Additional Health Concerns Assessment Noted Time PHQ-9 Depression Total Score: 10 025 3:10 PM EST documented as of this encounter Care Teams Nurse Aide Evaluator Relationship Specialty Start Date End Date James Larson MD 505 [facility] [place] [address] PCP - General Internal Medicine 10/05/13 documented as of this encounter
--- OUTSIDE RECORDS SUMMARY | 2025-07-09 08:19 | XMS_ITS | Encounter Summary ---
Author Organization [employer] Address [address] [place] [address] 7 [place] [address] Care Team Providers Care Straw Baler Name Role Phone James Larson MD Primary Care Provider [phone] Reason for Referral * Imaging (Routine) - Closed Specialty Diagnoses / Procedures Referred By Contnatalia hebert Referred To Contact Radiology Diagnoses Transaminitis Procedures US Abdomen Complete James Larson MD [address] [place] [address] Phone: tel: fax: [address] Phone: tel: fax: Referral ID Status Reason Start Date Expiration Date Visits Re quested Visits Authorized [id number] Closed 06/23/2024 06/23/2025 1 1 Encounter Details Date Type Department Care Team (Late st Contact Info) Description 06/23/2024 Orders Only [facility] CHC MED & PEDS [address] [place] [address] James Larson MD [address] [place] [address] Transaminitis (Primary Dx) Social History Tobacco Use [...] AM EST Narrative 10/12/2024 5:01 AM EST [facility] [address] [place] [address] [place] [address] Ultrasound Report Signed Patient: Brenda Apple MR#: [id number] 07 : 1985 Acct:[id number] Age/Sex: 39 / F ADM Date: 10/11/24 Loc: HO.HMGCX Attending Dr: James Larson MD Ordering Physician: James Larson MD Date of Service: 10/11/24 Procedure(s): US abdomen complete Accession Number(s): [id number] cc: James Larson MD CLINICAL HISTORY: transaminitis [...] Velazquez MD in OV> 10/12/24 0500 DD/ 0459 TD/TT: 10/12/24 045 Order Entry Representative: Procedure Note Donotuseinterpreter, Image - 10/12/2024 [facility] [address] [place] [address] [place] [address] Ultrasound Report Signed Patient: Gina AppleR#: [id number] [birth year] : 1985Acct:[id number] Age/Sex: 39 / FADM Date: 10/11/24 Loc: HO.HMGCX Attending Dr: James Larson MD Ordering Physician: James Larson MD Date of Service: 10/11/24 Procedure(s): US abdomen complete Accession Number(s): [id number] cc: James Larson MD CLINICAL HISTORY: transaminitis [...] PHD on 10/12/2024 04:59:03 Dictated By: Dajuan Vleazquez MD Signed By: <Electronically signed by Dajuan Velazquez MD in OV> 10/12/24 0500 DD/ 8 TD/TT: 10/12/24 045 Order Entry Representative: us James Larson MD IMG US PROCEDURES Final Res ult documented in this encounter Visit Diagnoses Diagnosis Transaminitis- Primary Nonspecific elevation of levels of transaminase or lactic acid dehydrogenase (LDH) documented in this encounter Additional Health Concerns Assessment Noted Time PHQ-9 Depression Total Score: 0 01/22/20 23 3:02 PM EDT documented as of this encounter Care Teams Straw Baler Relationship Specialty Start Date End Date James Larson MD [address] [place] [address] PCP - General Internal Medicine 10/05/13 documented as of this encounter
--- OUTSIDE RECORDS SUMMARY | 2025-07-09 08:19 | XMS_ITS | Encounter Summary ---
Author Organization [employer] Address [address] [place] [address] Care Team Providers Care Bilingual Office Assistant Name Role Phone James Larson MD Primary Care Provider [phone] Reason for Visit * Reason Onset Date Comments No Show 07/06/2025 Encounter Details Date Type Department Care Team ([facility] Contact Info) Description 07/06/2025 Telephone [facility] CHC MED & PEDS [address] [place] [address] James Larson MD [address] [place] [address] No Show Social History Tobacco Use Types [...] * Telephone Encounter - Geovanna Valentino - 07/06/2025 3:51 PM EDT No show 07/06/25 documented in this encounter Plan of Treatment Not on file documented as of this encounter Visit Diagnoses Not on filedocumented in this encounter Additional Health Concerns Assessment Noted Time PHQ-9 Depression Total Score: 10 025 3:10 PM EST documented as of this encounter Care Teams Bilingual Office Assistant Relationship Specialty Start Date End Date James Larson MD [address] [place] [address] PCP - General Internal Medicine 10/05/13 documented as of this encounter
--- OUTSIDE RECORDS SUMMARY | 2025-07-09 08:19 | XMS_ITS | Encounter Summary ---
Author Organization [employer] Address [address] [facility] 7 [place] [address] Care Team Providers Care Dandy Tender Name Role Phone James Larson MD Primary Care Provider [phone] Reason for Visit * Reason Onset Date Comments Call Back Request 10/11/2023 Encounter Details Date Type Department Care Team ([facility] st Contact Info) Description 10/11/2023 Telephone [facility] CHC MED & PEDS [address] [place] [address] James Larson MD [address] [place] [address] Call Back Request Social History Tobacco Use [...] Miscellaneous Notes * Telephone Encounter - Ginna Miguel A - 10/11/2023 3:49 PM EST Tc from pt requesting a new glucose monitor, states she lost it. Pt is also requesting to speak with nurse/PCP in regards to dulaglutide (Trulicity) 0.75 MG/0.5ML solution pen-injector. Pt was prescribed medication in NOV but has not taken it since. Pt would like to know if she can start it now. Please contact pt at [phone] documented in this encounter Plan of Treatment Not on file documented as of this encounter Visit Diagnoses Not on filedocumented in this encounter Additional Health Concerns Assessment Noted Time PHQ-9 Depression Total Score: 0 01/22/20 23 3:02 PM EDT documented as of this encounter Care Teams Dandy Tender Relationship Specialty Start Date End Date James Larson MD [address] [place] [address] PCP - General Internal Medicine 10/05/13 documented as of this encounter
--- OUTSIDE RECORDS SUMMARY | 2025-07-09 08:19 | XMS_ITS | Encounter Summary ---
Author Organization [employer] Address [address] [facility] [address] 7[address] [place] [address] Care Team Providers Care Operator Technician Name Role Phone James Larson MD Primary Care Provider [phone] Encounter Details Date Type Department Care Team ([facility] st Contact Info) Description 12/09/2023 Orders Only [facility] CHC MED & PEDS [address] [place], [place] [phone] DrummondRikki Coronel MD [address] [place] [address] Social History Tobacco Use Types Packs/Day Years [...] documented as of this encounter Care Teams Operator Technician Relationship Specialty Start Date End Date James Larson MD [address] [place] [address] PCP - General Internal Medicine 10/05/13 documented as of this encounter
--- OUTSIDE RECORDS SUMMARY | 2025-07-09 08:19 | XMS_ITS | Encounter Summary ---
Author Organization [employer] Address [address] [place] [address] 7t [place] [address] Care Team Providers Care Automotive Sales Specialist Name Role Phone James Larson MD Primary Care Provider [phone] Encounter Details Date Type Department Care Team ([facility] st Contact Info) Description 09/09/2022 Telephone [facility] CHC MED & PEDS [address] [place], [place] [phone] James Larson MD [address] [place] [address] Social History Tobacco Use Types Packs/Day Years [...] on filedocumented in this encounter Care Teams Automotive Sales Specialist Relationship Specialty Start Date End Date James Larson MD [address] [place] [address] PCP - General Internal Medicine 10/05/13 documented as of this encounter
--- OUTSIDE RECORDS SUMMARY | 2025-07-09 08:19 | XMS_ITS | Encounter Summary ---
Author Organization [employer] Address [address] [facility] 7 [place] [address] Care Team Providers Care Engineering Manager Name Role Phone James Larson MD Primary Care Provider [phone] Reason for Visit * Reason Onset Date Comments Results 07/03/2025 Encounter Details Date Type Department Care Team ([facility] Contact Info) Description 07/03/2025 Results Follow-Up [facility] CHC MED & PEDS [address] [place] [address] James Larson MD [address] [place] [address] XR Hand 3+ Views Right Social History Tobacco Use Types Packs/Day Years [...] Encounter - Yokasta Ferrer RN - 07/04/2025 9:36 AM EDT TC to pt and results and recommendations and referral reviewed. Pt states does not have finger splint. Author advised for pt to come to office to have finger splint placed. Pt states does not have transportation to office until 07/06/25 and will come to office then. Advised of risk of not splintingfinger and advised for pt to contact office if symptoms worsen. Pt verbalized understanding and agreement with plan. * Telephone Encounter - Yokasta Ferrer RN - 07/04/2025 9:35 AM EDT ----- Message from James Larson MD sent at 07/03/2025 10:56 PM EDT ----- Please call to report the results of the xray : Nondisplaced fracture of the radial aspect of the base of the distal phalanx of the 4th finger. I recommend a finger splint pending ortho eval. I will generate the referral. ----- Message ----- From: Suzie Miranda RN Sent: 07/03/2025 4:45 PM EDT To: James Larson MD ----- Message ----- From: Sade, Ris Results In Sent: 07/03/2025 1:56 PM EDT To: Silvia Alejandro MD * Result Encounter Note - James Larson MD - 07/03/2025 11:08 PM EDT FYI. A referral to ortho was generated. documented in this encounter Plan of Treatment Not on file documented as of this encounter Visit Diagnoses Not on filedocumented in this encounter Additional Health Concerns Assessment Noted Time PHQ-9 Depression Total Score: 10 10/25/ 025 3:10 PM EST documented as of this encounter Care Teams Engineering Manager Relationship Specialty Start Date End Date James Larson MD [address] [place] [address] PCP - General Internal Medicine 10/05/13 documented as of this encounter
--- OUTSIDE RECORDS SUMMARY | 2025-07-09 08:19 | XMS_ITS | Encounter Summary ---
Author Organization [employer] Address [address] [place] [address] 7 [place] [address] Care Team Providers Care Preform Plate Maker Name Role Phone James Larson MD Primary Care Provider [phone] Reason for Referral * Imaging (Routine) - Authorized Specialty Diagnoses / Procedures Referred By Rudolph t Referred To Contact Radiology Diagnoses Hepatic steatosis Procedures US Abdomen Complete James Larson MD [address] [place] [address] Phone: tel: fax: [address] Phone: tel: fax: Referral ID Status Reason Start Date Expiration Date V isits Requested Visits Authorized [id number] Authorized 07/03/2025 07/03/2026 1 1 * Consultation (Routine) - Authorized Specialty Diagnoses / Procedures Referred By Contac t Referred To Contact Orthopaedic Surgery Diagnoses Closed nondisplaced fracture of distal phalanx of right ring finger, initial encounter James Larson MD [address] [place] [address] Phone: tel: fax: [facility] [address] [place] [address] Phone: tel: Referral ID Status Reason Start Date Expiration Date Visits Requested Visits Authorized [id number] Authorized Specialty Services Required 10/28/202 5 07/03/2026 1 1 Encounter Details Date Type Department Care Team (Late st Contact Info) Description 07/03/2025 Orders Only [facility] CHC MED & PEDS [address] [place] [address] James Larson MD [address] [place] [address] Closed nondisplaced fracture of distal phalanx of right ring finger, initial encounter (Primary Dx); Hepatic steatosis Social History Tobacco Use Types Packs/Day Years [...] r Schedule US Abdomen Complete Imaging Routine Hepatic steatosis Expected: 07/03/2025, Expires: 07/03/2026 Scheduled Referrals Name Type Priority Associated Diagnoses Orde r Schedule Referral to Orthopaedic Surgery Outpatient Referral Routine Closed nondisplaced fracture of distal phalanx of right ring finger, initial encounter Expected: 07/03/2025 (Approximate), Expires: 07/03/2026 documented as of this encounter Visit Diagnoses Diagnosis Closed nondisplaced fracture of distal phalanx of right ring finger, initial encounter- Primary Hepatic steatosis Other chronic nonalcoholic liver disease documented in this encounter Additional Health Concerns Assessment Noted Time PHQ-9 Depression Total Score: 10 025 3:10 PM EST documented as of this encounter Care Teams Preform Plate Maker Relationship Specialty Start Date End Date James Larson MD [address] [place] [address] PCP - General Internal Medicine 10/05/13 documented as of this encounter
--- OUTSIDE RECORDS SUMMARY | 2025-07-09 08:19 | XMS_ITS | Encounter Summary ---
Author Organization [employer] Address [address] [facility] 7 [place] [address] Care Team Providers Care Coverer Name Role Phone James Larson MD Primary Care Provider [phone] Reason for Visit * Reason Onset Date Comments Nurse Triage 10/11/2023 Encounter Details Date Type Department Care Team ([facility] st Contact Info) Description 10/11/2023 Telephone C CHC MED & PEDS [address] [place] [address] James Larson MD [address] [place] [address] Nurse Triage Social History Tobacco Use Types [...] t he electric, gas, oil or water Social Bicycles threatened to shut off services in your [...] . [facility] @ 340pm for provider to see [...] accepted this outcome Please contact pt at [phone] documented in this encounter Plan of Treatment Not on file documented as of this encounter Visit Diagnoses Not on filedocumented in this encounter Additional Health Concerns Assessment Noted Time PHQ-9 Depression Total Score: 0 01/22/20 23 3:02 PM EDT documented as of this encounter Care Teams Coverer Relationship Specialty Start Date End Date James Larson MD [address] [place] [address] PCP - General Internal Medicine 10/05/13 documented as of this encounter
--- OUTSIDE RECORDS SUMMARY | 2025-07-09 08:19 | XMS_ITS | Clinical Summary ---
Author Organization [employer] Address [address] [facility] [address] [place] [address] Care Team Providers Care Marketing Sales Supervisor Name Role Phone James Larson MD Primary Care Provider Allergies No known active allergies Medications glucose-vitamin C 4-6 GM-MG oral gel 1 tablet to use in case of symptoms of hypoglycemia or if FS<70 mg/dl 05/02/20 21 Active Alcohol Swabs (Alcohol Prep) pads Active Misc. Devices (Wrist Brace) misc Active Continuous Glucose Fork Assembler (FreeStyle Jorje 2 [place]) deviceIndication s:Type 2 diabetes mellitus without complication, without long-term current use of insulin ([facility]) Scan sensor every 8 hours 1 each 06/16/20 24 Active Continuous Glucose Sensor (FreeStyle Jorje 2 Sensor) miscIndications: Type 2 diabetes mellitus without complication, without long-term current use of insulin ([facility]) Apply 1 sensor every 14 days 2 each 06/16/20 24 Active Blood Glucose Monitoring Suppl (FreeStyle Lite) w/Device kitIndications:T ype 2 diabetes mellitus without complication, without long-term current use of insulin ([facility]) 1 Units Once per day. 1 kit 06/16/20 24 Active Lancets miscIndications: Type 2 diabetes mellitus without complication, without long-term current use of insulin ([facility]) Use to test blood sugar 2 times [...] complication, without long-term current use of insulin ([facility]),Obesity, Class I, BMI 30.0-34.9 (see actual BMI) [...] Encounters Date Type Department Care Team Description 07/06/2025 Telephone [facility] [address] [facility] [place] [address] James Larson MD No Show 07/05/2025 Telephone [facility] [address] [facility] [place] [address] James Larson MD Chart Prep 07/03/2025 Results Follow-Up [facility] [address] [facility] [place] [address] James Larson MD XR KUB and Upright 2 Views 07/03/2025 Results Follow-Up [facility] [address] [place] [address] James Larson MD XR Hand 3+ Views Right 07/03/2025 Orders Only [facility] [address] [place] [address] James Larson MD Closed nondisplaced fracture of distal phalanx of right ring finger, initial encounter (Primary Dx); Hepatic steatosis 07/03/2025 Telephone [facility] [address] [place] [address] James Larson MD Referral 06/29/2025 Patient Outreach [address] [address] James Larson MD Pre-visit Planning (Pre visit planning LVM ) 06/21/2025 Telephone [facility] [address] [place] [address] James Larson MD 06/21/2025 Telephone [facility] [address] [place] [address] James Larson MD Chart Prep 06/14/2025 Patient Outreach [address] [address] James Larson MD Pre-visit Planning (SDOH screening completed on 10/25/24) 05/29/[address] [address] James Larson MD No Show 05/21/2025 9:40 AM EDT Office Visit [facility] [address] [place] [address] Lloyd Echevarria MD Acute otitis externa of left ear, unspecified type (Primary Dx); Non-recurrent acute serous otitis media of left ear 05/21/2025 Travel 05/10/[address] [address] James Larson MD No Show 05/09/2025 Telephone [facility] [address] [place] [address] James Larson MD Chart Prep 04/23/2025 5:40 PM EDT Office Visit [facility] [address] [place] [address] James Larson MD Other constipation (Primary Dx); Generalized abdominal pain; Bromidrosis 04/23/2025 Travel 04/23/2025 Telephone [facility] [address] [place] [address] James Larson MD Nurse Triage 04/20/2025 Telephone [facility] [address] [place], [place] [phone] James Larson MD No Show 04/16/2025 6:00 PM EDT Office Visit [facility] [address] [address] James Larson MD Functional diarrhea (Primary Dx); Nausea; COVID-19; Vitamin D deficiency; Other fatigue; Type 2 diabetes mellitus without complication, without long-term current use of insulin ([facility]); Obesity, Class I, BMI 30.0-34.9 (see actual BMI) 04/16/2025 Travel 04/09/2025 3:20 PM EDT Office Visit [facility] [address] [place] [address] James Larson MD COVID-19 (Primary Dx); Cough in adult patient 04/09/2025 Travel 04/09/2025 Telephone [facility] [address] [place] [address] James Larson MD Nurse Triage from Last [...] 04/16/2025 5:49 PM EDT Plan of Treatment Health Maintenance Due Date Last Done Comments Dental Oral Exam 1987 Dental Prophylaxis 1987 Dental X-Ray: Bitewings 1987 Derm Melanoma Skin Check 1987 Eye Exam 1997 Hepatitis A Vaccines (1 of 2 - [...] 06/06/2015, 02/04/2015, 12/27/2014 HIV Screening Completed 03/21/2025, 0403/2025, 04/28/2022 Hepatitis C Screening Completed 03/21/2025 HIB [...] 3:21 PM EDT Cough in adult patient HEPATITIS C ANTIBODY Routine 03/21/2025 2:03 PM [...] Laterality Modality Upper Extremities, Hand Right [facility] 07/03/2025 1:46 PM EDT Narrative 07/03/2025 1:55 PM EDT [address] [address] XRay Report Signed Patient: Brenda Apple MR#: [id number] [birth year] : 1985 Acct:[id number] Age/Sex: 40 / F ADM Date: 07/03/25 Loc: HO.XRAY Attending Dr: James Larson MD Ordering Physician: Silvia Norman MD Date of Service: 07/03/25 Procedure(s): XR hand RT min 3V Accession Number(s): [id number] cc: Silvia Norman MD; James Larson MD [...] 07/03/25 1352 DD/ 1346 TD/TT: 07/03/25 1348 Supervisor Powdered Sugar: Procedure Note Donotuseinterpreter, Image - 07/03/[address] [address] XRay Report Signed Patient: Gina AppleR#: [id number] [birth year] : 1985Acct:[id number] Age/Sex: 40 / FADM Date: 07/03/25 Loc: HO.XRAY Attending Dr: James Larson MD Ordering Physician: Silvia Norman MD Date of Service: 07/03/25 Procedure(s): XR hand RT min 3V Accession Number(s): [id number] cc: Silvia Norman MD; James Larson MD [...] 07/03/25 1352 DD/ 1346 TD/TT: 07/03/25 1348 Supervisor Powdered Sugar: us Silvia Alejandro MD IMG XR PROCEDURES Fin al Result * XR KUB and Upright 2 Views (07/03/2025 1:40 PM EDT) Anatomical Region Laterality Modality Radiographic Princess ging 07/03/2025 1:40 PM EDT Narrative 07/03/2025 1:55 PM EDT [place] [address] XRay Report Signed Patient: Brenda Apple MR#: [id number] [birth year] : 1985 Acct:[id number] Age/Sex: 40 / F ADM Date: 07/03/25 Loc: HO.CALIN Attending Dr: James Larson MD Ordering Physician: James Larson MD Date of Service: 07/03/25 Procedure(s): XR KUB Accession Number(s): [id number] cc: James Larson MD Reason for Exam: [...] 07/03/25 1352 DD/ 1340 TD/TT: 07/03/25 1348 Supervisor Powdered Sugar: Procedure Note Donotuseinterpreter, Image - 07/03/2025 [place] [address] XRay Report Signed Patient: Connie Apple#: [id number] [birth year] : 1985Acct:[id number] Age/Sex: 40 / FADM Date: 07/03/25 Loc: HO.XRAY Attending Dr: James Larson MD Ordering Physician: James Larson MD Date of Service: 07/03/25 Procedure(s): XR KUB Accession Number(s): [id number] cc: James Larson MD Reason for Exam: [...] 07/03/25 1352 DD/ 1340 TD/TT: 07/03/25 1348 Supervisor Powdered Sugar: us James Larson MD IMG XR PROCEDURES Final Res ult * Influenza B (ID NOW Rapid Molecular) (04/09/2025 3:34 PM EDT) [facility] Influenza B Negative Negative, Indeterminate [facility] Swab 04/09/2025 3:34 PM EDT us James Larson MD POINT OF CARE TEST ENTER/ED IT ORDERABLES Final Result Performing Organization Address [facility]/ZIP Co de Phone Number [facility] [address] [place] [phone] * Influenza A (ID NOW Rapid Molecular) (04/09/2025 3:33 PM EDT) [facility] Influenza A Negative Negative, Indeterminate [facility] Swab 04/09/2025 3:33 PM EDT us James Larson MD POINT OF CARE TEST ENTER/ED IT ORDERABLES Final Result Performing Organization Address [facility] Co de Phone Number [facility] [address] [place] [phone] * (ABNORMAL) POCT Rapid COVID Ag (04/09/2025 3:22 PM EDT) [facility] Rapid COVID Ag Positive Swab 04/09/2025 3:22 PM EDT James Larson MD POINT OF CARE TEST ENTER/ED IT ORDERABLES Edited Result - Final * POCT glucose manually resulted (04/09/2025 3:21 PM EDT) Pathologist [facility] Glucose Blood, POC 143 60 - 200 mg/dL Blood Capillary blood specimen / Unknown 04/09/2025 3:21 PM EDT James Larson MD POINT OF CARE TEST ENTER/ED IT ORDERABLES Final Result * Hepatitis C Ab (03/21/2025 2:03 PM EDT) [facility] Hepatitis C Antibody Nonreactive Nonreactive [facility] Comment:Antibodies to HCV no t detected; does not exclude early acuteHCV infection. 03/21/2025 2:03 PM EDT 03/21/2025 4:07 PM EDT us Generic External Data Provider LAB BLOOD ORDERAB LES Final Result [facility] [address] [place] [phone] * HIV-1/2 Antigen and Antibodies, Fourth Generation, with Reflexes (03/21/2025 2:03 PM EDT) Pathologist [facility] HIV AB/AG Nonreactive Nonreactive [facility] Comment:HIV-1 p24 Ag and/or HIV-1/HIV-2 Ab not detected.A test result that is nonreactive does not exclude thepossibility of exposure to or infection with HIV-1 and/orHIV-2. Nonreactive results in this assay for individualswith prior exposure to HIV-1 and/or HIV-2 may be due toantigen and antibody levels that are below the limit ofdetection of this assay.The [employer] HIV Ag/Ab Combo assay result andsupplemental assay results should be interpreted inconjunction with the patient's clinical presentation,history and other laboratory results. If the results areinconsistent with clinical evidence, additional testing issuggested to confirm the result. 03/21/2025 2:03 PM EDT 03/21/2025 4:07 PM EDT Generic External Data Provider LAB BLOOD ORDERAB LES Final Result Performing Organization Address [facility]/ZIP Co de Phone Number [facility] [address] [place] [phone] * (ABNORMAL) Hemoglobin A1c (03/21/2025 2:03 PM EDT) Hemoglobin A1c 8.1(H) <6.0 % [facility] Comment:Hemoglobin A1C Refer ence Range Adults: 4.8 - 6.0 % Non diabetic: < 6.0 % Goal: < 7.0 %Additional Action Suggested: > 8.0 %Note: Hemoglobin A1c results are invalid for patients with abnormal amounts of HbF. Blood transfusions may impact the HbA1c concentration in the patient sample. Estimated Average Glucose 186 mg/dL [facility] Comment:eAG = Estimated ave rage glucose which is %A1C expressed asaverage glucose, using the formula of the S8X-TceffagLyqdtam Glucose study (ADAG), Diabetes Care, Vol.31,#8,Apr. 2007 03/21/2025 2:03 PM EDT 03/21/2025 3:59 PM EDT Generic External Data Provider LAB BLOOD ORDERAB LES Final Result Performing Organization Address [facility] Co de Phone Number [facility] [address] [place] [phone] * (ABNORMAL) Lipid Panel, Standard (03/21/2025 2:03 PM EDT) Triglycerides 228(H) <150 mg/dL [facility] Comment:Desirable Triglyceri de: less than 150 mg/dLBorderline High Triglyceride 150-199 mg/dLHigh Triglyceride: 200-499 mg/dLVery High Triglyceride: greater than or equal to 5OO mg/dL Cholesterol 226(H) <200 mg/dL [facility] Comment:Desirable Cholestero l: less than 200 mg/dLBorderline High Cholesterol: 200-239 mg/dLHigh Cholesterol: greater than 239 mg/dL LDL Cholesterol Calculated 144(H) <100 mg/dL [facility] Comment:Desirable LDL: less than 100 mg/dLNear Optimal/Above Optimal LDL: 110- 129 mg/dLBorderline High LDL: 130-159 mg/dLHigh LDL: 160-189 mg/dLVery High LDL: greater than or equal to 190 mg/dL HDL Cholesterol 37(L) >40 mg/dL [facility] Comment:Desirable HDL: great er than 40 mg/dL Note: This HDL assay may give artificially low results in patients with liver disease. 03/21/2025 2:03 PM EDT 03/21/2025 4:07 PM EDT us Generic External Data Provider LAB BLOOD ORDERAB LES Final Result [facility] [address] [place] [phone] * Thinprep TIS PAP And HPV mRNA E6/E7, CT/NG, TRICH (08/11/2022 5:19 PM EST) Clinical Information: None given [facility] LMP: NONE GIVEN [facility] Prev. PAP: NONE GIVEN [employer] Prev. BX: NONE GIVEN [facility] SOURCE: None given [facility] Statement Of Adequacy: [facility] Comment: Satisfactory for evaluation. Endocervical/transformation zone component present. Age and/or menstrual status not provided Interpretation/Re sult: Negative for intraepithelial lesion or malignancy. [facility] COMMENT: This Pap test has been evaluated with computer assisted technology. [facility] Quantitative Software Engineer: Bart Rayspan Comment: MSM, CT(ASCP) CT screening location: [facility] [address] [address] (Always Message) [employer] Comment: EXPLANATORY NOTE: The Pap is a [...] HPV nRNA E6/E7 Not Detected Not Detected [facility] Comment: Methodology: Ornamental Bronze Worker-Mediated Amplification This assay detects E6/E7 viral messenger RNA (mRNA) from 14 high-risk HPV types (16,18,31,33,35,39,45,51,52,56,58,59,66,68). Cervical sources are required for HPV testing. If a vaginal source from a patient who has had a total hysterectomy with removal of cervix was submitted, please contact the testing laboratory for alternative testing options. For additional information, please refer to http://[employer]/faq/OGJ727v2 (This link if provided for information/ educational purposes only.) Chlamydia trachomatis RNA, TMA, Urogenital NOT DETECTED NOT DETECTED [employer] Neisseria gonorrhoeae RNA, TMA, Urogenital NOT DETECTED NOT DETECTED [employer] Comment [employer] Comment: The analytical performance characteristics of this assay, when used to test SurePath(TM) specimens have been determined by [employer]. The modifications have not been cleared or approved by the FDA. This assay has been validated pursuant to the CLIA regulations and is used for clinical purposes. For additional information, please refer to https://Octoshape/faq/CJA326 (This link is being provided for information/ educational purposes only.) Trichomonas vaginalis, QL, TMA, PAP Vial NOT DETECTED NOT DETECTED [employer] Comment: The analytical performance characteristics of this assay have been determined by [employer]. The modifications have not been cleared or approved by the FDA. This assay has been validated pursuant to the CLIA regulations and is used for clinical purposes. For additional information, please refer to http://[employer]illster/ faq/Trichomonastma (This link is being provided for information/ educational purposes only.) 08/11/2022 5:19 PM EST 08/12/2022 8:03 AM EST Narrative [facility] - 08/14/2022 9:39 AM EST FASTING: UNKNOWN us Tresa Arechiga CNM LAB PATHOLOGY ORDERABLES Final Result [address], [place] [phone] [facility] [address], [place] [address] [facility] [address] [place] [address], [place] [address] * (ABNORMAL) ALBUMIN, RANDOM URINE W/CREATININE (08/07/2020 [...] Larson MD LAB URINE ORDERABLES Final Result [facility] [address] from Last 3 Months or Most Recently Relevant to Health Maintenance Insurance [facility] Care Teams Marketing Sales Supervisor Relationship Specialty Start Date End Date James Larson MD [address] [place] [address] [place] [phone] PCP - General Internal Medicine 10/05/13
--- OUTSIDE RECORDS SUMMARY | 2025-07-09 08:19 | XMS_ITS | Encounter Summary ---
Author Organization [employer] Address [address] [facility] 7 [place] [address] Care Team Providers Care Magazine Journalist Name Role Phone James Larson MD Primary Care Provider [phone] Encounter Details Date Type Department Care Team (Late st Contact Info) Description 03/29/2023 Telephone [facility] [address] [place] [address] August Bridges DDS [address] [place] [address] Social History Tobacco Use Types Packs/Day Years [...] documented as of this encounter Care Teams Magazine Journalist Relationship Specialty Start Date End Date James Larson MD [address] [place] [address] PCP - General Internal Medicine 10/05/13 documented as of this encounter
--- OUTSIDE RECORDS SUMMARY | 2025-07-09 08:19 | XMS_ITS | Encounter Summary ---
Author Organization [employer] Address [address] [facility] 7 [place] [address] Care Team Providers Care Skiver Uppers Or Linings Name Role Phone James Larson MD Primary Care Provider [phone] Reason for Visit * Reason Onset Date Comments Referral 11/17/2023 Encounter Details Date Type Department Care Team ([facility] st Contact Info) Description 11/17/2023 Telephone [facility] [address] [place] [address] James aLrson MD [address] [place] [address] Referral Social History Tobacco Use Types Packs/Day [...] for 11/16/23 . Please contact pt @ [phone] documented in this encounter Plan of Treatment Not on file documented as of this encounter Visit Diagnoses Not on filedocumented in this encounter Additional Health Concerns Assessment Noted Time PHQ-9 Depression Total Score: 0 01/22/20 23 3:02 PM EDT documented as of this encounter Care Teams Skiver Uppers Or Linings Relationship Specialty Start Date End Date James Larson MD [address] [place] [phone] PCP - General Internal Medicine 10/05/13 documented as of this encounter
[2025-07-09 08:29] VITALS: BMI 31.7
== END 2025-07-09 08:58 | disposition home or self-care (01) ==
LOC: HO.HBS 08:07
PROVIDERS: PCP Internal Medicine; Visit Provider Surgery
DX: E66.9 Obesity, unspecified (principal); Z68.31 Body mass index [BMI] 31.0-31.9, adult; K76.0 Fatty (change of) liver, not elsewhere classified
CPT/HCPCS: 99204

== ENCOUNTER 2025-07-10 10:47 | Outpatient (REF) | payer OTHER, SELFPAY ==
--- OUTSIDE RECORDS SUMMARY | 2025-07-10 10:00 | XMS_ITS | Encounter Summary ---
Author Organization [employer] Address [address] [facility] 7t [place] [address] Care Team Providers Care Airplane Pilot Commercial Name Role Phone James Larson MD Primary Care Provider [phone] Reason for Visit * Reason Comments sickonsite Encounter Details Date Type Department Care Team ([facility] st Contact Info) Description 07/10/2025 10:00 AM EST Office Visit [facility] MEDICINE [address] [place], [place] [phone] Tresa Arechiga CN [address] [place] [address] Vaginal discharge (Primary Dx); Screening examination for venereal disease Social History Tobacco Use Types Packs/Day Years [...] Answer Date Recorded Patient Health Questionnaire-9 Score 14 07/10/2025 Patient Health Questionnaire-9 Score 14 07/10/2025 Last PHQ-9: Questionnaire Data Not on file 1 09/09/2024 Housing Stability Answer Date Recorded What is [...] Date Recorded Patient Health Questionnaire-2 Score 4 07/10/2025 Internet Access Answer Date Recorded Internet Access Q1 Yes 06/09/2024 Internet Access Q2 Not on file 06/09/2024 Comments No Intention Date Recorded No desire to become (finding) 1 09/09/2024 Sex and Gender Information Value Date Recorded Sex Assigned at Female 07/06/2022 10:21 AM EDT Legal Sex Female 10:21 AM EDT Gender Identity Female 07/06/2022 10:21 AM EDT Sexual Orientation Straight 07/06/2022 10 :21 AM EDT documented as of this encounter Last Filed Vital Signs Vital Sign Reading Time Taken Comments Blood Pressure 122/78 07/10/2025 10:20 AM EST Pulse 60 07/10/2025 10:20 AM EST Temperature 37.2 C (98.9 F) 07/10/2025 10:20 AM EST Respiratory Rate 14 07/10/2025 10:20 AM EST Oxygen Saturation 96% 07/10/2025 10:20 AM EST Inhaled Oxygen Concentration - - Weight 87.1 kg (192 lb) 07/10/2025 10:20 AM EST Height - - Body Mass Index 31.95 04/16/2025 5:49 PM EDT documented in this encounter Functional Status * Over the past 2 weeks, how often have you been bothered by any of the following problems? Question Answer Date of Assessment Author Patient Health Questionnaire -2 Score 4 07/10/2025 10:22 AM EST Malinda Marquis MA * Little interest or pleasure in doing things Answer Date of Assessment Author More than half the days 07/10/2025 10:22 AM Malinda Hickey MA * Feeling down, depressed, or hopeless Answer Date of Assessment Author More than half the days 07/10/2025 10:22 AM Malinda Hickey MA * Trouble falling or staying asleep, or sleeping too much Answer Date of Assessment Author More than half the days 07/10/2025 10:22 AM Malinda Hickey MA * Feeling tired or having little energy Answer Date of Assessment Author More than half the days 07/10/2025 10:22 AM Malinda Hickey MA * Poor appetite or overeating Answer Date of Assessment Author More than half the days 07/10/2025 10:22 AM Malinda Hickey MA * Feeling bad about yourself - or that you are a failure or have let yourself or your family down Answer Date of Assessment Author More than half the days 07/10/2025 10:22 AM Malinda Hickey MA * Trouble concentrating on things, such as reading the newspaper or watching television Answer Date of Assessment Author More than half the days 07/10/2025 10:22 AM Malinda Hickey MA * Moving or speaking so slowly that other people could have noticed? Or the opposite - being so fidgety or restless that you have been moving around a lot more than usual. Answer Date of Assessment Author Not at all 07/10/2025 10:22 AM Malinda Hickey MA * Thoughts that you would be better off or hurting yourself in some way Answer Date of Assessment Author Not at all 07/10/2025 10:22 AM Malinda Hickey MA * Patient Health Questionnaire-9 Score Answer Date of Assessment Author 14 07/10/2025 10:22 AM Malinda Hickey MA documented as of this encounter Progress Notes * Tresa Arechiga CNM - 07/10/2025 10:00 AM EST Subjective Patient ID: Brenda Apple is a 40 y.o. female who presents for vaginal symptoms Noted vaginal itching after sex about a month ago. No longer with former AMAB partner due to concerns about fidelity and his MELA. Would like STI testing today. Last sexually active 3-4 weeks ago. Hadsome cramping after sex which has resolved. Pap NIL/HPV neg 08/2022. Liletta inserted 2022. Happy with IUD at this time. History of bacterial vaginosis. Gonorrhea/Chlamydia/trichomonas, yeast and bacterial vaginosis neg 11/2024. Would like pelvic exam today. Review of Systems Genitourinary: Negative for dyspareunia, dysuria, pelvic pain, vaginal bleeding, vaginal discharge and vaginal pain. Objective BP 122/78 (BP Location: Left arm, Patient Position: Sitting, BP Cuff Size: Adult) Pulse 60 Temp98.9 ??F (37.2 ??C) (Oral) Resp 14 Wt 192 lb (87.1 kg) LMP 06/25/2025 SpO2 96% BMI 31.95 kg/m?? Physical Exam Director Outcomes present: declines workplace rehabilitation officer. Constitutional: Appearance: Normal appearance. Genitourinary: General: Normal [...] fluid manually resulted - Bacterial Vaginosis Panel Consistent with yeast. Prefers vaginal treatment. For terconazole as prescribed. Report persistent or worsening symptoms. Screening examination for venereal disease - Hepatitis C Antibody with Reflex to HCV, RNA, Quantitative, Real-Time PCR; Future - Syphilis Screen; Future - HIV-1/2 Antigen and Antibodies, Fourth Generation, with Reflexes; Future - Chlamydia/N. Gonorrhoeae RNA, TMA, Vagina Gonorrhea/Chlamydia and serum labs ordered. Will offer oral and anal testing when I call with results as we did not have collection kits at time of visit. Other orders - terconazole (Terazol 7) 0.4 % vaginal cream; Insert 1 applicator into the vagina at bedtime for 7days. documented in this encounter Plan of Treatment Upcoming Encounters Date Type Department Care Team ([facility] st Contact Info) Description 07/18/2025 10:30 AM EST Office Visit [facility] [address] [place] [address] James Larson MD [address] [place] [address] Scheduled Orders Name Type Priority Associated Diagnoses Orde r Schedule Bacterial Vaginosis Panel Microbiology Routine Vaginal discharge Ordered: 07/10/2025 Hepatitis C Antibody with Reflex to HCV, RNA, Quantitative, Real-Time PCR Lab Routine Screening examination for venereal disease Expected: 07/10/2025 (Approximate), Expires: 07/10/2026 Syphilis Screen Lab Routine Screening examination for venereal disease Expected: 07/10/2025 (Approximate), Expires: 07/10/2026 HIV-1/2 Antigen and Antibodies, Fourth Generation, with Reflexes Lab Routine Screening examination for venereal disease Expected: 07/10/2025 (Approximate), Expires: 07/10/2026 Chlamydia/N. Gonorrhoeae RNA, TMA, Vagina Microbiology Routine Screening examination for venereal disease Ordered: 07/10/2025 documented as of this encounter Procedures Procedure Name Priority Date/Time Associated Diagnosis Comments POCT WET MOUNT/LIBRADO Routine 07/10/2025 10 :41 AM EST Vaginal discharge documented in this encounter Results * POCT fern test, vaginal fluid manually resulted (07/10/2025 10:41 AM EST) LIBRADO Prep Positive Comment:pH 4.5, neg whiff, n eg clue, neg trich, neg wbc, pos hyphae Vaginal Fluid Vaginal structure / Unknown 07/10/2025 10:41 AM EST us Tresa Arechiga CNBrady POINT OF CARE TEST ENTER/ EDIT ORDERABLES Final Result documented in this encounter Visit Diagnoses Diagnosis Vaginal discharge- Primary Leukorrhea, not specified as infective Screening examination for venereal disease documented in this encounter Additional Health Concerns Assessment Noted Time PHQ-9 Depression Total Score: 14 025 10:22 AM EST documented as of this encounter Care Teams Airplane Pilot Commercial Relationship Specialty Start Date End Date James Larson MD [address] [place] [address] PCP - General Internal Medicine 10/05/13 documented as of this encounter
--- OUTSIDE RECORDS SUMMARY | 2025-07-10 13:04 | XMS_ITS | Encounter Summary ---
Author Organization [employer] Address [address] [place] [address] 7 [place] [address] Care Team Providers Care Unix System Administrator Name Role Phone James Larson MD Primary Care Provider [phone] Reason for Referral * Imaging (Routine) - Authorized Specialty Diagnoses / Procedures Referred By Rudolph t Referred To Contact Radiology Diagnoses Hepatic steatosis Procedures US Abdomen Complete James Larson MD [address] [place] [address] Phone: tel: fax: [address] Phone: tel: fax: Referral ID Status Reason Start Date Expiration Date V isits Requested Visits Authorized [id number] Authorized 07/03/2025 07/03/2026 1 1 * Consultation (Routine) - Authorized Specialty Diagnoses / Procedures Referred By Contac t Referred To Contact Orthopaedic Surgery Diagnoses Closed nondisplaced fracture of distal phalanx of right ring finger, initial encounter James Larson MD [address] [place] [address] Phone: tel: fax: [facility] [address] [place] [address] Phone: tel: Referral ID Status Reason Start Date Expiration Date Visits Requested Visits Authorized [id number] Authorized Specialty Services Required 10/28/202 5 07/03/2026 1 1 Encounter Details Date Type Department Care Team (Late st Contact Info) Description 07/03/2025 Orders Only [facility] MED & PEDS [address] [place] [address] James Larson MD [address] [place] [address] Closed nondisplaced fracture of distal phalanx of [...] Care Team (Late st Contact Info) Description 07/18/2025 10:30 AM EST Office Visit [facility]S [address] [place] [address] James Larson MD [address] [place] [address] Scheduled Orders Name Type Priority Associated Diagnoses [...] Noted Time PHQ-9 Depression Total Score: 10 2 025 3:10 PM EST documented as of this encounter Care Teams Unix System Administrator Relationship Specialty Start Date End Date James Larson MD [address] [place] [address] PCP - General Internal Medicine 10/05/13 documented as of this encounter
--- OUTSIDE RECORDS SUMMARY | 2025-07-10 13:04 | XMS_ITS | Encounter Summary ---
Author Organization [employer] Address [address] [facility] [address] 7t [place] [address] Care Team Providers Care Hobber Name Role Phone James Larson MD Primary Care Provider [phone] Encounter Details Date Type Department Care Team (Latest Contact Info) Description 07/10/2025 Travel Social History Tobacco Use Types Packs/Day [...] AM EDT documented as of this encounter Functional Status * Over the past 2 weeks, how often have you been bothered by any of the following problems? Question Answer Date of Assessment Author Patient Health Questionnaire -2 Score 4 07/10/2025 10:22 AM Malinda Hickey MA * Little interest or pleasure in [...] Hickey MA documented as of this encounter Plan of Treatment Upcoming Encounters Date Type Department Care Team ([facility] st Contact Info) Description 07/18/2025 10:30 AM EST Office Visit [facility] MED & PEDS [address] [place] [address] James Larson MD [address] [place] [address] documented as of this encounter Visit Diagnoses Not on filedocumented in this encounter Additional Health Concerns Assessment Noted Time PHQ-9 Depression Total Score: 14 025 10:22 AM EST documented as of this encounter Care Teams Hobber Relationship Specialty Start Date End Date James Larson MD [address] [place] [address] PCP - General Internal Medicine 10/05/13 documented as of this encounter
--- OUTSIDE RECORDS SUMMARY | 2025-07-10 13:04 | XMS_ITS | Encounter Summary ---
Author Organization [employer] Address [address] [place] [address] 7 [place] [address] Care Team Providers Care Death Clearance Coordinator Name Role Phone James Larson MD Primary Care Provider [phone] Reason for Referral * Imaging (Routine) - Closed Specialty Diagnoses / Procedures Referred By Contac t Referred To Contact Radiology Diagnoses Right sided abdominal pain Procedures CT Abdomen Pelvis w/ Contrast James Larson MD [address] [place] [address] Phone: tel: fax: [address] Phone: tel: fax: Referral ID Status Reason Start Date Expiration Date Visits Re quested Visits Authorized [id number] Closed 11/16/2024 11/16/2025 1 1 Encounter Details Date Type Department Care Team (Late st Contact Info) Description 11/16/2024 Orders Only [facility] MEDICINE [address] [place] [address] James Larson MD [address] [place] [address] Right sided abdominal pain (Primary Dx) Social [...] Upcoming Encounters Date Type Department Care Team ([facility] Contact Info) Description 07/18/2025 10:30 AM EST Office Visit [facility] CHC MED & PEDS [address] [place] [address] James Larson MD [address] [place] [address] Scheduled Orders Name Type Priority Associated Diagnoses [...] documented as of this encounter Care Teams Death Clearance Coordinator Relationship Specialty Start Date End Date James Larson MD [address] [place] [address] PCP - General Internal Medicine 10/05/13 documented as of this encounter
--- OUTSIDE RECORDS SUMMARY | 2025-07-10 13:04 | XMS_ITS | Encounter Summary ---
Author Organization [employer] Address [address] [facility] 7t [place] [address] Care Team Providers Care Health Insurance Specialist Name Role Phone James Larson MD Primary Care Provider [phone] Encounter Details Date Type Department Care Team (Late st Contact Info) Description 10/30/2024 Orders Only [facility] MEDICINE [address] [place] [address] James Larson MD [address] [place], [place] [phone] Right sided abdominal pain (Primary Dx) Social [...] Description 07/18/2025 10:30 AM EST Office Visit [facility] CHC MED & PEDS [address] [place] [address] James Larson MD [address] [place] [address] documented as of this encounter Visit Diagnoses Diagnosis Right sided abdominal pain- Primary Abdominal pain, unspecified site documented in this encounter Additional Health Concerns Assessment Noted Time PHQ-9 Depression Total Score: 10 10/25/2 025 3:10 PM EST documented as of this encounter Care Teams Health Insurance Specialist Relationship Specialty Start Date End Date James Larson MD [address] [place] [address] PCP - General Internal Medicine 10/05/13 documented as of this encounter
--- OUTSIDE RECORDS SUMMARY | 2025-07-10 13:04 | XMS_ITS | Encounter Summary ---
Author Organization [employer] Address [address] [facility] [address] 7[address] [place] [address] Care Team Providers Care Lip Reading Teacher Name Role Phone James Larson MD Primary Care Provider [phone] Encounter Details Date Type Department Care Team ([facility] st Contact Info) Description 07/09/2025 Telephone [facility] [address] [place], [place] [phone] Malinda Marquis MA Social History Tobacco Use Types Packs/Day Years [...] encounter Miscellaneous Notes * Telephone Encounter - Malinda Marquis MA - 07/09/2025 3:25 PM EST Chart Prep Labs: done Images: 07/03/25 Referrals: complete Vaccines due: Covid, Flu, PCV20, Tdap, Hep A, and HPV Screenings: eye exam and foot exam Overdue care gaps: PHQ-9 documented in this encounter Plan of Treatment Upcoming Encounters Date Type Department Care Team ([facility] st Contact Info) Description 07/18/2025 10:30 AM EST Office Visit [facility] CHC MED & PEDS [address] [place] [address] James Larson MD [address] [place] [address] documented as of this encounter Visit Diagnoses Not on filedocumented in this encounter Additional Health Concerns Assessment Noted Time PHQ-9 Depression Total Score: 10 10/25/ 025 3:10 PM EST documented as of this encounter Care Teams Lip Reading Teacher Relationship Specialty Start Date End Date James Larson MD [address] [place] [address] PCP - General Internal Medicine 10/05/13 documented as of this encounter
--- OUTSIDE RECORDS SUMMARY | 2025-07-10 13:04 | XMS_ITS | Encounter Summary ---
Author Organization [employer] Address [address] [place] [address] 7 [place] [address] Care Team Providers Care Distillation Operator Helper Name Role Phone James Larson MD Primary Care Provider [phone] Encounter Details Date Type Department Care Team (Late Contact Info) Description 09/09/2022 Telephone [facility] MED & PEDS [address] [place] [address] James Larson MD [address] [place] [address] Social History Tobacco Use Types Packs/Day Years [...] Description 07/18/2025 10:30 AM EST Office Visit [facility] MED [facility] PED[facility] [address] [place] [address] James Larson MD [address] [place] [address] documented as of this encounter Visit Diagnoses Not on filedocumented in this encounter Care Teams Distillation Operator Helper Relationship Specialty Start Date End Date James Larson MD [address] [place] [address] PCP - General Internal Medicine 10/05/13 documented as of this encounter
--- OUTSIDE RECORDS SUMMARY | 2025-07-10 13:04 | XMS_ITS | Encounter Summary ---
Author Organization [employer] Address [address] [place] [address] Care Team Providers Care Lithograph Press Operator Name Role Phone James Larson MD Primary Care Provider [phone] Reason for Visit * Reason Onset Date Comments Chart Prep 07/05/2025 Encounter Details Date Type Department Care Team ([facility] st Contact Info) Description 07/05/2025 Telephone [facility] CHC MED & PEDS [address] [place] [address] James Larson MD [address] [place] [address] Chart Prep Social History Tobacco Use Types [...] Description 07/18/2025 10:30 AM EST Office Visit [facility] CH[facility] MED & PEDS 505 [facility] [place] [address] James Larson MD [address] [place] [address] documented as of this encounter Visit Diagnoses Not on filedocumented in this encounter Additional Health Concerns Assessment Noted Time PHQ-9 Depression Total Score: 10 2 025 3:10 PM EST documented as of this encounter Care Teams Lithograph Press Operator Relationship Specialty Start Date End Date James Larson MD [address] [place] [address] PCP - General Internal Medicine 10/05/13 documented as of this encounter
--- OUTSIDE RECORDS SUMMARY | 2025-07-10 13:04 | XMS_ITS | Encounter Summary ---
Author Organization [employer] Address [address] [facility] [address] 7t [place] [address] Care Team Providers Care Machine Wiper Name Role Phone James Larson MD Primary Care Provider [phone] Encounter Details Date Type Department Care Team ([facility] st Contact Info) Description 12/09/2023 Orders Only [facility] CHC MED & PEDS [address] [place], [place] [phone] DrummondRikki Coronel MD [address] [place] [address] Social History Tobacco Use Types Packs/Day Years [...] Description 07/18/2025 10:30 AM EST Office Visit [facility] MED & PEDS [address] [place] [address] James Larson MD [address] [place] [address] documented as of this encounter Visit Diagnoses Not on filedocumented in this encounter Additional Health Concerns Assessment Noted Time PHQ-9 Depression Total Score: 0 01/22/20 23 3:02 PM EDT documented as of this encounter Care Teams Machine Wiper Relationship Specialty Start Date End Date James Larson MD [address] [place] [address] PCP - General Internal Medicine 10/05/13 documented as of this encounter
--- OUTSIDE RECORDS SUMMARY | 2025-07-10 13:04 | XMS_ITS | Encounter Summary ---
Author Organization [employer] Address [address] [facility] 7 [place] [address] Care Team Providers Care Text Transcriber Name Role Phone James Larson MD Primary Care Provider [phone] Reason for Visit * Reason Onset Date Comments Nurse Triage 10/11/2023 Encounter Details Date Type Department Care Team ([facility] st Contact Info) Description 10/11/2023 Telephone [facility] MED & PEDS [address] [place] [address] James Larson MD [address] [place] [address] Nurse Triage Social History Tobacco Use Types [...] t he electric, gas, oil or water [employer] threatened to shut off services in your [...] . Pt is advised to come to [facility] 10/12/23 @ 340pm for provider [...] accepted this outcome Please contact pt at [phone] documented in this encounter Plan of Treatment Upcoming Encounters Date Type Department Care Team ([facility] Contact Info) Description 07/18/2025 10:30 AM EST Office Visit [facility] MED [facility] PED[facility] [address] [place] [address] James Larson MD [address] [place] [address] documented as of this encounter Visit Diagnoses Not on filedocumented in this encounter Additional Health Concerns Assessment Noted Time PHQ-9 Depression Total Score: 0 01/22/20 23 3:02 PM EDT documented as of this encounter Care Teams Text Transcriber Relationship Specialty Start Date End Date James Larson MD [address] [place] [address] PCP - General Internal Medicine 10/05/13 documented as of this encounter
--- OUTSIDE RECORDS SUMMARY | 2025-07-10 13:04 | XMS_ITS | Encounter Summary ---
Author Organization [employer] Address [address] [facility] 7 [place] [address] Care Team Providers Care Journeyman Welder Name Role Phone James Larson MD Primary Care Provider [phone] Reason for Visit * Reason Onset Date Comments Call Back Request 10/11/2023 Encounter Details Date Type Department Care Team ([facility] st Contact Info) Description 10/11/2023 Telephone [facility] CHC MED & PEDS [address] [place] [address] James Larson MD [address] [place] [address] Call Back Request Social History Tobacco Use [...] start it now. Please contact pt at [phone] documented in this encounter Plan of Treatment Upcoming Encounters Date Type Department Care Team (Late st Contact Info) Description 07/18/2025 10:30 AM EST Office Visit [facility] MED & PEDS [address] [place] [address] James Larson MD [address] [place] [address] documented as of this encounter Visit Diagnoses Not on filedocumented in this encounter Additional Health Concerns Assessment Noted Time PHQ-9 Depression Total Score: 0 01/22/20 23 3:02 PM EDT documented as of this encounter Care Teams Journeyman Welder Relationship Specialty Start Date End Date James Larson MD [address] [place] [address] PCP - General Internal Medicine 10/05/13 documented as of this encounter
--- OUTSIDE RECORDS SUMMARY | 2025-07-10 13:04 | XMS_ITS | Encounter Summary ---
Author Organization [employer] Address [address] [facility] 7 [place] [address] Care Team Providers Care Medical Affairs Manager Name Role Phone James Larson MD Primary Care Provider [phone] Reason for Visit * Reason Onset Date Comments triage 07/09/2025 Encounter Details Date Type Department Care Team ([facility] st Contact Info) Description 07/09/2025 Telephone [facility] MEDICINE [address] [place] [address] James Larson MD [address] [place] [address] triage Social History Tobacco Use Types Packs/Day Years [...] encounter Miscellaneous Notes * Telephone Encounter - Parisa Garcia RN - 07/09/2025 2:20 PM EST TC to pt to triage for itching. Pt states that she has been having vaginal symptoms over the last few days-week. Pt was cramping, took boric acid. Pt has now been experiencing itching, odor, and worsening discharge. Discharge is green/brownish in color and thicker than normal. Pt would like to be seen. Pt scheduled with Hawk on 07/10/25 at 10 am. Pt agrees to plan. Protocol Used: Vaginal Symptoms (Adult) Protocol-Based Disposition: See in Office or Video Visit within 3 Days Positive Triage Questions: * Vaginal itching and not improved > 3 days following Care Advice * Vaginal odor (bad smell) not improved > 3 days following Care Advice * Patient wants to be seen * Mild vaginal itching * Mild vaginal odor * All higher-acuity triage questions were negative Care Advice Discussed: * Reasons To Call Back - Vaginal discharge becomes yellow or green - Vaginal discharge becomes foul smelling or itchy - Fever or abdomen pain occur - You become worse * Telephone Encounter - Shellie Maravilla - 07/09/2025 2:01 PM EST Symptom: Itching - No Rash Outcome: Schedule an appointment to be seen within 24 hours Reason: Caller denied all higher acuity questions The caller accepted this outcome. documented in this encounter Plan of Treatment Upcoming Encounters Date Type Department Care Team (Late st Contact Info) Description 07/18/2025 10:30 AM EST Office Visit [facility] MED & PEDS [address] [place] [address] James Larson MD [address] [place] [address] documented as of this encounter Visit Diagnoses Not on filedocumented in this encounter Additional Health Concerns Assessment Noted Time PHQ-9 Depression Total Score: 10 025 3:10 PM EST documented as of this encounter Care Teams Medical Affairs Manager Relationship Specialty Start Date End Date James Larson MD [address] [place] [address] PCP - General Internal Medicine 10/05/13 documented as of this encounter
--- OUTSIDE RECORDS SUMMARY | 2025-07-10 13:04 | XMS_ITS | Encounter Summary ---
Author Organization [employer] Address [address] [facility] 7t [place] [address] Care Team Providers Care Depalletizer Operator Name Role Phone James Larson MD Primary Care Provider [phone] Encounter Details Date Type Department Care Team ([facility] st Contact Info) Description 12/11/2024 Orders Only [facility] CHC MED & PEDS [address] [place], [place] [phone] James Larson MD [address] [place] [address] Type 2 diabetes mellitus without complication, without [...] Description 07/18/2025 10:30 AM EST Office Visit [facility] MED & PEDS [address] [place], [place] [phone] James Larson MD [address] [place] [address] documented as of this encounter Procedures Procedure Name Priority Date/Time Associated Diagnosis Comments T-SPOT(R).TB Routine 12/11/2024 1:17 PM EDT Type 2 diabetes mellitus without complication, without long-term current use of insulin ([facility]) documented in this encounter Results * T-SPOT??.TB (12/11/2024 1:17 PM EDT) [facility] T Spot TB Negative Negative [facility] Comment:A negative test resu lt does [...] as aquantitative test. TS PANEL A 0 [facility] TS PANEL B 0 [facility] Negative Control Passed [facility] Positive Control Passed [facility] Comment:For additional infor mation, please refer [email or web address].Blizuu/faq/ZJO239(This link is being provided for informational/educational purposes only.)REPORT COMMENT:RECD IN CHANJAKEYTHIS TEST WAS PERFORMED AT:[employer] [id number] [place] [address]QKUXXITSILVER ARMANDO MD,PHD 12/11/2024 1:17 PM EDT 12/11/2024 1:56 PM EDT James Larson MD LAB BLOOD ORDERABLES Final Result [facility] [address] [place] [address] [phone] documented in this encounter Visit Diagnoses Diagnosis Type 2 diabetes mellitus without complication, without long-term current use of insulin (HCC)- Primary documented in this encounter Additional Health Concerns Assessment Noted Time PHQ-9 Depression Total Score: 10 10/25/2 025 3:10 PM EST documented as of this encounter Care Teams Depalletizer Operator Relationship Specialty Start Date End Date James Larson MD [address] [place] [address] PCP - General Internal Medicine 10/05/13 documented as of this encounter
--- OUTSIDE RECORDS SUMMARY | 2025-07-10 13:04 | XMS_ITS | Encounter Summary ---
Author Organization [employer] Address [address] [place] [address] 7 [place] [address] Care Team Providers Care Scarf Gluer Name Role Phone James Larson MD Primary Care Provider [phone] Encounter Details Date Type Department Care Team (Late st Contact Info) Description 03/29/2023 Telephone [facility] ADULT DENTAL [address] [place] [address] August Bridges DDS [address] [place] [address] Social History Tobacco Use Types Packs/Day Years [...] 10:30 AM EST Office Visit [facility] MED & PEDS [address] [place], [place] [phone] James Larson MD [address] [place], [place] [phone] documented as of this encounter Visit Diagnoses Not on filedocumented in this encounter Additional Health Concerns Assessment Noted Time PHQ-9 Depression Total Score: 0 01/22/20 23 3:02 PM EDT documented as of this encounter Care Teams Scarf Gluer Relationship Specialty Start Date End Date James Larson MD [address] [place] [address] PCP - General Internal Medicine 10/05/13 documented as of this encounter
--- OUTSIDE RECORDS SUMMARY | 2025-07-10 13:04 | XMS_ITS | Encounter Summary ---
Author Organization [employer] Address [address] [place] [address] Care Team Providers Care Wax Engraver Name Role Phone James Larson MD Primary Care Provider [phone] Reason for Visit * Reason Onset Date Comments No Show 07/06/2025 Encounter Details Date Type Department Care Team ([facility] Contact Info) Description 07/06/2025 Telephone [facility] CHC MED & PEDS [address] [place] [address] James Larson MD [address] [place] [address] No Show Social History Tobacco Use Types [...] Description 07/18/2025 10:30 AM EST Office Visit [facility] MED & PEDS [address] [place] [address] James Larson MD [address] [place] [address] documented as of this encounter Visit Diagnoses Not on filedocumented in this encounter Additional Health Concerns Assessment Noted Time PHQ-9 Depression Total Score: 10 025 3:10 PM EST documented as of this encounter Care Teams Wax Engraver Relationship Specialty Start Date End Date James Larson MD [address] [place] [address] PCP - General Internal Medicine 10/05/13 documented as of this encounter
--- OUTSIDE RECORDS SUMMARY | 2025-07-10 13:04 | XMS_ITS | Encounter Summary ---
Author Organization [employer] Address [address] [facility] 7 [place] [address] Care Team Providers Care Enterprise Integration Developer Name Role Phone James Larson MD Primary Care Provider [phone] Reason for Visit * Reason Onset Date Comments FYI 10/27/2024 Encounter Details Date Type Department Care Team ([facility] st Contact Info) Description 10/27/2024 Telephone [facility] MEDICINE [address] [place], [place] [phone] James Larson MD [address] [place] [address] FYI Social History Tobacco Use Types Packs/Day [...] 11/01/2024 3:10 PM EST TC placed to [facility] to inform that per PCP Dr. Larson there are no further details regarding pt diagnosis and clinical presentation relating to the MRI of the abdomen w/ and w/o contrast. The home security professional at [facility] spoke with one of the technicians who [...] MRA instead of MRI. Contact Charly at [phone] documented in this encounter Plan of Treatment Upcoming Encounters Date Type Department Care Team (Late st Contact Info) Description 07/18/2025 10:30 AM EST Office Visit [facility] MED & PEDS [address] [place] [address] James Larson MD [address] [place] [address] documented as of this encounter Visit Diagnoses Not on filedocumented in this encounter Additional Health Concerns Assessment Noted Time PHQ-9 Depression Total Score: 10 025 3:10 PM EST documented as of this encounter Care Teams Enterprise Integration Developer Relationship Specialty Start Date End Date James Larson MD [address] [place] [address] PCP - General Internal Medicine 10/05/13 documented as of this encounter
--- OUTSIDE RECORDS SUMMARY | 2025-07-10 13:04 | XMS_ITS | Encounter Summary ---
Author Organization [employer] Address [address] [facility] 7 [place] [address] Care Team Providers Care Funding Specialist Name Role Phone James Larson MD Primary Care Provider [phone] Reason for Visit * Reason Onset Date Comments Referral 11/17/2023 Encounter Details Date Type Department Care Team ([facility] st Contact Info) Description 11/17/2023 Telephone [facility] CHC MED & PEDS [address] [place] [address] James Larson MD [address] [place] [address] Referral Social History Tobacco Use Types Packs/Day [...] for 11/16/23 . Please contact pt @ [phone] documented in this encounter Plan of Treatment Upcoming Encounters Date Type Department Care Team (Late st Contact Info) Description 07/18/2025 10:30 AM EST Office Visit [facility] MED & PEDS [address] [place] [address] James Larson MD [address] [place] [address] documented as of this encounter Visit Diagnoses Not on filedocumented in this encounter Additional Health Concerns Assessment Noted Time PHQ-9 Depression Total Score: 0 01/22/20 23 3:02 PM EDT documented as of this encounter Care Teams Funding Specialist Relationship Specialty Start Date End Date James Larson MD [address] [place] [address] PCP - General Internal Medicine 10/05/13 documented as of this encounter
--- OUTSIDE RECORDS SUMMARY | 2025-07-10 13:04 | XMS_ITS | Encounter Summary ---
Author Organization [employer] Address [address] [place] [address] 7 [place] [address] Care Team Providers Care Slide Fasteners Inspector Name Role Phone James Larson MD Primary Care Provider [phone] Reason for Referral * Imaging (Routine) - Closed Specialty Diagnoses / Procedures Referred By Contnatalia hebert Referred To Contact Radiology Diagnoses Transaminitis Procedures US Abdomen Complete James Larson MD [address] [place] [address] Phone: tel: fax: [address] Phone: tel: fax: Referral ID Status Reason Start Date Expiration Date Visits Re quested Visits Authorized [id number] Closed 06/23/2024 06/23/2025 1 1 Encounter Details Date Type Department Care Team (Late st Contact Info) Description 06/23/2024 Orders Only [facility] CHC MED & PEDS [address] [place] [address] James Larson MD [address] [place] [address] Transaminitis (Primary Dx) Social History Tobacco Use [...] Upcoming Encounters Date Type Department Care Team ([facility] st Contact Info) Description 07/18/2025 10:30 AM EST Office Visit [facility] MED & PEDS [address] [place] [address] James Larson MD [address] [place], [place] [phone] documented as of this encounter Procedures Procedure Name Priority Date/Time Associated Diagnosis Comments US ABDOMEN COMPLETE Routine 10/12/2024 4 :59 AM EST Transaminitis documented in this encounter Results * US Abdomen Complete (10/12/2024 4:59 AM EST) Anatomical Region Laterality Modality Abdomen Ultrasound 10/12/2024 4:59 AM EST Narrative 10/12/2024 5:01 AM EST [facility] Primary Care [address] [place] [address] [place] [address] Ultrasound Report Signed Patient: Brenda Apple MR#: [id number] 07 : 1985 Acct:[id number] Age/Sex: 39 / F ADM Date: 10/11/24 Loc: HO.HMGCX Attending Dr: James Larson MD Ordering Physician: James Larson MD Date of Service: 10/11/24 Procedure(s): US abdomen complete Accession Number(s): [id number] cc: James Larson MD CLINICAL HISTORY: transaminitis [...] OV> 10/12/24 0500 DD/ 8 TD/TT: 10/12/24458 [employer] Farm Worker: Procedure Note Donotuseinterpreter, Image - 10/12/2024 [facility] [place] [address] Ultrasound Report Signed Patient: Connie Apple#: [id number] [birth year] : 1985Acct:[id number] Age/Sex: 39 / FADM Date: 10/11/24 Loc: HO.HMGCX Attending Dr: James Larson MD Ordering Physician: James Larson MD Date of Service: 10/11/24 Procedure(s): US abdomen complete Accession Number(s): [id number] cc: James Larson MD CLINICAL HISTORY: transaminitis [...] 10/12/24 0500 DD/ 0459 TD/TT: 10/12/24 045 [employer] Worker: us James Larson MD IMG US PROCEDURES Final Res ult documented in this encounter Visit Diagnoses Diagnosis Transaminitis- Primary Nonspecific elevation of levels of transaminase or lactic acid dehydrogenase (LDH) documented in this encounter Additional Health Concerns Assessment Noted Time PHQ-9 Depression Total Score: 0 01/22/20 23 3:02 PM EDT documented as of this encounter Care Teams Slide Fasteners Inspector Relationship Specialty Start Date End Date James Larson MD [address] [place] [address] PCP - General Internal Medicine 10/05/13 documented as of this encounter
--- OUTSIDE RECORDS SUMMARY | 2025-07-10 13:04 | XMS_ITS | Clinical Summary ---
Author Organization [employer] Address [address] [place] [address] Care Team Providers Care Chancery Clerk Name Role Phone James Larson MD Primary Care Provider [phone] Allergies No known active allergies Medications glucose-vitamin C 4-6 GM-MG oral gel 1 tablet to use in case of symptoms of hypoglycemia or if FS<70 mg/dl 05/02/20 21 Active Alcohol Swabs (Alcohol Prep) pads Active Misc. Devices (Wrist Brace) misc Active Continuous Glucose Volcanology Professor (FreeStyle Jorje 2 [place]) deviceIndication s:Type 2 diabetes mellitus without complication, without long-term current use of insulin ([facility]) Scan sensor every 8 hours 1 each 06/16/20 24 Active Continuous Glucose Sensor (FreeStyle Jorje 2 Sensor) miscIndications: Type 2 diabetes mellitus without complication, without long-term current use of insulin ([facility]) Apply 1 sensor every 14 days 2 each 06/16/20 24 Active Blood Glucose Monitoring Suppl (FreeStyle Lite) w/Device kitIndications:T ype 2 diabetes mellitus without complication, without long-term current use of insulin ([facility]) 1 Units Once per day. 1 kit 06/16/20 24 Active Lancets miscIndications: Type 2 diabetes mellitus without complication, without long-term current use of insulin ([facility]) Use to test blood sugar 2 times [...] complication, without long-term current use of insulin ([facility]),Obesity, Class I, BMI 30.0-34.9 (see actual BMI) [...] mild pain. 15 tablet 05/21/20 25 Active terconazole (Terazol 7) 0.4 % vaginal cream Insert 1 applicator into the vagina at bedtime for 7 days. 45 g 07/10/20 25 025 Active glucose blood (FreeStyle Precision Laurent Test) test stripIndications :Type 2 diabetes mellitus without complication, without long-term current use of insulin ([facility]) Use to test blood sugar 2 times [...] Encounters Date Type Department Care Team Description 07/10/2025 10:00 AM EST Office Visit [facility] [address] [place] [address] Tresa Arechiga CNM Vaginal discharge (Primary Dx); Screening examination for venereal disease 07/10/2025 Travel 07/09/2025 Telephone [facility] [address] [place] [address] Malinda Marquis MA 07/09/[address] [address] James Larson MD triage 07/06/2025 Telephone [facility] [address] [place] [address] James Larson MD No Show 07/05/2025 Telephone [facility] [address] [place] [address] James Larson MD Chart Prep 07/03/2025 Results Follow-Up [facility] [address] [place] [address] James Larson MD XR KUB and Upright 2 Views 07/03/2025 Results Follow-Up [facility] [address] [place] [phone] James Larson MD XR Hand 3+ Views Right 07/03/2025 Orders Only [facility] [address] [place] [address] James Larson MD Closed nondisplaced fracture of distal phalanx of right ring finger, initial encounter (Primary Dx); Hepatic steatosis 07/03/2025 Telephone [facility] [address] [place] [address] James Larson MD Referral 06/29/2025 Patient Outreach [address] [address] James Larson MD Pre-visit Planning (Pre visit planning LVM ) 06/21/2025 Telephone [facility] [address] [place] [address] James Larson MD 06/21/2025 Telephone [facility] [address] [place] [address] James Larson MD Chart Prep 06/14/2025 Patient Outreach [address] [address] James Larson MD Pre-visit Planning (SDOH screening completed on 10/25/24) 05/29/2025 Telephone [facility] [address] [place] [address] James Larson MD No Show 05/21/2025 9:40 AM EDT Office Visit [facility] [address] [address] Lloyd Echevarria MD Acute otitis externa of left ear, unspecified type (Primary Dx); Non-recurrent acute serous otitis media of left ear 05/21/2025 Travel 05/10/2025 Telephone [facility] [address] [place] [address] James Larson MD No Show 05/09/2025 Telephone [facility] [address] [place] [address] James Larson MD Chart Prep 04/23/2025 5:40 PM EDT Office Visit [facility] [address] [address] James Larson MD Other constipation (Primary Dx); Generalized abdominal pain; Bromidrosis 04/23/2025 Travel 04/23/2025 Telephone [facility] [address] [place] [address] James Larson MD Nurse Triage 04/20/2025 Telephone [facility] [address] [place] [address] James Larson MD No Show 04/16/2025 6:00 PM EDT Office [facility] [address] [address] James Larson MD Functional diarrhea (Primary Dx); Nausea; COVID-19; Vitamin D deficiency; Other fatigue; Type 2 diabetes mellitus without complication, without long-term current use of insulin ([facility]); Obesity, Class I, BMI 30.0-34.9 (see actual BMI) 04/16/2025 Travel 04/09/2025 3:20 PM EDT Office Visit [facility] [address] [place] [address] James Larson MD COVID-19 (Primary Dx); Cough in adult patient 04/09/2025 Travel 04/09/2025 Telephone [facility] [address] [place] [address] James Larson MD Nurse Triage from Last [...] (192 lb) 07/10/2025 10:20 AM EST Height 165.1 cm (5' 5 ) 04/16/2025 5:49 PM EDT Body Mass Index 31.95 04/16/2025 5:49 PM EDT Plan of Treatment Upcoming Encounters Date Type Department Care Team (Late st Contact Info) Description 07/18/2025 10:30 AM EST Office Visit [facility] [address] [place] [address] James Larson MD [address] [place] [address] Health Maintenance Due Date Last Done Comments [...] - Td or Tdap) 12/21/2024 12/21/2014, 05/15/2004 COVID-19 Vaccine ( season) 2025 Influenza Vaccine (#1) 2025 , 06/14/2019, 06/28/2018, Additional history exists Diabetes: Hemoglobin A1C 06/21/2025 025, 02/09/2025, 10/25/2024, Additional history exists Alcohol/Substance Use Screening 10/25/2025 10/25/2024 SDOH Screening 10/25/2025 10/25/2024 Family Planning (PISQ) 11/16/2025 11/16/2024 Depression Monitoring 01/07/2026 07/10/2025, 025 Disability Screening 03/21/2026 03/21/2025 Lipid Panel 03/21/2026 03/21/2025 Tobacco Screening 07/10/2026 07/10/2025 Cervical Cancer Screening 08/11/2027 HPV/Cotest 08/11/2027 08/11/2022, [...] 07/10/2025 10 :41 AM EST Vaginal discharge XR HAND 3+ VIEWS RIGHT Routine 07/03/2025 [...] structure / Unknown 07/10/2025 10:41 AM EST Tresa CHOUDHURY POINT OF CARE TEST ENTER/ EDIT ORDERABLES Final Result * XR Hand 3+ Views Right (07/03/2025 1:46 PM EDT) Anatomical Region Laterality Modality Upper Extremities, Hand Right Radiogra phic Imaging 07/03/2025 1:46 PM EDT Narrative 07/03/2025 1:55 PM EDT [address] [address] XRay Report Signed Patient: Brenda Apple MR#: [id number] [birth year] : 1985 Acct:[id number] Age/Sex: 40 / F ADM Date: 07/03/25 Loc: GIRISH Attending Dr: James Larson MD Ordering Physician: Silvia Norman MD Date of Service: 07/03/25 Procedure(s): XR hand RT min 3V Accession Number(s): [id number] cc: Silvia Norman MD; James Larson MD [...] 07/03/25 1352 DD/ 1346 TD/TT: 07/03/25 1348 Conduit Installer: Procedure Note Donotuseinterpreter, Image - 07/03/2025 [place] [address] XRay Report Signed Patient: Connie Apple#: [id number] [birth year] : 1985Acct:[id number] Age/Sex: 40 / FADM Date: 07/03/25 Loc: HO.XRAY Attending Dr: James Larson MD Ordering Physician: Silvia Norman MD Date of Service: 07/03/25 Procedure(s): XR hand RT min 3V Accession Number(s): [id number] cc: Silvia Norman MD; James Larson MD [...] 07/03/25 1352 DD/ 1346 TD/TT: 07/03/25 1348 Conduit Installer: us Silvia Alejandro MD IMG XR PROCEDURES Fin al Result * XR KUB and Upright 2 Views (07/03/2025 1:40 PM EDT) Anatomical Region Laterality Modality Radiographic Princess ging 07/03/2025 1:40 PM EDT Narrative 07/03/2025 1:55 PM EDT [place] [address] XRay Report Signed Patient: Brenda Apple MR#: [id number] [birth year] : 1985 Acct:[id number] Age/Sex: 40 / F ADM Date: 07/03/25 Loc: HO.CALIN Attending Dr: James Larson MD Ordering Physician: James Larson MD Date of Service: 07/03/25 Procedure(s): XR KUB Accession Number(s): [id number] cc: James Larson MD Reason for Exam: [...] 07/03/25 1352 DD/ 1340 TD/TT: 07/03/25 1348 Conduit Installer: Procedure Note Donotuseinterpreter, Image - 07/03/2025 [place] [address] XRay Report Signed Patient: Connie Apple#: [id number] [birth year] : 1985Acct:[id number] Age/Sex: 40 / FADM Date: 07/03/25 Loc: HO.XRAY Attending Dr: James Larson MD Ordering Physician: James Larson MD Date of Service: 07/03/25 Procedure(s): XR KUB Accession Number(s): [id number] cc: James Larson MD Reason for Exam: [...] Signed By: <Electronically signed by Tu Su MDin OV> 07/03/25 1352 DD/ 1340 TD/TT: 07/03/25 1348 Conduit Installer: us James Larson MD IMG XR PROCEDURES Final Res ult * Influenza B (ID NOW Rapid Molecular) (04/09/2025 3:34 PM EDT) Influenza B Negative Negative, Indeterminate [facility] Swab 04/09/2025 3:34 PM EDT us James Larson MD POINT OF CARE TEST ENTER/ED IT ORDERABLES Final Result Performing Organization Address [facility]/ZIP Co de Phone Number [facility] [address] [place] [phone] * Influenza A (ID NOW Rapid Molecular) (04/09/2025 3:33 PM EDT) [facility] Influenza A Negative Negative, Indeterminate [facility] Swab 04/09/2025 3:33 PM EDT us James Larson MD POINT OF CARE TEST ENTER/ED IT ORDERABLES Final Result Performing Organization Address [facility] Co de Phone Number [facility] [address] [place] [phone] * (ABNORMAL) POCT Rapid COVID Ag (04/09/2025 3:22 PM EDT) Pathologist [facility] Rapid COVID Ag Positive Swab 04/09/2025 3:22 PM EDT us James Larson MD POINT OF CARE TEST ENTER/ED IT ORDERABLES Edited Result - Final * POCT glucose manually resulted (04/09/2025 3:21 PM EDT) Pathologist [facility] Glucose Blood, POC 143 60 - 200 mg/dL Blood Capillary blood specimen / Unknown 04/09/2025 3:21 PM EDT us James Larson MD POINT OF CARE TEST ENTER/ED IT ORDERABLES Final Result * Hepatitis C Ab (03/21/2025 2:03 PM EDT) [facility] Hepatitis C Antibody Nonreactive Nonreactive [facility] Comment:Antibodies to HCV no t detected; does not exclude early acuteHCV infection. 03/21/2025 2:03 PM EDT 03/21/2025 4:07 PM EDT us Generic External Data Provider LAB BLOOD ORDERAB LES Final Result [facility] [address] [place] [phone] * HIV-1/2 Antigen and Antibodies, Fourth Generation, with Reflexes (03/21/2025 2:03 PM EDT) [facility] HIV AB/AG Nonreactive Nonreactive [facility] Comment:HIV-1 p24 Ag and/or HIV-1/HIV-2 Ab not detected.A test result that is nonreactive does not exclude thepossibility of exposure to or infection with HIV-1 and/orHIV-2. Nonreactive results in this assay for individualswith prior exposure to HIV-1 and/or HIV-2 may be due toantigen and antibody levels that are below the limit ofdetection of this assay.The [employer] HIV Ag/Ab Combo assay result andsupplemental assay results should be interpreted inconjunction with the patient's clinical presentation,history and other laboratory results. If the results areinconsistent with clinical evidence, additional testing issuggested to confirm the result. 03/21/2025 2:03 PM EDT 03/21/2025 4:07 PM EDT Generic External Data Provider LAB BLOOD ORDERAB LES Final Result Performing Organization Address [facility] Co de Phone Number [facility] [address] [place] [phone] * (ABNORMAL) Hemoglobin A1c (03/21/2025 2:03 PM EDT) Hemoglobin A1c 8.1(H) <6.0 % [facility] Comment:Hemoglobin A1C Refer ence Range Adults: 4.8 - 6.0 % Non diabetic: < 6.0 % Goal: < 7.0 %Additional Action Suggested: > 8.0 %Note: Hemoglobin A1c results are invalid for patients with abnormal amounts of HbF. Blood transfusions may impact the HbA1c concentration in the patient sample. Estimated Average Glucose 186 mg/dL [facility] Comment:eAG = Estimated ave rage glucose which is %A1C expressed asaverage glucose, using the formula of the W3J-VztmeptBtfwydj Glucose study (ADAG), Diabetes Care, Vol.31,#8,Apr. 2007 03/21/2025 2:03 PM EDT 03/21/2025 3:59 PM EDT Generic External Data Provider LAB BLOOD ORDERAB LES Final Result Performing Organization Address [facility] de Phone Number [facility] [address] [place] [phone] * (ABNORMAL) Lipid Panel, Standard (03/21/2025 2:03 PM EDT) Triglycerides 228(H) <150 mg/dL [facility] Comment:Desirable Triglyceri de: less than 150 mg/dLBorderline High Triglyceride 150-199 mg/dLHigh Triglyceride: 200-499 mg/dLVery High Triglyceride: greater than or equal to 5OO mg/dL Cholesterol 226(H) <200 mg/dL [facility] Comment:Desirable Cholestero l: less than 200 mg/dLBorderline High Cholesterol: 200-239 mg/dLHigh Cholesterol: greater than 239 mg/dL LDL Cholesterol Calculated 144(H) <100 mg/dL [facility] Comment:Desirable LDL: less than 100 mg/dLNear Optimal/Above Optimal LDL: 110- 129 mg/dLBorderline High LDL: 130-159 mg/dLHigh LDL: 160-189 mg/dLVery High LDL: greater than or equal to 190 mg/dL HDL Cholesterol 37(L) >40 mg/dL [facility] Comment:Desirable HDL: great er than 40 mg/dL Note: This HDL assay may give artificially low results in patients with liver disease. 03/21/2025 2:03 PM EDT 03/21/2025 4:07 PM EDT us Generic External Data Provider LAB BLOOD ORDERAB LES Final Result [facility] [address] [place] [phone] * Thinprep TIS PAP And HPV mRNA E6/E7, CT/NG, TRICH (08/11/2022 5:19 PM EST) Clinical Information: None given [employer] LMP: NONE GIVEN [employer] Prev. PAP: NONE GIVEN [employer] Prev. BX: NONE GIVEN [employer] SOURCE: None given [employer] Statement Of Adequacy: [employer] Comment: Satisfactory for evaluation. Endocervical/transformation zone component present. Age and/or menstrual status not provided Interpretation/Re sult: Negative for intraepithelial lesion or malignancy. [employer] COMMENT: This Pap test has been evaluated with computer assisted technology. [employer] Remediation Consultant: Bart Yuantiku Comment: MSM, CT(ASCP) CT screening location: [address] [address] (Always Message) [facility] [employer] Comment: EXPLANATORY NOTE: The Pap is a [...] HPV nRNA E6/E7 Not Detected Not Detected [employer] Comment: Methodology: Puppet Developer-Mediated Amplification This assay detects E6/E7 viral messenger RNA (mRNA) from 14 high-risk HPV types (16,18,31,33,35,39,45,51,52,56,58,59,66,68). Cervical sources are required for HPV testing. If a vaginal source from a patient who has had a total hysterectomy with removal of cervix was submitted, please contact the testing laboratory for alternative testing options. For additional information, please refer to http://Xapo/faq/POZ351x1 (This link if provided for information/ educational purposes only.) Chlamydia trachomatis RNA, TMA, Urogenital NOT DETECTED NOT DETECTED [facility] Neisseria gonorrhoeae RNA, TMA, Urogenital NOT DETECTED NOT DETECTED [facility] Comment [employer] Comment: The analytical performance characteristics of this assay, when used to test SurePath(TM) specimens have been determined by [facility]. The modifications have not been cleared or approved by the FDA. This assay has been validated pursuant to the CLIA regulations and is used for clinical purposes. For additional information, please refer to https://Xapo/faq/QSV571 (This link is being provided for information/ educational purposes only.) Trichomonas vaginalis, QL, TMA, PAP Vial NOT DETECTED NOT DETECTED [employer] Comment: The analytical performance characteristics of this assay have been determined by [facility]. The modifications have not been cleared or approved by the FDA. This assay has been validated pursuant to the CLIA regulations and is used for clinical purposes. For additional information, please refer to http://Cook Angels.Keen Impressions/ faq/Trichomonastma (This link is being provided for information/ educational purposes only.) 08/11/2022 5:19 PM EST 08/12/2022 8:03 AM EST Narrative [facility] - 08/14/2022 9:39 AM EST FASTING: UNKNOWN Treas CHOUDHURY LAB PATHOLOGY ORDERABLES Final Result Performing Organization Address City/[facility]/ZIP Co de Phone Number [facility] [address], [place] [address] [facility] [address], [place] [address] [facility] [address], [place] [address] * (ABNORMAL) ALBUMIN, RANDOM URINE W/CREATININE (08/07/2020 [...] Final Result [facility] [address] from Last 3 Months or Most Recently Relevant to Health Maintenance Insurance [facility] ONE CARE < 65 DENTAL - [facility] Care Teams Chancery Clerk Relationship Specialty Start Date End Date James Larson MD [address] [place] [address] [place] [address] PCP - General Internal Medicine 10/05/13
--- OUTSIDE RECORDS SUMMARY | 2025-07-10 13:04 | XMS_ITS | Encounter Summary ---
Author Organization [employer] Address [address] [facility] [facility] [address] [place] [address] Care Team Providers Care Cosmetic Maker Name Role Phone James Larson MD Primary Care Provider [phone] Encounter Details Date Type Department Care Team ([facility] st Contact Info) Description 10/31/2024 Telephone [facility] [address] [place], [place] [phone] James Larson MD [address] [place] [address] Social History Tobacco Use Types Packs/Day Years [...] - 10/31/2024 11:53 AM EST Tc from [facility] with [facility] calling to inform they received referral but are needing more DX can't only be abdominal pain. Best contact # [phone]. documented in this encounter Plan of Treatment Upcoming Encounters Date Type Department Care Team ([facility] st Contact Info) Description 07/18/2025 10:30 AM EST Office Visit [facility] [address] [place] [address] James Larson MD [address] [place] [address] documented as of this encounter Visit Diagnoses Not on filedocumented in this encounter Additional Health Concerns Assessment Noted Time PHQ-9 Depression Total Score: 10 025 3:10 PM EST documented as of this encounter Care Teams Cosmetic Maker Relationship Specialty Start Date End Date James Larson MD [address] [place] [address] PCP - General Internal Medicine 10/05/13 documented as of this encounter
[2025-07-10 23:16] LABS: Bacterial Vaginosis PCR NEGATIVE (Negative); Candida Group PCR NOT DETECTED (Not Detect); Candida glab krusei PCR NOT DETECTED (Not Detect); Trichomonas vaginalis PCR NOT DETECTED (Not Detect)
[2025-07-11 00:16] LABS: CT PCR NOT DETECTED (Not Detect.); NG PCR NOT DETECTED (Not Detect.)
[2025-07-11 10:26] LABS: HIV Num 1 0.06 S/CO (0.00-0.99); ~HepC Num1 0.08 S/CO (0.00-0.79); ~Hepatitis C Antibody Nonreactive (Nonreactive)
[2025-07-11 10:44] LABS: Syphilis Screen Nonreactive (Nonreactive)
== END 2025-07-10 10:48 | disposition home or self-care (01) ==
LOC: HO.HHCL 10:47
PROVIDERS: PCP Internal Medicine; Referring Provider Surgery; Visit Provider Advanced Practice Midwife
DX: N89.8 Other specified noninflammatory disorders of vagina (principal); Z20.2 Contact with and (suspected) exposure to infections with a predominantly sexual mode of transmission; Z11.4 Encounter for screening for human immunodeficiency virus [HIV]; Z11.59 Encounter for screening for other viral diseases
CPT/HCPCS: 36415; 81515; 86780; 86803; 87389; 87491; 87591

== ENCOUNTER 2025-07-17 07:25 | Outpatient (REF) | payer OTHER, SELFPAY ==
--- OUTSIDE RECORDS SUMMARY | 2025-07-17 07:27 | XMS_ITS | Encounter Summary ---
Author Organization [employer] Address [address] [facility] 7 [place] [address] Care Team Providers Care [facility] Pricing Consultant Name Role Phone James Larson MD Primary Care Provider [phone] Reason for Visit * Reason Onset Date Comments Referral 11/17/2023 Encounter Details Date Type Department Care Team ([facility] st Contact Info) Description 11/17/2023 Telephone [facility] [address] [place] [address] James Larson MD [address] [place] [address] Referral Social History Tobacco Use Types Packs/Day [...] for 11/16/23 . Please contact pt @ [phone] documented in this encounter Plan of Treatment Upcoming Encounters Date Type Department Care Team (Late st Contact Info) Description 07/18/2025 10:30 AM EST Office Visit [facility] [address] [place] [address] James Larson MD [address] [place] [address] documented as of this encounter Visit Diagnoses Not on filedocumented in this encounter Additional Health Concerns Assessment Noted Time PHQ-9 Depression Total Score: 0 01/22/20 23 3:02 PM EDT documented as of this encounter Care Teams [facility] Pricing Consultant Relationship Specialty Start Date End Date James Larson MD [address] [place] [address] PCP - General Internal Medicine 10/05/13 documented as of this encounter
--- OUTSIDE RECORDS SUMMARY | 2025-07-17 07:27 | XMS_ITS | Encounter Summary ---
Author Organization [employer] Address 75 [facility] 7 [place] [address] Care Team Providers Care Wrap Turner Name Role Phone James Larson MD Primary Care Provider [phone] Reason for Visit * Reason Onset Date Comments Call Back Request 10/11/2023 Encounter Details Date Type Department Care Team ([facility] st Contact Info) Description 10/11/2023 Telephone [facility] [address] [place] [address] James Larson MD [address] [place] [address] Call Back Request Social History Tobacco Use [...] start it now. Please contact pt at [phone] documented in this encounter Plan of Treatment Upcoming Encounters Date Type Department Care Team (Late st Contact Info) Description 07/18/2025 10:30 AM EST Office Visit [facility] [address] [place] [address] James Larson MD [address] [place] [address] documented as of this encounter Visit Diagnoses Not on filedocumented in this encounter Additional Health Concerns Assessment Noted Time PHQ-9 Depression Total Score: 0 01/22/20 23 3:02 PM EDT documented as of this encounter Care Teams Wrap Turner Relationship Specialty Start Date End Date James Larson MD [address] [place] [address] PCP - General Internal Medicine 10/05/13 documented as of this encounter
--- OUTSIDE RECORDS SUMMARY | 2025-07-17 07:27 | XMS_ITS | Encounter Summary ---
Author Organization [employer] Address [address] [place] [address] 7 [place] [address] Care Team Providers Care Learning Administrator Name Role Phone James Larson MD Primary Care Provider [phone] Reason for Referral * Imaging (Routine) - Closed Specialty Diagnoses / Procedures Referred By Contnatalia hebert Referred To Contact Radiology Diagnoses Transaminitis Procedures US Abdomen Complete James Larson MD [address] [place] [address] Phone: tel: fax: [address] Phone: tel: fax: Referral ID Status Reason Start Date Expiration Date Visits Re quested Visits Authorized [id number] Closed 06/23/2024 06/23/2025 1 1 Encounter Details Date Type Department Care Team (Late st Contact Info) Description 06/23/2024 Orders Only [facility] MED & PEDS [address] [place] [address] James Larson MD [address] [place] [address] Transaminitis (Primary Dx) Social History Tobacco Use [...] Upcoming Encounters Date Type Department Care Team ([facility] st Contact Info) Description 07/18/2025 10:30 AM EST Office Visit [facility] MED & PEDS [address] [place] [address] James Larson MD [address] [place], [place] [phone] documented as of this encounter Procedures Procedure Name Priority Date/Time Associated Diagnosis Comments US ABDOMEN COMPLETE Routine 10/12/2024 4 :59 AM EST Transaminitis documented in this encounter Results * US Abdomen Complete (10/12/2024 4:59 AM EST) Anatomical Region Laterality Modality Abdomen Ultrasound 10/12/2024 4:59 AM EST Narrative 10/12/2024 5:01 AM EST [facility] [address] [place] [address] [place] [address] Ultrasound Report Signed Patient: Brenda Apple MR#: [id number] [birth year] : 1985 Acct:[id number] Age/Sex: 39 / F ADM Date: 10/11/24 Loc: HO.HMGCX Attending Dr: James Larson MD Ordering Physician: James Larson MD Date of Service: 10/11/24 Procedure(s): US abdomen complete Accession Number(s): [id number] cc: James Larson MD CLINICAL HISTORY: transaminitis [...] OV> 10/12/24 0500 DD/ 8 TD/TT: 10/12/24458 Architectural Manager: Procedure Note Donotuseinterpreter, Image - 10/12/2024 [facility] Adult Primary Care [facility] [place] [address] Ultrasound Report Signed Patient: Connie Apple#: [id number] [birth year] : 1985Acct:[id number] Age/Sex: 39 / FADM Date: 10/11/24 Loc: HO.HMGCX Attending Dr: James Larson MD Ordering Physician: James Larson MD Date of Service: 10/11/24 Procedure(s): US abdomen complete Accession Number(s): [id number] cc: James Larson MD CLINICAL HISTORY: transaminitis [...] 10/12/24 0500 DD/ 0459 TD/TT: 10/12/24 045 Architectural Manager: us Jmaes Larson MD IMG US PROCEDURES Final Res ult documented in this encounter Visit Diagnoses Diagnosis Transaminitis- Primary Nonspecific elevation of levels of transaminase or lactic acid dehydrogenase (LDH) documented in this encounter Additional Health Concerns Assessment Noted Time PHQ-9 Depression Total Score: 0 01/22/20 23 3:02 PM EDT documented as of this encounter Care Teams Learning Administrator Relationship Specialty Start Date End Date James Larson MD [address] [place] [address] PCP - General Internal Medicine 10/05/13 documented as of this encounter
--- OUTSIDE RECORDS SUMMARY | 2025-07-17 07:27 | XMS_ITS | Encounter Summary ---
Author Organization [employer] Address [address] [facility] 7t [place] [address] Care Team Providers Care Veterinarian Helper Name Role Phone James Larson MD Primary Care Provider [phone] Encounter Details Date Type Department Care Team (Late st Contact Info) Description 10/30/2024 Orders Only [facility] MEDICINE [address] [place] [address] James Larson MD [address] [place], [place] [phone] Right sided abdominal pain (Primary Dx) Social [...] Description 07/18/2025 10:30 AM EST Office Visit [facility] CHC MED & PEDS [address] [place] [address] James Larson MD [address] [place] [address] documented as of this encounter Visit Diagnoses Diagnosis Right sided abdominal pain- Primary Abdominal pain, unspecified site documented in this encounter Additional Health Concerns Assessment Noted Time PHQ-9 Depression Total Score: 10 10/25/2 025 3:10 PM EST documented as of this encounter Care Teams Veterinarian Helper Relationship Specialty Start Date End Date James Larson MD [address] [place] [address] PCP - General Internal Medicine 10/05/13 documented as of this encounter
--- OUTSIDE RECORDS SUMMARY | 2025-07-17 07:27 | XMS_ITS | Encounter Summary ---
Author Organization [employer] Address [address] [facility] [address] 7t [place] [address] Care Team Providers Care Professor Of Education Name Role Phone James Larson MD Primary Care Provider [phone] Encounter Details Date Type Department Care Team ([facility] st Contact Info) Description 10/31/2024 Telephone [facility] CHC MED & PEDS [address] [place], [place] [phone] James Larson MD [address] [place] [address] Social History Tobacco Use Types Packs/Day Years [...] - 10/31/2024 11:53 AM EST Tc from [facility] with [facility] calling to inform they received referral but are needing more DX can't only be abdominal pain. Best contact # [phone]. documented in this encounter Plan of Treatment Upcoming Encounters Date Type Department Care Team ([facility] st Contact Info) Description 07/18/2025 10:30 AM EST Office Visit [facility] MED & PEDS [address] [place] [address] James Larson MD [address] [place] [address] documented as of this encounter Visit Diagnoses Not on filedocumented in this encounter Additional Health Concerns Assessment Noted Time PHQ-9 Depression Total Score: 10 025 3:10 PM EST documented as of this encounter Care Teams Professor Of Education Relationship Specialty Start Date End Date James Larson MD [address] [place] [address] PCP - General Internal Medicine 10/05/13 documented as of this encounter
--- OUTSIDE RECORDS SUMMARY | 2025-07-17 07:27 | XMS_ITS | Encounter Summary ---
Author Organization [employer] Address [address] [facility] 7t [place] [address] Care Team Providers Care Security Infrastructure Engineer Name Role Phone James Larson MD Primary Care Provider [phone] Encounter Details Date Type Department Care Team ([facility] st Contact Info) Description 12/11/2024 Orders Only [facility] CHC MED & PEDS [address] [place], [place] [phone] James Larson MD [address] [place] [address] Type 2 diabetes mellitus without complication, without [...] Office Visit [facility] CHC MED & PEDS [address] [place], [place] [phone] James Larson MD [address] [place] [address] documented as of this encounter Procedures Procedure Name Priority Date/Time Associated Diagnosis Comments T-SPOT(R).TB Routine 12/11/2024 1:17 PM EDT Type 2 diabetes mellitus without complication, without long-term current use of insulin ([facility]) documented in this encounter Results * T-SPOT??.TB (12/11/2024 1:17 PM EDT) [facility] T Spot TB Negative Negative [facility] Comment:A negative test resu lt does [...] as aquantitative test. TS PANEL A 0 [facility] TS PANEL B 0 [facility] Negative Control Passed [facility] Positive Control Passed [facility] Comment:For additional infor mation, please refer [email or web address]/faq/[email or web address](This link is being provided for informational/educational purposes only.)REPORT COMMENT:RECD IN CHANJAKEYTHIS TEST WAS PERFORMED AT:[employer] [id number] [place] [address]BRXECNWSILVER ARMANDO MD,PHD 12/11/2024 1:17 PM EDT 12/11/2024 1:56 PM EDT James Larson MD LAB BLOOD ORDERABLES Final Result [facility] [address] [place] [address] [phone] documented in this encounter Visit Diagnoses Diagnosis Type 2 diabetes mellitus without complication, without long-term current use of insulin (HCC)- Primary documented in this encounter Additional Health Concerns Assessment Noted Time PHQ-9 Depression Total Score: 10 10/25/2 025 3:10 PM EST documented as of this encounter Care Teams Security Infrastructure Engineer Relationship Specialty Start Date End Date James Larson MD [address] [place] [address] PCP - General Internal Medicine 10/05/13 documented as of this encounter
--- OUTSIDE RECORDS SUMMARY | 2025-07-17 07:27 | XMS_ITS | Encounter Summary ---
Author Organization [employer] Address [address] [facility] 7 [place] [address] Care Team Providers Care Prosthetic Technician Name Role Phone James Larson MD Primary Care Provider [phone] Reason for Visit * Reason Onset Date Comments FYI 10/27/2024 Encounter Details Date Type Department Care Team ([facility] st Contact Info) Description 10/27/2024 Telephone [facility] MEDICINE [address] [place], [place] [phone] James Larson MD [address] [place] [address] FYI Social History Tobacco Use Types Packs/Day [...] 11/01/2024 3:10 PM EST TC placed to [facility] to inform that per PCP Dr. Larson there are no further details regarding pt diagnosis and clinical presentation relating to the MRI of the abdomen w/ and w/o contrast. The bookkeeper receptionist at [facility] spoke with one of the [...] MRA instead of MRI. Contact Charly at [phone] documented in this encounter Plan of Treatment Upcoming Encounters Date Type Department Care Team (Late st Contact Info) Description 07/18/2025 10:30 AM EST Office Visit [facility] MED & PEDS [address] [place] [address] James Larson MD [address] [place] [address] documented as of this encounter Visit Diagnoses Not on filedocumented in this encounter Additional Health Concerns Assessment Noted Time PHQ-9 Depression Total Score: 10 025 3:10 PM EST documented as of this encounter Care Teams Prosthetic Technician Relationship Specialty Start Date End Date James Larson MD [address] [place] [address] PCP - General Internal Medicine 10/05/13 documented as of this encounter
--- OUTSIDE RECORDS SUMMARY | 2025-07-17 07:27 | XMS_ITS | Encounter Summary ---
Author Organization [employer] Address [address] [place] [address] 7 [place] [address] Care Team Providers Care Black Off Worker Name Role Phone James Larson MD Primary Care Provider [phone] Reason for Referral * Imaging (Routine) - Authorized Specialty Diagnoses / Procedures Referred By Rudolph t Referred To Contact Radiology Diagnoses Hepatic steatosis Procedures US Abdomen Complete James Larson MD [address] [place] [address] Phone: tel: fax: [address] Phone: tel: fax: Referral ID Status Reason Start Date Expiration Date V isits Requested Visits Authorized [id number] Authorized 07/03/2025 07/03/2026 1 1 * Consultation (Routine) - Authorized Specialty Diagnoses / Procedures Referred By Contac t Referred To Contact Orthopaedic Surgery Diagnoses Closed nondisplaced fracture of distal phalanx of right ring finger, initial encounter James Larson MD [address] [place] [address] Phone: tel: fax: [facility] Orthopedics [address] [place] [address] Phone: tel: Referral ID Status Reason Start Date Expiration Date Visits Requested Visits Authorized [id number] Authorized Specialty Services Required 10/28/202 5 07/03/2026 1 1 Encounter Details Date Type Department Care Team (Late st Contact Info) Description 07/03/2025 Orders Only [facility] CHC MED & PEDS [address] [place] [address] James Larson MD [address] [place] [address] Closed nondisplaced fracture of distal phalanx of [...] Description 07/18/2025 10:30 AM EST Office Visit [facility] CH[facility] MED & PEDS [address] [place] [address] James Larson MD [address] [place] [address] Scheduled Orders Name Type Priority Associated Diagnoses [...] documented as of this encounter Care Teams Black Off Worker Relationship Specialty Start Date End Date James Larson MD [address] [place] [address] PCP - General Internal Medicine 10/05/13 documented as of this encounter
--- OUTSIDE RECORDS SUMMARY | 2025-07-17 07:27 | XMS_ITS | Encounter Summary ---
Author Organization [employer] Address [address] [place] [address] 7 [place] [address] Care Team Providers Care Music Leader Name Role Phone James Larson MD Primary Care Provider [phone] Reason for Referral * Imaging (Routine) - Closed Specialty Diagnoses / Procedures Referred By Contac t Referred To Contact Radiology Diagnoses Right sided abdominal pain Procedures CT Abdomen Pelvis w/ Contrast James Larson MD [address] [place] [address] Phone: tel: fax: [address] Phone: tel: fax: Referral ID Status Reason Start Date Expiration Date Visits Re quested Visits Authorized [id number] Closed 11/16/2024 11/16/2025 1 1 Encounter Details Date Type Department Care Team (Late st Contact Info) Description 11/16/2024 Orders Only [facility] MEDICINE [address] [place] [address] James Larson MD [address] [place] [address] Right sided abdominal pain (Primary Dx) Social [...] Upcoming Encounters Date Type Department Care Team ([facility] Contact Info) Description 07/18/2025 10:30 AM EST Office Visit [facility] CHC MED & PEDS [address] [place] [address] James Larson MD [address] [place] [address] Scheduled Orders Name Type Priority Associated Diagnoses [...] documented as of this encounter Care Teams Music Leader Relationship Specialty Start Date End Date James Larson MD [address] [place] [address] PCP - General Internal Medicine 10/05/13 documented as of this encounter
--- OUTSIDE RECORDS SUMMARY | 2025-07-17 07:27 | XMS_ITS | Encounter Summary ---
Author Organization [employer] Address [address] [facility] [address] 7t [place] [address] Care Team Providers Care Machine Rigger Name Role Phone James Larson MD Primary Care Provider [phone] Encounter Details Date Type Department Care Team (Late st Contact Info) Description 07/11/2025 Results Follow-Up [facility] MEDICINE [address] [place] [address] Tresa Arechiga CN [address] [place] [address] Bacterial Vaginosis Panel, Chlamydia/N. Gonorrhoeae RNA, TMA, Vagina Social History Tobacco Use Types Packs/Day Years [...] Miscellaneous Notes * Result Encounter Note - Tresa Arechiga CNM - 07/11/2025 8:08 AM EST Please let Brenda know her vaginal infection tests were negative which is good news. Thanks! documented in this encounter Plan of Treatment Upcoming Encounters Date Type Department Care Team ([facility] st Contact Info) Description 07/18/2025 10:30 AM EST Office Visit [facility] MED & PEDS [address] [place] [address] James Larson MD [address] [place] [address] documented as of this encounter Visit Diagnoses Not on filedocumented in this encounter Additional Health Concerns Assessment Noted Time PHQ-9 Depression Total Score: 14 025 10:22 AM EST documented as of this encounter Care Teams Machine Rigger Relationship Specialty Start Date End Date James Larson MD [address] [place] [address] PCP - General Internal Medicine 10/05/13 documented as of this encounter
--- OUTSIDE RECORDS SUMMARY | 2025-07-17 07:27 | XMS_ITS | Encounter Summary ---
Author Organization [employer] Address [address] [place] [address] 7 [place] [address] Care Team Providers Care Body And Fender Mechanic Name Role Phone James Larson MD Primary Care Provider [phone] Encounter Details Date Type Department Care Team (Late Contact Info) Description 09/09/2022 Telephone [facility] MED & PEDS [address] [place] [address] James Larson MD [address] [place] [address] Social History Tobacco Use Types Packs/Day Years [...] 07/18/2025 10:30 AM EST Office Visit [facility] MED & PEDS [address] [place] [address] James Larson MD [address] [place] [address] documented as of this encounter Visit Diagnoses Not on filedocumented in this encounter Care Teams Body And Fender Mechanic Relationship Specialty Start Date End Date James Larson MD [address] [place] [address] PCP - General Internal Medicine 10/05/13 documented as of this encounter
--- OUTSIDE RECORDS SUMMARY | 2025-07-17 07:27 | XMS_ITS | Encounter Summary ---
Author Organization [employer] Address [address] [place] [address] 7 [place] [address] Care Team Providers Care Pin Drafting Machine Tender Name Role Phone James Larson MD Primary Care Provider [phone] Encounter Details Date Type Department Care Team (Late st Contact Info) Description 03/29/2023 Telephone [facility] ADULT DENTAL [address] [place] [address] August Bridges DDS [address] [place] [address] Social History Tobacco Use Types Packs/Day Years [...] Description 07/18/2025 10:30 AM EST Office Visit [facility] CHC MED & PEDS [address] [place], [place] [phone] James Larson MD [address] [place], [place] [phone] documented as of this encounter Visit Diagnoses Not on filedocumented in this encounter Additional Health Concerns Assessment Noted Time PHQ-9 Depression Total Score: 0 01/22/20 23 3:02 PM EDT documented as of this encounter Care Teams Pin Drafting Machine Tender Relationship Specialty Start Date End Date James Larson MD [address] [place] [address] PCP - General Internal Medicine 10/05/13 documented as of this encounter
--- OUTSIDE RECORDS SUMMARY | 2025-07-17 07:27 | XMS_ITS | Encounter Summary ---
Author Organization [employer] Address [address] [facility] 7 [place] [address] Care Team Providers Care Conference Center Coordinator Name Role Phone James Larson MD Primary Care Provider [phone] Reason for Visit * Reason Onset Date Comments Nurse Triage 10/11/2023 Encounter Details Date Type Department Care Team ([facility] st Contact Info) Description 10/11/2023 Telephone [facility] MED & PEDS [address] [place] [address] James Larson MD [address] [place] [address] Nurse Triage Social History Tobacco Use Types [...] t he electric, gas, oil or water [employer] threatened to shut off services in your [...] . Pt is advised to come to [facility] 10/12/23 @ 340pm for provider to [...] accepted this outcome Please contact pt at [phone] documented in this encounter Plan of Treatment Upcoming Encounters Date Type Department Care Team ([facility] Contact Info) Description 07/18/2025 10:30 AM EST Office Visit [facility] MED & PEDS [address] [place] [address] James Larson MD [address] [place] [address] documented as of this encounter Visit Diagnoses Not on filedocumented in this encounter Additional Health Concerns Assessment Noted Time PHQ-9 Depression Total Score: 0 01/22/20 23 3:02 PM EDT documented as of this encounter Care Teams Conference Center Coordinator Relationship Specialty Start Date End Date James Larson MD [address] [place] [address] PCP - General Internal Medicine 10/05/13 documented as of this encounter
--- OUTSIDE RECORDS SUMMARY | 2025-07-17 07:27 | XMS_ITS | Encounter Summary ---
Author Organization [employer] Address [address] [facility] [address] 7[address] [place] [address] Care Team Providers Care Navy Material Inspector Name Role Phone James Larson MD Primary Care Provider [phone] Encounter Details Date Type Department Care Team ([facility] st Contact Info) Description 12/09/2023 Orders Only [facility] CHC MED & PEDS [address] [place], [place] [phone] DrummondRikki Coronel MD [address] [place] [address] Social History Tobacco Use Types Packs/Day Years [...] 10:30 AM EST Office Visit [facility] MED & PEDS [address] [place] [address] James Larson MD [address] [place] [address] documented as of this encounter Visit Diagnoses Not on filedocumented in this encounter Additional Health Concerns Assessment Noted Time PHQ-9 Depression Total Score: 0 01/22/20 23 3:02 PM EDT documented as of this encounter Care Teams Navy Material Inspector Relationship Specialty Start Date End Date James Larson MD [address] [place] [address] PCP - General Internal Medicine 10/05/13 documented as of this encounter
--- OUTSIDE RECORDS SUMMARY | 2025-07-17 07:27 | XMS_ITS | Clinical Summary ---
Author Organization [employer] Address [address] [place] [address] Care Team Providers Care Internet Application Developer Name Role Phone James Larson MD Primary Care Provider Allergies No known active allergies Medications glucose-vitamin C 4-6 GM-MG oral gel 1 tablet to use in case of symptoms of hypoglycemia or if FS<70 mg/dl 1 Active Alcohol Swabs (Alcohol Prep) pads Active Misc. Devices (Wrist Brace) misc Active Continuous Glucose Tile Setter (FreeStyle Jorje 2 [place]) deviceIndication s:Type 2 diabetes mellitus without complication, without long-term current use of insulin ([facility]) Scan sensor every 8 hours 1 each 4 Active Continuous Glucose Sensor (FreeStyle Jorje 2 Sensor) miscIndications: Type 2 diabetes mellitus without complication, without long-term current use of insulin ([facility]) Apply 1 sensor every 14 days 2 each 11 4 Active Blood Glucose Monitoring Suppl (FreeStyle Lite) w/Device kitIndications:T ype 2 diabetes mellitus without complication, without long-term current use of insulin ([facility]) 1 Units Once per day. 1 kit 4 Active Lancets miscIndications: Type 2 diabetes mellitus without complication, without long-term current use of insulin ([facility]) Use to test blood sugar 2 times [...] needed for anxiety. 60 capsule 1 5 Active Blood Pressure kitIndications:L ightheadedness 1 kit [...] long-term current use of insulin ([facility]),Obesity, Class I, BMI 30.0-34.9 (see actual BMI) [...] 2 times daily. 14 tablet 5 Active ibuprofen 800 MG tablet Take 1 tablet (800 mg) by mouth if needed in the morning, at noon, and at bedtime for mild pain. 15 tablet 5 Active terconazole (Terazol 7) 0.4 % vaginal cream Insert 1 applicator into the vagina at bedtime for 7 days. 45 g 5 025 Active Active Problems Problem Noted Date Diagnosed [...] Encounters Date Type Department Care Team Description 07/11/2025 Results Follow-Up [facility] [address] [place] [phone] Tresa Arechiga CNM Bacterial Vaginosis Panel, Chlamydia/N. Gonorrhoeae RNA, TMA, Vagina 07/10/2025 10:00 AM EST Office Visit [facility] [address] [place] [address] Tresa Arechiga CNM Vaginal discharge (Primary Dx); Screening examination for venereal disease 07/10/2025 Patient Outreach [facility] [address] [place] [address] James Larson MD Pre-visit Planning (Pre visit planning LVM ) 07/10/2025 Travel 07/09/[address] [facility] [address] [place] [phone] Benitez Malinda [place] 07/09/[address] [facility] [address] [place] [phone] James Larson MD triage 07/06/2025 Telephone [facility] [address] [place] [address] James Larson MD No Show 07/05/2025 Telephone [facility] [address] [place], [place] [phone] James Larson MD Chart Prep 07/03/2025 Results Follow-Up [facility] [address] [place] [address] James Larson MD XR KUB and Upright 2 Views 07/03/2025 Results Follow-Up [facility] [address] [place] [address] James Larson MD XR Hand 3+ Views Right 07/03/2025 Orders Only [facility] [address] [place] [address] James Larson MD Closed nondisplaced fracture of distal phalanx of right ring finger, initial encounter (Primary Dx); Hepatic steatosis 07/03/2025 Telephone [facility] [address] [place] [address] James Larson MD Referral 06/29/2025 Patient Outreach [address] [address] James Larson MD Pre-visit Planning (Pre visit planning LVM ) 06/21/2025 Telephone [facility] [address] [place], [place] [phone] James Larson MD 06/21/2025 Telephone [facility] [address] [place] [address] James Larson MD Chart Prep 06/14/2025 Patient Outreach [address] [address] James Larson MD Pre-visit Planning ([facility] screening completed on 10/25/24) 05/29/[address] [address] James Larson MD No Show 05/21/2025 9:40 AM EDT Office Visit [facility] [address] [address] Lloyd Echevarria MD Acute otitis externa of left ear, unspecified type (Primary Dx); Non-recurrent acute serous otitis media of left ear 05/21/2025 Travel 05/10/[address] [address] James Larson MD No Show 05/09/2025 Telephone [facility] [address] [place] [address] James Larson MD Chart Prep 04/23/2025 5:40 PM EDT [facility] [address] [address] James Larson MD Other constipation (Primary Dx); Generalized abdominal pain; Bromidrosis 04/23/2025 Travel 04/23/2025 Telephone [facility] [address] [place] [address] James Larson MD Nurse Triage 04/20/2025 Telephone [facility] [address] [place] [address] James Larson MD No Show 04/16/2025 6:00 PM EDT [facility] [address] [address] James Larson MD Functional diarrhea (Primary Dx); Nausea; COVID-19; Vitamin D deficiency; Other fatigue; Type 2 diabetes mellitus without complication, without long-term current use of insulin ([facility]); Obesity, Class I, BMI 30.0-34.9 (see actual BMI) 04/16/2025 Travel from Last 3 Months Immunizations Immunization [...] AM EST Office Visit [facility] [address] [place] [address] James Larson MD [address] [place] [address] Health Maintenance Due Date Last Done Comments [...] Screening 10/25/2025 10/25/2024 SDOH Screening 10/25/2025 10/25/2024 Depression Monitoring 01/07/2026 07/10/2025, 025 Disability Screening 03/21/2026 03/21/2025 Lipid Panel 03/21/2026 03/21/2025 Family Planning (PISQ) 07/10/2026 07/10/2025 Tobacco Screening 07/10/2026 07/10/2025 Cervical Cancer Screening 08/11/2027 HPV/Cotest 08/11/2027 08/11/2022, 03/21/2019 Pap Smear 08/11/2027 08/11/2022 Zoster Vaccines (1 of 2) 2037 RSV Patients and Patients Aged 60 years or older (1 - 1-dose 75+ series) 2062 Hepatitis B Vaccines Completed 06/06/2015, 02/04/2015, 12/27/2014 HIV Screening Completed 07/10/2025, 03/06, 12/11/2024, Additional history exists Hepatitis C Screening Completed 07/10/2025, 025 HIB Vaccines Aged Out No longer eligi [...] Procedure Name Priority Date/Time Associated Diagnosis Comments HIV 1/2 ANTIGEN/ANTIBODY, FOURTH GENERATION W/RFL Routine 07/10/2025 10:58 AM EST Screening examination for venereal disease SYPHILIS SCREEN Routine 07/10/2025 10:58 AM EST Screening examination for venereal disease HEPATITIS C AB W/REFL TO HCV RNA, QN, PCR Routine 07/10/2025 10:58 AM EST Screening examination for venereal disease POCT WET MOUNT/LIBRADO Routine 07/10/2025 10 :41 AM EST Vaginal discharge CHLAMYDIA/N. GONORRHOEAE RNA, TMA, UROGENITAL Routine 07/10/2025 12:00 AM EST Screening examination for venereal disease BACTERIAL VAGINOSIS PANEL Routine 07/10/2025 12:00 AM EST Vaginal discharge XR HAND 3+ VIEWS RIGHT Routine 07/03/2025 1:46 PM EDT Injury of right ring finger, initial encounter XR KUB AND UPRIGHT 2 VIEWS Routine 07/03/2025 1:40 PM EDT Other constipation Generalized abdominal pain HEMOGLOBIN A1C Routine 03/21/2025 2:03 PM EDT LIPID PANEL, STANDARD Routine 03/21/2025 2:03 PM EDT THINPREP IMAGING PAP AND HPV MRNA E6/E7, WITH CT/NG, TRICHOMONAS Routine 08/11/2022 5:19 PM EST PANORAMIC RADIOGRAPHIC IMAGE Routine 01/13/2021 12:00 AM EDT ALBUMIN, RANDOM URINE W/CREATININE Routine 08/07/2020 2:58 PM EST from Last 3 Months or Most Recently Relevant to Health Maintenance Results * Syphilis Screen (07/10/2025 10:58 AM EST) [facility] Syphilis Screen Nonreactive Nonreactive [facility] Blood Venous blood specimen / Unknown 07/10/2025 10:58 AM EST 07/10/2025 12:09 PM EST [facility] BLOOD ORDERABLES Cleopatra l Result Performing Organization Address City/[facility]/ZIP Co de Phone Number [facility] [address] [place] [phone] * Hepatitis C Antibody with Reflex to HCV, RNA, Quantitative, Real-Time PCR (07/10/2025 10:58 AM EST) [facility] Hepatitis C Antibody Nonreactive Nonreactive [facility] Comment:Antibodies to HCV no t detected; does not exclude early acuteHCV infection. Blood Venous blood specimen / Unknown 07/10/2025 10:58 AM EST 07/10/2025 12:09 PM EST [facility] LAB BLOOD ORDERABLES Cleopatra l Result Performing Organization Address City/[facility]/ZIP Co de Phone Number [facility] [address] [place] [phone] * HIV-1/2 Antigen and Antibodies, Fourth Generation, with Reflexes (07/10/2025 10:58 AM EST) [facility] HIV AB/AG Nonreactive Nonreactive [facility] Comment:HIV-1 p24 Ag and/or HIV-1/HIV-2 Ab not detected.A test result that is nonreactive does not exclude thepossibility of exposure to or infection with HIV-1 and/orHIV-2. Nonreactive results in this assay for individualswith prior exposure to HIV-1 and/or HIV-2 may be due toantigen and antibody levels that are below the limit ofdetection of this assay.The [employer] HIV Ag/Ab Combo assay result andsupplemental assay results should be interpreted inconjunction with the patient's clinical presentation,history and other laboratory results. If the results areinconsistent with clinical evidence, additional testing issuggested to confirm the result. Blood Venous blood specimen / Unknown 07/10/2025 10:58 AM EST 07/10/2025 12:09 PM EST Tresa CHOUDHURY LAB BLOOD ORDERABLES Cleopatra l Result [facility] [address] [place] [address] [phone] * POCT fern test, vaginal fluid manually resulted (07/10/2025 10:41 AM EST) [facility] LIBRADO Prep Positive Comment:pH 4.5, neg whiff, n eg clue, neg trich, neg wbc, pos hyphae Vaginal Fluid Vaginal structure / Unknown 07/10/2025 10:41 AM EST Tresa Arechiga [facility] POINT OF CARE TEST ENTER/ EDIT ORDERABLES Final Result * Bacterial Vaginosis Panel (07/10/2025 12:00 AM EST) [facility] TRICHOMONAS VAGINALIS DETECTION BY PCR NOT DETECTED Not Detect [facility] BACTERIAL VAGINOSIS DETECTION BY PCR NEGATIVE Negative [facility] Comment:The BV organism targ ets [...] DETECTION BY PCR NOT DETECTED Not Detect [facility] Yary glab krusei PCR NOT DETECTED Not Detect [facility] Swab Vaginal structure / Unknown 07/10/2025 07/10/2025 us Tresa Arechiga [facility] MICROBIOLOGY - GENERA L ORDERABLES Final Result [facility] [address] [place] [phone] [phone] * Chlamydia/N. Gonorrhoeae RNA, TMA, Vagina (07/10/2025 12:00 AM EST) CT PCR NOT DETECTED Not Detect. [facility] Comment:A not detected test result [...] psychologicalconsequences. NG PCR NOT DETECTED Not Detect. [facility] Comment:A not detected test result [...] to adverse medical, social or psychologicalconsequences. Swab Vaginal structure / Unknown 07/10/2025 07/10/2025 Tresa Arechiga [facility] MICROBIOLOGY - GENERA L ORDERABLES Final Result Performing Organization Address City/State/[facility] Co de Phone Number [facility] [address] [place], [place] [phone] * XR Hand 3+ Views Right (07/03/2025 1:46 PM EDT) Anatomical Region Laterality Modality Upper Extremities, Hand Right Radiogra phic Imaging 07/03/2025 1:46 PM EDT Narrative 07/03/2025 1:55 PM EDT [address] [address] XRay Report Signed Patient: Brenda Apple MR#: [id number] [birth year] : 1985 Acct:[id number] Age/Sex: 40 / F ADM Date: 07/03/25 Loc: HO.XRAY Attending Dr: James Larson MD Ordering Physician: Silvia Norman MD Date of Service: 07/03/25 Procedure(s): XR hand RT min 3V Accession Number(s): [id number] cc: Silvia Norman MD; James Larson MD [...] 07/03/25 1352 DD/ 1346 TD/TT: 07/03/25 1348 Steward/Stewardess Room: Procedure Note Donotuseinterpreter, Image - 07/03/2025 [place] [address] XRay Report Signed Patient: Connie Apple#: [id number] [birth year] : 1985Acct:[id number] Age/Sex: 40 / FADM Date: 07/03/25 Loc: HO.XRAY Attending Dr: James Larson MD Ordering Physician: Silvia Norman MD Date of Service: 07/03/25 Procedure(s): XR hand RT min 3V Accession Number(s): [id number] cc: Silvia Norman MD; James Larson MD [...] 07/03/25 1352 DD/ 1346 TD/TT: 07/03/25 1348 Steward/Stewardess Room: us Silvia Alejandro MD IMG XR PROCEDURES Fin al Result * XR KUB and Upright 2 Views (07/03/2025 1:40 PM EDT) Anatomical Region Laterality Modality Radiographic Princess ging 07/03/2025 1:40 PM EDT Narrative 07/03/2025 1:55 PM EDT [place] [address] XRay Report Signed Patient: Brenda Apple MR#: [id number] [birth year] : 1985 Acct:[id number] Age/Sex: 40 / F ADM Date: 07/03/25 Loc: HOJUANITA Attending Dr: James Larson MD Ordering Physician: James Larson MD Date of Service: 07/03/25 Procedure(s): XR KUB Accession Number(s): [id number] cc: James Larson MD Reason for Exam: [...] OV> 07/03/25 1352 DD/ 1340 TD/TT: 07/03/25 134 Steward/Stewardess Room: Procedure Note Donotuseinterpreter, Image - 07/03/[address] [address] XRay Report Signed Patient: Connie Apple#: [id number] [birth year] : 1985Acct:[id number] Age/Sex: 40 / FADM Date: 07/03/25 Loc: HO.XRAY Attending Dr: James Larson MD Ordering Physician: James Larson MD Date of Service: 07/03/25 Procedure(s): XR KUB Accession Number(s): [id number] cc: James Larson MD Reason for Exam: [...] Tu Garvin MD 07/03/2025 01:52 PM EDT Dictated By: Tu Oneal MD Signed By: <Electronically signed by Tu Su MDin OV> 07/03/25 1352 DD/ 1340 TD/TT: 07/03/25 134 Steward/Stewardess Room: us James Larson MD IMG XR PROCEDURES Final Res ult * (ABNORMAL) Hemoglobin A1c (03/21/2025 2:03 PM EDT) Hemoglobin A1c 8.1(H) <6.0 % [facility] Comment:Hemoglobin A1C Refer ence Range Adults: 4.8 - 6.0 % Non diabetic: < 6.0 % Goal: < 7.0 %Additional Action Suggested: > 8.0 %Note: Hemoglobin A1c results are invalid for patients with abnormal amounts of HbF. Blood transfusions may impact the HbA1c concentration in the patient sample. Estimated Average Glucose 186 mg/dL [facility] Comment:eAG = Estimated ave rage glucose which is %A1C expressed asaverage glucose, using the formula of the I8G-XxzuzwgFofuylu Glucose study (ADAG), Diabetes Care, Vol.31,#8,2007 03/21/2025 2:03 PM EDT 03/21/2025 3:59 PM EDT us Generic External Data Provider LAB BLOOD ORDERAB LES Final Result Performing Organization Address City/State/[facility] Co de Phone Number [facility] [address] [place] [phone] * (ABNORMAL) Lipid Panel, Standard (03/21/2025 2:03 PM EDT) Triglycerides 228(H) <150 mg/dL [facility] Comment:Desirable Triglyceri de: less than 150 mg/dLBorderline High Triglyceride 150-199 mg/dLHigh Triglyceride: 200-499 mg/dLVery High Triglyceride: greater than or equal to 5OO mg/dL Cholesterol 226(H) <200 mg/dL [facility] Comment:Desirable Cholestero l: less than 200 mg/dLBorderline High Cholesterol: 200-239 mg/dLHigh Cholesterol: greater than 239 mg/dL LDL Cholesterol Calculated 144(H) <100 mg/dL [facility] Comment:Desirable LDL: less than 100 mg/dLNear Optimal/Above Optimal LDL: 110- 129 mg/dLBorderline High LDL: 130-159 mg/dLHigh LDL: 160-189 mg/dLVery High LDL: greater than or equal to 190 mg/dL HDL Cholesterol 37(L) >40 mg/dL [facility] Comment:Desirable HDL: great er than 40 mg/dL Note: This HDL assay may give artificially low results in patients with liver disease. 03/21/2025 2:03 PM EDT 03/21/2025 4:07 PM EDT us Generic External Data Provider LAB BLOOD ORDERAB LES Final Result [facility] [address] [place] [phone] * Thinprep TIS PAP And HPV mRNA E6/E7, CT/NG, TRICH (08/11/2022 5:19 PM EST) Clinical Information: None given [employer] LMP: NONE GIVEN [employer] Prev. PAP: NONE GIVEN [employer] Prev. BX: NONE GIVEN [employer] SOURCE: None given [employer] Statement Of Adequacy: [employer] Comment: Satisfactory for evaluation. Endocervical/transformation zone component present. Age and/or menstrual status not provided Interpretation/Re sult: Negative for intraepithelial lesion or malignancy. [employer] COMMENT: This Pap test has been evaluated with computer assisted technology. [employer] Commuter Train Operator: Bart Stratus5 Comment: MSM, CT(ASCP) CT screening location: [place] [phone] (Always Message) [facility] Comment: EXPLANATORY NOTE: The Pap is a [...] HPV nRNA E6/E7 Not Detected Not Detected [employer] Comment: Methodology: [employer]-Mediated Amplification This assay detects E6/E7 viral messenger RNA (mRNA) from 14 high-risk HPV types (16,18,31,33,35,39,45,51,52,56,58,59,66,68). Cervical sources are required for HPV testing. If a vaginal source from a patient who has had a total hysterectomy with removal of cervix was submitted, please contact the testing laboratory for alternative testing options. For additional information, please refer to http://[employer]/faq/NET833y4 (This link if provided for information/ educational purposes only.) Chlamydia trachomatis RNA, TMA, Urogenital NOT DETECTED NOT DETECTED [facility] [place] [facility] Neisseria gonorrhoeae RNA, TMA, Urogenital NOT DETECTED NOT DETECTED [facility] [place] [facility] Comment [facility] [place] [facility] Comment: The analytical performance characteristics of this assay, when used to test SurePath(TM) specimens have been determined by [facility]. The modifications have not been cleared or approved by the FDA. This assay has been validated pursuant to the CLIA regulations and is used for clinical purposes. For additional information, please refer to https://[facility]/faq/KEZ377 (This link is being provided for information/ educational purposes only.) Trichomonas vaginalis, QL, TMA, PAP Vial NOT DETECTED NOT DETECTED [facility] [place] [facility] Comment: The analytical performance characteristics of this assay have been determined by [facility]. The modifications have not been cleared or approved by the FDA. This assay has been validated pursuant to the CLIA regulations and is used for clinical purposes. For additional information, please refer to http://[facility]/ faq/Trichomonastma (This link is being provided for information/ educational purposes only.) 08/11/2022 5:19 PM EST 08/12/2022 8:03 AM EST Narrative [facility] - 08/14/2022 9:39 AM EST FASTING: UNKNOWN Tresa Arechiga CNM LAB PATHOLOGY ORDERABLES Final Result [facility] [address], [place] [address] [facility] [address], [place] [phone] [facility] [place] [employer] [address], [place] [phone] * (ABNORMAL) ALBUMIN, RANDOM URINE W/CREATININE (08/07/2020 2:58 PM EST) Microalbumin Urine 5.0 See Note: mg/dL [facility] Comment: Reference Range: Reference Range [...] Larson MD LAB URINE ORDERABLES Final Result [facility] [address] from Last 3 Months or Most Recently Relevant to Health Maintenance Insurance [facility] < [address] [facility] Care Teams Internet Application Developer Relationship Specialty Start Date End Date James Larson MD [address] [place] [address] [place] [phone] PCP - General Internal Medicine 10/05/13
== END 2025-07-17 07:26 | disposition home or self-care (01) ==
LOC: HO.HOSX 07:25
DX: Z13.89 Encounter for screening for other disorder (principal)

== ENCOUNTER 2025-07-31 09:08 | Outpatient (REF) | payer OTHER, SELFPAY ==
--- NOTE | ~2025-07-31 | FL_ITS ---
EXAMINATION: XR FLUOROSCOPY UPPER GI WITH AIR CLINICAL INFORMATION: Obesity COMPARISON: None available. TECHNIQUE: Patient ingested thick and thin barium, effervescent granules. FINDINGS: Esophagus demonstrates normal distention and motility. No evidence of stricture, mass or mucosal lesion. Stomach demonstrates normal distention. No mass or mucosal lesions are seen. There is normal passage of the barium through the stomach into the proximal small bowel. Small sliding hiatal hernia. There is severe gastroesophageal reflux in the supine position. FLUOROSCOPY TIME: 59 seconds DOSE AREA PRODUCT: 164 uGy-m2 (microgray-meter squared) FL/FL upper GI w air IMPRESSION: Small sliding hiatal hernia. Severe gastroesophageal reflux in the supine position. Electronically signed by: Abhinav Robertson MD 07/31/2025 04:26 PM DAVID
--- NOTE | ~2025-07-31 | XR_ITS ---
EXAMINATION: XR CHEST 2 VIEWS HISTORY: E66.9 - Obesity, unspecified COMPARISON: Comparison is made with the prior examination dated 04/07/2021. FINDINGS: PA and lateral views of the chest are submitted. The lungs are expanded and clear. There is no pleural effusion, pneumothorax, or pulmonary vascular congestion. The heart is normal in size. The bones are intact. There is barium in the stomach from recent upper GI series. XR/XR chest 2V IMPRESSION: No acute cardiopulmonary abnormality. Electronically signed by: Hoang Goldberg MD 07/31/2025 09:59 AM [facility]
== END 2025-07-31 09:09 | disposition home or self-care (01) ==
LOC: HO.XRAY 09:08
PROVIDERS: PCP Internal Medicine; Visit Provider Surgery
DX: E66.9 Obesity, unspecified (principal); Z68.31 Body mass index [BMI] 31.0-31.9, adult; K76.0 Fatty (change of) liver, not elsewhere classified
CPT/HCPCS: 71046; 74246

== ENCOUNTER → 2025-07-31 09:12 | Outpatient (BNV) | payer OTHER, SELFPAY | PROVIDERS: PCP Internal Medicine; Visit Provider Radiology Diagnostic Radiology | DX: K21.9 Gastro-esophageal reflux disease without esophagitis (principal); K44.9 Diaphragmatic hernia without obstruction or gangrene; E66.9 Obesity, unspecified; Z68.31 Body mass index [BMI] 31.0-31.9, adult | CPT/HCPCS: 71046; 74246 ==

== ENCOUNTER 2025-08-01 09:22 | Outpatient (AMB) | payer OTHER, SELFPAY ==
--- OUTSIDE RECORDS SUMMARY | 2025-07-31 15:15 | XMS_ITS | Encounter Summary ---
Author Organization [employer] Address [address] [place] [address] 7 [place] [address] Care Team Providers Care Canteen Manager Name Role Phone James Larson MD Primary Care Provider [phone] Encounter Details Date Type Department Care Team ([facility] st Contact Info) Description 07/31/2025 3:15 PM EST Office Visit [facility] [address] [place], [place] [id number] James Larson MD [address] [place] [address] Type 2 diabetes mellitus without complication, without long-term current use of insulin (HCC) (Primary Dx); Essential hypertension; Encounter for immunization; Halitosis; Bilateral impacted cerumen Social History Tobacco Use Types Packs/Day Years [...] Sign Reading Time Taken Comments Blood Pressure 122/75 07/31/2025 3:37 PM EST Pulse 66 07/31/2025 3:37 PM EST Temperature 36.8 C (98.3 F) 07/31/2025 3:37 PM EST Respiratory Rate 21 07/31/2025 3:37 PM EST Oxygen Saturation 96% 07/31/2025 3:37 PM EST Inhaled Oxygen Concentration - - Weight 88 kg (194 lb) 07/31/2025 3:37 PM EST Height 165.1 cm (5' 5 ) 07/31/2025 3:37 PM EST Body Mass Index 32.28 07/31/2025 3:37 PM EST documented in this encounter Miscellaneous Notes * Assessment & Plan Note - Ravin Oliver NP - 07/31/2025 3:15 PM EST Associated Problem(s): Type 2 diabetes mellitus (HCC) An increase in A1C- 8.4 % Wants to attempt weight loss as the treatment as she is in a weight loss program Advised to discontinue the Ozempic Continue with lifestyle measures and glucose monitoring. Orders: POCT Glucose POCT Hgb A1c * Assessment & Plan Note - Ravin Oliver NP - 07/31/2025 3:15 PM EST Associated Problem(s): Essential hypertension documented in this encounter Plan of Treatment Not on file documented as of this encounter Goals Goal Patient Goal Type Associated Problems Recent Progress Patient-Stated? Author Help patients manage their type 2 diabetes Care Plan Help patients manage their type 2 diabetes No Ashia Bush [place] Patient has chronic kidney disease Care Plan Patient has chronic kidney disease No Ashia Bush [place] Patient has chronic kidney disease Care Plan Patient has chronic kidney disease No Morteza Glaser Patient has chronic kidney disease Care Plan Patient has chronic kidney disease No Ravin Oliver NP Patient has chronic kidney disease Care Plan Patient has chronic kidney disease No Desirae Kelley RN documented as of this encounter Procedures Procedure Name Priority Date/Time Associated Diagnosis Comments POCT GLUCOSE Routine 07/31/2025 4:04 PM EST Type 2 diabetes mellitus without complication, without long-term current use of insulin (HCC) POCT GLYCATED HEMOGLOBIN, TOTAL Routine 07/31/2025 4:03 PM EST Type 2 diabetes mellitus without complication, without long-term current use of insulin (HCC) documented in this encounter Results * (ABNORMAL) POCT Glucose (07/31/2025 4:04 PM EST) Glucose Blood, POC 229(A) 60 - 200 mg/dL QC Media Lot # [id number] Lot# Expiration Date Comment:random Blood Capillary blood specimen / Unknown 07/31/2025 4:04 PM EST James Larson MD POINT OF CARE TEST ENTER/ED IT ORDERABLES Final Result * (ABNORMAL) POCT Hgb A1c (07/31/2025 4:03 PM EST) Hemoglobin A1C 8.4(A) 4.0 - 5.7 % QC Media Lot # [id number] Lot# Expiration Date Blood 07/31/2025 4:03 PM EST James Larson MD POINT OF CARE TEST ENTER/ED IT ORDERABLES Edited Result - Final documented in this encounter Visit Diagnoses Diagnosis Type 2 diabetes mellitus without complication, without long-term current use of insulin (HCC)- Primary Essential hypertension Unspecified essential hypertension Encounter for immunization Halitosis Other symptoms involving head and neck Bilateral impacted cerumen Impacted cerumen documented in this encounter Additional Health Concerns Active Problems Noted Date Diagnosed Date Help patients manage their type 2 diabetes 07/18 Patient has chronic kidney disease 07/18/2025 Patient has chronic kidney disease 07/24/2025 Patient has chronic kidney disease 07/31/2025 Patient has chronic kidney disease 07/31/2025 Assessment Noted Time PHQ-9 Depression Total Score: 14 025 10:22 AM EST documented as of this encounter Care Teams Canteen Manager Relationship Specialty Start Date End Date James Larson MD [address] [place] [id number] PCP - General Internal Medicine 10/05/13 documented as of this encounter
--- NOTE | 2025-08-01 09:24 | A.OFFWM_ITS ---
Intake Intake Visit Reasons: OV BH Intake Allergies No Known Allergies Allergy (Verified 07/09/25 08:13) [facility] Medical History (Updated 07/09/25 @ 08:41 by Fernando Gurrola MD) BMI 31.0-31.9,adult Obesity Chronic dental pain Diabetes mellitus, type 2 Surgical History (Updated 07/09/25 @ 08:17 by Fernando Gurrola MD) History of delivery No history of previous surgery Family History (Updated 07/04/25 @ 11:11 by Olinda Strickland CMA) Maternal Aunt Diabetes Maternal Aunt Diabetes Mother Diabetes Hypertension Social History Alcohol intake: never Patient Tobacco Use Status: Never used Tobacco Behavioral Health Assessment Weight Management Therapy Therapy Notes Details The patient is a 40-year-old self-referred female presenting for an initial visit to begin a behavioral health assessment as part of the surgical weight loss program. She reports longstanding struggles with weight management since the of her last child 17 years ago. She notes ongoing difficulties with self-confidence, which have increasingly impacted her overall health. The recent diagnosis of diabetes has further complicated her efforts to manage her weight. Presenting Concerns Referral Source WMP-Provider Reason for referral Completion of behavioral health assessment as part of process for weight-loss surgery. Precipitating Event Obesity Living Situation Current Living Situation Rent At risk of losing current housing? No Satisfied with current living situation? Yes Comments PT lives with her son. Food/Weight/Diet History/Relationship with food PT reports she has days she binges and then others she fasts. Social History Family history and relationship PT is but 6 months ago, she is looking into getting . They don't have kids together. PT has 2 kids they are 20 y/o daughter and 16 y/o son. Her parents are alive, She doesn't have a relationship with bio-father as she was raised by borther's father. Mom is alive, she re- but stepfather . PT is the oldest of 10 kids from bio-dad, and she has 2 siblings on her mother's side. PT reports family dynamics are variable. Hx of trauma in childhood. Parental/Familial lamination assembler obligations PT shares custody with 16 y/o father. Developmental history and status Pt had an IEP and in special ed. in school due to learning disabilities. She has been disabled for MH since age 21 as she had PPD after first . Social support A few friends, mother. Community support Therapy. Islam/Spirituality Catholic. Focuses more in her relationship w/ Armin rather than practicing trough orthodox. Cultural/Ethnic information . Legal Involvement and History Current or historical involvement with the legal system? None reported. Education Highest grade completed 9th. 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 Preferred learning style Visual Currently enrolled in educational program? No Interested in further educational program? 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 She would like to continue working in healthcare. Employment Employment Status Unemployed (since april.) and Other (Disabled.) Wants help to find employment? No Meaningful activities Scrapbooking, paint glass bases, scapeboard. Financial Situation Describe current financial situation Occasional struggle Financial assistance? Food [place] and [employer] Service Service? No Mental Health and Addiction Treatment Psychiatric history The patient is currently engaged in therapy with Bre at [facility], her therapist for approximately five years. She has participated in mental health treatment consistently for about 15 years and also received counseling during childhood. The patient experienced depression at age 20 and is currently diagnosed with major depressive disorder and anxiety. She was previously prescribed fluoxetine (Prozac) at age 21 but has not maintained consistent medication use. She has an upcoming medication evaluation with a prescriber at [facility] due to worsening symptoms of depression and anxiety. The patient reports that her depression is often triggered by life events and seasonal changes. Symptoms include social withdrawal, decreased energy, impaired hygiene, low mood, increased sensitivity, and sleep disturbances (recently characterized by reduced sleep). She identifies family-related stressors and d escribes the family dynamic as toxic. Depressive episodes typically last from one to two weeks, but she may feel persistently down for several months. The patient denies any history of psychiatric hospitalization or crisis intervention. She reports a history of self-harm and suicidal ideation, which resolved in 2006. Trauma/Abuse History History of trauma? Yes (TK: 5) Questionnaires PHQ-9 Over the last 2 weeks, how often have you been bothered by any of the following problems? 1. Little interest or pleasure in doing things: more than half the days 2. Feeling down, depressed, or hopeless: more than half the days 3. Trouble falling or staying asleep, or sleeping too much: more than half the days 4. Feeling tired or having little energy: nearly every day 5. Poor appetite or overeating: nearly every day 6. Feeling bad about yourself - or that you are a failure or have let yourself or your family down: nearly every day 7. Trouble concentrating on things, such as reading the newspaper or watching television: more than half the days 8. Moving or speaking so slowly that other people could have noticed. Or the opposite - being so fidgety or restless that you have been moving around a lot more than usual: more than half the days 9. Thoughts that you would be better off or of hurting yourself in some way: not at all Total score: 19 Depression Screening Interpretation: Positive (From new PT pack completed on 07/03/25) Depression Screening Follow-up: Existing condition and In treatment Depression Screening Done: Yes Source: Developed by Drs. Hoang Abreu, Haylie Campbell, Grant Douglass and colleagues, with an educational geraldo from [employer]. Binge Eating Scale Group 1 A. I don't feel self-conscious about my wt. or body size when I'm with others. B. I feel concerned about how I look to others, but it normally does not make me fell disappointed with myself C. I do get self-conscious about my appearance and wt. which makes me feel disappointed in myself. D. I feel very self-conscious about my wt. and frequently I feel intense shame and disgust for myself. I try to avoid social contacts because of my self- consciousness. Response Group 1: D Group 2 A. I don't have any difficulty eating slowly in the proper manner. B. Although I seem to gobble down foods, I don't end up feeling stuffed because of eating to much. C. At times, I tend to eat quickly and then, I feel uncomfortably full afterwards. D. I have the habit of bolting down my food, without really chewing it. When this happens I usually feel uncomfortably stuffed because I've eaten to much. Response Group 2: D Group 3 A. I feel capable to control my eating urges when I want to. B. I feel like I have failed to control my eating more than the average person. C. I feel utterly helpless when it comes to feeling in control of my eating urges. D. Because I feel so helpless about controlling my eating I have become very desperate about trying to get control. Response Group 3: D Group 4 A. I don't have the habit of eating when I'm bored. B. I sometimes eat when I'm bored, but often I'm able to get busy and get my mind off food. C. I have a regular habit of eating when I'm bored, but occasionally, I can use some other activity to get my mind off eating. D. I have a strong habit of eating when I'm bored. Nothing seems to help me breath the habit. Response Group 4: D Group 5 A. I'm usually physically hungry when I eat something. B. Occasionally, I eat something on impulse even though I really am not hungry. C. I have the regular habit of eating foods, that I might not really enjoy, to satisfy a hungry feeling even though physically, I don't need the food. D. Although I'm not physically hungry, I get a hungry feeling in my mouth that only seems to be satisfied when I eat a food, like sandwich, that fills my mouth. Sometimes, when I eat the food to satisfy my mouth hunger, I then spit the food out so I won't gain weight. Response Group 5: D Group 6 A. I don't feel any guilt or self-hate after I overeat. B. After I overeat, occasionally I feel guilt or self-hate. C. Almost all the time I experience strong guilt or self-hate after I overeat. Response Group 6: C Group 7 A. I don't lose total control of my eating when dieting even after periods when I overeat. B. Sometimes when I eat a forbidden food on a diet, I feel like I blew it and eat even more. C. Frequently, I have the habit of saying to myself, I've blown it now, why not go all the way, when I overeat on a diet. When that happens I eat more. D. I have a regular habit of starting a strict diets for myself but I break the diets by going on an eating binge. My life seems to be either a feast or famine. Response Group 7: D Group 8 A. I rarely eat so much food that I feel uncomfortably stuffed afterwards. B. Usually about once a month, I each such a quantity of food, I end up feeling very stuffed. C. I have regular periods during the month when I eat large amounts of food, either at mealtime or at snacks. D. I eat so much food that I regularly feel quite uncomfortable after eating and sometimes a bit nauseous. Response Group 8: D Group 9 A. My level of calorie intake does not go up very high or go down very low on a regular basis. B. Sometimes after I overeat, I will try to reduce my caloric intake to almost nothing to compensate for the excess calories I've eaten. C. I have a regular habit of overeating during the night. It seems that my routine is not to be hungry in the morning but overeat in the evening. D. In my adult years, I have had week-long periods where I practically starve myself. This follows periods when I overeat. It seems I live a life of either feast or famine. Response Group 9: D Group 10 A. I usually am able to stop eating when I want to. I know when enough is enough. B. Every so often, I experience a compulsion to eat which I can't seem to control. C. Frequently, I experience strong urges to eat which I seem unable to control, but at other times I can control my eating urges. D. I feel incapable of controlling urges to eat. I have a fear of not being able to stop eating voluntarily. Response Group 10: D Group 11 A. I don't have any problem stopping eating when I feel full. B. I usually can stop eating when I feel full but occasionally overeat leaving me feeling uncomfortably stuffed. C. I have a problem stopping eating once I start and usually I feel uncomfortably stuffed after I eat a meal. D. Because I have a problem not being able to stop eating when I want, I sometimes have to induce vomiting to relieve my stuffed feeling. Response Group 11: D Group 12 A. I seem to eat just as much when I'm with others, Family social gatherings as when I'm by myself. B. Sometimes, when I'm with other persons, I don't eat as much as I want to eat because I'm self-conscious about my eating. C. Frequently, I eat only a small amount of food when others are present, because I'm very embarrassed about my eating. D. I feel so ashamed about overeating that I pick times to overeat when I know no one will see me. I feel like a closet eater. Response Group 12: D Group 13 A. I eat three meals a day with only an occasional between meal snack. B. I eat 3 meals a day, but I also normally snack between meals. C. When I am snacking heavily, I get in the habit of skipping regular meals. D. There are regular periods when I seem to be continually eating, with no planned meals. Response Group 13: D Group 14 A. I don't think much about trying to control unwanted eating urges. B. At least some of the time, I feel my thoughts are pre-occupied with trying to control my eating urges. C. I feel that frequently I spend much time thinking about how much I ate or about trying not to eat anymore. D. It seems to me that most of my waking hours are pre-occupied by thoughts about eating or not eating. I feel like I'm constantly struggling not to eat. Response Group 14: D Group 15 A. I don't think about food a great deal. B. I have strong craving for food but they last only for brief periods of time. C. I have days when I can't seem to think about anything else but food. D. Most of my days seem to be pre-occupied with thoughts about food. I feel like I live to eat. Response Group 15: D Group 16 A. I usually know whether or not I'm physically hungry. I take the right portion of food to satisfy me. B. Occasionally, I feel uncertain about knowing whether or not I'm physically hungry. A these times it's hard to know how much food I should take to satisfy me. C. Even though I might know how many calories I should eat, I don't have any idea what is a normal amount of food for me. Response Group 16: C Binge Eating Score: 46 Score less than 17 Minimal Risk Score between 18-26 Moderate Risk Score between 27-46 High Risk Assessment & Plan Assessment & Plan (1) Depression: Code(s): F32.A - Depression, unspecified Qualifiers: Depression Type: major depressive disorder Major depression recurrence: recurrent Major depression episode severity: unspecified (2) Anxiety disorder: Code(s): F41.9 - Anxiety disorder, unspecified Qualifiers: Anxiety disorder type: unspecified anxiety disorder Qualified Code(s): F41.9 - Anxiety disorder, unspecified (3) Pre-bariatric surgery psychological evaluation: Code(s): Z71.89 - Other specified counseling Plan The patient was not cleared today as the assessment was not completed. The patient will return in 2-4 weeks to continue the evaluation. Next appointment: 09/04/25 15:00pm via Telehealth [place] [address] Psy Diag Eval Patient Type New Diagnoses Depression F32.A Depression Type: major depressive disorder Major depression recurrence: recurrent Major depression episode severity: unspecified Anxiety disorder, unspecified type F41.9 Anxiety disorder type: unspecified anxiety disorder Pre-bariatric surgery psychological evaluation Z71.89 Time Spent (min) 40
--- OUTSIDE RECORDS SUMMARY | 2025-08-01 10:24 | XMS_ITS | Encounter Summary ---
Author Organization [employer] Address [address] [place] [address] 7 [place] [address] Care Team Providers Care Banquet Bartender Name Role Phone James Larson MD Primary Care Provider [phone] Reason for Referral * Imaging (Routine) - Closed Specialty Diagnoses / Procedures Referred By Contnatalia t Referred To Contact Radiology Diagnoses Transaminitis Procedures US Abdomen Complete James Larson MD [address] [place] [address] Phone: tel: fax: [address] Phone: tel: fax: Referral ID Status Reason Start Date Expiration Date Visits Re quested Visits Authorized [id number] Closed 06/23/2024 06/23/2025 1 1 Encounter Details Date Type Department Care Team (Late st Contact Info) Description 06/23/2024 Orders Only [facility] [address] [place] [address] James Larson MD [address] [place] [address] Transaminitis (Primary Dx) Social History Tobacco Use [...] AM EST Narrative 10/12/2024 5:01 AM EST [facility] [address] [place] [address] [place] [address] Ultrasound Report Signed Patient: Brenda Apple MR#: [id number] 07 : 1985 Acct:[id number] Age/Sex: 39 / F ADM Date: 10/11/24 Loc: HO.HMGCX Attending Dr: James Larson MD Ordering Physician: James Larson MD Date of Service: 10/11/24 Procedure(s): US abdomen complete Accession Number(s): [id number] cc: James Larson MD CLINICAL HISTORY: transaminitis [...] 10/12/24 0500 DD/ 0459 TD/TT: 10/12/24 045 Traffic Operations Engineer: Procedure Note Donotuseinterpreter, Image - 10/12/2024 [facility] [address] [place] [address] [place] [address] Ultrasound Report Signed Patient: Gina AppleR#: [id number] [birth year] : 1985Acct:[id number] Age/Sex: 39 / FADM Date: 10/11/24 Loc: HO.HMGCX Attending Dr: James Larson MD Ordering Physician: James Larson MD Date of Service: 10/11/24 Procedure(s): US abdomen complete Accession Number(s): [id number] cc: James Larson MD CLINICAL HISTORY: transaminitis [...] 10/12/24 0500 DD/ 8 TD/TT: 10/12/24 045 Traffic Operations Engineer: us James Larson MD IMG US PROCEDURES Final Res ult documented in this encounter Visit Diagnoses Diagnosis Transaminitis- Primary Nonspecific elevation of levels of transaminase or lactic acid dehydrogenase (LDH) documented in this encounter Additional Health Concerns Assessment Noted Time PHQ-9 Depression Total Score: 0 01/22/20 23 3:02 PM EDT documented as of this encounter Care Teams Banquet Bartender Relationship Specialty Start Date End Date James Larson MD [address] [place] [address] PCP - General Internal Medicine 10/05/13 documented as of this encounter
--- OUTSIDE RECORDS SUMMARY | 2025-08-01 10:24 | XMS_ITS | Encounter Summary ---
Author Organization [employer] Address 75 [facility] 7 [place] [address] Care Team Providers Care Gwot Ia/Ilo Intelligence Support Name Role Phone James Larson MD Primary Care Provider [phone] Reason for Visit * Reason Comments Med Refill Encounter Details Date Type Department Care Team ([facility] st Contact Info) Description 07/29/2025 Refill [facility] MEDICINE [address] [place], [place] [phone] James Larson MD 505 [place] [address] Type 2 diabetes mellitus without complication, without long-term current use of insulin (HCC); Obesity, Class I, BMI 30.0-34.9 (see actual BMI) Social History Tobacco Use Types Packs/Day Years [...] Help patients manage their type 2 diabetes Ashia Garduno MA Patient has chronic kidney disease Care Plan Patient has chronic kidney disease Ashia Garduno MA Patient has chronic kidney disease Care Plan Patient has chronic kidney disease Morteza Chiu documented as of this encounter Visit Diagnoses Diagnosis Type 2 diabetes mellitus without complication, without long-term current use of insulin (HCC) Obesity, Class I, BMI 30.0-34.9 (see actual BMI) documented in this encounter Additional Health Concerns Active Problems Noted Date Diagnosed Date Help patients manage their type 2 diabetes 07/18 Patient has chronic kidney disease 07/18/2025 Patient has chronic kidney disease 07/24/2025 Assessment Noted Time PHQ-9 Depression Total Score: 14 025 10:22 AM EST documented as of this encounter Care Teams Gwot Ia/Ilo Intelligence Support Relationship Specialty Start Date End Date James Larson MD [address] [place], [place] [address], [place] [address] PCP - General Internal Medicine 10/05/13 documented as of this encounter
--- OUTSIDE RECORDS SUMMARY | 2025-08-01 10:24 | XMS_ITS | Encounter Summary ---
Author Organization [employer] Address 75 [facility] 7 [place] [address] Care Team Providers Care Supervisor Shuttle Preparation Name Role Phone James Larson MD Primary Care Provider [phone] Reason for Visit * Reason Onset Date Comments Referral 11/17/2023 Encounter Details Date Type Department Care Team ([facility] st Contact Info) Description 11/17/[address] [facility] CHC MED & PEDS [address] [place] [address] James Larson MD [address] [place] [address] Referral Social History Tobacco Use Types Packs/Day [...] for 11/16/23 . Please contact pt @ [phone] documented in this encounter Plan of Treatment Not on file documented as of this encounter Visit Diagnoses Not on filedocumented in this encounter Additional Health Concerns Assessment Noted Time PHQ-9 Depression Total Score: 0 01/22/20 23 3:02 PM EDT documented as of this encounter Care Teams Supervisor Shuttle Preparation Relationship Specialty Start Date End Date James Larson MD [address] [place] [address] PCP - General Internal Medicine 10/05/13 documented as of this encounter
--- OUTSIDE RECORDS SUMMARY | 2025-08-01 10:24 | XMS_ITS | Encounter Summary ---
Author Organization [employer] Address 75 [facility] 7t [place] [address] Care Team Providers Care Water Well Driller Name Role Phone James Larson MD Primary Care Provider [phone] Encounter Details Date Type Department Care Team ([facility] st Contact Info) Description 12/11/2024 Orders Only [facility] CHC MED & PEDS [address] [place], [place] [phone] James Larson MD 505 [place] [address] Type 2 diabetes mellitus without complication, without [...] complication, without long-term current use of insulin ([facility]) documented in this encounter Results * T-SPOT??.TB (12/11/2024 1:17 PM EDT) [facility] T Spot TB Negative Negative [facility] Comment:A negative test resu lt [...] as aquantitative test. TS PANEL A 0 [facility] TS PANEL B 0 [facility] Negative Control Passed [facility] Positive Control Passed [facility] Comment:For additional infor mation, please refer [email or web address].Net [email or web address]/faq/YYP772(This link is being provided for informational/educational purposes only.)REPORT COMMENT:[facility] WAS PERFORMED AT:[facility] [id number] [place] [address]FHAHIEXSILVER ARMANDO MD,PHD 12/11/2024 1:17 PM EDT 12/11/2024 1:56 PM EDT us James Larson MD LAB BLOOD ORDERABLES Final Result [facility] [address] [place] [address] [phone] documented in this encounter Visit Diagnoses Diagnosis Type 2 diabetes mellitus without complication, without long-term current use of insulin (HCC)- Primary documented in this encounter Additional Health Concerns Assessment Noted Time PHQ-9 Depression Total Score: 10 025 3:10 PM EST documented as of this encounter Care Teams Water Well Driller Relationship Specialty Start Date End Date James Larson MD [address] [place] [address] PCP - General Internal Medicine 10/05/13 documented as of this encounter
--- OUTSIDE RECORDS SUMMARY | 2025-08-01 10:24 | XMS_ITS | Encounter Summary ---
Author Organization [employer] Address 75 [facility] 7 [place] [address] Care Team Providers Care Flaker Tender Name Role Phone James Larson MD Primary Care Provider [phone] Reason for Visit * Reason Onset Date Comments FYI 10/27/2024 Encounter Details Date Type Department Care Team ([facility] st Contact Info) Description 10/27/2024 Telephone [facility] MEDICINE 230 [place], [place] [phone] James Larson MD 505 [place] [address] FYI Social History Tobacco Use Types Packs/Day [...] 11/01/2024 3:10 PM EST TC placed to [facility] to inform that per PCP Dr. Larson there are no further details regarding pt diagnosis and clinical presentation relating to the MRI of the abdomen w/ and w/o contrast. The order processing manager at [facility] spoke with one of the [...] MRA instead of MRI. Contact Charly at [phone] documented in this encounter Plan of Treatment Not on file documented as of this encounter Visit Diagnoses Not on filedocumented in this encounter Additional Health Concerns Assessment Noted Time PHQ-9 Depression Total Score: 10 025 3:10 PM EST documented as of this encounter Care Teams Flaker Tender Relationship Specialty Start Date End Date James Larson MD [address] [place] [address] PCP - General Internal Medicine 10/05/13 documented as of this encounter
--- OUTSIDE RECORDS SUMMARY | 2025-08-01 10:24 | XMS_ITS | Encounter Summary ---
Author Organization [employer] Address [address] [facility] 7 [place] [address] Care Team Providers Care Laundry Route Driver Name Role Phone James Larson MD Primary Care Provider [phone] Reason for Visit * Reason Onset Date Comments Nurse Triage 10/11/2023 Encounter Details Date Type Department Care Team ([facility] st Contact Info) Description 10/11/2023 Telephone C CHC MED & PEDS [address] [place] [address] James Larson MD 505 [place] [address] Nurse Triage Social History Tobacco Use Types [...] t he electric, gas, oil or water [email or web address] threatened to shut off services in your [...] . Pt is advised to come to [facility] 10/12/23 @ 340pm for provider to see [...] accepted this outcome Please contact pt at [phone] documented in this encounter Plan of Treatment Not on file documented as of this encounter Visit Diagnoses Not on filedocumented in this encounter Additional Health Concerns Assessment Noted Time PHQ-9 Depression Total Score: 0 01/22/20 23 3:02 PM EDT documented as of this encounter Care Teams Laundry Route Driver Relationship Specialty Start Date End Date James Larson MD [address] [place] [address] PCP - General Internal Medicine 10/05/13 documented as of this encounter
--- OUTSIDE RECORDS SUMMARY | 2025-08-01 10:24 | XMS_ITS | Encounter Summary ---
Author Organization [employer] Address 75 [facility] 7t [place] [address] Care Team Providers Care Medical Office Administrator Name Role Phone James Larson MD Primary Care Provider [phone] Encounter Details Date Type Department Care Team (Late st Contact Info) Description 10/30/2024 Orders Only [facility] MEDICINE [address] [place] [address] James Larson MD 505 [place], [place] [phone] Right sided abdominal pain (Primary Dx) Social [...] as of this encounter Care Teams Medical Office Administrator Relationship Specialty Start Date End Date James Larson MD [address] [place] [address] PCP - General Internal Medicine 10/05/13 documented as of this encounter
--- OUTSIDE RECORDS SUMMARY | 2025-08-01 10:24 | XMS_ITS | Encounter Summary ---
Author Organization [employer] Address [address] [place] [address] 7t [place] [address] Care Team Providers Care Jacquard Loom Card Changer Name Role Phone James Larson MD Primary Care Provider [phone] Encounter Details Date Type Department Care Team ([facility] st Contact Info) Description 09/09/2022 Telephone [facility] CHC MED & PEDS 505 [place], [place] [phone] James Larson MD 505 [place] [address] Social History Tobacco Use Types Packs/Day Years [...] on filedocumented in this encounter Care Teams Jacquard Loom Card Changer Relationship Specialty Start Date End Date James Larson MD 505 [place] [address] PCP - General Internal Medicine 10/05/13 documented as of this encounter
--- OUTSIDE RECORDS SUMMARY | 2025-08-01 10:24 | XMS_ITS | Encounter Summary ---
Author Organization [employer] Address [address] [facility] [address] 7t [place] [address] Care Team Providers Care Rivet Heater Name Role Phone James Larson MD Primary Care Provider [phone] Encounter Details Date Type Department Care Team (Late st Contact Info) Description 07/11/2025 Results Follow-Up [facility] MEDICINE 230 [place] [address] Tresa Arechiga CN [address] [place] [address] Bacterial Vaginosis Panel, Chlamydia/N. Gonorrhoeae RNA, TMA, [...] documented as of this encounter Care Teams Rivet Heater Relationship Specialty Start Date End Date James Larson MD [address] [place] [address] PCP - General Internal Medicine 10/05/13 documented as of this encounter
--- OUTSIDE RECORDS SUMMARY | 2025-08-01 10:24 | XMS_ITS | Encounter Summary ---
Author Organization [employer] Address [address] [facility] [address] 7t [place] [address] Care Team Providers Care Digital Design Engineer Name Role Phone James Larson MD Primary Care Provider [phone] Encounter Details Date Type Department Care Team ([facility] st Contact Info) Description 12/09/[address] [facility] CHC MED & PEDS 505 [place], [place] [phone] DrummondRikki Coronel MD 505 [place] [address] Social History Tobacco Use Types Packs/Day Years [...] documented as of this encounter Care Teams Digital Design Engineer Relationship Specialty Start Date End Date James Larson MD [address] [place] [address] PCP - General Internal Medicine 10/05/13 documented as of this encounter
--- OUTSIDE RECORDS SUMMARY | 2025-08-01 10:24 | XMS_ITS | Encounter Summary ---
Author Organization [employer] Address [address] [place] [address] 7 [place] [address] Care Team Providers Care Machine Maintenance Servicer Name Role Phone James Larson MD Primary Care Provider [phone] Reason for Referral * Imaging (Routine) - Closed Specialty Diagnoses / Procedures Referred By Contac t Referred To Contact Radiology Diagnoses Right sided abdominal pain Procedures CT Abdomen Pelvis w/ Contrast James Larson MD 505 [place] [address] Phone: tel: fax: [address] [address] Phone: tel: fax: Referral ID Status Reason Start Date Expiration Date Visits Re quested Visits Authorized [id number] Closed 11/16/2024 11/16/2025 1 1 Encounter Details Date Type Department Care Team (Late st Contact Info) Description 11/16/2024 Orders Only [facility] MEDICINE 230 [place] [address] James Larson MD 505 [place], [place] [phone] Right sided abdominal pain (Primary Dx) Social [...] as of this encounter Care Teams Machine Maintenance Servicer Relationship Specialty Start Date End Date James Larson MD [address] [place] [address] PCP - General Internal Medicine 10/05/13 documented as of this encounter
--- OUTSIDE RECORDS SUMMARY | 2025-08-01 10:24 | XMS_ITS | Encounter Summary ---
Author Organization [employer] Address [address] [place] [address] 7 [place] [address] Care Team Providers Care Warehouse Order Picker Name Role Phone James Larson MD Primary Care Provider [phone] Reason for Referral * Imaging (Routine) - Authorized Specialty Diagnoses / Procedures Referred By Contac t Referred To Contact Radiology Diagnoses Hepatic steatosis Procedures US Abdomen Complete James Larson MD 505 [place] [address] Phone: tel: fax: [address] [address] Phone: tel: fax: Referral ID Status Reason Start Date Expiration Date V isits Requested Visits Authorized [id number] Authorized 07/03/2025 07/03/2026 1 1 * Consultation (Routine) - Authorized Specialty Diagnoses / Procedures Referred By Contac t Referred To Contact Orthopaedic Surgery Diagnoses Closed nondisplaced fracture of distal phalanx of right ring finger, initial encounter James Larson MD [address] [place] [address] Phone: tel: fax: [facility] [address] [place] [address] Dr Del Angel [address] [place] [address] Phone: tel: Referral ID Status Reason Start Date Expiration Date Visits Requested Visits Authorized [id number] Authorized Specialty Services Required 07/03/2026 1 1 Encounter Details Date Type Department Care Team (Late st Contact Info) Description 07/03/2025 Orders Only [facility] CHC MED & PEDS 505 [place] [address] James Larson MD [address] [place] [address] Closed nondisplaced fracture of distal phalanx of [...] Expires: 07/03/2026 documented as of this encounter Procedures Procedure Name Priority Date/Time Associated Diagnosis Comments XR CHEST 2 VIEWS Routine 07/31/2025 9:50 AM EST FL UPPER GI W AIR Routine 07/31/2025 9:2 5 AM EST documented in this encounter Results * XR Chest 2 Views (07/31/2025 9:50 AM EST) Anatomical Region Laterality Modality Chest Radiographic Princess ging 07/31/2025 9:50 AM EST Narrative 07/31/2025 10:02 AM EST [place] [address] XRay Report Signed Patient: Brenda Apple MR#: [id number] 07 : 1985 Acct:[id number] Age/Sex: 40 / F ADM Date: 07/31/25 Loc: [facility] Attending Dr: Fernando Gurrola MD Ordering Physician: Fernando Gurrola MD Date of Service: 07/31/25 Procedure(s): XR chest 2V Accession Number(s): [id number] cc: James Larson MD; Fernando Gurrola MD Reason for Exam: E66.9 - Obesity, unspecified EXAMINATION: XR CHEST 2 VIEWS HISTORY: E66.9 - Obesity, unspecified COMPARISON: Comparison is made with the prior examination dated 04/07/2021. FINDINGS: PA and lateral views of the chest are submitted. The lungs are expanded and clear. There is no pleural effusion, pneumothorax, or pulmonary vascular congestion. The heart is normal in size. The bones are intact. There is barium in the stomach from recent upper GI series. XR/XR chest 2V IMPRESSION: No acute cardiopulmonary abnormality. Electronically signed by: Hoang Goldberg MD 07/31/2025 09:59 AM EST Dictated By: Hoang Goldberg MD Signed By: <Electronically signed by Hoang Goldberg MD in OV> 07/31/2559 DD/ 9 TD/TT: 07/31/25954 Brilliandeer Lopper: Procedure Note Donotuseinterpreter, Image - 07/31/[address] [address] XRay Report Signed Patient: Connie Apple#: [id number] [birth year] : 1985Acct:[id number] Age/Sex: 40 / FADM Date: 07/31/25 Loc: HO.[place] Attending Dr: Fernando Gurrola MD Ordering Physician: Fernando Gurrola MD Date of Service: 07/31/25 Procedure(s): XR chest 2V Accession Number(s): [id number] cc: James Larson MD; Fernando Gurrola MD Reason for Exam: E66.9 - Obesity, unspecified EXAMINATION: XR CHEST 2 VIEWS HISTORY: E66.9 - Obesity, unspecified COMPARISON: Comparison is made with the prior examination dated 04/07/2021. FINDINGS: PA and lateral views of the chest are submitted. The lungs are expanded and clear. There is no pleural effusion, pneumothorax, or pulmonary vascular congestion. The heart is normal in size. The bones are intact. There is barium in the stomach from recent upper GI series. XR/XR chest 2V IMPRESSION: No acute cardiopulmonary abnormality. Electronically signed by: Hoang Goldberg MD 07/31/2025 09:59 AM EST RP Dictated By: Hoang Goldberg MD Signed By: <Electronically signed by Hoang Goldberg MD in OV> 07/31/25 0959 DD/ 0950 TD/TT: 07/31/2555 Brilliandeer Lopper: [facility] External Provider IMG XR PROCEDURES Final Result * FL upper GI w air (07/31/2025 9:25 AM EST) Anatomical Region Laterality Modality Body Radiographic Princess ging 07/31/2025 9:25 AM EST Narrative 07/31/2025 4:30 PM EST [place] [address] Fluoroscopy Report Signed Patient: Brenda Apple MR#: [id number] [birth year] : 1985 Acct:[id number] Age/Sex: 40 / F ADM Date: 07/31/25 Loc: HO.XRAY Attending Dr: Fernando Gurrola MD Ordering Physician: Fernando Gurrola MD Date of Service: 07/31/25 Procedure(s): FL upper GI w air Accession Number(s): [id number] cc: James Larson MD; Fernando Gurrola MD Reason for Exam: E66.9 - Obesity, unspecified EXAMINATION: XR FLUOROSCOPY UPPER GI WITH AIR CLINICAL INFORMATION: Obesity COMPARISON: None available. TECHNIQUE: Patient ingested thick and thin barium, effervescent granules. FINDINGS: Esophagus demonstrates normal distention and motility. No evidence of stricture, mass or mucosal lesion. Stomach demonstrates normal distention. No mass or mucosal lesions are seen. There is normal passage of the barium through the stomach into the proximal small bowel. Small sliding hiatal hernia. There is severe gastroesophageal reflux in the supine position. FLUOROSCOPY TIME: 59 seconds DOSE AREA PRODUCT: 164 uGy-m2 (microgray-meter squared) FL/FL upper GI w air IMPRESSION: Small sliding hiatal hernia. Severe gastroesophageal reflux in the supine position. Electronically signed by: Abhinav Robertson MD 07/31/2025 04:26 PM EST RP Dictated By: Abhinav Robertson MD Signed By: <Electronically signed by Abhinav Robertson MD in OV> 07/31/256 DD/ 4 TD/TT: 07/31/25944 Brilliandeer Lopper: KIRBY Procedure Note Donotuseinterpreter, Image - 07/31/[address] [address] Fluoroscopy Report Signed Patient: Connie Apple#: [id number] [birth year] : 1985Acct:[id number] Age/Sex: 40 / FADM Date: 07/31/25 Loc: HO.XRAY Attending Dr: Fernando Gurrola MD Ordering Physician: Fernando Gurrola MD Date of Service: 07/31/25 Procedure(s): FL upper GI w air Accession Number(s): [id number] cc: James Larson MD; Fernando Gurrola MD Reason for Exam: E66.9 - Obesity, unspecified EXAMINATION: XR FLUOROSCOPY UPPER GI WITH AIR CLINICAL INFORMATION: Obesity COMPARISON: None available. TECHNIQUE: Patient ingested thick and thin barium, effervescent granules. FINDINGS: Esophagus demonstrates normal distention and motility. No evidence of stricture, mass or mucosal lesion. Stomach demonstrates normal distention. No mass or mucosal lesions are seen. There is normal passage of the barium through the stomach into the proximal small bowel. Small sliding hiatal hernia. There is severe gastroesophageal reflux in the supine position. FLUOROSCOPY TIME: 59 seconds DOSE AREA PRODUCT: 164 uGy-m2 (microgray-meter squared) FL/FL upper GI w air IMPRESSION: Small sliding hiatal hernia. Severe gastroesophageal reflux in the supine position. Electronically signed by: Abhinav Robertson MD 07/31/2025 04:26 PM EST RP Dictated By: Abhinav Robertson MD Signed By: <Electronically signed by Abhinav Robertson MD in OV> 07/31/25 1626 DD/ 0925 TD/TT: 07/31/25 0945 Brilliandeer Lopper: KIRBY [facility] External Provider IMG FLU OROSCOPY PROCEDURES Final Result documented in this encounter Visit Diagnoses Diagnosis Closed nondisplaced fracture of distal phalanx of right ring finger, initial encounter- Primary Hepatic steatosis Other chronic nonalcoholic liver disease documented in this encounter Additional Health Concerns Assessment Noted Time PHQ-9 Depression Total Score: 10 025 3:10 PM EST documented as of this encounter Care Teams Warehouse Order Picker Relationship Specialty Start Date End Date James Larson MD [address] [place] [address] PCP - General Internal Medicine 10/05/13 documented as of this encounter
--- OUTSIDE RECORDS SUMMARY | 2025-08-01 10:24 | XMS_ITS | Encounter Summary ---
Author Organization [employer] Address [address] [facility] [address] 7t [place] [address] Care Team Providers Care Sales Operations Director Name Role Phone James Larson MD Primary Care Provider [phone] Encounter Details Date Type Department Care Team (Late st Contact Info) Description 07/31/2025 Telephone [facility] 230 [place], [place] [phone] Desirae Kelley RN 230 [place] [address] Social History Tobacco Use Types Packs/Day Years [...] Kelley RN documented as of this encounter Visit Diagnoses Not on filedocumented in this encounter Additional Health Concerns Active Problems Noted Date Diagnosed Date Help patients manage their type 2 diabetes 07/18 Patient has chronic kidney disease 07/18/2025 Patient has chronic kidney disease 07/24/2025 Patient has chronic kidney disease 07/31/2025 Patient has chronic kidney disease 07/31/2025 Assessment Noted Time PHQ-9 Depression Total Score: 14 025 10:22 AM EST documented as of this encounter Care Teams Sales Operations Director Relationship Specialty Start Date End Date James Larson MD [address] [place] [address] PCP - General Internal Medicine 10/05/13 documented as of this encounter
--- OUTSIDE RECORDS SUMMARY | 2025-08-01 10:24 | XMS_ITS | Encounter Summary ---
Author Organization [employer] Address [address] [facility] [address] 7t [place] [address] Care Team Providers Care Edge Stripper Name Role Phone James Larson MD Primary Care Provider [phone] Encounter Details Date Type Department Care Team (Latest Contact Info) Description 07/31/2025 Travel Social History Tobacco Use Types Packs/Day [...] documented as of this encounter Care Teams Edge Stripper Relationship Specialty Start Date End Date James Larson MD [address] [place] [address] PCP - General Internal Medicine 10/05/13 documented as of this encounter
--- OUTSIDE RECORDS SUMMARY | 2025-08-01 10:24 | XMS_ITS | Encounter Summary ---
Author Organization [employer] Address [address] [facility] 7 [place] [address] Care Team Providers Care Cover Operator Name Role Phone James Larson MD Primary Care Provider [phone] Reason for Visit * Reason Onset Date Comments Call Back Request 10/11/2023 Encounter Details Date Type Department Care Team ([facility] st Contact Info) Description 10/11/2023 Telephone [facility] [address] [place] [address] James Larson MD [address] [place] [address] Call Back Request Social History Tobacco Use [...] start it now. Please contact pt at [phone] documented in this encounter Plan of Treatment Not on file documented as of this encounter Visit Diagnoses Not on filedocumented in this encounter Additional Health Concerns Assessment Noted Time PHQ-9 Depression Total Score: 0 01/22/20 23 3:02 PM EDT documented as of this encounter Care Teams Cover Operator Relationship Specialty Start Date End Date James Larson MD [address] [place] [id number] PCP - General Internal Medicine 10/05/13 documented as of this encounter
--- OUTSIDE RECORDS SUMMARY | 2025-08-01 10:24 | XMS_ITS | Encounter Summary ---
Author Organization [employer] Address [address] [place] [address] Care Team Providers Care Pad Assembler Name Role Phone James Larson MD Primary Care Provider [phone] Encounter Details Date Type Department Care Team ([facility] st Contact Info) Description 10/31/2024 Telephone [facility] PEDS [address] [place], [place] [phone] James Larson MD [address] [place] [address] Social History Tobacco Use Types Packs/Day Years [...] - 10/31/2024 11:53 AM EST Tc from [facility] with [facility] calling to inform they received referral but are needing more DX can't only be abdominal pain. Best contact # [phone]. documented in this encounter Plan of Treatment Not on file documented as of this encounter Visit Diagnoses Not on filedocumented in this encounter Additional Health Concerns Assessment Noted Time PHQ-9 Depression Total Score: 10 025 3:10 PM EST documented as of this encounter Care Teams Pad Assembler Relationship Specialty Start Date End Date James Larson MD [address] [place] [id number] PCP - General Internal Medicine 10/05/13 documented as of this encounter
--- OUTSIDE RECORDS SUMMARY | 2025-08-01 10:24 | XMS_ITS | Encounter Summary ---
Author Organization [employer] Address [address] [facility] 7 [place] [address] Care Team Providers Care Target Network Analyst Name Role Phone James Larson MD Primary Care Provider [phone] Encounter Details Date Type Department Care Team (Late st Contact Info) Description 03/29/2023 Telephone [facility] [address] [place] [address] August Bridges DDS [address] [place] [address] Social History Tobacco Use Types Packs/Day Years [...] documented as of this encounter Care Teams Target Network Analyst Relationship Specialty Start Date End Date James Larson MD [address] [place] [address] PCP - General Internal Medicine 10/05/13 documented as of this encounter
--- OUTSIDE RECORDS SUMMARY | 2025-08-01 10:25 | XMS_ITS | Clinical Summary ---
Author Organization [employer] Address [address] [facility] [address] [place] [address] Care Team Providers Care Finish Opener Name Role Phone James Larson MD Primary Care Provider [phone] Allergies No known active allergies Medications glucose-vitamin C 4-6 GM-MG oral gel 1 tablet to use in case of symptoms of hypoglycemia or if FS<70 mg/dl 021 Active Alcohol Swabs (Alcohol Prep) pads Active Misc. Devices (Wrist Brace) misc Active Continuous Glucose Instructor Of Spanish (FreeStyle Jorje 2 [place]) deviceIndicatio ns:Type 2 diabetes mellitus without complication, without long-term current use of insulin ([facility]) Scan sensor every 8 hours 1 each 024 Active Continuous Glucose Sensor (FreeStyle Jorje 2 Sensor) miscIndications :Type 2 diabetes mellitus without complication, without long-term current use of insulin ([facility]) Apply 1 sensor every 14 days 2 each Active Blood Glucose Monitoring Suppl (FreeStyle Lite) w/Device kitIndications: Type 2 diabetes mellitus without complication, without long-term current use of insulin ([facility]) 1 Units Once per day. 1 kit 024 Active Lancets miscIndications :Type 2 diabetes mellitus without complication, without long-term current use of insulin ([facility]) Use to test blood sugar 2 times daily 100 each 11 024 Active Blood Pressure kitIndications: Lightheadedness 1 kit 2 times daily. 1 kit 025 Active Ascorbic Acid (vitamin C) 250 MG tabletIndicatio ns:Other fatigue Take 1 tablet (250 mg) by mouth Once per day. 30 tablet 025 2025 Active cholecalciferol (Vitamin D-3) 25 MCG (1000 UT) tabletIndicatio ns:Vitamin D deficiency Take 1 tablet (25 mcg) by mouth Once per day. 60 tablet 3 Active Triclosan 0.15 % liquidIndicatio ns:Bromidrosis To use once a day to the affected area 221 mL 1 Active sertraline (Zoloft) 25 MG tabletIndicatio ns:Depression with anxiety Take 1 tablet (25 mg) by mouth Once per day. 30 tablet 11 025 2024 Discontinued(T herapy completed) hydrOXYzine pamoate (Vistaril) 25 MG capsuleIndicati ons:Depression with anxiety Take 1 capsule (25 mg) by mouth every 12 (twelve) hours if needed for anxiety. 60 capsule 025 2024 Discontinued Semaglutide,0.2 5 or 0.5MG/DOS, (Ozempic, 0.25 or 0.5 MG/DOSE,) 2 MG/3ML solution pen-injectorInd ications:Type 2 diabetes mellitus without complication, without long-term current use of insulin ([facility]),Obesity, Class I, BMI 30.0-34.9 (see actual BMI) Inject 0.25 mg under the skin every 7 (seven) days. 3 mL 025 2024 Discontinued psyllium (Metamucil 3 in 1 Daily Fiber) 400 MG capsuleIndicati ons:Other constipation Take 6 capsules (2.4 g) by mouth Once per day. 180 capsule 2024 Discontinued(T herapy completed) amoxicillin-cla vulanate (Augmentin) 875-125 MG tablet Take 1 tablet by mouth 2 times daily. 14 tablet 2024 Discontinued(T herapy completed) ibuprofen 800 MG tablet Take 1 tablet (800 mg) by mouth if needed in the morning, at noon, and at bedtime for mild pain. 15 tablet 2024 Discontinued(T herapy completed) terconazole (Terazol 7) 0.4 % vaginal cream Insert 1 applicator into the vagina at bedtime for 7 days. 45 g 07/18/20 3:55 PM EST 2024 hydrOXYzine pamoate (Vistaril) 25 MG capsuleIndicati ons:Depression with anxiety TAKE ONE CAPSULE BY MOUTH EVERY 12 HOURS NEEDED FOR ANXIETY 60 capsule 1 025 2024 Discontinued(T herapy completed) Ozempic, 0.25 or 0.5 MG/DOSE, 2 MG/3ML solution pen-injectorInd ications:Type 2 diabetes mellitus without complication, without long-term current use of insulin ([facility]),Obesity, Class I, BMI 30.0-34.9 (see actual BMI) INJECT 0.25 MG SUBCUTANEOUSLY ONCE A WEEK 3 mL 1 025 2024 Discontinued(T herapy completed) Active Problems Problem Noted Date Diagnosed Date [...] 2 diabetes mellitus 02/23/2014 Assessment & Plan (07/31/2025 4:24 PM EST): An increase in A1C- 8.4 % Wants to attempt weight loss as the treatment as she is in a weight loss program Advised to discontinue the Ozempic Continue with lifestyle measures and glucose monitoring. Orders: POCT Glucose POCT Hgb A1c Assessment & Plan (04/04/2025 7:35 PM EDT): [...] disorder 09/23/2011 Obesity 09/23/2011 Essential hypertension 04/28/2011 Assessment & Plan (07/31/2025 4:24 PM EST): Neck pain 04/28/2011 Encounters Date Type Department Care Team Description 07/31/2025 3:15 PM EST Office Visit [facility] [address] [place] [address] James Larson MD Type 2 diabetes mellitus without complication, without long-term current use of insulin (HCC) (Primary Dx); Essential hypertension; Encounter for immunization; Halitosis; Bilateral impacted cerumen 07/31/2025 Telephone [facility] [address] [place] [phone] Desirae Kelley RN 07/31/2025 Travel 07/29/2025 Refill [facility] [address] [place] [phone] James Larson MD Type 2 diabetes mellitus without complication, without long-term current use of insulin (HCC); Obesity, Class I, BMI 30.0-34.9 (see actual BMI) 07/24/2025 Patient Outreach [facility] [address] [place] [phone] James Larson MD Pre-visit Planning (Pre visit planning LVM ) 07/17/2025 Refill [facility] [address] [place] [address] James Larson MD Depression with anxiety 07/11/2025 Results Follow-Up [facility] [address] [place] [address] Tresa Arechiga CNM Bacterial Vaginosis Panel, Chlamydia/N. Gonorrhoeae RNA, TMA, Vagina 07/10/2025 10:00 AM EST Office Visit [address] [address] Tresa Arechiga CNM Vaginal discharge (Primary Dx); Screening examination for venereal disease 07/10/2025 Patient Outreach [facility] [address] [place] [phone] James Larson MD Pre-visit Planning (Pre visit planning LVM ) 07/10/2025 Travel 07/09/2025 Telephone [facility] [address] [place] [address] Malinda Marquis CA 07/09/2025 Telephone [facility] [address] [place] [address] James Larson MD triage 07/06/2025 Telephone [facility] [address] [place] [address] James Larson MD No Show 07/05/2025 Telephone [facility] [address] [place] [address] James Larson MD Chart Prep 07/03/2025 Results Follow-Up [facility] [address] [place] [address] James Larson MD XR KUB and Upright 2 Views 07/03/2025 Results Follow-Up [facility] [address] [place] [address] James Larson MD XR Hand 3+ Views Right 07/03/2025 Orders Only [facility] [address] [place] [address] James Larson MD Closed nondisplaced fracture of distal phalanx of right ring finger, initial encounter (Primary Dx); Hepatic steatosis 07/03/2025 Telephone [facility] [address] [place] [address] James Larson MD Referral 06/29/2025 Patient Outreach [facility] [address] [place] [address] James Larson MD Pre-visit Planning (Pre visit planning LVM ) 06/21/2025 Telephone [facility] [address] [place] [address] James Larson MD 06/21/2025 Telephone [facility] [address] [place] [address] James Larson MD Chart Prep 06/14/2025 Patient Outreach [facility] [address] [place] [phone] James Larson MD Pre-visit Planning (SDOH screening completed on 10/25/24) 05/29/[address] [address] James Larson MD No Show 05/21/2025 9:40 AM EDT Office Visit [facility] [address] [place] [phone] Lloyd Echevarria MD Acute otitis externa of left ear, unspecified type (Primary Dx); Non-recurrent acute serous otitis media of left ear 05/21/2025 Travel 05/10/[address] [address] James Larson MD No Show 05/09/2025 Telephone [facility] [address] [place] [address] James Larson MD Chart Prep from Last 3 Months Immunizations Immunization Administration Dates Next Due HPV, Quadrivalent 12/21/2006,07/23/2006 Hep B, adult 06/06/2015,02/04/2015,12/27/2014 Influenza injectable quadriv alent IIV4 with preservative 06/14/2019,06/28/2018,07/22/2017,08/06,06/06/2015 Influenza injectable quadriv alent preservative free 11/18/2021 Influenza, Split (incl. drew fied surface antigen) 09/29/2012 MMR 04/29/1991,01/04/1990 Pneumococcal Polysaccharide PPSV23 06/14/2019 Td (adult), unspecified 05/15/2004 Tdap 07/31/2025,12/21/2014 Varicella 06/27/2001 Social History Tobacco Use Types [...] Mass Index 32.28 07/31/2025 3:37 PM EST Plan of Treatment Health Maintenance Due Date [...] 07/22/2024 07/22/2023, 07/22/2023, 07/22/2023, Additional history exists COVID-19 Vaccine ( season) 2025 Influenza Vaccine (#1) 2025 2, 06/14/2019, 06/28/2018, Additional history exists Alcohol/Substance Use Screening 10/25/2025 10/25/2024 SDOH Screening 10/25/2025 10/25/2024 Diabetes: Hemoglobin A1C 10/31/2025 025, 03/21/2025, 02/09/2025, Additional history exists Depression Monitoring 01/07/2026 07/10/2025, 025 Disability Screening 03/21/2026 03/21/2025 Lipid Panel 03/21/2026 03/21/2025 Family Planning (PISQ) 07/10/2026 07/10/2025 Tobacco Screening 07/10/2026 07/10/2025 Cervical Cancer Screening 08/11/2027 HPV/Cotest 08/11/2027 08/11/2022, 03/21/2019 Pap Smear 08/11/2027 08/11/2022 DTaP/Tdap/Td Vaccines (4 - Td or Tdap) 07/31/2035 07/31/2025, 12/21/2014, 05/15/2004 Zoster Vaccines (1 of 2) 2037 RSV [...] on patient's age to complete this topic Goals Goal Patient Goal Type Associated Problems [...] Patient has chronic kidney disease No Desirae Kelley, head men's golf coach Procedure Name Priority Date/Time Associated Diagnosis Comments POCT GLUCOSE Routine 07/31/2025 4:04 PM EST Type 2 diabetes mellitus without complication, without long-term current use of insulin (HCC) POCT GLYCATED HEMOGLOBIN, TOTAL Routine 07/31/2025 4:03 PM EST Type 2 diabetes mellitus without complication, without long-term current use of insulin (HCC) XR CHEST 2 VIEWS Routine 07/31/2025 9:50 AM EST FL UPPER GI W AIR Routine 07/31/2025 9:2 5 AM EST HIV 1/2 ANTIGEN/ANTIBODY, FOURTH GENERATION W/RFL [...] PM EDT Other constipation Generalized abdominal pain LIPID PANEL, STANDARD Routine 03/21/2025 2:03 PM EDT THINPREP IMAGING PAP AND HPV MRNA E6/E7, WITH CT/NG, TRICHOMONAS Routine 08/11/2022 5:19 PM EST PANORAMIC RADIOGRAPHIC IMAGE Routine 01/13/2021 12:00 AM EDT ALBUMIN, RANDOM URINE W/CREATININE Routine 08/07/2020 2:58 PM EST from Last 3 Months or Most Recently Relevant to Health Maintenance Results * (ABNORMAL) POCT Glucose (07/31/2025 4:04 PM EST) Glucose Blood, POC 229(A) 60 - 200 mg/dL QC Media Lot # [id number] Lot# Expiration Date 47, Comment:random Blood Capillary blood specimen / Unknown 07/31/2025 4:04 PM EST James Larson MD POINT OF CARE TEST ENTER/ED IT ORDERABLES Final Result * (ABNORMAL) POCT Hgb A1c (07/31/2025 4:03 PM EST) Hemoglobin A1C 8.4(A) 4.0 - 5.7 % QC Media Lot # [id number] Lot# Expiration Date 522, Blood 07/31/2025 4:0 3 PM EST James Larson MD POINT OF CARE TEST ENTER/ED IT ORDERABLES Edited Result - Final * XR Chest 2 Views (07/31/2025 9:50 AM EST) Anatomical Region Laterality Modality Chest Radiographic Princess ging 07/31/2025 9:50 AM EST Narrative 07/31/2025 10:02 AM EST [address] [address] XRay Report Signed Patient: Brenda Apple MR#: [id number] [birth year] : 1985 Acct:[id number] Age/Sex: 40 / F ADM Date: 07/31/25 Loc: GIRISH Attending Dr: Fernando Gurrola MD Ordering Physician: Fernando Gurrola MD Date of Service: 07/31/25 Procedure(s): XR chest 2V Accession Number(s): [id number] cc: James Larson MD; Fernando Gurrola MD [...] in OV> 07/31/25 0959 DD/ 0950 TD/TT: 07/31/25 0955 Senior Software Engineer: Procedure Note Donotuseinterpreter, Image - 07/31/[address] [address] XRay Report Signed Patient: Gina AppleR#: [id number] [birth year] : 1985Acct:[id number] Age/Sex: 40 / FADM Date: 07/31/25 Loc: GIRISH Attending Dr: Fernando Gurrola MD Ordering Physician: Fernando Gurrola MD Date of Service: 07/31/25 Procedure(s): XR chest 2V Accession Number(s): [id number] cc: James Larson MD; Fernando Gurrola MD [...] in OV> 07/31/2559 DD/ 9 TD/TT: 07/31/25954 Senior Software Engineer: [facility] External Provider IMG XR PROCEDURES Final Result * FL upper GI w air (07/31/2025 9:25 AM EST) Anatomical Region Laterality Modality Body Radiographic Princess ging 07/31/2025 9:25 AM EST Narrative 07/31/2025 4:30 PM EST [place] [address] Fluoroscopy Report Signed Patient: Brenda Apple MR#: [id number] [birth year] : 1985 Acct:[id number] Age/Sex: 40 / F ADM Date: 07/31/25 Loc: HO.XRAY Attending Dr: Fernando Gurrola MD Ordering Physician: Fernando Gurrola MD Date of Service: 07/31/25 Procedure(s): FL upper GI w air Accession Number(s): [id number] cc: James Larson MD; Fernando Gurrola MD [...] by: Abhinav Robertson MD 07/31/2025 04:26 PM [facility] Dictated By: Abhinav Robertson MD Signed By: <Electronically signed by Abhinav Robertson MD in OV> 07/31/25 1626 DD/ 4 TD/TT: 07/31/2545 Senior Software Engineer: Procedure Note Donotuseinterpreter, Image - 07/31/2025 [place] [address] Fluoroscopy Report Signed Patient: Connie Apple#: [id number] [birth year] : 1985Acct:[id number] Age/Sex: 40 / FADM Date: 07/31/25 Loc: HO.XRAY Attending Dr: Fernando Gurrola MD Ordering Physician: Fernando Gurrola MD Date of Service: 07/31/25 Procedure(s): FL upper GI w air Accession Number(s): [id number] cc: James Larson MD; Fernando Gurrola MD [...] Robertson MD in OV> 07/31/25 1626 DD/ 4 TD/TT: 07/31/2545 Senior Software Engineer: KIRBY [facility] External Provider IMG FLU OROSCOPY PROCEDURES Final Result * Syphilis Screen (07/10/2025 10:58 AM EST) Syphilis Screen Nonreactive Nonreactive [facility] Blood Venous blood specimen / Unknown 07/10/2025 10:58 AM EST 07/10/2025 12:09 PM EST [facility] BLOOD ORDERABLES Cleopatra l Result Performing Organization Address [place]/[facility] de Phone Number [facility] [address] [place] [phone] * Hepatitis C Antibody with Reflex to HCV, RNA, Quantitative, Real-Time PCR (07/10/2025 10:58 AM EST) Hepatitis C Antibody Nonreactive Nonreactive [facility] Comment:Antibodies to HCV no t detected; does not exclude early acuteHCV infection. Blood Venous blood specimen / Unknown 07/10/2025 10:58 AM EST 07/10/2025 12:09 PM EST [facility] Are[facility] LAB BLOOD ORDERABLES Cleopatra l Result Performing Organization Address [place]/[facility] Co de Phone Number [facility] [address] [place] [phone] * HIV-1/2 Antigen and Antibodies, Fourth Generation, with Reflexes (07/10/2025 10:58 AM EST) [facility] HIV AB/AG Nonreactive Nonreactive [facility] Comment:HIV-1 p24 Ag and/or HIV-1/HIV-2 Ab not detected.A test result that is nonreactive does not exclude thepossibility of exposure to or infection with HIV-1 and/orHIV-2. Nonreactive results in this assay for individualswith prior exposure to HIV-1 and/or HIV-2 may be due toantigen and antibody levels that are below the limit ofdetection of this assay.The [employer] HIV Ag/Ab Combo assay result andsupplemental assay results should be interpreted inconjunction with the patient's clinical presentation,history and other laboratory results. If the results areinconsistent with clinical evidence, additional testing issuggested to confirm the result. Blood Venous blood specimen / Unknown 07/10/2025 10:58 AM EST 07/10/2025 12:09 PM EST Tresa CHOUDHURY LAB BLOOD ORDERABLES Cleopatra l Result [facility] [address] [place] [address] [phone] * POCT fern test, vaginal fluid manually resulted (07/10/2025 10:41 AM EST) [facility]RAD[employer] Prep Positive Comment:pH 4.5, neg whiff, n eg clue, neg trich, neg wbc, pos hyphae Vaginal Fluid Vaginal structure / Unknown 07/10/2025 10:41 AM EST Tresa Arechiga [facility] POINT OF CARE TEST ENTER/ EDIT ORDERABLES Final Result * Bacterial Vaginosis Panel (07/10/2025 12:00 AM EST) [facility] TRICHOMONAS VAGINALIS DETECTION BY PCR NOT DETECTED Not Detect [facility] BACTERIAL VAGINOSIS DETECTION BY PCR NEGATIVE Negative [facility] Comment:The BV organism targ [...] DETECTION BY PCR NOT DETECTED Not Detect [facility] Yary glab krusei PCR NOT DETECTED Not Detect [facility] Swab Vaginal structure / Unknown 07/10/2025 07/10/2025 Tresa Arechiga [facility] LAB MICROBIOLOGY - GENERA L ORDERABLES Final Result [facility] [address] [place] [phone] [phone] * Chlamydia/N. Gonorrhoeae RNA, TMA, Vagina (07/10/2025 12:00 AM EST) CT PCR NOT DETECTED Not Detect. [facility] Comment:A not detected test [...] psychologicalconsequences. NG PCR NOT DETECTED Not Detect. [facility] Comment:A not detected test [...] structure / Unknown 07/10/2025 07/10/2025 us Tresa CHOUDHURY LAB MICROBIOLOGY - GENERA L ORDERABLES Final Result Performing Organization Address City/State/[facility] Co de Phone Number [facility] [address] [place] [phone] [phone] * XR Hand 3+ Views Right (07/03/2025 1:46 PM EDT) Anatomical Region Laterality Modality Upper Extremities, Hand Right Radiogra phic Imaging 07/03/2025 1:46 PM EDT Narrative 07/03/2025 1:55 PM EDT [address] [address] XRay Report Signed Patient: Brenda Apple MR#: [id number] [birth year] : 1985 Acct:[id number] Age/Sex: 40 / F ADM Date: 07/03/25 Loc: GIRISH Attending Dr: James Larson MD Ordering Physician: Silvia Norman MD Date of Service: 07/03/25 Procedure(s): XR hand RT min 3V Accession Number(s): [id number] cc: Silvia Norman MD; James Larson MD [...] 07/03/25 1352 DD/ 1346 TD/TT: 07/03/25 1348 Senior Software Engineer: Procedure Note Donotuseinterpreter, Image - 07/03/2025 [place] [address] XRay Report Signed Patient: Connie Apple#: [id number] [birth year] : 1985Acct:[id number] Age/Sex: 40 / FADM Date: 07/03/25 Loc: HO.XRAY Attending Dr: James Larson MD Ordering Physician: Silvia Norman MD Date of Service: 07/03/25 Procedure(s): XR hand RT min 3V Accession Number(s): [id number] cc: Silvia Norman MD; James Larson MD [...] 07/03/25 1352 DD/ 1346 TD/TT: 07/03/25 1348 Senior Software Engineer: us Silvia Alejandro MD IMG XR PROCEDURES Fin al Result * XR KUB and Upright 2 Views (07/03/2025 1:40 PM EDT) Anatomical Region Laterality Modality Radiographic Princess ging 07/03/2025 1:40 PM EDT Narrative 07/03/2025 1:55 PM EDT [place] [address] XRay Report Signed Patient: Brenda Apple MR#: [id number] [birth year] : 1985 Acct:[id number] Age/Sex: 40 / F ADM Date: 07/03/25 Loc: HO.XRAY Attending Dr: James Larson MD Ordering Physician: James Larson MD Date of Service: 07/03/25 Procedure(s): XR KUB Accession Number(s): [id number] cc: James Larson MD Reason for Exam: [...] 07/03/25 1352 DD/ 1340 TD/TT: 07/03/25 1348 Senior Software Engineer: Procedure Note Donotuseinterpreter, Image - 07/03/[address] [address] XRay Report Signed Patient: Connie Apple#: [id number] [birth year] : 1985Acct:[id number] Age/Sex: 40 / FADM Date: 07/03/25 Loc: HO.XRAY Attending Dr: James Larson MD Ordering Physician: James Larson MD Date of Service: 07/03/25 Procedure(s): XR KUB Accession Number(s): [id number] cc: James Larson MD Reason for Exam: [...] 07/03/25 1352 DD/ 1340 TD/TT: 07/03/25 1348 Senior Software Engineer: us James Larson MD IMG XR PROCEDURES Final Res ult * (ABNORMAL) Lipid Panel, Standard (03/21/2025 2:03 PM EDT) Triglycerides 228(H) <150 mg/dL [facility] Comment:Desirable Triglyceri de: less than 150 mg/dLBorderline High Triglyceride 150-199 mg/dLHigh Triglyceride: 200-499 mg/dLVery High Triglyceride: greater than or equal to 5OO mg/dL Cholesterol 226(H) <200 mg/dL [facility] Comment:Desirable Cholestero l: less than 200 mg/dLBorderline High Cholesterol: 200-239 mg/dLHigh Cholesterol: greater than 239 mg/dL LDL Cholesterol Calculated 144(H) <100 mg/dL [facility] Comment:Desirable LDL: less than 100 mg/dLNear Optimal/Above Optimal LDL: 110- 129 mg/dLBorderline High LDL: 130-159 mg/dLHigh LDL: 160-189 mg/dLVery High LDL: greater than or equal to 190 mg/dL HDL Cholesterol 37(L) >40 mg/dL [facility] Comment:Desirable HDL: great er than 40 mg/dL Note: This HDL assay may give artificially low results in patients with liver disease. 03/21/2025 2:03 PM EDT 03/21/2025 4:07 PM EDT us Generic External Data Provider LAB BLOOD ORDERAB LES Final Result [facility] [address] [place] [phone] [phone] * Thinprep TIS PAP And HPV mRNA E6/E7, CT/NG, TRICH (08/11/2022 5:19 PM EST) Clinical Information: None given [facility] LMP: NONE GIVEN [facility] Prev. PAP: NONE GIVEN [facility] [employer]UN[employer] Prev. BX: NONE GIVEN [facility] Inside Warehouse SOURCE: None given [employer] Statement Of Adequacy: [employer] Comment: Satisfactory for evaluation. Endocervical/transformation zone component present. Age and/or menstrual status not provided Interpretation/Re sult: Negative for intraepithelial lesion or malignancy. [facility] COMMENT: This Pap test has been evaluated with computer assisted technology. [employer] Area Attendant: Bart [facility] Comment: MSM, CT(ASCP) CT screening location: [place] [address] (Always Message) [facility] [employer] Comment: EXPLANATORY NOTE: The Pap is a [...] HPV nRNA E6/E7 Not Detected Not Detected [employer] Comment: Methodology: Janitorial Cleaner-Mediated Amplification This assay detects E6/E7 viral messenger RNA (mRNA) from 14 high-risk HPV types (16,18,31,33,35,39,45,51,52,56,58,59,66,68). Cervical sources are required for HPV testing. If a vaginal source from a patient who has had a total hysterectomy with removal of cervix was submitted, please contact the testing laboratory for alternative testing options. For additional information, please refer to http://[employer].VelociData/faq/BTS594r0 (This link if provided for information/ educational purposes only.) Chlamydia trachomatis RNA, TMA, Urogenital NOT DETECTED NOT DETECTED [employer] Neisseria gonorrhoeae RNA, TMA, Urogenital NOT DETECTED NOT DETECTED [employer] Comment [employer] Comment: The analytical performance characteristics of this assay, when used to test SurePath(TM) specimens have been determined by [employer]. The modifications have not been cleared or approved by the FDA. This assay has been validated pursuant to the CLIA regulations and is used for clinical purposes. For additional information, please refer to https://Metricly/faq/QSR622 (This link is being provided for information/ educational purposes only.) Trichomonas vaginalis, QL, TMA, PAP Vial NOT DETECTED NOT DETECTED [employer] Comment: The analytical performance characteristics of this assay have been determined by [employer]. The modifications have not been cleared or approved by the FDA. This assay has been validated pursuant to the CLIA regulations and is used for clinical purposes. For additional information, please refer to http://education.VelociData/ faq/Trichomonastma (This link is being provided for information/ educational purposes only.) 08/11/2022 5:19 PM EST 08/12/2022 8:03 AM EST Narrative [facility] - 08/14/2022 9:39 AM EST FASTING: UNKNOWN Tresa CHOUDHURY LAB PATHOLOGY ORDERABLES Final Result [address], [place] [address] [employer] [facility] [address], [place] [address] [employer] [facility] [address] [place] [address], [place] [address] * (ABNORMAL) ALBUMIN, RANDOM URINE W/CREATININE (08/07/2020 2:58 PM EST) Microalbumin Urine 5.0 See Note: mg/dL [facility] Comment: Reference Range: Reference Range [...] Creatinine, Urine 137 20 - 275 mg/dL [facility] 08/07/2020 2:58 PM EST us James Larson MD LAB URINE ORDERABLES Final Result [facility] [address] from Last 3 Months or Most Recently Relevant to Health Maintenance Additional Health Concerns Active Problems Noted Date Diagnosed Date Help patients manage their type 2 diabetes 07/18 Patient has chronic kidney disease 07/18/2025 Patient has chronic kidney disease 07/24/2025 Patient has chronic kidney disease 07/31/2025 Patient has chronic kidney disease 07/31/2025 Insurance [facility] [place] [id number] [facility] Care Teams Finish Opener Relationship Specialty Start Date End Date James Larson MD [address] [place] [address] [place] [address] PCP - General Internal Medicine 10/05/13
== END 2025-08-01 10:20 | disposition home or self-care (01) ==
PROVIDERS: PCP Internal Medicine; Visit Provider Counselor Mental Health
DX: F32.A Depression, unspecified (principal); F41.9 Anxiety disorder, unspecified; Z71.89 Other specified counseling
CPT/HCPCS: 90791

== ENCOUNTER 2025-08-20 15:32 | Outpatient (AMB) | payer OTHER, SELFPAY ==
--- NOTE | 2025-08-20 15:34 | MHC.OFFVIS ---
Vital Signs 08/20/25 15:36 Height 5 ft 5 in Weight 191 lb 12.835 oz BMI 31.9 BP 120/82 Blood Pressure Location Lt brachial Position Sitting Pulse 80 Intake Visit Reasons: 3 mo f/u - fatty liver Intake Note: Brenda presents in the office as a 3 month follow up fatty liver. CC: She states that she was being a part of the weight management and today Dr. Arizmendi kicked her out of the program due to a family emergency and now she is discouraged. She is having issues with her stomach. She has pains in the stomach after she eats most of the time and she is trying to do the weight management plan still. Concrete Finishing Machine Operator Required: No Allergies No Known Allergies Allergy (Verified 07/09/25 08:13) HPI Comments Details: 40 y.o F with PMH of DM on GLP-1, who is here for abd pain and fatty liver. Reports has been having RUQ pain and cramping for almost a year and a half. Feels it right under her RIGHT lower rib. Sometimes pinching sensation. Not associated with N/V, pruritus. Pt used to drink 4-6 drinks over the weekend a few years ago now drinks 2-3 times a year. No personal or family hx of liver disease or autoimmune diseases. No hx of liver ca. Takes NSAID almost daily. 08/20/25: Presenting for follow-up of fatty liver disease. She was enrolled in a bariatric program and had an endoscopy scheduled, but she had to reschedule due to a family emergency involving her daughter's psychiatric health. This led to a conflict with the bariatric surgeon, who she reports has dismissed her from the program. She has a history of struggling with her weight and has type 2 diabetes. From GI standpoint, gets seen for elevated LFTs. Work up as below, reflecting of MASH/MAFLD. Also has elevated cholesterol. Pt not on statin therapy but is ok to start. Additionally, she reports a significant issue with halitosis, which persists despite brushing and using a prescribed mouthwash. This condition causes her significant emotional distress, insecurity, and social avoidance. Was noted to have GERD on UGIS but pt without any pyrosis. --- Pt was informed and consented to the use of ambient scribe for this encounter. --- [facility] Medical History BMI 31.0-31.9,adult Obesity Chronic dental pain Diabetes mellitus, type 2 Surgical History History of delivery No history of previous surgery Family History Maternal Aunt Diabetes Maternal Aunt Diabetes Mother Diabetes Hypertension Social History Alcohol intake: never Patient Tobacco Use Status: Never used Tobacco Review of Systems Const All systems reviewed & are unremarkable except as noted in HPI and below Physical Exam Exam Exam: No apparent distress Nonicteric Abdomen soft, nondistended Alert and oriented x3, normal gait Vital Signs: Last Vital Signs Pulse 80 08/20/25 15:36 BP 120/82 08/20/25 15:36 BMI result Body Mass Index 31.9 Results Reviewed Results Reviewed: Laboratory Tests 03/21/25 05/22/25 14:03 06:32 Hgb 13.5 Hct 39.8 Plt Count 304 Sodium 138 Potassium 3.9 Chloride 108 Carbon Dioxide 21 L BUN 10 Creatinine 0.63 Random Glucose 219 H Calcium 9.3 AST 44 H ALT 67 H Albumin 4.5 Triglycerides 228 H Cholesterol 226 H LDL Cholesterol, Calc 144 H HDL Cholesterol 37 L Anti-Mitochondrial Ab NEGATIVE Anti-Smooth Muscle Ab <20 Tiss Transglutamin IgA <1.0 PEth 16:0/18.1 (POPEth) NEGATIVE Kathy/Kid Microsom Ab Int <=20.0 Hepatitis A IgG Ab REACTIVE Hep Bs Antigen Negative Hep Bs Antibody REACTIVE Hep B Core Total Ab Nonreactive Hepatitis C Ab (EIA) Nonreactive Assessment & Plan Assessment & Plan (1) Steatosis, liver: Code(s): K76.0 - Fatty (change of) liver, not elsewhere classified Category: Medical (2) Elevated LFTs: Code(s): R79.89 - Other specified abnormal findings of blood chemistry Category: Medical (3) Hyperlipidemia: Code(s): E78.5 - Hyperlipidemia, unspecified Category: Medical (4) BMI 31.0-31.9,adult: Code(s): Z68.31 - Body mass index [BMI] 31.0-31.9, adult Category: Medical (5) Obesity: Code(s): E66.9 - Obesity, unspecified Category: Medical Qualifiers: Obesity type: due to excess calories Obesity classification: adult class 1 (BMI 30 - 34.9) Serious obesity comorbidity presence: with serious comorbidity Body mass index: BMI 31.0-31.9 Qualified Code(s): E66.09 - Other obesity due to excess calories; Z68.31 - Body mass index [BMI] 31.0-31.9, adult (6) GERD (gastroesophageal reflux disease): Code(s): K21.9 - Gastro-esophageal reflux disease without esophagitis Category: Medical (7) Halitosis: Code(s): R19.6 - Halitosis Category: Medical (8) Chest pain: Code(s): R07.9 - Chest pain, unspecified Plan Assessment and Plan 1. Nonalcoholic Fatty Liver Disease 2. Hypercholesterolemia Likely 2/2 MAFLD. Other CLD ork up negative. Has hyperlipidemia, pt agreeable to starting statin. Also reviewed the importance of resuming GLP-1 agonist, which is beneficial for this condition. Fib 4 = 0.8. - Plan: - Advised to restart the GLP-1 agonist (e.g., Ozempic). - Prescribed atorvastatin 20 mg once daily at bedtime. - 150 mins of moderate intensity exercise per week - Pt plans to seek referral at [facility] bariatrics program 3. Halitosis and Gastroesophageal Reflux Disease (GERD) Reviewed that could potentially be 2/2 GERD. Can start omeprazole and monitor response. Plan: - Omeprazole 20 mg once daily - The patient was educated that this may improve the odor if it is reflux-related. - If symptoms do not resolve, she is advised to see a dentist to evaluate for other causes, such as tonsillar issues. 4. Chest Pain - Patient reported one episode of chest pain with radiation to the R arm. Plan: Advised to discuss this with her primary care physician to determine if a cardiology consultation is warranted. Based on fib 4 score of 0.8 and absence of other risk factors (such as uncontrolled T2DM, age >50, BMI >50,) patient falls under low risk for progression, and therefore this time is being discharged back to PCP's care for obesity management and prevention of cardiovascular disease. Medications: New atorvastatin (Lipitor) 20 mg PO BEDTIME 90 tabs 0RF omeprazole 20 mg PO DAILY 90 caps 0RF 90 days Coding Level of Care Code Est Pt Level 5 (14951) Diagnoses Steatosis, liver K76.0 Elevated LFTs R79.89 Hyperlipidemia E78.5 BMI 31.0-31.9,adult Z68.31 Class 1 obesity due to excess calories with serious comorbidity and body mass index (BMI) of 31.0 to 31.9 in adult E66.09; Z68.31 Obesity type: due to excess calories Obesity classification: adult class 1 (BMI 30 - 34.9) Serious obesity comorbidity presence: with serious comorbidity Body mass index: BMI 31.0-31.9 GERD (gastroesophageal reflux disease) K21.9 Halitosis R19.6 Chest pain R07.9
[2025-08-20 15:36] VITALS: BP 120/82; PULSE 80; BMI 31.9
--- OUTSIDE RECORDS SUMMARY | 2025-08-20 21:58 | XMS_ITS | Encounter Summary ---
Author Organization [employer] Address [address] [facility] 7t [place] [address] Care Team Providers Care Head Charger Name Role Phone James Larson MD Primary Care Provider [phone] Encounter Details Date Type Department Care Team (Late st Contact Info) Description 10/30/2024 Orders Only [facility] MEDICINE [address] [place] [address] James Larson MD [address] [place], [place] [phone] Right sided abdominal pain (Primary Dx) Social [...] documented as of this encounter Care Teams Head Charger Relationship Specialty Start Date End Date James Larson MD [address] [place] [address] PCP - General Internal Medicine 10/05/13 documented as of this encounter
--- OUTSIDE RECORDS SUMMARY | 2025-08-20 21:58 | XMS_ITS | Encounter Summary ---
Author Organization [employer] Address [address] [place] [address] 7 [place] [address] Care Team Providers Care Securities Settlement Processor Name Role Phone James Larson MD Primary Care Provider [phone] Reason for Referral * Imaging (Routine) - Authorized Specialty Diagnoses / Procedures Referred By Contac t Referred To Contact Radiology Diagnoses Hepatic steatosis Procedures US Abdomen Complete James Larson MD [address] [place] [address] Phone: tel: fax: [address] [address] Phone: tel: fax: Referral ID Status Reason Start Date Expiration Date V isits Requested Visits Authorized [id number] Authorized 07/03/2025 07/03/2026 1 1 * Consultation (Routine) - Closed Specialty Diagnoses / Procedures Referred By Contac t Referred To Contact Orthopaedic Surgery Diagnoses Closed nondisplaced fracture of distal phalanx of right ring finger, initial encounter James Larson MD [address] [place] [address] Phone: tel: fax: [facility] [address] [place] [address] Dr Del Angel [address] [place] [address] Phone: tel: Referral ID Status Reason Start Date Expiration Date V isits Requested Visits Authorized [id number] Closed Specialty Services Required 07/03/2025 07/03/2026 1 1 Encounter Details Date Type Department Care Team (Late st Contact Info) Description 07/03/2025 Orders Only [facility] CHC MED & PEDS [address] [place] [address] James Larson MD [address] [place] [address] Closed nondisplaced fracture of distal phalanx of [...] AM EST Narrative 07/31/2025 10:02 AM EST [address] [address] XRay Report Signed Patient: Brenda Apple MR#: [id number] 07 : 1985 Acct:[id number] Age/Sex: 40 / F ADM Date: 07/31/25 Loc: G[facility] Attending Dr: Fernando Gurrola MD Ordering Physician: Fernando Gurrola MD Date of Service: 07/31/25 Procedure(s): XR chest 2V Accession Number(s): [id number] cc: James Larson MD; Fernando Gurrola MD [...] Hoang Goldberg MD in OV> 07/31/2559 DD/ TD/TT: 07/31/25954 Health Information Director: Procedure Note Donotuseinterpreter, Image - 07/31/[address] [address] XRay Report Signed Patient: Connie Apple#: [id number] [birth year] : 1985Acct:[id number] Age/Sex: 40 / FADM Date: 07/31/25 Loc: HOJUANITA Attending Dr: Fernando Gurrola MD Ordering Physician: Fernando Gurrola MD Date of Service: 07/31/25 Procedure(s): XR chest 2V Accession Number(s): [id number] cc: James Larson MD; Fernando Gurrola MD [...] Hoang Goldberg MD in OV> 07/31/2559 DD/ TD/TT: 07/31/2555 Health Information Director: [facility] External Provider IMG XR PROCEDURES Final Result * FL upper GI w air (07/31/2025 9:25 AM EST) Anatomical Region Laterality Modality Body Radiographic Princess ging 07/31/2025 9:25 AM EST Narrative 07/31/2025 4:30 PM EST [place] [address] Fluoroscopy Report Signed Patient: Brenda Apple MR#: [id number] [birth year] : 1985 Acct:[id number] Age/Sex: 40 / F ADM Date: 07/31/25 Loc: HO.XRAY Attending Dr: Fernando Gurrola MD Ordering Physician: Fernando Gurrola MD Date of Service: 07/31/25 Procedure(s): FL upper GI w air Accession Number(s): [id number] cc: James Larson MD; Fernando Gurrola MD [...] in OV> 07/31/25 1626 DD/ 4 TD/TT: 07/31/25944 Health Information Director: Procedure Note Donotuseinterpreter, Image - 07/31/[address] [address] Fluoroscopy Report Signed Patient: Connie Apple#: [id number] [birth year] : 1985Acct:[id number] Age/Sex: 40 / FADM Date: 07/31/25 Loc: HO.XRAY Attending Dr: Fernando Gurrola MD Ordering Physician: Fernando Gurrola MD Date of Service: 07/31/25 Procedure(s): FL upper GI w air Accession Number(s): [id number] cc: James Larson MD; Fernando Gurrola MD [...] 07/31/25 1626 DD/ 0925 TD/TT: 07/31/25 0945 Health Information Director: KIRBY [facility] External Provider IMG FLU OROSCOPY PROCEDURES Final Result documented in this encounter Visit Diagnoses Diagnosis Closed nondisplaced fracture of distal phalanx of right ring finger, initial encounter- Primary Hepatic steatosis Other chronic nonalcoholic liver disease documented in this encounter Additional Health Concerns Assessment Noted Time PHQ-9 Depression Total Score: 10 025 3:10 PM EST documented as of this encounter Care Teams Securities Settlement Processor Relationship Specialty Start Date End Date James Larson MD [address] [place] [address] PCP - General Internal Medicine 10/05/13 documented as of this encounter
--- OUTSIDE RECORDS SUMMARY | 2025-08-20 21:58 | XMS_ITS | Encounter Summary ---
Author Organization [employer] Address [address] [facility] 7t [place] [address] Care Team Providers Care Plastic Sheeting Cutter Name Role Phone James Larson MD Primary Care Provider [phone] Encounter Details Date Type Department Care Team ([facility] st Contact Info) Description 12/11/2024 Orders Only [facility] CHC MED & PEDS [address] [place], [place] [phone] James Larson MD [address] [place] [address] Type 2 diabetes mellitus without complication, without [...] complication, without long-term current use of insulin ([facility]) documented in this encounter Results * T-SPOT??.TB (12/11/2024 1:17 PM EDT) [facility] T Spot TB Negative Negative [facility] Comment:A negative test resu lt [...] aquantitative test. TS PANEL A 0 [facility] TS PANEL B 0 [facility] Negative Control Passed [facility] Positive Control Passed [facility] Comment:For additional infor mation, please refer [email or web address].[email or web address]/faq/HST521(This link is being provided for informational/educational purposes only.)REPORT COMMENT:[facility] WAS PERFORMED AT:[facility] [id number] [place] [address]OEBBDTYSILVER ARMANDO MD,PHD 12/11/2024 1:17 PM EDT 12/11/2024 1:56 PM EDT us James Larson MD LAB BLOOD ORDERABLES Final Result [facility] [address] [place] [address] [phone] documented in this encounter Visit Diagnoses Diagnosis Type 2 diabetes mellitus without complication, without long-term current use of insulin (HCC)- Primary documented in this encounter Additional Health Concerns Assessment Noted Time PHQ-9 Depression Total Score: 10 025 3:10 PM EST documented as of this encounter Care Teams Plastic Sheeting Cutter Relationship Specialty Start Date End Date James Larson MD [address] [place] [address] PCP - General Internal Medicine 10/05/13 documented as of this encounter
--- OUTSIDE RECORDS SUMMARY | 2025-08-20 21:58 | XMS_ITS | Encounter Summary ---
Author Organization [employer] Address [address] [place] [address] 7 [place] [address] Care Team Providers Care Desktop Publishing Operator Name Role Phone Jamse Larson MD Primary Care Provider [phone] Reason for Referral * Imaging (Routine) - Closed Specialty Diagnoses / Procedures Referred By Contac t Referred To Contact Radiology Diagnoses Right sided abdominal pain Procedures CT Abdomen Pelvis w/ Contrast James Larson MD [address] [place] [address] Phone: tel: fax: [address] [address] Phone: tel: fax: Referral ID Status Reason Start Date Expiration Date Visits Re quested Visits Authorized [id number] Closed 11/16/2024 11/16/2025 1 1 Encounter Details Date Type Department Care Team (Late st Contact Info) Description 11/16/2024 Orders Only [facility] MEDICINE [address] [place] [address] James Larson MD [address] [place], [place] [phone] Right sided abdominal pain (Primary Dx) Social [...] documented as of this encounter Care Teams Desktop Publishing Operator Relationship Specialty Start Date End Date aJmes Larson MD [address] [place] [address] PCP - General Internal Medicine 10/05/13 documented as of this encounter
--- OUTSIDE RECORDS SUMMARY | 2025-08-20 21:58 | XMS_ITS | Encounter Summary ---
Author Organization [employer] Address [address] [facility] 7 [place] [address] Care Team Providers Care Title I Director Name Role Phone James Larson MD Primary Care Provider [phone] Reason for Visit * Reason Onset Date Comments Call Back Request 10/11/2023 Encounter Details Date Type Department Care Team ([facility] st Contact Info) Description 10/11/2023 Telephone [facility] CHC MED & PEDS [address] [place] [address] James Larson MD [address] [place] [address] Call Back Request Social History Tobacco Use [...] start it now. Please contact pt at [phone] documented in this encounter Plan of Treatment Not on file documented as of this encounter Visit Diagnoses Not on filedocumented in this encounter Additional Health Concerns Assessment Noted Time PHQ-9 Depression Total Score: 0 01/22/20 23 3:02 PM EDT documented as of this encounter Care Teams Title I Director Relationship Specialty Start Date End Date James Larson MD [address] [place] [address] PCP - General Internal Medicine 10/05/13 documented as of this encounter
--- OUTSIDE RECORDS SUMMARY | 2025-08-20 21:58 | XMS_ITS | Encounter Summary ---
Author Organization [employer] Address [address] [facility] 7 [place] [address] Care Team Providers Care Supervisor Mirror Fabrication Name Role Phone James Larson MD Primary Care Provider [phone] Reason for Visit * Reason Onset Date Comments Referral 11/17/2023 Encounter Details Date Type Department Care Team ([facility] st Contact Info) Description 11/17/2023 Telephone [facility] CHC MED & PEDS [address] [place] [address] James Larson MD [address] [place] [address] Referral Social History Tobacco Use Types Packs/Day [...] for 11/16/23 . Please contact pt @ [phone] documented in this encounter Plan of Treatment Not on file documented as of this encounter Visit Diagnoses Not on filedocumented in this encounter Additional Health Concerns Assessment Noted Time PHQ-9 Depression Total Score: 0 01/22/20 23 3:02 PM EDT documented as of this encounter Care Teams Supervisor Mirror Fabrication Relationship Specialty Start Date End Date James Larson MD [address] [place] [address] PCP - General Internal Medicine 10/05/13 documented as of this encounter
--- OUTSIDE RECORDS SUMMARY | 2025-08-20 21:58 | XMS_ITS | Encounter Summary ---
Author Organization [employer] Address [address] [facility] [address] [place] [address] Care Team Providers Care Corporate Analyst Name Role Phone James Larson MD Primary Care Provider [phone] Reason for Visit * Reason Onset Date Comments Error (VOID this visit) 07/31/2025 Encounter Details Date Type Department Care Team ([facility] st Contact Info) Description 07/31/2025 Telephone [facility] [address] [place] [address] Desirae Kelley, DION [address] [place] [address] Error (VOID this visit) Social History Tobacco Use Types Packs/Day Years [...] documented as of this encounter Care Teams Corporate Analyst Relationship Specialty Start Date End Date James Larson MD [address] [place] [address] PCP - General Internal Medicine 10/05/13 documented as of this encounter
--- OUTSIDE RECORDS SUMMARY | 2025-08-20 21:58 | XMS_ITS | Encounter Summary ---
Author Organization [employer] Address [address] [facility] 7 [place] [address] Care Team Providers Care Skein Bander Name Role Phone James Larson MD Primary Care Provider [phone] Encounter Details Date Type Department Care Team (Late st Contact Info) Description 03/29/2023 Telephone [facility] ADULT DENTAL [address] [place] [address] August Bridges DDS [address] [place] [address] Social History Tobacco Use Types Packs/Day Years [...] documented as of this encounter Care Teams Skein Bander Relationship Specialty Start Date End Date James Larson MD [address] [place] [address] PCP - General Internal Medicine 10/05/13 documented as of this encounter
--- OUTSIDE RECORDS SUMMARY | 2025-08-20 21:58 | XMS_ITS | Encounter Summary ---
Author Organization [employer] Address [address] [place] [address] 7 [place] [address] Care Team Providers Care Police Investigator Name Role Phone James Larson MD Primary Care Provider [phone] Reason for Referral * Imaging (Routine) - Closed Specialty Diagnoses / Procedures Referred By Contnatalia hebert Referred To Contact Radiology Diagnoses Transaminitis Procedures US Abdomen Complete James Larson MD [address] [place] [address] Phone: tel: fax: [address] Phone: tel: fax: Referral ID Status Reason Start Date Expiration Date Visits Re quested Visits Authorized [id number] Closed 06/23/2024 06/23/2025 1 1 Encounter Details Date Type Department Care Team (Late st Contact Info) Description 06/23/2024 Orders Only [facility] CHC MED & PEDS [address] [place] [address] James Larson MD [address] [place] [address] Transaminitis (Primary Dx) Social History Tobacco Use [...] AM EST Narrative 10/12/2024 5:01 AM EST [facility] Adult Primary Care [address] [place] [address] [place] [address] Ultrasound Report Signed Patient: Brenda Apple MR#: [id number] [birth year] : 1985 Acct:[id number] Age/Sex: 39 / F ADM Date: 10/11/24 Loc: HO.HMGCX Attending Dr: James Larson MD Ordering Physician: James Larson MD Date of Service: 10/11/24 Procedure(s): US abdomen complete Accession Number(s): [id number] cc: James Larson MD CLINICAL HISTORY: transaminitis [...] document has been electronically signed by: Dajuan Vleazquez MD, PHD on 10/12/2024 04:59:03 Dictated By: Dajuan Velazquez MD Signed By: <Electronically signed by Dajuan Velazquez MD in OV> 10/12/24 0500 DD/ 0459 TD/TT: 10/12/24 045 Fire Range Technician: Procedure Note Donotuseinterpreter, Image - 10/12/2024 [facility] Adult Primary Care [address] [place] [address] [place] [address] Ultrasound Report Signed Patient: Gina AppleR#: [id number] [birth year] : 1985Acct:[id number] Age/Sex: 39 / FADM Date: 10/11/24 Loc: HO.HMGCX Attending Dr: James Larson MD Ordering Physician: James Larson MD Date of Service: 10/11/24 Procedure(s): US abdomen complete Accession Number(s): [id number] cc: James Larson MD CLINICAL HISTORY: transaminitis [...] 10/12/24 0500 DD/ 8 TD/TT: 10/12/24 045 Fire Range Technician: us James Larson MD IMG US PROCEDURES Final Res ult documented in this encounter Visit Diagnoses Diagnosis Transaminitis- Primary Nonspecific elevation of levels of transaminase or lactic acid dehydrogenase (LDH) documented in this encounter Additional Health Concerns Assessment Noted Time PHQ-9 Depression Total Score: 0 01/22/20 23 3:02 PM EDT documented as of this encounter Care Teams Police Investigator Relationship Specialty Start Date End Date James Larson MD [address] [place] [id number] PCP - General Internal Medicine 10/05/13 documented as of this encounter
--- OUTSIDE RECORDS SUMMARY | 2025-08-20 21:58 | XMS_ITS | Encounter Summary ---
Author Organization [employer] Address [address] [place] [address] [place] [address] Care Team Providers Care Underground Drill Operator Name Role Phone James Larson MD Primary Care Provider [phone] Reason for Visit * Reason Onset Date Comments Referral 08/20/2025 Encounter Details Date Type Department Care Team ([facility] Contact Info) Description 08/20/2025 Telephone [facility] CHC MED & PEDS [address] [place] [address] James Larson MD [address] [place] [address] Referral Social History Tobacco Use Types Packs/Day [...] encounter Miscellaneous Notes * Telephone Encounter - Karthik Taylor - 08/20/2025 3:55 PM EST Tc from pt requesting a referral for bariatric surgery in [facility]. Pt is also requesting to speak to PCP about the referral. Contact pt at [phone] documented in this encounter Plan of Treatment [...] chronic kidney disease No Desirae Kelley RN Patient has chronic kidney disease Care Plan Patient has chronic kidney disease Karthik So documented as of this encounter Visit Diagnoses Not on filedocumented in this encounter Additional Health Concerns Active Problems Noted Date Diagnosed Date Help patients manage their type 2 diabetes 07/18 Patient has chronic kidney disease 07/18/2025 Patient has chronic kidney disease 07/24/2025 Patient has chronic kidney disease 07/31/2025 Patient has chronic kidney disease 07/31/2025 Patient has chronic kidney disease 08/20/2025 Assessment Noted Time PHQ-9 Depression Total Score: 14 025 10:22 AM EST documented as of this encounter Care Teams Underground Drill Operator Relationship Specialty Start Date End Date James Larson MD [address] [place] [address] PCP - General Internal Medicine 10/05/13 documented as of this encounter
--- OUTSIDE RECORDS SUMMARY | 2025-08-20 21:58 | XMS_ITS | Encounter Summary ---
Author Organization [employer] Address [address] [place] [address] Care Team Providers Care Hub Inventory Specialist Name Role Phone James Larson MD Primary Care Provider [phone] Encounter Details Date Type Department Care Team (Late st Contact Info) Description 07/11/2025 Results Follow-Up [facility] [address] [place] [address] Tresa Arechiga CN [address] [place] [address] Bacterial Vaginosis Panel, Chlamydia/N. Gonorrhoeae RNA, TMA, [...] documented as of this encounter Care Teams Hub Inventory Specialist Relationship Specialty Start Date End Date James Larson MD [address] [place] [phone] PCP - General Internal Medicine 10/05/13 documented as of this encounter
--- OUTSIDE RECORDS SUMMARY | 2025-08-20 21:58 | XMS_ITS | Encounter Summary ---
Author Organization [employer] Address [address] [place] [address] Care Team Providers Care Financial Advocate Name Role Phone James Larson MD Primary Care Provider [phone] Encounter Details Date Type Department Care Team ([facility] st Contact Info) Description 10/31/2024 Telephone [facility] CHC MED & PEDS [address] [place], [place] [phone] James Larson MD [address] [place] [address] Social History Tobacco Use Types Packs/Day Years [...] - 10/31/2024 11:53 AM EST Tc from [facility] with [facility] calling to inform they received referral but are needing more DX can't only be abdominal pain. Best contact # [phone]. documented in this encounter Plan of Treatment Not on file documented as of this encounter Visit Diagnoses Not on filedocumented in this encounter Additional Health Concerns Assessment Noted Time PHQ-9 Depression Total Score: 10 025 3:10 PM EST documented as of this encounter Care Teams Financial Advocate Relationship Specialty Start Date End Date James Larson MD [address] [place] [address] PCP - General Internal Medicine 10/05/13 documented as of this encounter
--- OUTSIDE RECORDS SUMMARY | 2025-08-20 21:58 | XMS_ITS | Encounter Summary ---
Author Organization [employer] Address [address] [facility] 7 [place] [address] Care Team Providers Care Skull Splitter Name Role Phone James Larson MD Primary Care Provider [phone] Reason for Visit * Reason Onset Date Comments Nurse Triage 10/11/2023 Encounter Details Date Type Department Care Team ([facility] st Contact Info) Description 10/11/2023 Telephone [facility] CHC MED & PEDS [address] [place] [address] James Larson MD [address] [place] [address] Nurse Triage Social History Tobacco Use Types [...] t he electric, gas, oil or water [employer] threatened to shut off services in your [...] accepted this outcome Please contact pt at [phone] documented in this encounter Plan of Treatment Not on file documented as of this encounter Visit Diagnoses Not on filedocumented in this encounter Additional Health Concerns Assessment Noted Time PHQ-9 Depression Total Score: 0 01/22/20 23 3:02 PM EDT documented as of this encounter Care Teams Skull Splitter Relationship Specialty Start Date End Date James Larson MD [address] [place] [address] PCP - General Internal Medicine 10/05/13 documented as of this encounter
--- OUTSIDE RECORDS SUMMARY | 2025-08-20 21:58 | XMS_ITS | Encounter Summary ---
Author Organization [employer] Address [address] [place] [address] Care Team Providers Care Industrial Photographer Name Role Phone James Larson MD Primary Care Provider [phone] Encounter Details Date Type Department Care Team ([facility] st Contact Info) Description 12/09/2023 Orders Only [facility] CHC MED & PEDS [address] [place], [place] [phone] DrummondRikki Coronel MD [address] [place] [address] Social History Tobacco Use Types Packs/Day Years [...] documented as of this encounter Care Teams Industrial Photographer Relationship Specialty Start Date End Date James Larson MD [address] [place] [phone] PCP - General Internal Medicine 10/05/13 documented as of this encounter
--- OUTSIDE RECORDS SUMMARY | 2025-08-20 21:58 | XMS_ITS | Encounter Summary ---
Author Organization [employer] Address [address] [place] [address] [address] [place] [address] Care Team Providers Care Protective Signal Installer Name Role Phone James Larson MD Primary Care Provider [phone] Encounter Details Date Type Department Care Team ([facility] st Contact Info) Description 09/09/2022 Telephone [facility] CHC MED & PEDS [address] [place], [place] [phone] James Larson MD [address] [place] [address] Social History Tobacco Use Types Packs/Day Years [...] on filedocumented in this encounter Care Teams Protective Signal Installer Relationship Specialty Start Date End Date James Larson MD [address] [place] [address] PCP - General Internal Medicine 10/05/13 documented as of this encounter
--- OUTSIDE RECORDS SUMMARY | 2025-08-20 21:59 | XMS_ITS | Clinical Summary ---
Author Organization [employer] Address [address] [facility] [address] [place] [address] Care Team Providers Care Fowl Blood Tester Name Role Phone James Larson MD Primary Care Provider [phone] Allergies No known active allergies Medications glucose-vitamin C 4-6 GM-MG oral gel 1 tablet to use in case of symptoms of hypoglycemia or if FS<70 mg/dl 021 Active Alcohol Swabs (Alcohol Prep) pads Active Misc. Devices (Wrist Brace) misc Active Continuous Glucose Bait Man (FreeStyle Jorje 2 [place]) deviceIndicatio ns:Type 2 diabetes mellitus without complication, without long-term current use of insulin ([facility]) Scan sensor every 8 hours 1 each 024 Active Continuous Glucose Sensor (FreeStyle Jorje 2 Sensor) miscIndications :Type 2 diabetes mellitus without complication, without long-term current use of insulin ([facility]) Apply 1 sensor every 14 days 2 each Active Blood Glucose Monitoring Suppl (FreeStyle Lite) w/Device kitIndications: Type 2 diabetes mellitus without complication, without long-term current use of insulin ([facility]) 1 Units Once per day. 1 kit 024 Active Lancets miscIndications :Type 2 diabetes mellitus without complication, without long-term current use of insulin ([facility]) Use to test blood sugar 2 times daily 100 each 11 024 Active Blood Pressure kitIndications: Lightheadedness 1 kit 2 times daily. 1 kit 025 Active Ascorbic Acid (vitamin C) 250 MG tabletIndicatio ns:Other fatigue Take 1 tablet (250 mg) by mouth Once per day. 30 tablet 11 025 2025 Active cholecalciferol (Vitamin D-3) 25 [...] tablet 11 025 2024 Discontinued(T herapy completed) Semaglutide,0.2 5 or 0.5MG/DOS, (Ozempic, 0.25 or 0.5 MG/DOSE,) 2 MG/3ML solution pen-injectorInd ications:Type 2 diabetes mellitus without complication, without long-term current use of insulin ([facility]),Obesity, Class I, BMI 30.0-34.9 (see actual BMI) Inject 0.25 mg under the skin every 7 (seven) days. 3 mL 1 2024 Discontinued psyllium (Metamucil 3 in 1 [...] complication, without long-term current use of insulin ([facility]),Obesity, Class I, BMI 30.0-34.9 (see actual BMI) INJECT 0.25 MG SUBCUTANEOUSLY ONCE A WEEK 3 mL 1 025 2024 Discontinued(T herapy completed) chlorhexidine (Peridex) 0.12 % solutionIndicat ions:Halitosis Use 15 mL in the mouth or throat if needed for wound care for up to 14 days. 473 mL 08/01/20 1:00 PM EST 2024 Active Problems Problem Noted Date Diagnosed Date [...] 2 diabetes mellitus 02/23/2014 Assessment & Plan (08/01/2025 10:43 AM EST): An increase in A1C- 8.4 % [...] 09/23/2011 Essential hypertension 04/28/2011 Assessment & Plan (08/01/2025 10:43 AM EST): Neck pain 04/28/2011 Encounters Date Type Department Care Team Description 08/20/2025 Telephone [facility] [address] [place], [place] [phone] James Larson MD Referral 07/31/2025 3:15 PM EST Office Visit [facility] [address], [place] [phone] James Larson MD Type 2 diabetes mellitus without complication, without long-term current use of insulin (HCC) (Primary Dx); Essential hypertension; Encounter for immunization; Halitosis; Bilateral impacted cerumen 07/31/[address] [facility] [address] [place] [phone] Desirae Kelley RN Error (VOID this visit) 07/31/2025 Travel 07/29/[address] [facility] [address] [place] [phone] James Larson MD Type 2 diabetes mellitus without complication, without long-term current use of insulin (HCC); Obesity, Class I, BMI 30.0-34.9 (see actual BMI) 07/24/2025 Patient Outreach [facility] [address] [place] [phone] James Larson MD Pre-visit Planning (Pre visit planning LVM ) 07/17/2025 Refill [facility] [address] [place], [place] [phone] James Larson MD Depression with anxiety 07/11/2025 Results Follow-Up [address] [address] Tresa Arechiga CNM Bacterial Vaginosis Panel, Chlamydia/N. Gonorrhoeae RNA, TMA, Vagina 07/10/2025 10:00 AM EST Office Visit [address] [address] Tresa Arechiga CNM Vaginal discharge (Primary Dx); Screening examination for venereal disease 07/10/2025 Patient Outreach [address] [address] James Larson MD Pre-visit Planning (Pre visit planning LVM ) 07/10/2025 Travel 07/09/[address] [facility] [address] [place] [phone] Malinda Marquis [place] 07/09/[address] [address] James Larson MD triage 07/06/2025 Telephone [facility] [address] [place], [place] [phone] James Larson MD No Show 07/05/2025 Telephone [facility] [address] [place], [place] [phone] James Larson MD Chart Prep 07/03/2025 Results Follow-Up [facility] [address] [place], [place] [phone] James Larson MD XR KUB and Upright 2 Views 07/03/2025 Results Follow-Up [facility] [address], [place] [phone] James Larson MD XR Hand 3+ Views Right 07/03/2025 Orders Only [facility] [address], [place] [phone] Talamantes MD Closed nondisplaced fracture of distal phalanx of right ring finger, initial encounter (Primary Dx); Hepatic steatosis 07/03/2025 Telephone [facility] [address] [place] [address] James Larson MD Referral 06/29/2025 Patient Outreach [facility] [address] [place] [phone] James Larson MD Pre-visit Planning (Pre visit planning LVM ) 06/21/2025 Telephone [facility] [address] [place] [address] James Larson MD 06/21/2025 Telephone [facility] [address] [place] [address] James Larson MD Chart Prep 06/14/2025 Patient Outreach [address] [address] James Larson MD Pre-visit Planning ([facility] screening completed on 10/25/24) 05/29/[address] [address] James Larson MD No Show 05/21/2025 9:40 AM EDT Office Visit [facility] [address] [place] [phone] Lloyd Echevarria MD Acute otitis externa of left ear, unspecified type (Primary Dx); Non-recurrent acute serous otitis media of left ear 05/21/2025 Travel from Last 3 Months Immunizations Immunization [...] Patient has chronic kidney disease Morteza Chiu Patient has chronic kidney disease Care Plan Patient has chronic kidney disease No Ravin Oliver NP Patient has chronic kidney disease Care Plan Patient has chronic kidney disease No Desirae Kleley RN Patient has chronic kidney disease Care Plan Patient has chronic kidney disease No Karthik Taylor Procedures Procedure Name Priority Date/Time Associated Diagnosis [...] Media Lot # [id number] Lot# Expiration Date 52, Blood 07/31/2025 4:03 PM EST James Larson MD POINT OF CARE TEST ENTER/ED IT ORDERABLES Edited Result - Final * XR Chest 2 Views (07/31/2025 9:50 AM EST) Anatomical Region Laterality Modality Chest Radiographic Princess ging 07/31/2025 9:50 AM EST Narrative 07/31/2025 10:02 AM EST [address] [address] XRay Report Signed Patient: Brenda Apple MR#: [id number] [birth year] : 1985 Acct:[id number] Age/Sex: 40 / F ADM Date: 07/31/25 Loc: GIRISH Attending Dr: Fernando Gurrola MD Ordering Physician: Fernando Gurrola MD Date of Service: 07/31/25 Procedure(s): XR chest 2V Accession Number(s): [id number] cc: James Larson MD; Fernando Gurrola MD [...] 07/31/25 0959 DD/ 0950 TD/TT: 07/31/25 0955 Family Physician: Procedure Note Donotuseinterpreter, Image - 07/31/[address] [address] XRay Report Signed Patient: Gina AppleR#: [id number] [birth year] : 1985Acct:[id number] Age/Sex: 40 / FADM Date: 07/31/25 Loc: GIRISH Attending Dr: Fernando Gurrola MD Ordering Physician: Fernando Gurrola MD Date of Service: 07/31/25 Procedure(s): XR chest 2V Accession Number(s): [id number] cc: James Larson MD; Fernando Gurrola MD [...] Goldberg MD in OV> 07/31/25 0959 DD/ TD/TT: 07/31/2555 Family Physician: [facility] External Provider IMG XR PROCEDURES Final Result * FL upper GI w air (07/31/2025 9:25 AM EST) Anatomical Region Laterality Modality Body Radiographic Princess ging 07/31/2025 9:25 AM EST Narrative 07/31/2025 4:30 PM EST [place] [address] Fluoroscopy Report Signed Patient: Brenda Apple MR#: [id number] [birth year] : 1985 Acct:[id number] Age/Sex: 40 / F ADM Date: 07/31/25 Loc: HO.BRANDIAY Attending Dr: Fernando Gurrola MD Ordering Physician: Fernando Gurrola MD Date of Service: 07/31/25 Procedure(s): FL upper GI w air Accession Number(s): [id number] cc: James Larson MD; Fernando Gurrola MD [...] by: Abhinav Robertson MD 07/31/2025 04:26 PM [facility] Dictated By: Abhinav Robertson MD Signed By: <Electronically signed by Abhinav Robertson MD in OV> 07/31/25 1626 DD/ 4 TD/TT: 07/31/2545 Family Physician: Procedure Note Donotuseinterpreter, Image - 07/31/2025 [place] [address] Fluoroscopy Report Signed Patient: Connie Apple#: [id number] [birth year] : 1985Acct:[id number] Age/Sex: 40 / FADM Date: 07/31/25 Loc: HO.XRAY Attending Dr: Fernando Gurrola MD Ordering Physician: Fernando Gurrola MD Date of Service: 07/31/25 Procedure(s): FL upper GI w air Accession Number(s): [id number] cc: James Larson MD; Fernando Gurrola MD [...] in OV> 07/31/25 1626 DD/ 4 TD/TT: 07/31/25 0945 Family Physician: KIRBY [facility] External Provider IMG FLU OROSCOPY PROCEDURES Final Result * Syphilis Screen (07/10/2025 10:58 AM EST) Syphilis Screen Nonreactive Nonreactive [facility] Blood Venous blood specimen / Unknown 07/10/2025 10:58 AM EST 07/10/2025 12:09 PM EST [facility] BLOOD ORDERABLES Cleopatra l Result Performing Organization Address [facility] Co de Phone Number [facility] [address] [place] [phone] * Hepatitis C Antibody with Reflex to HCV, RNA, Quantitative, Real-Time PCR (07/10/2025 10:58 AM EST) Hepatitis C Antibody Nonreactive Nonreactive [facility] Comment:Antibodies to HCV no t detected; does not exclude early acuteHCV infection. Blood Venous blood specimen / Unknown 07/10/2025 10:58 AM EST 07/10/2025 12:09 PM EST [facility] LAB BLOOD ORDERABLES Cleopatra l Result Performing Organization Address City/[facility]/ZIP Co de Phone Number [facility] [address] [place] [phone] * HIV-1/2 Antigen and Antibodies, Fourth Generation, with Reflexes (07/10/2025 10:58 AM EST) [facility] HIV AB/AG Nonreactive Nonreactive [facility] Comment:HIV-1 p24 Ag and/or HIV-1/HIV-2 Ab not detected.A test result that is nonreactive does not exclude thepossibility of exposure to or infection with HIV-1 and/orHIV-2. Nonreactive results in this assay for individualswith prior exposure to HIV-1 and/or HIV-2 may be due toantigen and antibody levels that are below the limit ofdetection of this assay.The CodeEval HIV Ag/Ab Combo assay result andsupplemental assay results should be interpreted inconjunction with the patient's clinical presentation,history and other laboratory results. If the results areinconsistent with clinical evidence, additional testing issuggested to confirm the result. Blood Venous blood specimen / Unknown 07/10/2025 10:58 AM EST 07/10/2025 12:09 PM EST Tresa Arechiga [facility] LAB BLOOD ORDERABLES Cleopatra l Result [facility] [address] [place] [phone] * POCT fern test, vaginal fluid manually resulted (07/10/2025 10:41 AM EST) [facility] LIBRADO Prep Positive Comment:pH 4.5, neg whiff, n eg clue, neg trich, neg wbc, pos hyphae Vaginal Fluid Vaginal structure / Unknown 07/10/2025 10:41 AM EST Tresa Arechiga [facility] POINT OF CARE TEST ENTER/ EDIT ORDERABLES Final Result * Bacterial Vaginosis Panel (07/10/2025 12:00 AM EST) [facility] TRICHOMONAS VAGINALIS DETECTION BY PCR NOT DETECTED Not Detect [facility] BACTERIAL VAGINOSIS DETECTION BY PCR NEGATIVE Negative [facility] Comment:The BV organism targ ets [...] DETECTION BY PCR NOT DETECTED Not Detect [facility] Yary glab krusei PCR NOT DETECTED Not Detect [facility] Swab Vaginal structure / Unknown 07/10/2025 07/10/2025 us Tresa Arechiga [facility] LAB MICROBIOLOGY - GENERA L ORDERABLES Final Result [facility] [address] [place] [phone] * Chlamydia/N. Gonorrhoeae RNA, TMA, Vagina (07/10/2025 12:00 AM EST) CT PCR NOT DETECTED Not Detect. [facility] Comment:A not detected test result [...] psychologicalconsequences. NG PCR NOT DETECTED Not Detect. [facility] Comment:A not detected test result [...] structure / Unknown 07/10/2025 07/10/2025 Tresa Arechiga [facility] LAB MICROBIOLOGY - GENERA L ORDERABLES Final Result Performing Organization Address City/State/[facility] Co de Phone Number [facility] [address] [place] [phone] * XR Hand 3+ Views Right (07/03/2025 1:46 PM EDT) Anatomical Region Laterality Modality Upper Extremities, Hand Right Radiogra phic Imaging 07/03/2025 1:46 PM EDT Narrative 07/03/2025 1:55 PM EDT [address] [address] XRay Report Signed Patient: Brenda Apple MR#: [id number] [birth year] : 1985 Acct:[id number] Age/Sex: 40 / F ADM Date: 07/03/25 Loc: HO.CALIN Attending Dr: James Larson MD Ordering Physician: Silvia Norman MD Date of Service: 07/03/25 Procedure(s): XR hand RT min 3V Accession Number(s): [id number] cc: Silvia Norman MD; James Larson MD [...] 07/03/25 1352 DD/ 1346 TD/TT: 07/03/25 1348 Family Physician: Procedure Note Donotuseinterpreter, Image - 07/03/2025 [place] [address] XRay Report Signed Patient: Connie Apple#: [id number] [birth year] : 1985Acct:[id number] Age/Sex: 40 / FADM Date: 07/03/25 Loc: HO.CALIN Attending Dr: James Larson MD Ordering Physician: Silvia Norman MD Date of Service: 07/03/25 Procedure(s): XR hand RT min 3V Accession Number(s): [id number] cc: Silvia Norman MD; James Larson MD [...] 07/03/25 1352 DD/ 1346 TD/TT: 07/03/25 1348 Family Physician: us Silvia Alejandro MD IMG XR PROCEDURES Fin al Result * XR KUB and Upright 2 Views (07/03/2025 1:40 PM EDT) Anatomical Region Laterality Modality Radiographic Princess ging 07/03/2025 1:40 PM EDT Narrative 07/03/2025 1:55 PM EDT [place] [address] XRay Report Signed Patient: Brenda Apple MR#: [id number] [birth year] : 1985 Acct:[id number] Age/Sex: 40 / F ADM Date: 07/03/25 Loc: HO.XRAY Attending Dr: James Larson MD Ordering Physician: James Larson MD Date of Service: 07/03/25 Procedure(s): XR KUB Accession Number(s): [id number] cc: James Larson MD Reason for Exam: [...] 07/03/25 1352 DD/ 1340 TD/TT: 07/03/25 1348 Family Physician: Procedure Note Donotuseinterpreter, Image - 07/03/[address] [address] XRay Report Signed Patient: Connie Apple#: [id number] [birth year] : 1985Acct:[id number] Age/Sex: 40 / FADM Date: 07/03/25 Loc: HO.XRAY Attending Dr: James Larson MD Ordering Physician: James Larson MD Date of Service: 07/03/25 Procedure(s): XR KUB Accession Number(s): [id number] cc: James Larson MD Reason for Exam: [...] 07/03/25 1352 DD/ 1340 TD/TT: 07/03/25 1348 Family Physician: us James Larson MD IMG XR PROCEDURES Final Res ult * (ABNORMAL) Lipid Panel, Standard (03/21/2025 2:03 PM EDT) Triglycerides 228(H) <150 mg/dL [facility] Comment:Desirable Triglyceri de: less than 150 mg/dLBorderline High Triglyceride 150-199 mg/dLHigh Triglyceride: 200-499 mg/dLVery High Triglyceride: greater than or equal to 5OO mg/dL Cholesterol 226(H) <200 mg/dL [facility] Comment:Desirable Cholestero l: less than 200 mg/dLBorderline High Cholesterol: 200-239 mg/dLHigh Cholesterol: greater than 239 mg/dL LDL Cholesterol Calculated 144(H) <100 mg/dL [facility] Comment:Desirable LDL: less than 100 mg/dLNear Optimal/Above Optimal LDL: 110- 129 mg/dLBorderline High LDL: 130-159 mg/dLHigh LDL: 160-189 mg/dLVery High LDL: greater than or equal to 190 mg/dL HDL Cholesterol 37(L) >40 mg/dL [facility] Comment:Desirable HDL: great er than 40 mg/dL Note: This HDL assay may give artificially low results in patients with liver disease. 03/21/2025 2:03 PM EDT 03/21/2025 4:07 PM EDT us Generic External Data Provider LAB BLOOD ORDERAB LES Final Result [facility] [address] [place] [phone] * Thinprep TIS PAP And HPV mRNA E6/E7, CT/NG, TRICH (08/11/2022 5:19 PM EST) Clinical Information: None given [employer] LMP: NONE GIVEN [facility] [employer] Prev. PAP: NONE GIVEN [facility] [employer] [employer] Prev. BX: NONE GIVEN [facility] [employer] SOURCE: None given [employer] Statement Of Adequacy: [employer] Comment: Satisfactory for evaluation. Endocervical/transformation zone component present. Age and/or menstrual status not provided Interpretation/Re sult: Negative for intraepithelial lesion or malignancy. [employer] Comment: This Pap test has been evaluated with computer assisted technology. [employer] Proof Passer: Bart [employer] Comment: MSM, CT(ASCP) CT screening location: [place] [address] (Always Message) [facility] [employer] Comment: EXPLANATORY NOTE: The Pap is a [...] HPV nRNA E6/E7 Not Detected Not Detected [employer] Comment: Methodology: Software Computer Specialist-Mediated Amplification This assay detects E6/E7 viral messenger RNA (mRNA) from 14 high-risk HPV types (16,18,31,33,35,39,45,51,52,56,58,59,66,68). Cervical sources are required for HPV testing. If a vaginal source from a patient who has had a total hysterectomy with removal of cervix was submitted, please contact the testing laboratory for alternative testing options. For additional information, please refer to http://[employer].CastingDB/faq/RAS474u9 (This link if provided for information/ educational purposes only.) Chlamydia trachomatis RNA, TMA, Urogenital NOT DETECTED NOT DETECTED [employer] Neisseria gonorrhoeae RNA, TMA, Urogenital NOT DETECTED NOT DETECTED [employer] Comment [employer] Comment: The analytical performance characteristics of this assay, when used to test SurePath(TM) specimens have been determined by [employer] [employer] [facility]. The modifications have not been cleared or approved by the FDA. This assay has been validated pursuant to the CLIA regulations and is used for clinical purposes. For additional information, please refer to https://[employer].CastingDB/faq/RLH871 (This link is being provided for information/ educational purposes only.) Trichomonas vaginalis, QL, TMA, PAP Vial NOT DETECTED NOT DETECTED [employer] Comment: The analytical performance characteristics of this assay have been determined by [employer] [facility]. The modifications have not been cleared or approved by the FDA. This assay has been validated pursuant to the CLIA regulations and is used for clinical purposes. For additional information, please refer to http://education.CastingDB/ faq/Trichomonastma (This link is being provided for information/ educational purposes only.) 08/11/2022 5:19 PM EST 08/12/2022 8:03 AM EST Narrative [facility] - 08/14/2022 9:39 AM EST FASTING: UNKNOWN Tresa CHOUDHURY LAB PATHOLOGY ORDERABLES Final Result [address], [place] [address] [facility] [address], [place] [address] [employer] [facility], [place] [address] * (ABNORMAL) ALBUMIN, RANDOM URINE W/CREATININE (08/07/2020 2:58 PM EST) Microalbumin Urine 5.0 See Note: mg/dL [facility] Comment: Reference Range: Reference Range Not established Microalb/Creat Ratio 36(H) <30 mcg/mg creat [facility] Comment: The ADA defines abnormalities [...] Creatinine, Urine 137 20 - 275 mg/dL [facility] 08/07/2020 2:58 PM EST us James Larson MD LAB URINE ORDERABLES Final Result [facility] [address] [place] [address], from Last 3 Months or Most Recently Relevant to Health Maintenance Additional Health Concerns Active Problems Noted Date Diagnosed Date Help patients manage their type 2 diabetes 07/18 Patient has chronic kidney disease 07/18/2025 Patient has chronic kidney disease 07/24/2025 Patient has chronic kidney disease 07/31/2025 Patient has chronic kidney disease 07/31/2025 Patient has chronic kidney disease 08/20/2025 Insurance [facility] < [address] [place] [id number] [facility] Care Teams Fowl Blood Tester Relationship Specialty Start Date End Date James Larson MD [address] [place] [address] [place] [address] PCP - General Internal Medicine 10/05/13
--- OUTSIDE RECORDS SUMMARY | 2025-08-20 21:59 | XMS_ITS | Encounter Summary ---
Author Organization [employer] Address [address] [facility] 7 [place] [address] Care Team Providers Care Heat Plant Specialist Name Role Phone James Larson MD Primary Care Provider [phone] Reason for Visit * Reason Onset Date Comments FYI 10/27/2024 Encounter Details Date Type Department Care Team ([facility] st Contact Info) Description 10/27/2024 Telephone [facility] [address] [place], [place] [phone] James Larson MD [address] [place] [address] FYI Social History Tobacco Use Types Packs/Day [...] 11/01/2024 3:10 PM EST TC placed to [facility] to inform that per PCP Dr. Larson there are no further details regarding pt diagnosis and clinical presentation relating to the MRI of the abdomen w/ and w/o contrast. The hospital receptionist at [facility] spoke with one of the [...] MRA instead of MRI. Contact Charly at [phone] documented in this encounter Plan of Treatment Not on file documented as of this encounter Visit Diagnoses Not on filedocumented in this encounter Additional Health Concerns Assessment Noted Time PHQ-9 Depression Total Score: 10 025 3:10 PM EST documented as of this encounter Care Teams Heat Plant Specialist Relationship Specialty Start Date End Date James Larson MD [address] [place] [phone] PCP - General Internal Medicine 10/05/13 documented as of this encounter
== END 2025-08-21 14:05 | disposition home or self-care (01) ==
LOC: HO.HGI 15:33
PROVIDERS: Visit Provider Internal Medicine
DX: K76.0 Fatty (change of) liver, not elsewhere classified (principal); R74.01 Elevation of levels of liver transaminase levels; E78.5 Hyperlipidemia, unspecified; Z68.31 Body mass index [BMI] 31.0-31.9, adult; E66.811 Obesity, class 1; K21.9 Gastro-esophageal reflux disease without esophagitis; R19.6 Halitosis; R07.9 Chest pain, unspecified
CPT/HCPCS: 99214

== ENCOUNTER → 2025-08-20 15:32 | Outpatient (BNVA) | payer OTHER, SELFPAY | PROVIDERS: Visit Provider Internal Medicine | DX: K76.0 Fatty (change of) liver, not elsewhere classified (principal); K21.9 Gastro-esophageal reflux disease without esophagitis; E66.09 Other obesity due to excess calories; R19.6 Halitosis; E78.00 Pure hypercholesterolemia, unspecified; R07.89 Other chest pain; R79.89 Other specified abnormal findings of blood chemistry; Z71.82 Exercise counseling; Z79.85 Long-term (current) use of injectable non-insulin antidiabetic drugs; Z68.31 Body mass index [BMI] 31.0-31.9, adult | CPT/HCPCS: 99212 ==

== ENCOUNTER 2025-08-27 14:43 | Outpatient (REF) | payer OTHER, SELFPAY ==
--- NOTE | 2025-08-27 15:00 | ECG_ITS ---
Test Reason : E66.01 Blood Pressure : */* mmHG Vent. Rate : 85 BPM Atrial Rate : 85 BPM P-R Int : 156 ms QRS Dur : 96 ms QT Int : 388 ms P-R-T Axes : 41 -9 54 degrees QTcB Int : 461 ms Normal sinus rhythm Normal ECG When compared with ECG of 18-May-2021 18:36, No significant change was found Referred By: Fernando Gurrola Electronically Signed By: STEPHANIE GARCIA MD
[2025-08-27 15:01] LABS: MANUAL DIFF FLAG NO
[2025-08-27 17:14] LABS: Hematocrit 45.5 % (37.0-47.0); Hemoglobin 15.4 g/dl (12.0-16.0); Imm Gran Abs Auto 0.03 X10*3/uL (0.00-0.03); Imm Gran Pct Auto 0.3 % (0.0-0.4); Lymphocytes Absolute Auto 1.8 X10*3/uL (1.2-4.9); Mean Corpuscular HGB Conc 33.8 g/dl (31.0-35.0); Mean Corpuscular Hemoglobin 31.2 pg (27.0-33.0); Mean Corpuscular Volume 92.3 fL (80.0-98.0); NRBC Abs Auto 0.000 X10*3/uL (0.0-0.012); NRBC Pct Auto 0.0 /100WBC (0.0-0.2); Platelet Count 321 X10*3/uL (160-400); Red Blood Count 4.93 X10*6/uL (4.20-5.50); White Blood Count 9.7 X10*3/uL (4.8-10.8)
[2025-08-27 17:55] LABS: Alanine Aminotransferase 32 U/L (0-31); Albumin Level 4.9 g/dL (3.5-5.0); Alkaline Phosphatase 83 U/L (39-117); Anion Gap 14 (12-20); Aspartate Amino Transferase 19 U/L (5-31); Blood Urea Nitrogen 15 mg/dL (9-16); Calcium 10.0 mg/dL (8.4-10.2); Carbon Dioxide 25 mmol/L (22-29); Chloride 102 mmol/L (96-108); Cholesterol 194 mg/dL (<200); Estimated Glomerular Filt Rate > 60; HDL Cholesterol 39 mg/dL (>40); Iron 50 mcg/dL (30-160); Percent Iron Saturation 18 % (15-50); Potassium 3.7 mmol/L (3.3-5.1); Sodium 137 mmol/L (135-145); Total Iron Binding Capacity 278 mcg/dL (228-428); Total Protein 7.9 g/dL (6.5-8.0); Triglycerides 188 mg/dL (<150); Unsaturated Iron Binding 228 ug/dL
--- OUTSIDE RECORDS SUMMARY | 2025-08-27 18:01 | XMS_ITS | Encounter Summary ---
Author Organization [employer] Address [address] 7t [place] [address] Care Team Providers Care Renewals Specialist Name Role Phone James Larson MD Primary Care Provider [phone] Encounter Details Date Type Department Care Team (Late st Contact Info) Description 07/11/2025 Results Follow-Up [facility] [address] [place] [address] Tresa Arechiga CN [address] [place] [address] Bacterial Vaginosis Panel, Chlamydia/N. Gonorrhoeae RNA, TMA, [...] documented as of this encounter Care Teams Renewals Specialist Relationship Specialty Start Date End Date James Larson MD [address] [place] [address] PCP - General Internal Medicine 10/05/13 documented as of this encounter
--- OUTSIDE RECORDS SUMMARY | 2025-08-27 18:01 | XMS_ITS | Encounter Summary ---
Author Organization [employer] Address [address] 7t [place] [address] Care Team Providers Care Marketing Director Name Role Phone James Larson MD Primary Care Provider [phone] Encounter Details Date Type Department Care Team ([facility] st Contact Info) Description 10/31/2024 Telephone [facility] CHC MED & PEDS [address] [place], [place] [phone] James Larson MD 505 [place] [address] Social History Tobacco Use Types Packs/Day Years [...] - 10/31/2024 11:53 AM EST Tc from [facility] with [facility] calling to inform they received referral but are needing more DX can't only be abdominal pain. Best contact # [phone]. documented in this encounter Plan of Treatment Not on file documented as of this encounter Visit Diagnoses Not on filedocumented in this encounter Additional Health Concerns Assessment Noted Time PHQ-9 Depression Total Score: 10 025 3:10 PM EST documented as of this encounter Care Teams Marketing Director Relationship Specialty Start Date End Date James Larson MD [address] [place] [address] PCP - General Internal Medicine 10/05/13 documented as of this encounter
--- OUTSIDE RECORDS SUMMARY | 2025-08-27 18:01 | XMS_ITS | Encounter Summary ---
Author Organization [employer] Address [address] [place] [address] 7t [place] [address] Care Team Providers Care Microsoft Crm Developer Name Role Phone James Larson MD Primary Care Provider [phone] Encounter Details Date Type Department Care Team ([facility] st Contact Info) Description 09/09/2022 Telephone [facility] CHC MED & PEDS [address] [place], [place] [phone] James Larson MD 505 [place] [address] Social History Tobacco Use Types Packs/Day Years [...] on filedocumented in this encounter Care Teams Microsoft Crm Developer Relationship Specialty Start Date End Date James Larson MD 505 [place] [address] PCP - General Internal Medicine 10/05/13 documented as of this encounter
--- OUTSIDE RECORDS SUMMARY | 2025-08-27 18:01 | XMS_ITS | Encounter Summary ---
Author Organization [employer] Address [address] [facility] 7 [place] [address] Care Team Providers Care Fisher Scallop Name Role Phone James Larson MD Primary Care Provider [phone] Reason for Visit * Reason Onset Date Comments Call Back Request 10/11/2023 Encounter Details Date Type Department Care Team ([facility] st Contact Info) Description 10/11/2023 Telephone [facility] CHC MED & PEDS [address] [place] [address] James Larson MD [address] [place] [address] Call Back Request Social History Tobacco Use [...] start it now. Please contact pt at [phone] documented in this encounter Plan of Treatment Not on file documented as of this encounter Visit Diagnoses Not on filedocumented in this encounter Additional Health Concerns Assessment Noted Time PHQ-9 Depression Total Score: 0 01/22/20 23 3:02 PM EDT documented as of this encounter Care Teams Fisher Scallop Relationship Specialty Start Date End Date James Larson MD [address] [place] [address] PCP - General Internal Medicine 10/05/13 documented as of this encounter
--- OUTSIDE RECORDS SUMMARY | 2025-08-27 18:01 | XMS_ITS | Encounter Summary ---
Author Organization [employer] Address [address] [facility] 7 [place] [address] Care Team Providers Care Ct Technologist Name Role Phone James Larson MD Primary Care Provider [phone] Reason for Visit * Reason Onset Date Comments Referral 11/17/2023 Encounter Details Date Type Department Care Team ([facility] st Contact Info) Description 11/17/2023 Telephone [facility] CHC MED & PEDS [address] [place] [address] James Larson MD 505 [place] [address] Referral Social History Tobacco Use Types Packs/Day [...] for 11/16/23 . Please contact pt @ [phone] documented in this encounter Plan of Treatment Not on file documented as of this encounter Visit Diagnoses Not on filedocumented in this encounter Additional Health Concerns Assessment Noted Time PHQ-9 Depression Total Score: 0 01/22/20 23 3:02 PM EDT documented as of this encounter Care Teams Ct Technologist Relationship Specialty Start Date End Date James Larson MD [address] [place] [address] PCP - General Internal Medicine 10/05/13 documented as of this encounter
--- OUTSIDE RECORDS SUMMARY | 2025-08-27 18:01 | XMS_ITS | Encounter Summary ---
Author Organization [employer] Address [address] [place] [address] 7 [place] [address] Care Team Providers Care Bottom Cementer Name Role Phone James Larson MD Primary Care Provider [phone] Reason for Referral * Imaging (Routine) - Authorized Specialty Diagnoses / Procedures Referred By Contac t Referred To Contact Radiology Diagnoses Hepatic steatosis Procedures US Abdomen Complete James Larson MD 505 [place] [address] Phone: tel: fax: [address] [address] Phone: tel: fax: Referral ID Status Reason Start Date Expiration Date V isits Requested Visits Authorized [id number] Authorized 07/03/2025 07/03/2026 1 1 * Consultation (Routine) - Closed Specialty Diagnoses / Procedures Referred By Contac t Referred To Contact Orthopaedic Surgery Diagnoses Closed nondisplaced fracture of distal phalanx of right ring finger, initial encounter James Larson MD 505 [place] [address] Phone: tel: fax: [facility] Orth[facility] [address] [place] [address] Dr Del Angel [address] [place] [address] Phone: tel: Referral ID Status Reason Start Date Expiration Date V isits Requested Visits Authorized [id number] Closed Specialty Services Required 07/03/2025 07/03/2026 1 1 Encounter Details Date Type Department Care Team (Late st Contact Info) Description 07/03/2025 Orders Only [facility] CHC MED & PEDS [address] [place] [address] James Larson MD 505 [place] [address] Closed nondisplaced fracture of distal phalanx of [...] AM EST Narrative 07/31/2025 10:02 AM EST [address] [address] XRay Report Signed Patient: Brenda Apple MR#: [id number] 07 : 1985 Acct:[id number] Age/Sex: 40 / F ADM Date: 07/31/25 Loc: GIRISH Attending Dr: Fernando Gurrola MD Ordering Physician: Fernando Gurrola MD Date of Service: 07/31/25 Procedure(s): XR chest 2V Accession Number(s): [id number] cc: James Larson MD; Fernando Gurrola MD [...] MD in OV> 07/31/2559 DD/ TD/TT: 07/31/25954 Spreader Box Operator: Procedure Note Donotuseinterpreter, Image - 07/31/[address] [address] XRay Report Signed Patient: Connie Apple#: [id number] [birth year] : 1985Acct:[id number] Age/Sex: 40 / FADM Date: 07/31/25 Loc: HOJUANITA Attending Dr: Fernando Gurrola MD Ordering Physician: Fernando Gurrola MD Date of Service: 07/31/25 Procedure(s): XR chest 2V Accession Number(s): [id number] cc: James Larson MD; Fernando Gurrola MD [...] MD in OV> 07/31/2559 DD/ TD/TT: 07/31/2555 Spreader Box Operator: [facility] External Provider IMG XR PROCEDURES Final Result * FL upper GI w air (07/31/2025 9:25 AM EST) Anatomical Region Laterality Modality Body Radiographic Princess ging 07/31/2025 9:25 AM EST Narrative 07/31/2025 4:30 PM EST [place] [address] Fluoroscopy Report Signed Patient: Brenda Apple MR#: [id number] [birth year] : 1985 Acct:[id number] Age/Sex: 40 / F ADM Date: 07/31/25 Loc: HO.XRAY Attending Dr: Fernando Gurrola MD Ordering Physician: Fernando Gurrola MD Date of Service: 07/31/25 Procedure(s): FL upper GI w air Accession Number(s): [id number] cc: James Larson MD; Fernando Gurrola MD [...] OV> 07/31/25 1626 DD/ 4 TD/TT: 07/31/25944 Spreader Box Operator: Procedure Note Donotuseinterpreter, Image - 07/31/[address] [address] Fluoroscopy Report Signed Patient: Connie Apple#: [id number] [birth year] : 1985Acct:[id number] Age/Sex: 40 / FADM Date: 07/31/25 Loc: HO.XRAY Attending Dr: Fernando Gurrola MD Ordering Physician: Fernando Gurrola MD Date of Service: 07/31/25 Procedure(s): FL upper GI w air Accession Number(s): [id number] cc: James Larson MD; Fernando Gurrola MD [...] 07/31/25 1626 DD/ 0925 TD/TT: 07/31/25 0945 Spreader Box Operator: KIRBY [facility] External Provider IMG FLU OROSCOPY PROCEDURES Final Result documented in this encounter Visit Diagnoses Diagnosis Closed nondisplaced fracture of distal phalanx of right ring finger, initial encounter- Primary Hepatic steatosis Other chronic nonalcoholic liver disease documented in this encounter Additional Health Concerns Assessment Noted Time PHQ-9 Depression Total Score: 10 025 3:10 PM EST documented as of this encounter Care Teams Bottom Cementer Relationship Specialty Start Date End Date James Larson MD [address] [place] [address] PCP - General Internal Medicine 10/05/13 documented as of this encounter
--- OUTSIDE RECORDS SUMMARY | 2025-08-27 18:01 | XMS_ITS | Encounter Summary ---
Author Organization [employer] Address [address] [place] [address] 7 [place] [address] Care Team Providers Care Leaf Stripper Name Role Phone James Larson MD Primary Care Provider [phone] Reason for Referral * Imaging (Routine) - Closed Specialty Diagnoses / Procedures Referred By Contnatalia hebert Referred To Contact Radiology Diagnoses Transaminitis Procedures US Abdomen Complete James Larson MD 505 [place] [address] Phone: tel: fax: [address] Phone: tel: fax: Referral ID Status Reason Start Date Expiration Date Visits Re quested Visits Authorized [id number] Closed 06/23/2024 06/23/2025 1 1 Encounter Details Date Type Department Care Team (Late st Contact Info) Description 06/23/2024 Orders Only [facility] CHC MED & PEDS [address] [place] [address] James Larson MD [address] [place] [address] Transaminitis (Primary Dx) Social History Tobacco Use [...] AM EST Narrative 10/12/2024 5:01 AM EST [facility] Care [address] [place] [address] [place] [address] Ultrasound Report Signed Patient: Brenda Apple MR#: [id number] [birth year] : 1985 Acct:[id number] Age/Sex: 39 / F ADM Date: 10/11/24 Loc: HO.HMGCX Attending Dr: James Larson MD Ordering Physician: James Larson MD Date of Service: 10/11/24 Procedure(s): US abdomen complete Accession Number(s): [id number] cc: James Larson MD CLINICAL HISTORY: transaminitis [...] 10/12/24 0500 DD/ 0459 TD/TT: 10/12/24 045 Rehab Services Aide: Procedure Note Donotuseinterpreter, Image - 10/12/2024 [facility] [address] [place] [address] [place] [address] Ultrasound Report Signed Patient: Gina AppleR#: [id number] [birth year] : 1985Acct:[id number] Age/Sex: 39 / FADM Date: 10/11/24 Loc: HO.HMGCX Attending Dr: James Larson MD Ordering Physician: James Larson MD Date of Service: 10/11/24 Procedure(s): US abdomen complete Accession Number(s): [id number] cc: James Larson MD CLINICAL HISTORY: transaminitis [...] 10/12/24 0500 DD/ 8 TD/TT: 10/12/24 045 Rehab Services Aide: us James Larson MD IMG US PROCEDURES Final Res ult documented in this encounter Visit Diagnoses Diagnosis Transaminitis- Primary Nonspecific elevation of levels of transaminase or lactic acid dehydrogenase (LDH) documented in this encounter Additional Health Concerns Assessment Noted Time PHQ-9 Depression Total Score: 0 01/22/20 23 3:02 PM EDT documented as of this encounter Care Teams Leaf Stripper Relationship Specialty Start Date End Date James Larson MD [address] [place] [address] PCP - General Internal Medicine 10/05/13 documented as of this encounter
--- OUTSIDE RECORDS SUMMARY | 2025-08-27 18:01 | XMS_ITS | Encounter Summary ---
Author Organization [employer] Address [address] [facility] 7t [place] [address] Care Team Providers Care Nylon Machine Operator Name Role Phone James Larson MD Primary Care Provider [phone] Encounter Details Date Type Department Care Team (Late st Contact Info) Description 10/30/2024 Orders Only [facility] MEDICINE [address] [place] [address] James Larson MD 505 [place], [place] [phone] Right sided abdominal pain (Primary Dx) Social [...] documented as of this encounter Care Teams Nylon Machine Operator Relationship Specialty Start Date End Date James Larson MD [address] [place] [address] PCP - General Internal Medicine 10/05/13 documented as of this encounter
--- OUTSIDE RECORDS SUMMARY | 2025-08-27 18:01 | XMS_ITS | Encounter Summary ---
Author Organization [employer] Address [address] [facility] 7 [place] [address] Care Team Providers Care Portable Grinding Machine Operator Name Role Phone James Larson MD Primary Care Provider [phone] Reason for Visit * Reason Onset Date Comments Nurse Triage 10/11/2023 Encounter Details Date Type Department Care Team ([facility] st Contact Info) Description 10/11/2023 Telephone C CHC MED & PEDS [address] [place] [address] James Larson MD 505 [place] [address] Nurse Triage Social History Tobacco Use Types [...] t he electric, gas, oil or water [employer] threatened to shut off services in your [...] . Pt is advised to come to [facility] 10/12/23 @ 340pm for provider to [...] accepted this outcome Please contact pt at [phone] documented in this encounter Plan of Treatment Not on file documented as of this encounter Visit Diagnoses Not on filedocumented in this encounter Additional Health Concerns Assessment Noted Time PHQ-9 Depression Total Score: 0 01/22/20 23 3:02 PM EDT documented as of this encounter Care Teams Portable Grinding Machine Operator Relationship Specialty Start Date End Date James Larson MD [address] [place] [address] PCP - General Internal Medicine 10/05/13 documented as of this encounter
--- OUTSIDE RECORDS SUMMARY | 2025-08-27 18:01 | XMS_ITS | Encounter Summary ---
Author Organization [employer] Address [address] [facility] 7 [place] [address] Care Team Providers Care Cardroom Drawing Runner Name Role Phone James Larson MD Primary Care Provider [phone] Encounter Details Date Type Department Care Team (Late st Contact Info) Description 03/29/2023 Telephone [facility] ADULT DENTAL [address] [place] [address] August Bridges DDS [address] [place] [address] Social History Tobacco Use Types Packs/Day Years [...] documented as of this encounter Care Teams Cardroom Drawing Runner Relationship Specialty Start Date End Date James Larson MD 505 [place] [address] PCP - General Internal Medicine 10/05/13 documented as of this encounter
--- OUTSIDE RECORDS SUMMARY | 2025-08-27 18:01 | XMS_ITS | Encounter Summary ---
Author Organization [employer] Address [address] [place] [address] 7 [place] [address] Care Team Providers Care Technical Cable Jointer Name Role Phone James Larson MD Primary Care Provider [phone] Reason for Referral * Imaging (Routine) - Closed Specialty Diagnoses / Procedures Referred By Contac t Referred To Contact Radiology Diagnoses Right sided abdominal pain Procedures CT Abdomen Pelvis w/ Contrast James Larson MD [address] [place] [address] Phone: tel: fax: [address] [address] Phone: tel: fax: Referral ID Status Reason Start Date Expiration Date Visits Re quested Visits Authorized [id number] Closed 11/16/2024 11/16/2025 1 1 Encounter Details Date Type Department Care Team (Late st Contact Info) Description 11/16/2024 Orders Only [facility] MEDICINE 230 [place] [address] James Larson MD [address] [place], [place] [phone] Right sided abdominal pain (Primary Dx) Social [...] is your housing situation today? I have nagel leandra 06/09/[address] you [...] documented as of this encounter Care Teams Technical Cable Jointer Relationship Specialty Start Date End Date James Larson MD [address] [place] [address] PCP - General Internal Medicine 10/05/13 documented as of this encounter
--- OUTSIDE RECORDS SUMMARY | 2025-08-27 18:01 | XMS_ITS | Encounter Summary ---
Author Organization [employer] Address [address] [facility] [address] 7t [place] [address] Care Team Providers Care Detective Bureau Chief Name Role Phone James Larson MD Primary Care Provider [phone] Encounter Details Date Type Department Care Team ([facility] st Contact Info) Description 12/09/2023 Orders Only [facility] CHC MED & PEDS 505 [place], [place] [phone] DrummondRikki Coronel MD 505 [place] [address] Social History Tobacco Use Types Packs/Day Years [...] documented as of this encounter Care Teams Detective Bureau Chief Relationship Specialty Start Date End Date James Larson MD [address] [place] [address] PCP - General Internal Medicine 10/05/13 documented as of this encounter
--- OUTSIDE RECORDS SUMMARY | 2025-08-27 18:02 | XMS_ITS | Encounter Summary ---
Author Organization [employer] Address [address] [facility] 7 [place] [address] Care Team Providers Care Integrity Analyst Name Role Phone James Larson MD Primary Care Provider [phone] Reason for Visit * Reason Onset Date Comments FYI 10/27/2024 Encounter Details Date Type Department Care Team ([facility] st Contact Info) Description 10/27/2024 Telephone [facility] MEDICINE 230 [place], [place] [phone] James Larson MD 505 [place] [address] FYI Social History Tobacco Use Types Packs/Day [...] 11/01/2024 3:10 PM EST TC placed to [facility] to inform that per PCP Dr. Larson there are no further details regarding pt diagnosis and clinical presentation relating to the MRI of the abdomen w/ and w/o contrast. The hotel or motel receptionist at [facility] spoke with one of the technicians who [...] MRA instead of MRI. Contact Charly at [phone] documented in this encounter Plan of Treatment Not on file documented as of this encounter Visit Diagnoses Not on filedocumented in this encounter Additional Health Concerns Assessment Noted Time PHQ-9 Depression Total Score: 10 025 3:10 PM EST documented as of this encounter Care Teams Integrity Analyst Relationship Specialty Start Date End Date James Larson MD [address] [place] [address] PCP - General Internal Medicine 10/05/13 documented as of this encounter
--- OUTSIDE RECORDS SUMMARY | 2025-08-27 18:02 | XMS_ITS | Encounter Summary ---
Author Organization [employer] Address [address] [facility] [address] [address] 7t [place] [address] Care Team Providers Care Workday Director Name Role Phone James Larson MD Primary Care Provider [phone] Encounter Details Date Type Department Care Team ([facility] st Contact Info) Description 08/27/2025 Telephone [facility] 230 [place], [place] [phone] Malinda Marquis MA Social History Tobacco Use [...] Telephone Encounter - Malinda Marquis MA - 08/27/2025 9:54 AM EST Telephone call to patient to schedule a recall appointment. No answer, Left voicemail to return call to clinic.. Recall letter sent. Visit type: Follow up Appointment notes: sql database administrator Month due: November With: Hawk Please schedule appointment above if patient returns call documented in this encounter Plan of Treatment [...] has chronic kidney disease No Karthik Taylor Patient has chronic kidney disease Care Plan Patient has chronic kidney disease No Malinda Marquis MA Patient has chronic kidney disease Care Plan Patient has chronic kidney disease No Malinda Marquis MA documented as of this encounter Visit Diagnoses Not on filedocumented in this encounter Additional Health Concerns Active Problems Noted Date Diagnosed Date Help patients manage their type 2 diabetes 07/18 Patient has chronic kidney disease 07/18/2025 Patient has chronic kidney disease 07/24/2025 Patient has chronic kidney disease 07/31/2025 Patient has chronic kidney disease 07/31/2025 Patient has chronic kidney disease 08/20/2025 Patient has chronic kidney disease 08/27/2025 Patient has chronic kidney disease 08/27/2025 Assessment Noted Time PHQ-9 Depression Total Score: 14 025 10:22 AM EST documented as of this encounter Care Teams Workday Director Relationship Specialty Start Date End Date James Larson MD [address] [place], [place] [address] [place] [address] PCP - General Internal Medicine 10/05/13 documented as of this encounter
--- OUTSIDE RECORDS SUMMARY | 2025-08-27 18:02 | XMS_ITS | Encounter Summary ---
Author Organization [employer] Address [address] [facility] [place] [address] Care Team Providers Care Bar Supervisor Name Role Phone James Larson MD Primary Care Provider [phone] Encounter Details Date Type Department Care Team (Late st Contact Info) Description 08/27/2025 Orders Only GENERIC EXTERNAL DATA DEPARTMENT Provider, Generic External Data Social History Tobacco Use Types Packs/Day Years [...] as of this encounter Plan of Treatment Pending Results Name Type Priority Associated Diagnoses Date /Time Comprehensive Metabolic Panel Lab Routine 08/27/2025 3:00 PM EST Iron And Total Iron Binding Capacity Lab Routine 08/27/2025 3:00 PM EST C-reactive Protein Lab Routine 2024 3:00 PM EST Lipid Panel, Standard Lab Routine 3:00 PM EST documented as of this encounter Goals Goal [...] Marquis MA documented as of this encounter Procedures Procedure Name Priority Date/Time Associated Diagnosis Comments CBC WITH AUTO DIFFERENTIAL Routine 08/27/2025 3:00 PM EST IRON AND TOTAL IRON BINDING CAPACITY Routine 08/27/2025 3:00 PM EST C-REACTIVE PROTEIN Routine 08/27/2025 3: 00 PM EST LIPID PANEL, STANDARD Routine 08/27/2025 3:00 PM EST COMPREHENSIVE METABOLIC PANEL Routine 08/27/2025 3:00 PM EST documented in this encounter Results * (ABNORMAL) CBC auto differential (08/27/2025 3:00 PM EST) White Blood Count 9.7 4.8 - 10.8 X10*3/uL [facility] Red Blood Count 4.93 4.20 - 5.50 X10*6/uL [facility] Hemoglobin 15.4 12.0 - 16.0 g/dl [facility] Hematocrit 45.5 37.0 - 47.0 % [facility] Mean Corpuscular Volume 92.3 80.0 - 98.0 fL [facility] Mean Corpuscular Hemoglobin 31.2 27.0 - 33.0 pg [facility] Mean Corpuscular HGB Conc 33.8 31.0 - 35.0 g/dl [facility] Red Cell Distribution Width 11.4 11.0 - 16.0 % [facility] Platelet Count 321 160 - 400 X10*3/uL [facility] Mean Platelet Volume 9.7 9.4 - 12.3 fL [facility] Neutrophils Percent Auto 74.1(H) 45 - 73 % [facility] Imm Gran Pct Auto 0.3 0.0 - 0.4 % [facility] Lymphocytes Percent Auto 18.8(L) 20 - 40 % [facility] Monocytes Percent Auto 5.9 2 - 11 % [facility] Eosinophils Percent Auto 0.7 0 - 4 % [facility] Basophils Percent Auto 0.2 0 - 2 % [facility] NRBC Pct Auto 0.0 0.0 - 0.2 /100WBC [facility] Neutrophils Absolute Auto 7.2 2.0 - 8.3 x10*3/uL [facility] Imm Gran Abs Auto 0.03 0.00 - 0.03 X10*3/uL [facility] Lymphocytes Absolute Auto 1.8 1.2 - 4.9 X10*3/uL [facility] Monocytes Absolute Auto 0.6 0.1 - 1.2 X10*3/uL [facility] Eosinophils Absolute Auto 0.1 0.0 - 0.4 X10*3/uL [facility] Basophils Absolute Auto 0.0 0.0 - 0.2 X10*3/uL [facility] NRBC Abs Auto 0.000 0.0 - 0.012 X10*3/uL [facility] 08/27/2025 3:00 PM EST 08/27/2025 3:00 PM EST us Generic External Data Provider LAB BLOOD ORDERAB LES Final Result Performing Organization Address City/State/[facility] Co de Phone Number [facility] [address] [place] [phone] documented in this encounter Visit Diagnoses Not on filedocumented [...] documented as of this encounter Care Teams Bar Supervisor Relationship Specialty Start Date End Date James Larson MD [address] [place] [phone] PCP - General Internal Medicine 10/05/13 documented as of this encounter
--- OUTSIDE RECORDS SUMMARY | 2025-08-27 18:02 | XMS_ITS | Encounter Summary ---
Author Organization [employer] Address [address] [facility] [address] [place] [address] Care Team Providers Care Hook Loader Name Role Phone James Larson MD Primary Care Provider [phone] Encounter Details Date Type Department Care Team ([facility] st Contact Info) Description 08/27/2025 Telephone [facility] [address] [place], [place] [phone] Malinda Marquis MA Social History Tobacco Use [...] Care Plan Patient has chronic kidney disease Malinda Kinsey MA Patient has chronic kidney disease Care Plan Patient has chronic kidney disease Malinda Kinsey MA documented as of this encounter Visit [...] documented as of this encounter Care Teams Hook Loader Relationship Specialty Start Date End Date James Larson MD [address] [place] [phone] PCP - General Internal Medicine 10/05/13 documented as of this encounter
--- OUTSIDE RECORDS SUMMARY | 2025-08-27 18:02 | XMS_ITS | Encounter Summary ---
Author Organization [employer] Address [address] [facility] [address] [place] [address] Care Team Providers Care Lubrication Technician Name Role Phone James Larson MD Primary Care Provider [phone] Encounter Details Date Type Department Care Team ([facility] st Contact Info) Description 12/11/2024 Orders Only [facility] [address] [place], [place] [phone] James Larson MD [address] [place] [address] Type 2 diabetes mellitus without complication, without [...] complication, without long-term current use of insulin ([facility]) documented in this encounter Results * T-SPOT??.TB (12/11/2024 1:17 PM EDT) [facility] T Spot TB Negative Negative [facility] Comment:A negative test resu lt [...] as aquantitative test. TS PANEL A 0 [facility] TS PANEL B 0 [facility] Negative Control Passed [facility] Positive Control Passed [facility] Comment:For additional infor mation, please refer [email or web address].[email or web address]/faq/[email or web address](This link is being provided for informational/educational purposes only.)REPORT COMMENT:[facility] WAS PERFORMED AT:[employer] [id number] [place] [id number] ARMANDO MD,PHD 12/11/2024 1:17 PM EDT 12/11/2024 1:56 PM EDT us James Larson MD LAB BLOOD ORDERABLES Final Result [facility] [address] [place] [phone] documented in this encounter Visit Diagnoses Diagnosis Type 2 diabetes mellitus without complication, without long-term current use of insulin (HCC)- Primary documented in this encounter Additional Health Concerns Assessment Noted Time PHQ-9 Depression Total Score: 10 025 3:10 PM EST documented as of this encounter Care Teams Lubrication Technician Relationship Specialty Start Date End Date James Larson MD [address] [place] [phone] PCP - General Internal Medicine 10/05/13 documented as of this encounter
--- OUTSIDE RECORDS SUMMARY | 2025-08-27 18:02 | XMS_ITS | Clinical Summary ---
Author Organization [facility] Address [address] [place] [address] Care Team Providers Care Short Filler Bunch Machine Operator Name Role Phone James Larson MD Primary Care Provider [phone] Allergies No known active allergies Medications glucose-vitamin C 4-6 GM-MG oral gel 1 tablet to use in case of symptoms of hypoglycemia or if FS<70 mg/dl 021 Active Alcohol Swabs (Alcohol Prep) pads Active Misc. Devices (Wrist Brace) misc Active Continuous Glucose Home Attendant (FreeStyle Jorje 2 [place]) deviceIndicatio ns:Type 2 diabetes mellitus without complication, without long-term current use of insulin ([facility]) Scan sensor every 8 hours 1 each 024 Active Continuous Glucose Sensor (FreeStyle Jorje 2 Sensor) miscIndications :Type 2 diabetes mellitus without complication, without long-term current use of insulin ([facility]) Apply 1 sensor every 14 days 2 each Active Blood Glucose Monitoring Suppl (FreeStyle Lite) w/Device kitIndications: Type 2 diabetes mellitus without complication, without long-term current use of insulin ([facility]) 1 Units Once per day. 1 kit 024 Active Lancets miscIndications :Type 2 diabetes mellitus without complication, without long-term current use of insulin ([facility]) Use to test blood sugar 2 times [...] complication, without long-term current use of insulin ([facility]),Obesity, Class I, BMI 30.0-34.9 (see actual BMI) Inject 0.25 mg under the skin every 7 (seven) days. 3 mL 1 025 2024 Discontinued psyllium (Metamucil 3 in 1 Daily Fiber) 400 MG capsuleIndicati ons:Other constipation Take 6 capsules (2.4 g) by mouth Once per day. 180 capsule 025 2024 Discontinued(T herapy completed) amoxicillin-cla vulanate (Augmentin) 875-125 MG tablet Take 1 tablet by mouth 2 times daily. 14 tablet 025 2024 Discontinued(T herapy completed) ibuprofen 800 MG tablet Take 1 tablet (800 mg) by mouth if needed in the morning, at noon, and at bedtime for mild pain. 15 tablet 2024 Discontinued(T herapy completed) hydrOXYzine pamoate (Vistaril) 25 MG capsuleIndicati ons:Depression with anxiety TAKE ONE CAPSULE BY MOUTH EVERY 12 HOURS NEEDED FOR ANXIETY 60 capsule 1 025 2024 Discontinued(T herapy completed) Ozempic, 0.25 or 0.5 MG/DOSE, 2 MG/3ML solution pen-injectorInd ications:Type 2 diabetes mellitus without complication, without long-term current use of insulin ([facility]),Obesity, Class I, BMI 30.0-34.9 (see actual BMI) INJECT 0.25 MG SUBCUTANEOUSLY ONCE A WEEK 3 mL 1 025 2024 Discontinued(T herapy completed) chlorhexidine (Peridex) 0.12 % solutionIndicat ions:Halitosis Use 15 mL in the mouth or throat if needed for wound care for up to 14 days. 473 mL 08/01/20 25 1:00 PM EST 025 2024 Active Problems Problem Noted Date Diagnosed [...] Encounters Date Type Department Care Team Description 08/27/2025 Orders Only GENERIC EXTERNAL DATA DEPARTMENT Provider, Generic External Data 08/27/2025 Telephone [facility] [address] [place] [phone] Malinda Marquis [place] 08/27/2025 Telephone [facility] [address] [address] Malinda Marquis [place] 08/20/2025 Telephone [facility] [address] [place] [address] James Larson MD Referral 07/31/2025 3:15 PM EST Office Visit [facility] [address] [place] [address] James Larson MD Type 2 diabetes mellitus without complication, without long-term current use of insulin (HCC) (Primary Dx); Essential hypertension; Encounter for immunization; Halitosis; Bilateral impacted cerumen 07/31/2025 Telephone [facility] [address] [place] [address] Desirae Kelley, DION Error (VOID this visit) 07/31/2025 Travel 07/29/2025 Refill [facility] [address] [place] [address] [phone] James Larson MD Type 2 diabetes mellitus without complication, without long-term current use of insulin (HCC); Obesity, Class I, BMI 30.0-34.9 (see actual BMI) 07/24/2025 Patient Outreach [address] [address] James Larson MD Pre-visit Planning (Pre visit planning LVM ) 07/17/2025 Refill [facility] [address] [place] [address] James Larson MD Depression with anxiety 07/11/2025 Results Follow-Up [address] [address] Tresa Arechiga CNM Bacterial Vaginosis Panel, Chlamydia/N. Gonorrhoeae RNA, TMA, Vagina 07/10/2025 10:00 AM EST Office Visit [address] [address] Tresa Arechiga CNM Vaginal discharge (Primary Dx); Screening examination for venereal disease 07/10/2025 Patient Outreach [address] [address] James Larson MD Pre-visit Planning (Pre visit planning LVM ) 07/10/2025 Travel 07/09/2025 Telephone [facility] [address] [place] [phone] Malinda Marquis [place] 07/09/[address] [address] James Larson MD triage 07/06/2025 Telephone [facility] [address] [place] [phone] James Larson MD No Show 07/05/2025 Telephone [facility] [address] [place] [address] James Larson MD Chart Prep 07/03/2025 Results Follow-Up [facility] [address] [place] [phone] James Talamantes MD XR KUB and Upright 2 Views 07/03/2025 Results Follow-Up [facility] [address] [place] [address] James Talamantes MD XR Hand 3+ Views Right 07/03/2025 Orders Only [facility] [address] [place] [address] James Larson MD Closed nondisplaced fracture of distal phalanx of right ring finger, initial encounter (Primary Dx); Hepatic steatosis 07/03/2025 Telephone [facility] [address] [place] [address] James Larson MD Referral 06/29/2025 Patient Outreach [facility] [address] [place] [phone] James Larson MD Pre-visit Planning (Pre visit planning LVM ) 06/21/2025 Telephone [facility] [address] [place] [address] James Larson MD 06/21/2025 Telephone [facility] [address] [place] [address] James Larson MD Chart Prep 06/14/2025 Patient Outreach [address] [address] James Larson MD Pre-visit Planning (SDIA screening completed on 10/25/24) 05/29/[address] [address] James Larson MD No Show from Last 3 Months Immunizations Immunization Administration [...] Disability Screening 03/21/2026 03/21/2025 Lipid Panel 03/21/2026 08/27/2025, 03/21/2025 Family Planning (PISQ) 07/10/2026 07/10/2025 Tobacco [...] has chronic kidney disease No Desirae Kelley, RN Patient has chronic kidney disease Care Plan Patient has chronic kidney disease No Karthik Taylor Patient has chronic kidney disease Care Plan Patient has chronic kidney disease No Malinda Marquis [place] Patient has chronic kidney disease Care Plan Patient has chronic kidney disease No Malinda Marquis MA Procedures Procedure Name Priority Date/Time Associated Diagnosis Comments LIPID PANEL, STANDARD Routine 08/27/2025 3:00 PM EST C-REACTIVE PROTEIN Routine 08/27/2025 3: 00 PM EST IRON AND TOTAL IRON BINDING CAPACITY Routine 08/27/2025 3:00 PM EST COMPREHENSIVE METABOLIC PANEL Routine 08/27/2025 3:00 PM EST CBC WITH AUTO DIFFERENTIAL Routine 08/27/2025 3:00 PM EST POCT GLUCOSE (CPT-13321) Routine 07/31/2025 4:04 PM EST Type 2 [...] discharge XR HAND 3+ VIEWS RIGHT Routine 1:46 PM EDT Injury of right ring finger, initial encounter XR KUB AND UPRIGHT 2 VIEWS Routine 07/03/2025 1:40 PM EDT Other constipation Generalized abdominal pain THINPREP IMAGING PAP AND HPV MRNA E6/E7, WITH CT/NG, TRICHOMONAS Routine 08/11/2022 5:19 PM EST PANORAMIC RADIOGRAPHIC IMAGE Routine 01/13/2021 12:00 AM EDT ALBUMIN, RANDOM URINE W/CREATININE Routine 08/07/2020 2:58 PM EST from Last 3 Months or Most Recently Relevant to Health Maintenance Results * (ABNORMAL) CBC auto differential (08/27/2025 3:00 PM EST) White Blood Count 9.7 4.8 - 10.8 X10*3/uL [facility] Red Blood Count 4.93 4.20 - 5.50 X10*6/uL [facility] Hemoglobin 15.4 12.0 - 16.0 g/dl [facility] Hematocrit 45.5 37.0 - 47.0 % [facility] Mean Corpuscular Volume 92.3 80.0 - 98.0 fL [facility] Mean Corpuscular Hemoglobin 31.2 27.0 - 33.0 pg [facility] Mean Corpuscular HGB Conc 33.8 31.0 - 35.0 g/dl [facility] Red Cell Distribution Width 11.4 11.0 - 16.0 % [facility] Platelet Count 321 160 - 400 X10*3/uL [facility] Mean Platelet Volume 9.7 9.4 - 12.3 fL [facility] Neutrophils Percent Auto 74.1(H) 45 - 73 % [facility] Imm Gran Pct Auto 0.3 0.0 - 0.4 % [facility] Lymphocytes Percent Auto 18.8(L) 20 - 40 % [facility] Monocytes Percent Auto 5.9 2 - 11 % [facility] Eosinophils Percent Auto 0.7 0 - 4 % [facility] Basophils Percent Auto 0.2 0 - 2 % [facility] NRBC Pct Auto 0.0 0.0 - 0.2 /100WBC [facility] Neutrophils Absolute Auto 7.2 2.0 - 8.3 x10*3/uL [facility] Imm Gran Abs Auto 0.03 0.00 - 0.03 X10*3/uL [facility] Lymphocytes Absolute Auto 1.8 1.2 - 4.9 X10*3/uL [facility] Monocytes Absolute Auto 0.6 0.1 - 1.2 X10*3/uL [facility] Eosinophils Absolute Auto 0.1 0.0 - 0.4 X10*3/uL [facility] Basophils Absolute Auto 0.0 0.0 - 0.2 X10*3/uL [facility] NRBC Abs Auto 0.000 0.0 - 0.012 X10*3/uL [facility] 08/27/2025 3:00 PM EST 08/27/2025 3:00 PM EST us Generic External Data Provider LAB BLOOD ORDERAB LES Final Result [facility] [address] [place] [phone] * (ABNORMAL) POCT Glucose (07/31/2025 4:04 PM EST) Pathologist [facility] Glucose Blood, POC 229(A) 60 - 200 mg/dL QC Media Lot # [id number] Lot# Expiration Date [id number] Comment:random Blood Capillary blood specimen / Unknown 07/31/2025 4:04 PM EST us Thevenin Beauzile MD POINT OF CARE TEST ENTER/ED IT ORDERABLES Final Result * (ABNORMAL) POCT Hgb A1c (07/31/2025 4:03 PM EST) Hemoglobin A1C 8.4(A) 4.0 - 5.7 % QC Media Lot # [id number] Lot# Expiration Date [id number] Blood 07/31/2025 4:03 PM EST James Larson MD POINT OF CARE TEST ENTER/ED IT ORDERABLES Edited Result - Final * XR Chest 2 Views (07/31/2025 9:50 AM EST) Anatomical Region Laterality Modality Chest Radiographic Princess ging 07/31/2025 9:50 AM EST Narrative 07/31/2025 10:02 AM EST [place] [address] XRay Report Signed Patient: Brenda Apple MR#: [id number] [birth year] : 1985 Acct:[id number] Age/Sex: 40 / F ADM Date: 07/31/25 Loc: GIRISH Attending Dr: Fernando Gurrola MD Ordering Physician: Fernando Gurrola MD Date of Service: 07/31/25 Procedure(s): XR chest 2V Accession Number(s): [id number] cc: James Larson MD; Fernando Gurrola MD [...] signed by Hoang Goldberg MD in OV> 07/31/25958 DD/ 9 TD/TT: 07/31/25954 Counter Stitcher: Procedure Note Donotuseinterpreter, Image - 07/31/[address] [address] XRay Report Signed Patient: Connie Apple#: [id number] [birth year] : 1985Acct:[id number] Age/Sex: 40 / FADM Date: 07/31/25 Loc: HOJUANITA Attending Dr: Fernando Gurrola MD Ordering Physician: Fernando Gurrola MD Date of Service: 07/31/25 Procedure(s): XR chest 2V Accession Number(s): [id number] cc: James Larson MD; Fernando Gurrola MD [...] signed by Hoang Goldberg MD in OV> 07/31/25958 DD/ 9 TD/TT: 07/31/25954 Counter Stitcher: [facility] External Provider IMG XR PROCEDURES Final Result * FL upper GI w air (07/31/2025 9:25 AM EST) Anatomical Region Laterality Modality Body Radiographic Princess ging 07/31/2025 9:25 AM EST Narrative 07/31/2025 4:30 PM EST [address] [address] Fluoroscopy Report Signed Patient: Brenda Apple MR#: [id number] [birth year] : 1985 Acct:[id number] Age/Sex: 40 / F ADM Date: 07/31/25 Loc: HO.XRAY Attending Dr: Fernando Gurrola MD Ordering Physician: Fernando Gurrola MD Date of Service: 07/31/25 Procedure(s): FL upper GI w air Accession Number(s): [id number] cc: James Larson MD; Fernando Gurrola MD [...] Abhinav Robertson MD 07/31/2025 04:26 PM EST Dictated By: Abhinav Robertson MD Signed By: <Electronically signed by Abhinav Robertson MD in OV> 07/31/25 1626 DD/ 4 TD/TT: 07/31/25944 Counter Stitcher: KIRBY Procedure Note Donotuseinterpreter, Image - 07/31/[address] [address] Fluoroscopy Report Signed Patient: Connie Apple#: [id number] [birth year] : 1985Acct:[id number] Age/Sex: 40 / FADM Date: 07/31/25 Loc: HO.XRAY Attending Dr: Fernando Gurrola MD Ordering Physician: Fernando Gurrola MD Date of Service: 07/31/25 Procedure(s): FL upper GI w air Accession Number(s): [id number] cc: James Larson MD; Fernando Gurrola MD [...] Abhinav Robertson MD 07/31/2025 04:26 PM EST Dictated By: Abhinav Robertson MD Signed By: <Electronically signed by Abhinav Robertson MD in OV> 07/31/25 1626 DD/ TD/TT: 07/31/25 0945 Counter Stitcher: KIRBY [facility] External Provider IMG FLU OROSCOPY PROCEDURES Final Result * Syphilis Screen (07/10/2025 10:58 AM EST) Syphilis Screen Nonreactive Nonreactive [facility] Blood Venous blood specimen / Unknown 07/10/2025 10:58 AM EST 07/10/2025 12:09 PM EST [facility]ABLES Cleopatra l Result Performing Organization Address [facility]/ZIP Co de Phone Number [facility] [address] [place] [phone] * Hepatitis C Antibody with Reflex to HCV, RNA, Quantitative, Real-Time PCR (07/10/2025 10:58 AM EST) Hepatitis C Antibody Nonreactive Nonreactive [facility] Comment:Antibodies to HCV no t detected; does not exclude early acuteHCV infection. Blood Venous blood specimen / Unknown 07/10/2025 10:58 AM EST 07/10/2025 12:[address] [facility] BLOOD ORDERABLES Cleopatra l Result Performing Organization Address [facility] Co de Phone Number [facility] [address] [place] [phone] * HIV-1/2 Antigen and Antibodies, Fourth Generation, with Reflexes (07/10/2025 10:58 AM EST) HIV AB/AG Nonreactive Nonreactive [facility] Comment:HIV-1 p24 Ag and/or HIV-1/HIV-2 Ab not detected.A test result that is nonreactive does not exclude thepossibility of exposure to or infection with HIV-1 and/orHIV-2. Nonreactive results in this assay for individualswith prior exposure to HIV-1 and/or HIV-2 may be due toantigen and antibody levels that are below the limit ofdetection of this assay.The [employer] HIV Ag/Ab Combo assay result andsupplemental assay results should be interpreted inconjunction with the patient's clinical presentation,history and other laboratory results. If the results areinconsistent with clinical evidence, additional testing issuggested to confirm the result. Blood Venous blood specimen / Unknown 07/10/2025 10:58 AM EST 07/10/2025 12:09 PM EST [facility] LAB BLOOD ORDERABLES Cleopatra l Result Performing Organization Address [facility]/ZIP Co de Phone Number [facility] [address] [place] [phone] * POCT fern test, vaginal fluid manually resulted (07/10/2025 10:41 AM EST) [facility] Prep Positive Comment:pH 4.5, neg whiff, n eg clue, neg trich, neg wbc, pos hyphae Vaginal Fluid Vaginal structure / Unknown 07/10/2025 10:41 AM EST [facility] POINT OF CARE TEST ENTER/ EDIT ORDERABLES Final Result * Bacterial Vaginosis Panel (07/10/2025 12:00 AM EST) TRICHOMONAS VAGINALIS DETECTION BY PCR NOT DETECTED Not Detect [facility] BACTERIAL VAGINOSIS DETECTION BY PCR NEGATIVE Negative [facility] Comment:The BV organism targ ets of [...] DETECTION BY PCR NOT DETECTED Not Detect [facility] Yary glab krusei PCR NOT DETECTED Not Detect [facility] Swab Vaginal structure / Unknown 07/10/2025 07/10/2025 [facility] LAB MICROBIOLOGY - GENERA L ORDERABLES Final Result Performing Organization Address City/[facility]/ZIP Co de Phone Number [facility] [address] [place] [phone] * Chlamydia/N. Gonorrhoeae RNA, TMA, Vagina (07/10/2025 12:00 AM EST) CT PCR NOT DETECTED Not Detect. [facility] Comment:A not detected test result does [...] psychologicalconsequences. NG PCR NOT DETECTED Not Detect. [facility] Comment:A not detected test result does [...] / Unknown 07/10/2025 07/10/2025 us Tresa Arechiga CNM LAB MICROBIOLOGY - GENERA L ORDERABLES Final Result [facility] [address] [place] [phone] [phone] * XR Hand 3+ Views Right (07/03/2025 1:46 PM EDT) Anatomical Region Laterality Modality Upper Extremities, Hand Right Radiogra phic Imaging 07/03/2025 1:46 PM EDT Narrative 07/03/2025 1:55 PM EDT [address] [address] XRay Report Signed Patient: Brenda Apple MR#: [id number] [birth year] : 1985 Acct:[id number] Age/Sex: 40 / F ADM Date: 07/03/25 Loc: HO.XRAY Attending Dr: James Larson MD Ordering Physician: Silvia Norman MD Date of Service: 07/03/25 Procedure(s): XR hand RT min 3V Accession Number(s): [id number] cc: Silvia Norman MD; James Larson MD [...] 07/03/25 1352 DD/ 1346 TD/TT: 07/03/25 1348 Counter Stitcher: Procedure Note Donotuseinterpreter, Image - 07/03/[address] [address] XRay Report Signed Patient: Gina AppleR#: [id number] [birth year] : 1985Acct:[id number] Age/Sex: 40 / FADM Date: 07/03/25 Loc: HO.XRAY Attending Dr: James Larson MD Ordering Physician: Silvia Norman MD Date of Service: 07/03/25 Procedure(s): XR hand RT min 3V Accession Number(s): [id number] cc: Silvia Norman MD; James Larson MD [...] 07/03/25 1352 DD/ 1346 TD/TT: 07/03/25 1348 Counter Stitcher: us Silvia Alejandro MD IMG XR PROCEDURES Fin al Result * XR KUB and Upright 2 Views (07/03/2025 1:40 PM EDT) Anatomical Region Laterality Modality Radiographic Princess ging 07/03/2025 1:40 PM EDT Narrative 07/03/2025 1:55 PM EDT [address] [address] XRay Report Signed Patient: Brenda Apple MR#: [id number] [birth year] : 1985 Acct:[id number] Age/Sex: 40 / F ADM Date: 07/03/25 Loc: HO.XRAY Attending Dr: James Larson MD Ordering Physician: James Larson MD Date of Service: 07/03/25 Procedure(s): XR KUB Accession Number(s): [id number] cc: James Larson MD Reason for Exam: [...] 07/03/25 1352 DD/ 1340 TD/TT: 07/03/25 1348 Counter Stitcher: Procedure Note Donotuseinterpreter, Image - 07/03/2025 [place] [address] XRay Report Signed Patient: Connie Apple#: [id number] [birth year] : 1985Acct:[id number] Age/Sex: 40 / FADM Date: 07/03/25 Loc: GIRISH Attending Dr: James Larson MD Ordering Physician: James Larson MD Date of Service: 07/03/25 Procedure(s): XR KUB Accession Number(s): [id number] cc: James Larson MD Reason for Exam: [...] 07/03/25 1352 DD/ 1340 TD/TT: 07/03/25 1348 Counter Stitcher: James Larson MD IMG XR PROCEDURES Final Res ult * Thinprep TIS PAP And HPV mRNA E6/E7, CT/NG, TRICH (08/11/2022 5:19 PM EST) Clinical Information: None given [facility] LMP: NONE GIVEN [facility] Prev. PAP: NONE GIVEN [facility] Prev. BX: NONE GIVEN [facility] SOURCE: None given [facility] Statement Of Adequacy: [facility] Comment: Satisfactory for evaluation. Endocervical/transformation zone component present. Age and/or menstrual status not provided Interpretation/Re sult: Negative for intraepithelial lesion or malignancy. [facility] Comment: This Pap test has been evaluated with computer assisted technology. [facility] Manufacturing Operations Manager: Bart lewis [employer] Comment: MSM, CT(ASCP) CT screening location: [place] [address] (Always Message) [facility] Comment: EXPLANATORY NOTE: The Pap is a [...] HPV nRNA E6/E7 Not Detected Not Detected [facility] Comment: Methodology: Casing Man-Mediated Amplification This assay detects E6/E7 viral messenger RNA (mRNA) from 14 high-risk HPV types (16,18,31,33,35,39,45,51,52,56,58,59,66,68). Cervical sources are required for HPV testing. If a vaginal source from a patient who has had a total hysterectomy with removal of cervix was submitted, please contact the testing laboratory for alternative testing options. For additional information, please refer to http://AdECN.Passman/faq/LPL446g4 (This link if provided for information/ educational purposes only.) Chlamydia trachomatis RNA, TMA, Urogenital NOT DETECTED NOT DETECTED [facility] Neisseria gonorrhoeae RNA, TMA, Urogenital NOT DETECTED NOT DETECTED [facility] Comment [facility] Comment: The analytical performance characteristics of this assay, when used to test SurePath(TM) specimens have been determined by [facility]. The modifications have not been cleared or approved by the FDA. This assay has been validated pursuant to the CLIA regulations and is used for clinical purposes. For additional information, please refer to https://MyMedMatch/faq/WLR807 (This link is being provided for information/ educational purposes only.) Trichomonas vaginalis, QL, TMA, PAP Vial NOT DETECTED NOT DETECTED [facility] Comment: The analytical performance characteristics of this assay have been determined by [facility]. The modifications have not been cleared or approved by the FDA. This assay has been validated pursuant to the CLIA regulations and is used for clinical purposes. For additional information, please refer to http://MyMedMatch/ faq/Trichomonastma (This link is being provided for information/ educational purposes only.) 08/11/2022 5:19 PM EST 08/12/2022 8:03 AM EST Narrative [facility] - 08/14/2022 9:39 AM EST FASTING: UNKNOWN us Tresa Arechiga CNM LAB PATHOLOGY ORDERABLES Final Result [facility] [address], [place] [address] [facility] [address], [place] [address] [facility] [address] [place] [address], [place] [address] * (ABNORMAL) ALBUMIN, RANDOM URINE W/CREATININE (08/07/2020 [...] Larson MD LAB URINE ORDERABLES Final Result Performing Organization Address City/[facility]/ZIP Co de Phone Number [facility] [address] from Last 3 Months or Most [...] 08/27/2025 Patient has chronic kidney disease 08/27/2025 Insurance [facility] Care Teams Short Filler Bunch Machine Operator Relationship Specialty Start Date End Date James Larson MD [address] [place] [address] EBST [place] [address] PCP - General Internal Medicine 10/05/13
[2025-08-27 18:12] LABS: Ferritin 291 ng/mL (10-122)
[2025-08-27 18:22] LABS: Folate 10.1 ng/mL (> or = 4.0); Vitamin B12 558 pg/mL (200-900)
== END 2025-08-27 14:44 | disposition home or self-care (01) ==
LOC: HO.LAB 14:43
PROVIDERS: PCP Internal Medicine; Visit Provider Surgery
DX: E66.9 Obesity, unspecified (principal); Z68.31 Body mass index [BMI] 31.0-31.9, adult; K76.0 Fatty (change of) liver, not elsewhere classified; Z13.1 Encounter for screening for diabetes mellitus; Z13.29 Encounter for screening for other suspected endocrine disorder
CPT/HCPCS: 36415; 80053; 80061; 82306; 82607; 82728; 82746; 83036; 83525; 83540; 84425; 84443; 84590; 84630; 85025; 86140; 93005

== ENCOUNTER → 2025-08-27 15:00 | Outpatient (BNV) | payer OTHER, SELFPAY | PROVIDERS: PCP Internal Medicine; Visit Provider Internal Medicine Cardiovascular Disease | DX: E66.9 Obesity, unspecified (principal); Z68.31 Body mass index [BMI] 31.0-31.9, adult | CPT/HCPCS: 93010 ==